=== PATIENT | female | born 1995 | race Caucasian/White ===

== ENCOUNTER → 2019-10-10 11:34 | Outpatient (BNVA) | payer MEDICAID, SELFPAY | PROVIDERS: Family Provider Nurse Practitioner; PCP Nurse Practitioner Family; Visit Provider Nurse Practitioner Family | DX: K64.4 Residual hemorrhoidal skin tags (principal); E66.01 Morbid (severe) obesity due to excess calories; M54.9 Dorsalgia, unspecified; F41.1 Generalized anxiety disorder; N93.9 Abnormal uterine and vaginal bleeding, unspecified; E28.2 Polycystic ovarian syndrome; N76.0 Acute vaginitis; K64.9 Unspecified hemorrhoids; B96.89 Other specified bacterial agents as the cause of diseases classified elsewhere | CPT/HCPCS: 81003 ==

== ENCOUNTER 2019-10-31 12:36 | Outpatient (CLI) | payer MEDICAID, SELFPAY ==
--- NOTE | 2019-10-31 | XR_ITS ---
WS: [id number] RIGHT SECOND FINGER 3 VIEW TECHNIQUE: PA, oblique and lateral. HISTORY: HIT INDEX FINGER WITH HAMMER COMPARISON: None available. No fracture, dislocation or joint abnormality. No significant soft tissue swelling. XR/XR finger RT min 2V [id number] IMPRESSION: Negative second finger.
== END 2019-10-31 12:37 | disposition home or self-care (01) ==
LOC: RADOUTREAD 12:39
PROVIDERS: Family Provider Nurse Practitioner; PCP Nurse Practitioner Family; Visit Provider Nurse Practitioner Family
DX: Z76.89 Persons encountering health services in other specified circumstances (principal)

== ENCOUNTER 2019-11-08 09:10 | Day surgery (SDC) | payer MEDICAID, SELFPAY ==
[2019-11-07 14:25] VITALS: BMI 50.1
[2019-11-08] VITALS (8 sets, daily range): BP systolic 137–161; BP diastolic 73–94; PULSE 82–103; RESP 16–20; TEMP 36.6–37.1; O2SAT 93–97
[2019-11-08 09:56] LABS: OR HCG Qualitative Urine Negative (Negative)
[2019-11-08] MEDS: sodium chloride 0.9% 1,000 ML 30 ML IV (10:00)
--- NOTE | 2019-11-08 10:00 | ANES.PREANE2 ---
Pre-Anesthetic Assessment Pre-Anesthetic Assessment: Height/Weight: Height 1.71 m Weight 147.418 kg Temp Pulse Resp BP Pulse Ox 97.9 F 103 H 18 150/92 96 11/08/19 09:28 11/08/19 09:28 11/08/19 09:28 11/08/19 09:28 11/08/19 09:28 Preop Diagnosis: left medial meniscal tear Proposed Procedure: Operation Date: 11/08/19 10:40 Proposed Procedures p Left knee arthroscopy with medial meniscectomy (98493) S83.242A(Left) - Kin Becerril MD Last intake: Intake Last Liquid Date 11/07/19 Last Liquid Time 21:00 Last Solid Date 11/07/19 Last Solid Time 21:00 Social: Packs per day: 1/2 Pack years: 4 Exam: Pre-Anes Outpt Exam: alert, oriented x 3, clear to auscultation bilaterally and regular rate & rhythm Airway: Submandibular: WNL Cervical ROM: WNL MP: 1 Dentition: False GI: GI: GERD and Hiatus hernia Comments: controlled Metabolic: Metabolic: Morbid obesity Musc/skel: Musc/skel: Lower Back Pain Comments: right radiculopathy Neuropsych: Neuropsych: SIMS PFSH Anesthesia PFSH: Medical History (Updated 10/31/19 @ 10:12 by Kin Becerril MD) Gastro-esophageal reflux disease with esophagitis Generalized anxiety disorder Anoop's disease Peptic ulcer disease Polycystic ovarian syndrome Surgical History (Updated 10/10/19 @ 13:40 by ALEA Jones) History of appendectomy History of cholecystectomy Family History (Updated 10/09/19 @ 15:46 by Maye Stack LPN) Mother Pulmonary embolism Thyroid disease Stroke Hypertension Hyperlipidemia Diabetes Father Diabetes Hyperlipidemia Grandmother Cancer MATERNAL: BRAIN Social History (Updated 10/10/19 @ 11:03 by Ruthie Barron LPN) Smoking and tobacco status: current every day smoker cigarettes Packs smoked per day: 0.5 Years cigarettes smoked: 4 Second hand smoke exposure: No Smoking risk assessment/counseling performed?: Yes Alcohol intake: never Lives independently: Yes Housing: Apartment Marital status: Single Number of children: 2 Female Reproductive History: Para: 2 Data Anesthesia Other Labs: Laboratory Results - last 48 hr 11/08/19 09:25 Urine HCG, Qual Negative Cardiac Studies: No Data to Display
[2019-11-08] MEDS: midazolam 1 mg/mL INJ 2 mL 2 MG IVP (10:11)
[2019-11-08] MEDS: midazolam 1 mg/mL INJ 5 ML 2 MG IV (11:37)
--- NOTE | 2019-11-08 12:13 | PM.HPUD ---
H&P update H&P Update: DATE OF SURGERY/PROCEDURE: 11/08/19 DATE H&P PERFORMED: 10/31/19 H&P UPDATE INFORMATION: H&P completed within last 30 days PREOP DIAGNOSIS: left medial meniscal tear PRIMARY INDICATION FOR PROCEDURE: Left knee pain with meniscal tear per MRI PLANNED PROCEDURE: Operation Date: 11/08/19 10:40 Proposed Procedures p Left knee arthroscopy with medial meniscectomy (49803) S83.242N(Left) - Kin Becerril MD Full H&P Medications/Allergies: Current Medications: Current Medications Generic Name Dose Route Start Last Admin Trade Name Freq PRN Reason Stop Dose Admin Sodium Chloride 1,000 mls @ 30 ml s/hr 11/08/19 09:15 11/08/19 10:00 Sodium Chloride 0.9% IV 11/09/19 09:14 30 mls/hr .Q24H ROSENDO Administration Perinent History: Medical/Surgical History: Medical History (Updated 10/31/19 @ 10:12 by Kin Becerril MD) Gastro-esophageal reflux disease with esophagitis Generalized anxiety disorder Anoop's disease Peptic ulcer disease Polycystic ovarian syndrome Family History: Family History (Updated 10/09/19 @ 15:46 by Maye Stack LPN) Mother Pulmonary embolism Thyroid disease Stroke Hypertension Hyperlipidemia Diabetes Father Diabetes Hyperlipidemia Grandmother Cancer MATERNAL: BRAIN Social History: Social History Smoking and tobacco status: current every day smoker cigarettes Packs smoked per day: 0.5 Years cigarettes smoked: 4 Second hand smoke exposure: No Smoking risk assessment/counseling performed?: Yes Alcohol intake: never Lives independently: Yes Housing: Apartment Marital status: Single Number of children: 2
[2019-11-08] MEDS: clindamycin 600 MG/50 ML PREMIX 100 MG IV (12:37)
[2019-11-08] MEDS: morphine 4 mg/mL SDV 1 mL 8 MG IVP (13:23)
--- NOTE | 2019-11-08 13:40 | PM.OP ---
Operative Report Date of procedure: November 08, 2019 Pre-op Diagnosis: left medial meniscal tear Post-op diagnosis: other Post-op Diagnosis: Left medial meniscal tear Chondromalacia left patella Post-op Findings: Same Procedure Done: Arthroscopic left medial meniscectomy, chondroplasty left patella Pathology: none sent Surgeon: Kin Becerril Anesthesia: General Estimated blood loss (mL): 10 Complications: None Findings: The patient had a complex tear involving the central 50% of the middle and posterior third of the medial meniscus. It consisted of a longitudinal tear with central degeneration. Tearing involves approximately 50% of the meniscus Condition: stable Procedure: The patient was taken to the operating room and given a general anesthesia. She was prepped and draped in the usual fashion. Her knee was infiltrated with 30 cc of 0.5% Marcaine and 10 mg of morphine. The knee was entered through standard inferior medial and inferolateral portals. The diagnostic portion of arthroscopy was performed. The medial meniscus was probed revealing the area of tearing. The tear appeared to involve a manageable amount of meniscus with very poor vascularity. Decision was made to proceed with meniscectomy. A straight basket was used to debride back the central 50% of the middle and posterior thirds of the meniscus. The rim was then cleaned up with an incisor shaver and [employer]rew[employer] probe. This left approximately 50% of the meniscus behind. There is no specific chondromalacia no lateral meniscal tearing. Attention was then focused on the undersurface the patella. An incisor shaver and later [employer] Werewolf probe was introduced breeding back unstable central patellar cartilage. This was thought to involve less than 50% of the cartilage thickness. The knee was irrigated with saline. Portals were closed with 3-0 Prolene. Sterile dressings were applied. Patient was extubated and taken to recovery room in stable condition.
== END 2019-11-08 14:50 | disposition home or self-care (01) ==
PROVIDERS: Family Provider Nurse Practitioner; PCP Nurse Practitioner Family; Visit Provider Orthopaedic Surgery
PROC: (CPT 29870; principal; 2019-11-08 10:40)
DX: S83.242A Other tear of medial meniscus, current injury, left knee, initial encounter (principal); X58.XXXA Exposure to other specified factors, initial encounter; K21.0 Gastro-esophageal reflux disease with esophagitis; Z87.11 Personal history of peptic ulcer disease; E28.2 Polycystic ovarian syndrome; Z82.49 Family history of ischemic heart disease and other diseases of the circulatory system; Z83.3 Family history of diabetes mellitus; F17.210 Nicotine dependence, cigarettes, uncomplicated
CPT/HCPCS: 29881; 12345; 81025; 84703; 96374; 96375; J0330; J1100; J1885; J2001; J2250; J2270; J2405; J2704; J2710; J3010; J3490; J3535; J7030

== ENCOUNTER 2019-11-13 10:30 | Emergency (ER) | payer MEDICAID, SELFPAY ==
[2019-11-13 10:42] VITALS: BP 167/82; PULSE 83; RESP 16; O2SAT 97; BMI 50.1
--- NOTE | 2019-11-13 10:50 | PC.NURSE ---
Patient reports that she had need surgery . Patient states the pain and swelling has got much worse. Patient reports that she has been taking her Hydrocodone and ibuprofen but nothing seems to help.
--- NOTE | 2019-11-13 11:00 | ED_ITS ---
Entered by Shahana East, acting as scribe for Eugenio Encinas MD, [facility] [place] Nov 13, 2019 10:30 HPI - Extremity Problem General: Chief complaint: Extremity Problem,Nontraumatic Stated complaint: LEFT KNEE PAIN Time Seen by Provider: 11/13/19 11:00 Source: patient and RN notes reviewed Mode of arrival: wheelchair Limitations: physical limitation (unable to bear weight on L knee) History of Present Illness: HPI Narrative: 24 yo female presents to ED with complaints of L knee pain. The patient had orthoscopic surgery on her L knee Wednesday11.08.[address]erril. She said the pain has worsened, radiating up to her L hip and down to her L ankle. She has been taking hydrocodone for the pain but it is not touching it. MD Complaint: extremity pain, extremity swelling, joint swelling and joint paint Onset (ago): day(s) (5) Pain Consistency: constant Location: left and knee Quality: stabbing and aching Radiation: proximal, distal and other Relieving factors: nothing Exacerbating factors: range of motion, exertion and rest Associated symptoms: Reports no associated symptoms and chest pain; Deny fever(s) or rash Context: recent surgery/procedure (11.08.2019) Review of Systems General: Reports: 10 or more systems reviewed and unremarkable except in HPI and below Const: Denies: fever, chills or body aches Eyes: Reports: blind spots; Denies: change in vision or blurry vision ENMT: Denies: throat pain, enlarged tonsils, painful swallowing, hoarseness, mouth pain or swelling of lips/tongue Card: Reports: chest pain; Denies: palpitations, irregular heart rhythm, edema or swelling of feet/ankles Resp: Denies: shortness of breath, productive cough or non-productive cough GI: Denies: abdominal pain, nausea or vomiting : Denies: flank pain, difficulty urinating, painful urination, urinary frequency, urinary urgency or urinary hesitancy Musc: Denies: neck pain or back pain Skin/Breast: Denies: rash, itching or redness Neuro: Denies: headache, numbness in extremities or weakness in extremities Endo: Denies: excessive urination, excessive thirst or tired all the time [facility] PFSH: Medical History (Updated 11/13/19 @ 11:51 by Eugenio Encinas MD, [facility] [place]) Gastro-esophageal reflux disease with esophagitis Generalized anxiety disorder Anoop's disease Peptic ulcer disease Polycystic ovarian syndrome Surgical History (Updated 10/10/19 @ 13:40 by MARIELENA Jones-C) History of appendectomy History of cholecystectomy Family History (Updated 10/09/19 @ 15:46 by Maye Stack LPN) Mother Pulmonary embolism Thyroid disease Stroke Hypertension Hyperlipidemia Diabetes Father Diabetes Hyperlipidemia Grandmother Cancer MATERNAL: BRAIN Social History (Updated 10/10/19 @ 11:03 by Ruthie Barron LPN) Smoking and tobacco status: current every day smoker cigarettes Packs smoked per day: 0.5 Years cigarettes smoked: 4 Second hand smoke exposure: No Smoking risk assessment/counseling performed?: Yes Alcohol intake: never Lives independently: Yes Housing: Apartment Marital status: Single Number of children: 2 Female Reproductive History: Para: 2 Physical Exam Const: COMMON NORMALS: no apparent distress, average body habitus, oriented x3, no limitations, healthy appearing, alert and well nourished HENMT: COMMON NORMALS: normocephalic, head/scalp atraumatic and moist oral mucous membranes HEAD & SCALP: normocephalic and atraumatic Eye: COMMON NORMALS: PERRL, EOMs intact bilaterally, conjunctivae normal and no scleral icterus CONJUNCTIVA: Yes conjunctivae normal PUPIL: Yes PERRL Neck/C-Spine: COMMON NORMALS: full ROM, supple, no meningeal signs, no JVD and no carotid bruits Chest: COMMONS NORMALS: inspection of chest normal and palpation of chest normal Resp: COMMON NORMALS: normal respiratory effort, no retractions, no use of accessory muscles, clear to auscultation bilaterally and percussion normal AUSCULTATION: clear to auscultation bilaterally PERCUSSION: percussion normal Cardio: COMMON NORMALS: no JVD, regular rate, regular rhythm, S1 normal heart sound, S2 normal heart sound, no gallops, no clicks, no murmurs, no rub and peripheral pulses 2+ throughout RATE: regular rate RHYTHM: regular rhythm HEART SOUNDS: S1 normal and S2 normal PERIPHERAL PULSES: pulses 2+ throughout GI: COMMON NORMALS: normal to inspection, nondistended, normoactive bowel sounds, soft to palpation, non-tender, no hepatosplenomegaly, no masses and no bruits PALPATION: Yes soft and Yes no hepatosplenomegaly : COMMON NORMALS: Yes no CVA tenderness BLADDER/KIDNEY EXAM: Yes no CVA tenderness Back/Pelvis: COMMON NORMALS: no CVA tenderness Extremity: COMMON NORMALS: normal capillary refill LEFT LOWER EXTREMITY: Yes hip joint Left hip: Yes ROM (painful ROM), Yes knee joint (Surgical incisions well apposed. No erythema, warmth or drainage. There is generalized tenderness) Left knee: Yes inspection (healing surgical wounds) and Yes ROM (orthoscopic surgery 11.08.2019, unable to bear weight, no ROM present) and Yes ankle joint Left ankle: Yes ROM (painful ROM) Neuro: COMMON NORMALS: oriented x3 SENSORIUM/ORIENTATION: Yes alert MENINGEAL SIGNS: Yes no meningeal signs Skin: COMMON NORMALS: no rashes or lesions noted, no wounds, skin turgor normal, no jaundice, no petechiae and no mottling GENERAL SKIN EXAM: no rashes or lesions noted and turgor normal Course Reevaluation(s): Reevaluation #1: Discussed her imaging findings with her. X- ray is unremarkable. Since there are no signs of infection at the surgical site and no signs of cellulitis, I will discharge her home to follow-up with the orthopedic surgeon later today as scheduled. She voiced understanding and is in agreement with the plan Time: 11:48 Vital Signs: Vital signs: Vital Signs Pulse Rate 83 11/13/19 10:42 Respiratory Rate 16 11/13/19 10:42 Blood Pressure 167/82 11/13/19 10:42 Pulse Oximetry 97 11/13/19 10:42 MDM - Extremity (Nontraumatic) MDM Narrative: Medical decision making narrative: 24-year-old female patient who had left knee arthroscopy and medial meniscectomy following a left medial meniscal tear. Surgery was 5 days ago. The patient presents to the emergency department with worsening pain in her left knee. On examination no signs of complications of the surgery, no signs of infection. No effusion, no erythema, no cellulitis. She is given intramuscular analgesics and discharged to follow- up with the orthopedic surgeon as she has an appointment in about 2 hours from now. Medical Records: Attestation: I reviewed the patient's medical records. Discharge Plan Discharge Patient Disposition: Home, Self-Care Clinical Impression: Post-operative pain Condition: Stable Prescriptions: Continued Contrave 8-90 mg tablet extended release 2 tab PO BID RF: 0 cyclobenzaprine 10 mg tablet 10 mg PO BID PRN (Reason: muscle spasm) RF: 0 Low-Ogestrel (28) 0.3-30 mg-mcg tablet 1 tab PO DAILY RF: 0 hydrocortisone [Anusol-HC] 2.5 % cream with perineal applicator 1 applic DC BID PRN (Reason: hemorrhoids) Qty: 28.35 RF: 0 lidocaine [RectiCare] 5 % cream 1 applic TOPICAL TID PRN (Reason: pain) 7 Days Qty: 30 RF: 2 Zofran 4 mg Tablet 4 mg PO BID PRN (Reason: Nausea) RF: 0 lorazepam 0.5 mg Tablet 0.5 mg PO BID PRN (Reason: Anxiety) RF: 0 naproxen sodium 220 mg Tablet 440 mg PO Q4H PRN (Reason: Pain) RF: 0 ibuprofen 200 mg Tablet 800 mg PO Q4H PRN (Reason: Pain) RF: 0 metformin 500 mg tablet extended release 24 hr 500 mg PO BID RF: 0 hydrocodone-acetaminophen 5-325 mg tablet 1 tab PO Q4H PRN (Reason: Pain) RF: 0 Lexapro 10 mg tablet 10 mg PO DAILY RF: 0 Discharge Orders: Discharge Order (Routine); Ordered 11/13/19 Ordered By: Eugenio Encinas Referrals: Jan Hammer CLASSICS TEACHER-C [Family Provider] - Radha Smith FNP-C [Primary Care Provider] - 4-7 days Kin Becerril MD [Physician] - (Today as scheduled) Patient Instructions: Post Operative Pain Activity Restrictions/Additional Instructions: Return for any new or worsening symptoms. Follow-up with Dr. Becerril as scheduled today. Follow-up with your primary care provider within 1 week. Manage your knee as instructed by Dr. Becerril. Coding Level of Care Code ED Ecommerce Marketing Manager for Chg Fwd Exam Comprehensive The documentation recorded by the Kita dean Valerie R accurately reflects the service I personally performed and the decisions made by Huang odonnell Adegoke I, MD, [facility] [place] Nov 13, 2019 10:30
--- NOTE | 2019-11-13 11:13 | XR_ITS ---
WS: [id number] XR knee LT 3V* [id number] REASON FOR EXAM: s/p knee surgery. Severe knee pain. FINDINGS: The meniscal spaces are normal. The patella tibial space is normal. The patellofemoral femoral articulations are normal. No unusual swelling or masses are seen. XR/XR knee LT 3V* [id number] IMPRESSION: Negative left knee
[2019-11-13] MEDS: ketorolac 60 mg/2 mL INJ IM (11:22)
[2019-11-13 11:54] VITALS: RESP 16; O2SAT 98
[2019-11-13] MEDS: morphine 4 mg/mL SDV 1 mL 10 MG IM (11:54)
[2019-11-13 12:05] VITALS: BP 131/80; PULSE 78; RESP 17; O2SAT 97
== END 2019-11-13 12:06 | disposition home or self-care (01) ==
PROVIDERS: Emergency Provider Family Medicine; Family Provider Nurse Practitioner; PCP Nurse Practitioner Family
DX: G89.18 Other acute postprocedural pain (principal); M25.562 Pain in left knee; M25.552 Pain in left hip; M25.572 Pain in left ankle and joints of left foot; F17.210 Nicotine dependence, cigarettes, uncomplicated
CPT/HCPCS: 73562; 96372; 99281; 99283; J1885; J2270

== ENCOUNTER → 2019-11-30 09:15 | Outpatient (BNVA) | payer MEDICAID, SELFPAY | PROVIDERS: Family Provider Nurse Practitioner; PCP Nurse Practitioner Family; Visit Provider Nurse Practitioner | DX: M25.562 Pain in left knee (principal) | CPT/HCPCS: 73562; 84443 ==

== ENCOUNTER 2020-01-06 12:24 | Emergency (ER) | payer MEDICAID, SELFPAY ==
[2020-01-06 12:35] VITALS: BP 126/79; PULSE 89; RESP 17; TEMP 36.8; O2SAT 100; BMI 48.6
--- NOTE | 2020-01-06 12:58 | XRR_ITS ---
PROCEDURE INFORMATION: Exam: XR Left Knee Exam date and time: 01/06/2020 12:59 PM Age: 24 years old Clinical indication: Injury or trauma; Fall; Initial encounter; Blunt trauma; Prior surgery; Surgery date: 1-6 months; Surgery type: On her left knee to remove torn cartilage TECHNIQUE: Imaging protocol: XR Left knee. Views: 3 views. COMPARISON: No relevant prior studies available. FINDINGS: Bones/joints: Normal. Soft tissues: Normal. XR/XR knee LT 3V* [id number] IMPRESSION: No acute findings.
--- NOTE | 2020-01-06 13:08 | W.ED.EXTPRO ---
HPI - Extremity Problem General: Chief complaint: Extremity Injury, Lower Stated complaint: knee pain Time Seen by Provider: 01/06/20 12:35 Source: patient Mode of arrival: ambulatory Limitations: no limitations History of Present Illness: HPI Narrative: Had arthroscopic surgery on the knee 2 months ago. She states she is unable to bear weight. 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) Pain Consistency: constant Location: left and knee Severity scale (1-10): 10 Quality: sharp Radiation: none Relieving factors: nothing Exacerbating factors: range of motion and weight bearing Associated symptoms: Reports no associated symptoms and chest pain; Deny fever(s) or rash Review of Systems General: Reports: 10 or more systems reviewed and unremarkable except in HPI and below Const: Denies: fever, chills or body aches Eyes: Denies: change in vision or blurry vision ENMT: Denies: throat pain, enlarged tonsils, painful swallowing, hoarseness, mouth pain or swelling of lips/tongue Card: Reports: chest pain; Denies: palpitations, irregular heart rhythm, edema or swelling of feet/ankles Resp: Denies: shortness of breath, productive cough or non-productive cough GI: Denies: abdominal pain, nausea or vomiting : Denies: flank pain, difficulty urinating, painful urination, urinary frequency, urinary urgency or urinary hesitancy Musc: Reports: joint pain and limited range of motion; Denies: extremity swelling or joint swelling Skin/Breast: Denies: rash, itching or redness Neuro: Denies: headache, numbness in extremities or weakness in extremities Endo: Denies: excessive urination, excessive thirst or tired all the time PFSH ED PFSH: Medical History (Updated 01/06/20 @ 13:31 by Eugenio [place] [facility] [place] Anxiety as acute reaction to gross stress Class 2 severe obesity with serious comorbidity in adult Gastro-esophageal reflux disease with esophagitis Generalized anxiety disorder Anoop's disease Peptic ulcer disease Polycystic ovarian syndrome Surgical History (Updated 11/30/19 @ 09:44 by ALEA Kaiser) History of appendectomy History of cholecystectomy Status post arthroscopic surgery of left knee October 2019 Social History Smoking and tobacco status: current every day smoker cigarettes Packs smoked per day: 0.5 Years cigarettes smoked: 4 Second hand smoke exposure: No Smoking risk assessment/counseling performed?: Yes Alcohol intake: never Desire information about alcohol rehabilitation?: No Counseling given: No Desire information about substance/drug rehabilitation?: No Counseling given: No Adopted: No Caregiver/support person: No Lives independently: Yes Housing: Apartment Marital status: Single Number of children: 2 service: No Current occupational status: unemployed Pets and animals: Yes Pets & animals: dog(s) History of recent travel: No Current gender identity: Female Female Reproductive History: Date of last menstrual period: 12/18/19 Para: 2 Physical Exam Const: COMMON NORMALS: no apparent distress, average body habitus, oriented x3, no limitations, healthy appearing, alert and well nourished HENMT: COMMON NORMALS: normocephalic, head/scalp atraumatic and moist oral mucous membranes HEAD & SCALP: normocephalic and atraumatic Eye: COMMON NORMALS: PERRL, EOMs intact bilaterally, conjunctivae normal and no scleral icterus CONJUNCTIVA: Yes conjunctivae normal PUPIL: Yes PERRL Neck/C-Spine: COMMON NORMALS: full ROM, supple, no meningeal signs, no JVD and no carotid bruits Chest: COMMONS NORMALS: inspection of chest normal and palpation of chest normal Resp: COMMON NORMALS: normal respiratory effort, no retractions, no use of accessory muscles, clear to auscultation bilaterally and percussion normal AUSCULTATION: clear to auscultation bilaterally PERCUSSION: percussion normal Cardio: COMMON NORMALS: no JVD, regular rate, regular rhythm, S1 normal heart sound, S2 normal heart sound, no gallops, no clicks, no murmurs, no rub and peripheral pulses 2+ throughout RATE: regular rate RHYTHM: regular rhythm HEART SOUNDS: S1 normal and S2 normal PERIPHERAL PULSES: pulses 2+ throughout GI: COMMON NORMALS: normal to inspection, nondistended, normoactive bowel sounds, soft to palpation, non-tender, no hepatosplenomegaly, no masses and no bruits PALPATION: Yes soft and Yes no hepatosplenomegaly : COMMON NORMALS: Yes no CVA tenderness BLADDER/KIDNEY EXAM: Yes no CVA tenderness Back/Pelvis: COMMON NORMALS: no CVA tenderness Extremity: COMMON NORMALS: normal to inspection, full ROM, normal capillary refill, no calf tenderness and no pedal edema RIGHT LOWER EXTREMITY: Yes knee joint Right knee: Yes palpation (generalized tenderness.) and Yes ROM (reduce ROM in any direction) Neuro: COMMON NORMALS: oriented x3 SENSORIUM/ORIENTATION: Yes alert MENINGEAL SIGNS: Yes no meningeal signs Skin: COMMON NORMALS: no rashes or lesions noted, no wounds, skin turgor normal, no jaundice, no petechiae and no mottling GENERAL SKIN EXAM: no rashes or lesions noted and turgor normal Course Reevaluation(s): Reevaluation #1: Discussed her x-ray findings with her. Negative for fracture or dislocation. We will manage her conservatively as a case of a knee sprain. Advised ice, elevation, ibuprofen/Tylenol and to ambulate using crutches until she can bear weight fully. She is to follow-up with her primary care provider for an MRI if her symptoms do not improve. She voiced understanding and is in agreement with the plan Time: 13:25 Vital Signs: Vital signs: Vital Signs Temperature 98.2 F 01/06/20 12:35 Pulse Rate 89 01/06/20 12:35 Respiratory Rate 17 01/06/20 12:35 Blood Pressure 126/79 01/06/20 12:35 Pulse Oximetry 100 01/06/20 12:35 MDM - Extremity (Nontraumatic) MDM Narrative: Medical decision making narrative: Patient who slipped and fell today while at [facility]. She was wearing flip-flops and her flip-flop slipped when she was walking. She landed on her left knee and had severe left knee pain. X-ray of the knee was negative for acute findings. She is discharged home on conservative management and is to follow-up with her primary care provider. Imaging Data^: Xray Ortho: Radiologist's impression: [address] [address] XRay Report Signed Patient: Neo Noland AUnchao #: [id number] : 1995Acct#:[id number] Age/Sex: 24 / FADM Date: 01/06/20 Loc: ERRoom/Bed: Attending Dr: Ordering Provider/Ordering MD: Eugenio Encinas [place] [facility] [place] Date of Service: 01/06/20 Procedure(s): XR knee LT 3V* [id number] Accession Number(s): [id number] Report Number: [id number] PROCEDURE INFORMATION: Exam: XR Left Knee Exam date and time: 01/06/2020 12:59 PM Age: 24 years old Clinical indication: Injury or trauma; Fall; Initial encounter; Blunt trauma; Prior surgery; Surgery date: 1-6 months; Surgery type: On her left knee to remove torn cartilage TECHNIQUE: Imaging protocol: XR Left knee. Views: 3 views. COMPARISON: No relevant prior studies available. FINDINGS: Bones/joints: Normal. Soft tissues: Normal. XR/XR knee LT 3V* [id number] IMPRESSION: No acute findings. Dictated By:Anthony Cobos MD Signed By:Anthony Cobos MDSigned Date/Time:01/06/20 132 DD/ 132 Discharge Plan Discharge Patient Disposition: Home, Self-Care Clinical Impression: Left knee sprain Qualifiers: Encounter type: initial encounter Involved ligament of knee: other ligament Qualified Code(s): S83.8X2A - Sprain of other specified parts of left knee, initial encounter Fall Qualifiers: Encounter type: initial encounter Qualified Code(s): W19.XXXA - Unspecified fall, initial encounter Condition: Stable Prescriptions: Continued Lexapro 10 mg tablet 10 mg PO DAILY Qty: 30 RF: 2 metformin 500 mg tablet extended release 24 hr 500 mg PO BID Qty: 60 RF: 2 Contrave 8-90 mg tablet extended release 2 tab PO BID Qty: 120 RF: 0 cyclobenzaprine 10 mg tablet 10 mg PO BID PRN (Reason: muscle spasm) RF: 0 Low-Ogestrel (28) 0.3-30 mg-mcg tablet 1 tab PO DAILY RF: 0 hydrocortisone [Anusol-HC] 2.5 % cream with perineal applicator 1 applic CO BID PRN (Reason: hemorrhoids) Qty: 28.35 RF: 0 lidocaine [RectiCare] 5 % cream 1 applic TOPICAL TID PRN (Reason: pain) 7 Days Qty: 30 RF: 2 levothyroxine [Levo-T] 25 mcg tablet 25 mcg PO DAILY Qty: 30 RF: 2 lorazepam 0.5 mg Tablet 0.5 mg PO BID PRN (Reason: Anxiety) RF: 0 naproxen sodium 220 mg Tablet 440 mg PO Q4H PRN (Reason: Pain) RF: 0 Discharge Orders: Discharge Order (Routine); Ordered 01/06/20 Ordered By: Eugenio Encinas Referrals: Jan Hammer FNP-C [Family Provider] - Radha Smith FNP-C [Primary Care Provider] - (as scheduled ) Discharge Diet: Usual diet Discharge Activity: Use walker/crutches as instructed Patient Instructions: Knee Sprain (ED) Activity Restrictions/Additional Instructions: Return for any new or worsening symptoms. follow up with your primary care provider as scheduled. Coding Level of Care Code ED Geophysical E Logger for [place]eling Fwd Exam Comprehensive
[2020-01-06] MEDS: ketorolac 60 mg/2 mL INJ IM (13:24)
[2020-01-06 14:20] VITALS: BP 147/89; PULSE 89; RESP 18; O2SAT 98
== END 2020-01-06 14:20 | disposition home or self-care (01) ==
PROVIDERS: Emergency Provider Family Medicine; Family Provider Nurse Practitioner; PCP Nurse Practitioner Family
DX: S83.8X2A Sprain of other specified parts of left knee, initial encounter (principal); M25.562 Pain in left knee; W01.0XXA Fall on same level from slipping, tripping and stumbling without subsequent striking against object, initial encounter; F17.210 Nicotine dependence, cigarettes, uncomplicated; K21.0 Gastro-esophageal reflux disease with esophagitis; E66.01 Morbid (severe) obesity due to excess calories; F41.1 Generalized anxiety disorder; E28.2 Polycystic ovarian syndrome; E06.3 Autoimmune thyroiditis
CPT/HCPCS: 12345; 73562; 96372; 99281; 99283; J1885

== ENCOUNTER 2020-01-07 14:56 | Emergency (ER) | payer MEDICAID, SELFPAY ==
[2020-01-07 15:34] VITALS: BP 126/86; PULSE 86; RESP 17; O2SAT 98; BMI 48.6
[2020-01-07 15:42] VITALS: TEMP 36.9
[2020-01-07 15:43] VITALS: BP 126/86; PULSE 89; RESP 17; O2SAT 98
== END 2020-01-07 16:20 | disposition left against medical advice (07) ==
LOC: ER 15:18
PROVIDERS: Emergency Provider Nurse Practitioner Family; Family Provider Nurse Practitioner; PCP Nurse Practitioner Family
DX: Z53.21 Procedure and treatment not carried out due to patient leaving prior to being seen by health care provider (principal); M25.562 Pain in left knee
CPT/HCPCS: 99281

== ENCOUNTER 2020-02-10 20:21 | Emergency (ER) | payer MEDICAID, SELFPAY ==
[2020-02-10 20:32] VITALS: BP 166/78; PULSE 110; RESP 14; TEMP 37; O2SAT 98; BMI 50.1
[2020-02-10 21:53] LABS: Basophils % 0.2 %; Eosinophils # 0.2 10^3/uL (0.0-0.8); Eosinophils % 1.4 %; Hematocrit 39.6 % (37.0-47.0); Hemoglobin 12.6 g/dL (11.5-15.3); Lymphocytes # 4.3 10^3/uL (0.8-4.8); Lymphocytes % 35.8 %; Mean Corpuscular HGB Conc 31.8 g/dL (30.0-36.0); Mean Corpuscular Hemoglobin 26.1 pg (28.0-34.0); Mean Platelet Volume 8.7 fL (7.4-10.4); Monocytes # 0.7 10^3/uL (0.2-0.9); Monocytes % 5.9 %; Neutrophils # 6.7 10^3/uL (1.8-7.7); Neutrophils % 56.3 %; Nucleated Red Blood Cells % 0 %; Platelet Count 325 10^3/cmm (130-400); Red Blood Count 4.83 10^6/uL (4.1-5.3); Red Cell Distribution Width 15.9 % (12.1-15.1)
[2020-02-10 22:02] VITALS: BP 132/74; PULSE 86; RESP 16; O2SAT 98
[2020-02-10 22:11] LABS: Alanine Aminotransferase 21 U/L (0-33); Albumin Level 4.2 g/dL (3.5-5.2); Alkaline Phosphatase 84 IU/L (35-105); Anion Gap 15.9 (5-19); Aspartate Amino Transferase 14 U/L (0-32); Blood Urea Nitrogen 12 mg/dL (6-20); Calcium 9.7 mg/dL (8.5-10.5); Carbon Dioxide 24 mmol/L (22-29); Chloride 101 mmol/L (98-107); Globulin 2.5 g/dL (1.3-4.6); Glomerular Filtration Rate 149.1 mL/min (90-130); Glucose 185 mg/dL (65-115); Osmolality Calculated 285 mOsm/kg (285-295); Potassium 3.9 mmol/L (3.5-5.1); Sodium 137 mmol/L (136-145); Total Bilirubin 0.2 mg/dL (0.15-1.2); Total Protein 6.7 g/dL (6.6-8.7)
--- NOTE | 2020-02-10 22:11 | ED_ITS ---
HPI - Abdominal Pain General: Chief Complaint: Abdominal Pain Stated Complaint: ABD PAIN; (NOT SURE HOW FAR ALONG) Time Seen by Provider: 02/10/20 22:10 Source: patient Mode of arrival: ambulatory Limitations: no limitations History of Present Illness: HPI narrative: Patient is a 25-year-old female currently at unknown gestational age here for complaints of lower abdominal pain that began today. Patient has not had any vaginal bleeding, vaginal discharge, vaginal odor. She does not complain of dysuria, hematuria, frequency or urgency. Patient reports her last menstrual period being 12/22. MD elicited complaint: abdominal pain Location: Pelvis Severity: mild Migration to: no migration Exacerbating factors: nothing Relieving factors: nothing Associated Symptoms: Denies chills, constipation, diarrhea, dysuria, fever(s), nausea and vomiting Related Data: Date of Last Menstrual Period: 12/23/19 Review of Systems General: Reports: 10 or more systems reviewed and unremarkable except in HPI and below Const: Denies: fever(s) or chills Card: Denies: chest pain Resp: Denies: dyspnea GI: Reports: abdominal pain; Denies: nausea, vomiting, diarrhea or constipation : Reports: pelvic pain; Denies: flank pain, difficulty voiding, dysuria, urinary frequency, urinary urgency, genital lesions, genital pruritis, vaginal bleeding or vaginal discharge Musc: Denies: neck pain or back pain Skin/Breast: Denies: rash Neuro: Denies: headache(s), numbness in extremities, weakness in extremities or sensory changes PFSH ED PFSH: Medical History (Updated 02/10/20 @ 23:11 by RANJITH Rose) Anxiety as acute reaction to gross stress Class 2 severe obesity with serious comorbidity in adult Gastro-esophageal reflux disease with esophagitis Generalized anxiety disorder Anoop's disease Peptic ulcer disease Polycystic ovarian syndrome Surgical History (Updated 11/30/19 @ 09:44 by ALEA Kaiser) History of appendectomy History of cholecystectomy Status post arthroscopic surgery of left knee October 2019 Family History Mother Pulmonary embolism Thyroid disease Stroke Hypertension Hyperlipidemia Diabetes Father Diabetes Hyperlipidemia Grandmother Cancer MATERNAL: BRAIN Social History Smoking and tobacco status: former smoker Second hand smoke exposure: No Smoking risk assessment/counseling performed?: Yes Alcohol intake: never Desire information about alcohol rehabilitation?: No Counseling given: No Desire information about substance/drug rehabilitation?: No Counseling given: No Adopted: No Caregiver/support person: No Lives independently: Yes Housing: Apartment Marital status: Single Number of children: 2 service: No Current occupational status: unemployed Pets and animals: Yes Pets & animals: dog(s) History of recent travel: No Current gender identity: Female Female Reproductive History: Date of last menstrual period: 12/23/19 Para: 2 Physical Exam Const: COMMON NORMALS: no acute distress, patient oriented x3, no limitations and alert NUTRITIONAL APPEARANCE: obese morbidly obese HENMT: COMMON NORMALS: normocephalic and atraumatic HEAD & SCALP: normocephalic and atraumatic Resp: COMMON NORMALS: normal respiratory effort and clear to auscultation bilaterally AUSCULTATION: clear to auscultation bilaterally Cardio: COMMON NORMALS: regular rate and regular rhythm RATE: regular rate RHYTHM: regular rhythm GI: COMMON NORMALS: Normal to inspection, nondistended, normoactive bowel sounds present, Soft to palpation, No hepatosplenomegaly present and no masses PALPATION: Yes Soft to palpation, Yes Tenderness to palpation present (GI) (mild tenderness over middle pelvis ) and Yes No hepatosplenomegaly present : COMMON NORMALS: Yes no CVA tenderness BLADDER/KIDNEY EXAM: Yes no CVA tenderness Back/Pelvis: COMMON NORMALS: no CVA tenderness Neuro: COMMON NORMALS: patient oriented x3 SENSORIUM/ORIENTATION: Yes alert Skin: COMMON NORMALS: no rashes or lesions noted GENERAL SKIN EXAM: no rashes or lesions noted Course Vital Signs: Vital signs: Vital Signs Temperature 98.6 F 02/10/20 20:32 Pulse Rate 86 02/10/20 22:02 Respiratory Rate 16 02/10/20 22:02 Blood Pressure 132/74 02/10/20 22:02 Pulse Oximetry 98 02/10/20 22:02 MDM - Abdominal Pain MDM Narrative: Medical decision making narrative: Patient's hCG today roughly 6200. Her ultrasound confirms a live IUP. She is not having any vaginal bleeding or vaginal discharge. Recommend she follow-up with Dr. Alcantara as soon as possible for further OB care. Return to ED precautions given. Lab Data: Labs: Lab Results 02/10/20 02/10/20 02/10/20 Range/Units 21:47 21:47 21:47 WBC 12.0 H (4.0-10.0) 10^3/ uL RBC 4.83 (4.1-5.3) 10^6/u L Hgb 12.6 (11.5-15.3) g/dL Hct 39.6 (37.0-47.0) % MCV 82.0 (81-99) fL MCH 26.1 L (28.0-34.0) pg MCHC 31.8 (30.0-36.0) g/dL RDW 15.9 H (12.1-15.1) % Plt Count 325 (130-400) 10^3/c mm MPV 8.7 (7.4-10.4) fL Neut % (Auto) 56.3 % Lymph % (Auto) 35.8 % Dawes % (Auto) 5.9 % Eos % (Auto) 1.4 % Baso % (Auto) 0.2 % Neut # (Auto) 6.7 (1.8-7.7) 10^3/u L Lymph # (Auto) 4.3 (0.8-4.8) 10^3/u L Dawes # (Auto) 0.7 (0.2-0.9) 10^3/u L Eos # (Auto) 0.2 (0.0-0.8) 10^3/u L Baso # (Auto) 0.0 (0.0-0.1) 10^3/u L Nucleated RBC % (a uto) 0 % Nucleated RBCs # 0.0 /100WBC Sodium 137 (136-145) mmol/L Potassium 3.9 (3.5-5.1) mmol/L Chloride 101 (98-107) mmol/L Carbon Dioxide 24 (22-29) mmol/L Anion Gap 15.9 (5-19) BUN 12 (6-20) mg/dL Creatinine 0.5 (0.5-0.9) mg/dL GFR Calculation 149.1 H (90-130) mL/min Glucose 185 H (65-115) mg/dL Calculated Osmolal ity 285 (285-295) mOsm/k g Calcium 9.7 (8.5-10.5) mg/dL Total Bilirubin 0.2 (0.15-1.2) mg/dL AST 14 (0-32) U/L ALT 21 (0-33) U/L Alkaline Phosphata se 84 (35-105) IU/L Total Protein 6.7 (6.6-8.7) g/dL Albumin 4.2 (3.5-5.2) g/dL Globulin 2.5 (1.3-4.6) g/dL HCG, Qual Positive H (Negative) Ser , Faiza i-Qnt mIU/mL Urine Color (Yellow) Urine Appearance (CLEAR) Urine pH (5-7) Ur Specific Gravit y (1.005-1.030) Urine Protein (Negative) Urine Glucose (UA) (Normal) Urine Ketones (Negative) Urine Blood (Negative) Urine Nitrate (Negative) Urine Bilirubin (NEGATIVE) Urine Urobilinogen (Negative) mg/dL Ur Leukocyte Anabell ase (Negative) Urine RBC (0-2) /hpf Urine WBC (0-5) /hpf Ur Squamous Epith Cells (0-5) Urine Bacteria (NONE) Urine Mucus 02/10/20 02/10/20 Range/Units 21:48 22:25 WBC (4.0-10.0) 10^3/ uL RBC (4.1-5.3) 10^6/u L Hgb (11.5-15.3) g/dL Hct (37.0-47.0) % MCV (81-99) fL MCH (28.0-34.0) pg MCHC (30.0-36.0) g/dL RDW (12.1-15.1) % Plt Count (130-400) 10^3/c mm MPV (7.4-10.4) fL Neut % (Auto) % Lymph % (Auto) % Dawes % (Auto) % Eos % (Auto) % Baso % (Auto) % Neut # (Auto) (1.8-7.7) 10^3/u L Lymph # (Auto) (0.8-4.8) 10^3/u L Dawes # (Auto) (0.2-0.9) 10^3/u L Eos # (Auto) (0.0-0.8) 10^3/u L Baso # (Auto) (0.0-0.1) 10^3/u L Nucleated RBC % (a uto) % Nucleated RBCs # /100WBC Sodium (136-145) mmol/L Potassium (3.5-5.1) mmol/L Chloride (98-107) mmol/L Carbon Dioxide (22-29) mmol/L Anion Gap (5-19) BUN (6-20) mg/dL Creatinine (0.5-0.9) mg/dL GFR Calculation (90-130) mL/min Glucose (65-115) mg/dL Calculated Osmolal ity (285-295) mOsm/k g Calcium (8.5-10.5) mg/dL Total Bilirubin (0.15-1.2) mg/dL AST (0-32) U/L ALT (0-33) U/L Alkaline Phosphata se (35-105) IU/L Total Protein (6.6-8.7) g/dL Albumin (3.5-5.2) g/dL Globulin (1.3-4.6) g/dL HCG, Qual (Negative) Ser , Faiza i-Qnt 6206.00 mIU/mL Urine Color Yellow (Yellow) Urine Appearance Sl hazy (CLEAR) Urine pH 5 (5-7) Ur Specific Gravit y 1.030 (1.005-1.030) Urine Protein Neg (Negative) Urine Glucose (UA) Norm (Normal) Urine Ketones Negative (Negative) Urine Blood 2+ H (Negative) Urine Nitrate Negative (Negative) Urine Bilirubin Neg (NEGATIVE) Urine Urobilinogen Norm (Negative) mg/dL Ur Leukocyte Anabell ase Negative (Negative) Urine RBC 0-4 H (0-2) /hpf Urine WBC 5-10 H (0-5) /hpf Ur Squamous Epith Cells 15-25 H (0-5) Urine Bacteria 1+ H (NONE) Urine Mucus 1+ Discharge Plan Discharge Patient Disposition: Home, Self-Care Clinical Impression: Qualifiers: Weeks of gestation: less than 8 weeks Qualified Code(s): Z3A.01 - Less than 8 weeks gestation of Condition: Stable Prescriptions: No Action Lexapro 10 mg tablet 10 mg PO DAILY Qty: 30 RF: 2 Contrave 8-90 mg tablet extended release 2 tab PO BID Qty: 120 RF: 0 cyclobenzaprine 10 mg tablet 10 mg PO BID PRN (Reason: muscle spasm) RF: 0 Low-Ogestrel (28) 0.3-30 mg-mcg tablet 1 tab PO DAILY RF: 0 hydrocortisone [Anusol-HC] 2.5 % cream with perineal applicator 1 applic [place] BID PRN (Reason: hemorrhoids) Qty: 28.35 RF: 0 lidocaine [RectiCare] 5 % cream 1 applic TOPICAL TID PRN (Reason: pain) 7 Days Qty: 30 RF: 2 levothyroxine [Levo-T] 25 mcg tablet 25 mcg PO DAILY Qty: 30 RF: 2 lorazepam 0.5 mg Tablet 0.5 mg PO BID PRN (Reason: Anxiety) RF: 0 naproxen sodium 220 mg Tablet 440 mg PO Q4H PRN (Reason: Pain) RF: 0 Discharge Orders: Discharge Order (Routine); Ordered 02/10/20 Ordered By: Nia Gavin Referrals: Jan Hammer, [employer]ICAL [employer]AN DRIVER-C [Primary Care Provider] - Discharge Diet: Usual diet Discharge Activity: Resume usual activity Patient Instructions: (ED) Activity Restrictions/Additional Instructions: As discussed you need to follow-up with Dr. Alcantara as soon as possible. You may return to the emergency department for worsening pain, vaginal bleeding, vaginal discharge/odor, or any other concerns you may have. Discharge Date/Time: 02/10/20 23:22 Coding Level of Care Code ED Commercial Escrow Officer for Scooter Kuhn
[2020-02-10 22:12] LABS: HCG, Serum Qual Positive (Negative)
--- NOTE | 2020-02-10 22:44 | USR_ITS ---
PROCEDURE INFORMATION: Exam: US First Trimester, Transabdominal and US , Transvaginal Exam date and time: 02/10/2020 11:05 PM Age: 25 years old Clinical indication: complicated by abdominal or pelvic pain; Generalized abdominal pain; First trimester; Gestational age or lmp: 6w 0d; ; Additional info: ; Pain TECHNIQUE: Imaging protocol: Real-time transabdominal obstetrical ultrasound of the maternal pelvis and a first trimester , less than 14 weeks 0 days, with image documentation. Transvaginal imaging was used for better evaluation of the fetus and adnexa. COMPARISON: [facility] OB > 14 weeks 06/09/2013 3:52 PM FINDINGS: Gestation: Single live IUP Heart rate: 118 bpm Placenta: Unremarkable. No subchorionic bleed. Amniotic fluid: Amniotic fluid is normal for gestational age. BIOMETRY: Estimated gestational age: 6 week 0 day [place]-Rump length: 0.39 cm 6 week 0 day Estimated due date: 10/05/2020 MATERNAL: Uterus: Unremarkable. Cervix: Unremarkable. Right adnexa: Unremarkable. Left adnexa: Unremarkable. Intraperitoneal: No intraperitoneal free fluid. US/ OB <= 14 weeks fetus [id number] IMPRESSION: Single live IUP approximately 6 weeks 0 days gestational age.
[2020-02-10 22:49] LABS: Bilirubin Urine Neg (NEGATIVE); Blood Urine 2+ (Negative); Glucose Urine UA Norm (Normal); Ketones Urine Negative (Negative); Leukocyte Esterase Urine Negative (Negative); Nitrate Urine Negative (Negative); Protein Urine Neg (Negative); Urine Appearance SL Hazy (CLEAR); Urine Color Yellow (Yellow); Urobilinogen Urine Norm (Negative); pH Urine 5 (5-7)
[2020-02-10 22:50] LABS: RBC Urine 0-4 /hpf (0-2)
[2020-02-10 22:51] LABS: Add Urine Culture? No; Bacteria Urine 1+; Mucus Urine 1+; Squamous Epithelial Cell Urine 15-25 (0-5)
== END 2020-02-10 23:22 | disposition home or self-care (01) ==
PROVIDERS: Emergency Medicine; Emergency Provider Physician Assistant; Family Provider Nurse Practitioner; PCP Nurse Practitioner
DX: O26.891 Other specified pregnancy related conditions, first trimester (principal); R10.9 Unspecified abdominal pain; Z3A.01 Less than 8 weeks gestation of pregnancy; Z87.891 Personal history of nicotine dependence
CPT/HCPCS: 12345; 36415; 76801; 76830; 80053; 81001; 84702; 84703; 85025; 87086; 99281; 99283; A9270

== ENCOUNTER 2020-03-24 15:52 | Emergency (ER) | payer MEDICAID, SELFPAY ==
[2020-03-24 15:59] VITALS: BMI 53.8
[2020-03-24 16:01] VITALS: BP 170/108; PULSE 97; RESP 20; TEMP 36.8; O2SAT 98
--- NOTE | 2020-03-24 16:11 | USR_ITS ---
PROCEDURE INFORMATION: Exam: US First Trimester, Transabdominal and US , Transvaginal Exam date and time: 03/24/2020 4:57 PM Age: 25 years old Clinical indication: Lmp or gestational age (in weeks): 13 wks 1 day by lmp (3-28-20); Other: Cramping, bleeding; TECHNIQUE: Imaging protocol: Real-time transabdominal obstetrical ultrasound of the maternal pelvis and a first trimester , less than 14 weeks 0 days, with image documentation. Transvaginal imaging was used for better evaluation of the fetus and adnexa. COMPARISON: [facility] OB <= 14 weeks fetus [id number] 02/10/2020 10:51 PM FINDINGS: Gestation: Measured age by crown rump length 12 weeks 4 days. ABENA 10/02/2020. Heart rate: heart rate regular at 153 bpm. Presentation: Single intrauterine gestation in transverse lie head maternal left. Placenta: Posterior placenta and low lying. No visible subchorionic hemorrhage. Amniotic fluid: Amniotic fluid is normal for gestational age. First-trimester. BIOMETRY: Estimated gestational age: 12 weeks 4 days. MATERNAL: Uterus: Unremarkable. Cervix: Unremarkable. Right adnexa: Unremarkable. Left adnexa: Unremarkable. Intraperitoneal space: No intraperitoneal free fluid. US/US OB <= 14 weeks fetus [id number] IMPRESSION: Single live intrauterine gestation.
--- NOTE | 2020-03-24 16:15 | W.ED.PREGNAN ---
HPI - General: Chief complaint: OB/Uterine Contractions Stated complaint: 13 weeks preg/bleeding Time Seen by Provider: 03/24/20 16:06 History of Present Illness: HPI Narrative: This patient is a 25-year-old female presenting today with bleeding and cramping. She is 13 weeks . She is O+ blood type. Dr. Alcantara is her OB doctor. She has had several prior miscarriages as well as 2 successful pregnancies. Her is complicated by obesity. She is also noted to be hypertensive today. She had one episode of a small amount of blood on the toilet paper. She has had cramping since then. The symptoms occurred around 1:00 this afternoon. MD Complaint: vaginal bleeding and other (Cramping) Onset (ago): hour(s) (3) Pain Consistency: constant Location: pelvis Severity: mild Quality: Cramping Date of Last Menstrual Period: 12/23/19 Associated symptoms: Reports nausea; Deny abdominal pain, dysuria, headache(s), malaise or vomiting Review of Systems General: Reports: 10 or more systems reviewed and unremarkable except in HPI and below Const: Denies: fever(s), chills, fatigue or malaise Eyes: Denies: change in vision ENMT: Denies: odynophagia Card: Denies: chest pain or swelling of feet/ankles Resp: Denies: dyspnea, productive cough or non-productive cough GI: Reports: nausea; Denies: abdominal pain or vomiting : Denies: dysuria Musc: Denies: neck pain or back pain Skin/Breast: Denies: rash Neuro: Denies: headache(s), numbness in extremities or weakness in extremities Rom/Lymph: Denies: easy bruising or easy bleeding PFSH ED PFSH: Medical History Anxiety as acute reaction to gross stress Class 2 severe obesity with serious comorbidity in adult Gastro-esophageal reflux disease with esophagitis Generalized anxiety disorder Anoop's disease Peptic ulcer disease Polycystic ovarian syndrome Surgical History History of appendectomy History of cholecystectomy Status post arthroscopic surgery of left knee October 2019 Family History Mother Pulmonary embolism Thyroid disease Stroke Hypertension Hyperlipidemia Diabetes Father Diabetes Hyperlipidemia Grandmother Cancer MATERNAL: BRAIN Social History Smoking and tobacco status: current every day smoker cigarettes Packs smoked per day: 0.5 Years cigarettes smoked: 4 Second hand smoke exposure: No Smoking risk assessment/counseling performed?: Yes Alcohol intake: never Desire information about alcohol rehabilitation?: No Counseling given: No Desire information about substance/drug rehabilitation?: No Counseling given: No Adopted: No Caregiver/support person: No Lives independently: Yes Housing: Apartment Marital status: Single Number of children: 2 service: No Current occupational status: unemployed Pets and animals: Yes Pets & animals: dog(s) History of recent travel: No Current gender identity: Female Female Reproductive History: Date of last menstrual period: 12/23/19 Para: 2 Physical Exam Const: COMMON NORMALS: no acute distress, patient oriented x3, no limitations and alert GENERAL APPEARANCE: cooperative and comfortable HENMT: HEAD & SCALP: normal to inspection FACE & SINUS: normal facial exam Eye: GENERAL EYE: appearance normal, both eyes and all related structures Neck/C-Spine: COMMON NORMALS: supple, no meningeal signs and no JVD Chest: COMMONS NORMALS: normal inspection of the chest Resp: COMMON NORMALS: normal respiratory effort, No use of accessory muscles and clear to auscultation bilaterally AUSCULTATION: clear to auscultation bilaterally Cardio: COMMON NORMALS: no JVD, regular rate, regular rhythm and No murmurs present (Cardio) RATE: regular rate RHYTHM: regular rhythm GI: COMMON NORMALS: Normal to inspection, nondistended, normoactive bowel sounds present, Soft to palpation and non-tender INSPECTION: Yes normal to inspection AUSCULTATION: Yes normoactive bowel sounds PALPATION: Yes Soft to palpation Back/Pelvis: COMMON NORMALS: thoracic and lumbar spine normal to inspection Extremity: COMMON NORMALS: normal to inspection Neuro: COMMON NORMALS: patient oriented x3, moves all extremities, no focal motor deficits and no sensory deficits noted SENSORIUM/ORIENTATION: Yes alert MENINGEAL SIGNS: Yes no meningeal signs Psych: COMMON NORMALS: mental status grossly normal, cooperative and normal affect Skin: COMMON NORMALS: no rashes or lesions noted and turgor normal GENERAL SKIN EXAM: no rashes or lesions noted and turgor normal Course ED course: Quant hCG is increasing. Ultrasound shows an IUP at 12 weeks. We discussed her elevated blood pressure and I encouraged her to discuss this with Dr. Alcantara. She did have preeclampsia with her last . The recheck was 145/80. Vital Signs: Vital signs: Vital Signs Temperature 98.3 F 03/24/20 17:33 Pulse Rate 97 03/24/20 17:33 Respiratory Rate 18 03/24/20 17:33 Blood Pressure 145/80 03/24/20 17:33 Pulse Oximetry 98 03/24/20 17:33 MDM - OB/Uterine Contractions Lab Data: Labs: Lab Results 03/24/20 03/24/20 03/24/20 Range/Units 16:25 16:30 16:30 WBC 10.9 H (4.0-10.0) 10^3/ uL RBC 4.67 (4.1-5.3) 10^6/u L Hgb 12.4 (11.5-15.3) g/dL Hct 38.3 (37.0-47.0) % MCV 82.0 (81-99) fL MCH 26.6 L (28.0-34.0) pg MCHC 32.4 (30.0-36.0) g/dL RDW 16.8 H (12.1-15.1) % Plt Count 290 (130-400) 10^3/c mm MPV 9.3 (7.4-10.4) fL Neut % (Auto) 62.8 % Lymph % (Auto) 30.0 % Toombs % (Auto) 5.3 % Eos % (Auto) 1.1 % Baso % (Auto) 0.5 % Neut # (Auto) 6.9 (1.8-7.7) 10^3/u L Lymph # (Auto) 3.3 (0.8-4.8) 10^3/u L [place]ombs # (Auto) 0.6 (0.2-0.9) 10^3/u L Eos # (Auto) 0.1 (0.0-0.8) 10^3/u L Baso # (Auto) 0.1 (0.0-0.1) 10^3/u L Nucleated RBC % (a uto) 0 % Nucleated RBCs # 0.0 /100WBC Sodium 133 L (136-145) mmol/L Potassium 3.5 (3.5-5.1) mmol/L Chloride 99 (98-107) mmol/L Carbon Dioxide 22 (22-29) mmol/L Anion Gap 15.5 (5-19) BUN 6 (6-20) mg/dL Creatinine 0.4 L (0.5-0.9) mg/dL GFR Calculation 192.9 H (90-130) mL/min Glucose 136 H (65-115) mg/dL Calculated Osmolal ity 274 L (285-295) mOsm/k g Calcium 9.2 (8.5-10.5) mg/dL Total Bilirubin 0.2 (0.15-1.2) mg/dL AST 14 (0-32) U/L ALT 25 (0-33) U/L Alkaline Phosphata se 95 (35-105) IU/L Total Protein 6.2 L (6.6-8.7) g/dL Albumin 3.8 (3.5-5.2) g/dL Globulin 2.4 (1.3-4.6) g/dL Ser , [place] [address].00 mIU/mL Urine Color Yellow (Yellow) Urine Appearance Sl hazy (CLEAR) Urine pH 5 (5-7) Ur Specific Gravit y 1.030 (1.005-1.030) Urine Protein Neg (Negative) Urine Glucose (UA) Norm (Normal) Urine Ketones Negative (Negative) Urine Blood 2+ H (Negative) Urine Nitrate Negative (Negative) Urine Bilirubin Neg (NEGATIVE) Urine Urobilinogen 1 H (Negative) mg/dL Ur Leukocyte Anabell ase Negative (Negative) Urine RBC 5-10 H (0-2) /hpf Urine WBC 0-4 H (0-5) /hpf Ur Squamous Epith Cells 25-40 H (0-5) Ur Transition Epit h Cell 0-4 /hpf Calcium Oxalate Cr ystal 10-15 H /hpf Amorphous Sediment Not Reportable Urine Bacteria 1+ H (NONE) Urine Mucus 2+ Discharge Plan Discharge Patient Disposition: Home, Self-Care Clinical Impression: Miscarriage, threatened, early Condition: Stable Prescriptions: No Action Lexapro 10 mg tablet 10 mg PO DAILY Qty: 30 RF: 0 levothyroxine [Levo-T] 25 mcg tablet 25 mcg PO DAILY Qty: 30 RF: 0 cetirizine 10 mg tablet 10 mg PO DAILY RF: 0 ondansetron HCl 4 mg tablet 4 mg PO TID PRN (Reason: Nausea) RF: 0 omeprazole 20 mg capsule,delayed release(DR/EC) 20 mg PO DAILY RF: 0 hydroxyzine HCl 25 mg tablet 25 mg PO QID PRN (Reason: UNKNOWN) RF: 0 ProAir HFA 90 mcg/actuation HFA aerosol inhaler 2 puff INHALATION QID PRN (Reason: Shortness Of Breath) RF: 0 M-Suzanne Plus 27 mg iron- 1 mg tablet 1 tab PO DAILY RF: 0 Discharge Orders: Discharge Order (Routine); Ordered 03/24/20 Ordered By: Marlyn Fagan Referrals: Jan Hammer FNP-C [Primary Care Provider] - Evans Alcantara MD [Physician] - (as scheduled) Discharge Diet: Usual diet Discharge Activity: Resume usual activity Patient Instructions: Threatened Miscarriage (ED) Activity Restrictions/Additional Instructions: Discuss your blood pressure with Dr. Alcantara as it may need to be treated. Discharge Date/Time: 03/24/20 17:33 Coding Level of Care Code ED Retail Shift Manager for Chg Fwd Exam Comprehensive
[2020-03-24 16:38] LABS: Basophils # 0.1 10^3/uL (0.0-0.1); Basophils % 0.5 %; Eosinophils # 0.1 10^3/uL (0.0-0.8); Eosinophils % 1.1 %; Hematocrit 38.3 % (37.0-47.0); Hemoglobin 12.4 g/dL (11.5-15.3); Lymphocytes # 3.3 10^3/uL (0.8-4.8); Mean Corpuscular HGB Conc 32.4 g/dL (30.0-36.0); Mean Corpuscular Hemoglobin 26.6 pg (28.0-34.0); Mean Platelet Volume 9.3 fL (7.4-10.4); Monocytes # 0.6 10^3/uL (0.2-0.9); Monocytes % 5.3 %; Neutrophils # 6.9 10^3/uL (1.8-7.7); Neutrophils % 62.8 %; Nucleated Red Blood Cells % 0 %; Platelet Count 290 10^3/cmm (130-400); Red Blood Count 4.67 10^6/uL (4.1-5.3); Red Cell Distribution Width 16.8 % (12.1-15.1); White Blood Count 10.9 10^3/uL (4.0-10.0)
[2020-03-24 16:40] VITALS: RESP 18
[2020-03-24 16:51] LABS: Add Urine Microscopic? YES; Bilirubin Urine Neg (NEGATIVE); Blood Urine 2+ (Negative); Glucose Urine UA Norm (Normal); Ketones Urine Negative (Negative); Leukocyte Esterase Urine Negative (Negative); Nitrate Urine Negative (Negative); Protein Urine Neg (Negative); Urine Appearance SL Hazy (CLEAR); Urine Color Yellow (Yellow); Urobilinogen Urine 1 mg/dL (Negative); pH Urine 5 (5-7)
[2020-03-24 16:53] LABS: Bacteria Urine 1+; Mucus Urine 2+; Squamous Epithelial Cell Urine 25-40 (0-5); Transitional Epi Cells Urine 0-4 /hpf; WBC Urine 0-4 /hpf (0-5)
[2020-03-24 16:55] LABS: Add Urine Culture? No
[2020-03-24 17:07] LABS: Alanine Aminotransferase 25 U/L (0-33); Albumin Level 3.8 g/dL (3.5-5.2); Alkaline Phosphatase 95 IU/L (35-105); Anion Gap 15.5 (5-19); Aspartate Amino Transferase 14 U/L (0-32); Blood Urea Nitrogen 6 mg/dL (6-20); Calcium 9.2 mg/dL (8.5-10.5); Carbon Dioxide 22 mmol/L (22-29); Chloride 99 mmol/L (98-107); Globulin 2.4 g/dL (1.3-4.6); Glomerular Filtration Rate 192.9 mL/min (90-130); Glucose 136 mg/dL (65-115); Osmolality Calculated 274 mOsm/kg (285-295); Potassium 3.5 mmol/L (3.5-5.1); Sodium 133 mmol/L (136-145); Total Bilirubin 0.2 mg/dL (0.15-1.2); Total Protein 6.2 g/dL (6.6-8.7)
[2020-03-24 17:33] VITALS: BP 145/80; PULSE 97; RESP 18; TEMP 36.8; O2SAT 98
== END 2020-03-24 17:33 | disposition home or self-care (01) ==
PROVIDERS: Emergency Provider Emergency Medicine; PCP Nurse Practitioner
DX: O20.0 Threatened abortion (principal); Z3A.13 13 weeks gestation of pregnancy; O99.211 Obesity complicating pregnancy, first trimester; E66.01 Morbid (severe) obesity due to excess calories; O99.331 Smoking (tobacco) complicating pregnancy, first trimester; F17.210 Nicotine dependence, cigarettes, uncomplicated; N96 Recurrent pregnancy loss
CPT/HCPCS: 12345; 36415; 76801; 80053; 81001; 84702; 85025; 99282; 99283

== ENCOUNTER 2020-04-14 18:32 | Emergency (ER) | payer MEDICAID, SELFPAY ==
[2020-04-14 18:49] VITALS: BP 129/73; PULSE 101; RESP 15; TEMP 36.9; O2SAT 97; BMI 52.3
--- NOTE | 2020-04-14 19:07 | ED_ITS ---
HPI - Female Genitourinary General: Chief complaint: Urogenital-Female Stated complaint: abdominal cramping, vaginal itching Time Seen by Provider: 04/14/20 18:57 Source: patient Mode of arrival: ambulatory Limitations: no limitations History of Present Illness: HPI Narrative: Neo is a 25-year-old female who comes in complaining of suprapubic cramping. Pain is located in the midline and not laterally. She is currently 16 weeks . She is concerned about a possible miscarriage. She denies any vaginal discharge or bleeding. She denies any flank pain or lateral pain. She denies any dysuria, urinary frequency or urgency. The symptoms have been intermittent for the past 2 days. She denies any exacerbating factors but does state that when the pain comes on if she lays down it gets better. She otherwise denies any complaints or concerns and is requesting an ultrasound to be certain that her baby is okay. Associated symptoms: Reports abdominal pain; Deny headache(s), nausea or syncope Date of Last Menstrual Period: 12/23/19 Review of Systems Const: Denies: fever(s), chills, body aches, fatigue, malaise or diaphoresis Eyes: Denies: change in vision, blurry vision, blind spots, photophobia, eye discharge or eye redness ENMT: Denies: throat pain, odynophagia, hoarseness, swelling of lips/tongue, oral sores, ear or mastoid pain, ear discharge, change in hearing or nasal discharge Card: Denies: chest pain, palpitations, irregular heart rhythm, edema, lightheadedness, syncope, pre-syncope, dyspnea on exertion or orthopnea Resp: Denies: dyspnea, productive cough, non-productive cough, wheezing, hemoptysis or chest congestion GI: Reports: abdominal pain; Denies: nausea, vomiting, hematemesis, coffee ground emesis, heartburn, diarrhea, constipation, GI cramping, hematochezia or melena : Denies: flank pain, dysuria, urinary frequency, urinary urgency or hematuria Musc: Denies: neck pain, back pain, extremity pain, extremity swelling, joint pain, joint swelling, joint redness, joint warmth or joint stiffness Skin/Breast: Denies: rash, pruritus, erythema, skin tenderness or jaundice Neuro: Denies: headache(s), numbness in extremities, weakness in extremities, sensory changes, lack of coordination, difficulty walking, dizziness, vertigo, confusion, Slurred speech present or seizure-like activity Rom/Lymph: Denies: easy bruising, easy bleeding, petechiae, purpura or enlarged lymph nodes All/Imm: Denies: urticaria, throat swelling, tongue swelling, facial swelling or acute wheezing PFSH ED PFSH: Medical History Anxiety as acute reaction to gross stress Class 2 severe obesity with serious comorbidity in adult Gastro-esophageal reflux disease with esophagitis Generalized anxiety disorder Anoop's disease Peptic ulcer disease Polycystic ovarian syndrome Surgical History History of appendectomy History of cholecystectomy Status post arthroscopic surgery of left knee October 2019 Family History Mother Pulmonary embolism Thyroid disease Stroke Hypertension Hyperlipidemia Diabetes Father Diabetes Hyperlipidemia Grandmother Cancer MATERNAL: BRAIN Social History Smoking and tobacco status: light tobacco smoker cigarettes Packs smoked per day: 0.1 Years cigarettes smoked: 4 Second hand smoke exposure: No Smoking risk assessment/counseling performed?: Yes Alcohol intake: never Desire information about alcohol rehabilitation?: No Counseling given: No Desire information about substance/drug rehabilitation?: No Counseling given: No Adopted: No Caregiver/support person: No Lives independently: Yes Housing: Apartment Marital status: Single Number of children: 2 service: No Current occupational status: unemployed Pets and animals: Yes Pets & animals: dog(s) History of recent travel: No Current gender identity: Female Female Reproductive History: Date of last menstrual period: 12/23/19 Para: 2 Physical Exam Const: COMMON NORMALS: no acute distress, patient oriented x3, no limitations, healthy appearing and well nourished GENERAL APPEARANCE: cooperative, well kempt and well developed HENMT: COMMON NORMALS: normocephalic, atraumatic, external ears normal, EAC's normal and Normal external nose present HEAD & SCALP: normal to inspection, normocephalic and atraumatic FACE & SINUS: normal facial exam and face symmetric NOSE: Normal external nose present and Normal nares present EXTERNAL EAR: Yes external ears normal EXTERNAL AUDITORY CANAL: EAC's normal MOUTH: Normal oral and palatal mucosa present, lip normal and tongue normal Eye: COMMON NORMALS: Equal, round and reactive pupils present and conjunctivae normal GENERAL EYE: appearance normal, both eyes and all related structures ALIGNMENT: Yes alignment normal PERIORBITAL: periorbital findings normal EYELID: eyelids normal CONJUNCTIVA: Yes conjunctivae normal SCLERA: sclerae normal PUPIL: Yes Equal, round and reactive pupils present Neck/C-Spine: COMMON NORMALS: full ROM, no lymphadenopathy, supple, no meningeal signs and no JVD GENERAL: Yes normal visual inspection and Yes trachea midline Chest: COMMONS NORMALS: normal inspection of the chest and normal palpation of entire chest wall Resp: COMMON NORMALS: normal respiratory effort, No retractions and No use of accessory muscles EFFORT & INSPECTION: Yes able to speak in complete sentences and Yes symmetric chest movement AUSCULTATION: no crackles, no rales, no rhonchi and no wheezes Cardio: COMMON NORMALS: no JVD, regular rate, regular rhythm, S1 normal heart sound present and S2 normal heart sound present RATE: regular rate RHYTHM: regular rhythm HEART SOUNDS: S1 normal heart sound present, S2 normal heart sound present, no click, no gallops, no murmurs, no rubs and abnormal split S2 GI: COMMON NORMALS: Soft to palpation and No hepatosplenomegaly present PALPATION: Yes Soft to palpation, No Tenderness to palpation present (GI), No Guarding due to palpation present (GI), No Rigid due to palpation, Yes No hepatosplenomegaly present, No Hernia present, No Palpable mass present and No Pulsatile mass present : COMMON NORMALS: Yes no CVA tenderness BLADDER/KIDNEY EXAM: Yes no CVA tenderness EXTERNAL FEMALE EXAM: No Hernia present and Yes other (Patient refused pelvic exam.) Back/Pelvis: COMMON NORMALS: no CVA tenderness, thoracic and lumbar spine normal to inspection, no thoracic nor lumbar tenderness and thoraco-lumbar ROM normal Extremity: COMMON NORMALS: normal to inspection, full ROM, capillary refill normal, no joint enlargement, no clubbing, cyanosis or edema and no calf tenderness Neuro: COMMON NORMALS: patient oriented x3, CN's II-XII intact bilaterally, moves all extremities, no focal motor deficits and no sensory deficits noted MENINGEAL SIGNS: Yes no meningeal signs SPEECH: speech normal Psych: COMMON NORMALS: mental status grossly normal, Normal thought process present, cooperative, normal affect, speech normal and activity/motor behavior normal APPEARANCE: Yes well kempt SPEECH: Yes normal speech THOUGHT PROCESS: Normal thought process present Skin: COMMON NORMALS: no rashes or lesions noted, turgor normal, no jaundice, no petechiae and no mottling GENERAL SKIN EXAM: no rashes or lesions noted and turgor normal Course Vital Signs: Vital signs: Vital Signs Temperature 98.5 F 04/14/20 18:49 Pulse Rate 86 04/14/20 21:56 Respiratory Rate 16 04/14/20 21:56 Blood Pressure 161/81 04/14/20 21:56 Pulse Oximetry 97 04/14/20 21:56 MDM - Female MDM Narrative: Medical decision making narrative: 2140 -the patient is still refusing a pelvic exam. She denies any vaginal discharge or bleeding. Her urine is contaminated and she is also refusing a straight cath urine specimen. I will place her on Macrobid empirically and culture her urine. Patient agrees to return should her symptoms change or worsen at this time I think she wanted to get the sex of the baby which the emergency medical technician basic is performed but ultrasounds look normal and the patient is having no further pain after IV fluids. Patient again agrees to return if her symptoms change or worsen about this time her pain is gone. Clinically and by history and exam I do not suspect appendicitis, ovarian torsion, diverticulosis/diverticulitis or any other acute intra-abdominal catastrophe. looks normal at this stage. Lab Data: Attestation: I reviewed the patient's lab results. Labs: Lab Results 04/14/20 04/14/20 04/14/20 Range/Units 19:06 19:15 19:15 WBC 11.6 H (4.0-10.0) 10^3/ uL RBC 4.47 (4.1-5.3) 10^6/u L Hgb 12.1 (11.5-15.3) g/dL Hct 37.6 (37.0-47.0) % MCV 84.1 (81-99) fL MCH 27.1 L (28.0-34.0) pg MCHC 32.2 (30.0-36.0) g/dL RDW 16.3 H (12.1-15.1) % Plt Count 281 (130-400) 10^3/c mm MPV 9.2 (7.4-10.4) fL Neut % (Auto) 63.1 % Lymph % (Auto) 30.2 % [place] % (Auto) 4.7 % Eos % (Auto) 1.5 % Baso % (Auto) 0.3 % Neut # (Auto) 7.34 (1.8-7.7) 10^3/u L Lymph # (Auto) 3.5 (0.8-4.8) 10^3/u L [place] # (Auto) 0.6 (0.2-0.9) 10^3/u L Eos # (Auto) 0.2 (0.0-0.8) 10^3/u L Baso # (Auto) 0.0 (0.0-0.1) 10^3/u L Nucleated RBC % (a uto) 0 % Nucleated RBCs # 0.0 /100WBC Sodium (136-145) mmol/L Potassium (3.5-5.1) mmol/L Chloride (98-107) mmol/L Carbon Dioxide (22-29) mmol/L Anion Gap (5-19) BUN (6-20) mg/dL Creatinine (0.5-0.9) mg/dL GFR Calculation (90-130) mL/min Glucose (65-115) mg/dL Calculated Osmolal ity (285-295) mOsm/k g Calcium (8.5-10.5) mg/dL Total Bilirubin (0.15-1.2) mg/dL AST (0-32) U/L ALT (0-33) U/L Alkaline Phosphata se (35-105) IU/L Total Protein (6.6-8.7) g/dL Albumin (3.5-5.2) g/dL Globulin (1.3-4.6) g/dL Lipase (13-60) U/L Urine Color Yellow (Yellow) Urine Appearance Cloudy (CLEAR) Urine pH 5 (5-7) Ur Specific Gravit y 1.025 (1.005-1.030) Urine Protein Neg (Negative) Urine Glucose (UA) Trace H (Normal) Urine Ketones Negative (Negative) Urine Blood 2+ H (Negative) Urine Nitrate Negative (Negative) Urine Bilirubin Neg (NEGATIVE) Urine Urobilinogen 1 H (Negative) mg/dL Ur Leukocyte Anabell ase Negative (Negative) Urine RBC 10-15 H (0-2) /hpf Urine WBC 5-10 H (0-5) /hpf Ur Squamous Epith Cells 25-40 H (0-5) Urine Bacteria 1+ H (NONE) Urine Yeast 1+ H Blood Type O Positive Rho(D) Type Positive 04/14/20 04/14/20 Range/Units 19:15 19:15 WBC (4.0-10.0) 10^3/ uL RBC (4.1-5.3) 10^6/u L Hgb (11.5-15.3) g/dL Hct (37.0-47.0) % MCV (81-99) fL MCH (28.0-34.0) pg MCHC (30.0-36.0) g/dL RDW (12.1-15.1) % Plt Count (130-400) 10^3/c mm MPV (7.4-10.4) fL Neut % (Auto) % Lymph % (Auto) % [place] % (Auto) % Eos % (Auto) % Baso % (Auto) % Neut # (Auto) (1.8-7.7) 10^3/u L Lymph # (Auto) (0.8-4.8) 10^3/u L [place] # (Auto) (0.2-0.9) 10^3/u L Eos # (Auto) (0.0-0.8) 10^3/u L Baso # (Auto) (0.0-0.1) 10^3/u L Nucleated RBC % (a uto) % Nucleated RBCs # /100WBC Sodium 135 L (136-145) mmol/L Potassium 3.5 (3.5-5.1) mmol/L Chloride 101 (98-107) mmol/L Carbon Dioxide 23 (22-29) mmol/L Anion Gap 14.5 (5-19) BUN 5 L (6-20) mg/dL Creatinine 0.4 L (0.5-0.9) mg/dL GFR Calculation 192.9 H (90-130) mL/min Glucose 133 H (65-115) mg/dL Calculated Osmolal ity 278 L (285-295) mOsm/k g Calcium 8.5 (8.5-10.5) mg/dL Total Bilirubin 0.2 (0.15-1.2) mg/dL AST 19 (0-32) U/L ALT 59 H (0-33) U/L Alkaline Phosphata se 126 H (35-105) IU/L Total Protein 6.7 (6.6-8.7) g/dL Albumin 3.6 (3.5-5.2) g/dL Globulin 3.1 (1.3-4.6) g/dL Lipase 18 (13-60) U/L Urine Color (Yellow) Urine Appearance (CLEAR) Urine pH (5-7) Ur Specific Gravit y (1.005-1.030) Urine Protein (Negative) Urine Glucose (UA) (Normal) Urine Ketones (Negative) Urine Blood (Negative) Urine Nitrate (Negative) Urine Bilirubin (NEGATIVE) Urine Urobilinogen (Negative) mg/dL Ur Leukocyte Anabell ase (Negative) Urine RBC (0-2) /hpf Urine WBC (0-5) /hpf Ur Squamous Epith Cells (0-5) Urine Bacteria (NONE) Urine Yeast Blood Type Rho(D) Type Imaging Data: US: Radiologist's impression: [address] [address] Ultrasound Report Signed Patient: Neo Noland Unit #: [id number] : 1995 Age/Sex: 25 / F ADM Date: 04/14/20 Loc: ER Room/Bed: Attending Dr: Ordering Provider/Ordering MD: Jocelyn Elizabeth DO Date of Service: 04/14/20 Procedure(s): US gall bladder [id number] Accession Number(s): [id number] Report Number: [id number] PROCEDURE INFORMATION: Exam: US Abdomen, Limited; Right Upper Quadrant Exam date and time: 04/14/2020 8:57 PM Age: 25 years old Clinical indication: Abdominal pain; Right; ; Prior surgery; Surgery date: 6+ months; Surgery type: Gb removed; Patient HX: PT has RT. Flank/ruq pain. PT is 16 weeks pg. No complaint of vaginal bleeding or lower abd pain TECHNIQUE: Imaging protocol: US abdomen. Real time ultrasound with image documentation. Limited exam focused on the right upper quadrant. COMPARISON: US gall bladder [id number] 01/02/2014 3:16 PM FINDINGS: Liver: The liver is unremarkable. Gallbladder: The gallbladder is absent. Common bile duct: The common bile duct is nondilated measuring 5 mm. Pancreas: The visible portion of the pancreas is unremarkable. Right kidney: The right kidney is unremarkable. There is no hydronephrosis. Aorta: The abdominal aorta is unremarkable. Inferior vena cava: The visible portion of the inferior vena cava is unremarkable. US/US gall bladder [id number] IMPRESSION: 1. No acute findings. 2. Cholecystectomy. No biliary dilation. Dictated By: Charly Mora MD Signed By: Charly Mora MD Signed Date/Time: 04/14/202124 DD/ 22 US OB: Radiologist's impression: [address] [address] Ultrasound Report Signed Patient: Neo Noland Unit #: [id number] : 1995 Age/Sex: 25 / F ADM Date: 04/14/20 Loc: ER Room/Bed: Attending Dr: Ordering Provider/Ordering MD: Jocelyn Elizabeth DO Date of Service: 04/14/20 Procedure(s): US OB limited [id number] Accession Number(s): [id number] Report Number: [id number] PROCEDURE INFORMATION: Exam: US , Limited Exam date and time: 04/14/2020 8:05 PM Age: 25 years old Clinical indication: complicated by abdominal or pelvic pain; Right upper quadrant; Second trimester; Gestational age or lmp: 16 w 1 d; ; Patient HX: PT complains of RT. Flank/ruq pain. TECHNIQUE: Imaging protocol: Real-time ultrasound of the maternal uterus with image documentation. Exam focused on the clinical indication. COMPARISON: US OB <= 14 weeks fetus [id number] 03/24/2020 4:24 PM FINDINGS: Gestation: Single live intrauterine . Fetus is in variable position. Heart rate: 147 bpm. Placenta: Posterior placenta. No retroplacental hemorrhage. The distal margin of the placenta lies 2-3 cm from the internal cervical os. BIOMETRY: Estimated gestational age: 16 weeks 1 day by femur length Femur length: 2.1 cm MATERNAL: Cervix: Cervix is long and closed. / OB limited [id number] IMPRESSION: 1. Single live intrauterine . No apparent complications. 2. Low lying posterior placenta. Dictated By: Charly Mora MD Signed By: Charly Mora MD Signed Date/Time: 04/14/202122 DD/ 21 Discharge Plan Discharge Patient Disposition: Home, Self-Care Clinical Impression: Threatened miscarriage Urinary tract infection Qualifiers: Urinary tract infection type: acute cystitis Hematuria presence: with hematuria Qualified Code(s): N30.01 - Acute cystitis with hematuria Condition: Stable Prescriptions: New Macrobid 100 mg capsule 100 mg PO BID 10 Days Qty: 20 RF: 0 No Action levothyroxine [Levo-T] 25 mcg tablet 25 mcg PO DAILY Qty: 14 RF: 0 Lexapro 10 mg tablet 10 mg PO DAILY Qty: 14 RF: 0 cetirizine 10 mg tablet 10 mg PO DAILY RF: 0 ondansetron HCl 4 mg tablet 4 mg PO TID PRN (Reason: Nausea) RF: 0 omeprazole 20 mg capsule,delayed release(DR/EC) 20 mg PO DAILY RF: 0 hydroxyzine HCl 25 mg tablet 25 mg PO QID PRN (Reason: UNKNOWN) RF: 0 ProAir HFA 90 mcg/actuation HFA aerosol inhaler 2 puff INHALATION QID PRN (Reason: Shortness Of Breath) RF: 0 M- Plus 27 mg iron- 1 mg tablet 1 tab PO DAILY RF: 0 Discharge Orders: Discharge Order (Routine); Ordered 04/14/20 Ordered By: Jocelyn Elizabeth Referrals: Evans Alcantara MD [Primary Care Provider] - 1-3 days Discharge Diet: Advance as tolerated Discharge Activity: Increase activity as tolerated Patient Instructions: Threatened Miscarriage (ED), Urinary Tract Infection in Women (ED) Activity Restrictions/Additional Instructions: Please return to the ER immediately for any of the signs or symptoms listed on your discharge instruction sheets, worsening/changing of your symptoms, you are not getting better as quickly as expected, or for ANY other cause or concerns. No sex, nothing intravaginal, no douching, no tampons until cleared by Dr. Alcantara. Discharge Date/Time: 04/14/20 21:58 Coding Level of Care Code ED Cardiac Technician for Chg Fwd Exam Comprehensive
[2020-04-14] MEDS: acetaminophen 325 mg Tablet 650 MG PO (19:14)
[2020-04-14] MEDS: sodium chloride 0.9% 1,000 ML 999 ML IV (19:19)
[2020-04-14 19:20] VITALS: BP 165/76; PULSE 94; RESP 18; O2SAT 97
[2020-04-14 19:25] LABS: Basophils % 0.3 %; Eosinophils # 0.2 10^3/uL (0.0-0.8); Eosinophils % 1.5 %; Hematocrit 37.6 % (37.0-47.0); Hemoglobin 12.1 g/dL (11.5-15.3); Lymphocytes # 3.5 10^3/uL (0.8-4.8); Lymphocytes % 30.2 %; Mean Corpuscular HGB Conc 32.2 g/dL (30.0-36.0); Mean Corpuscular Hemoglobin 27.1 pg (28.0-34.0); Mean Corpuscular Volume 84.1 fL (81-99); Mean Platelet Volume 9.2 fL (7.4-10.4); Monocytes # 0.6 10^3/uL (0.2-0.9); Monocytes % 4.7 %; Neutrophils # 7.34 10^3/uL (1.8-7.7); Neutrophils % 63.1 %; Nucleated Red Blood Cells % 0 %; Platelet Count 281 10^3/cmm (130-400); Red Blood Count 4.47 10^6/uL (4.1-5.3); Red Cell Distribution Width 16.3 % (12.1-15.1); White Blood Count 11.6 10^3/uL (4.0-10.0)
[2020-04-14 19:40] LABS: Alanine Aminotransferase 59 U/L (0-33); Albumin Level 3.6 g/dL (3.5-5.2); Alkaline Phosphatase 126 IU/L (35-105); Anion Gap 14.5 (5-19); Aspartate Amino Transferase 19 U/L (0-32); Blood Urea Nitrogen 5 mg/dL (6-20); Calcium 8.5 mg/dL (8.5-10.5); Carbon Dioxide 23 mmol/L (22-29); Chloride 101 mmol/L (98-107); Globulin 3.1 g/dL (1.3-4.6); Glomerular Filtration Rate 192.9 mL/min (90-130); Glucose 133 mg/dL (65-115); Osmolality Calculated 278 mOsm/kg (285-295); Potassium 3.5 mmol/L (3.5-5.1); Sodium 135 mmol/L (136-145); Total Bilirubin 0.2 mg/dL (0.15-1.2); Total Protein 6.7 g/dL (6.6-8.7)
--- NOTE | 2020-04-14 19:53 | USR_ITS ---
PROCEDURE INFORMATION: Exam: US Abdomen, Limited; Right Upper Quadrant Exam date and time: 04/14/2020 8:57 PM Age: 25 years old Clinical indication: Abdominal pain; Right; ; Prior surgery; Surgery date: 6+ months; Surgery type: Gb removed; Patient HX: PT has RT. Flank/ruq pain. PT is 16 weeks pg. No complaint of vaginal bleeding or lower abd pain TECHNIQUE: Imaging protocol: US abdomen. Real time ultrasound with image documentation. Limited exam focused on the right upper quadrant. COMPARISON: US gall bladder [id number] 01/02/2014 3:16 PM FINDINGS: Liver: The liver is unremarkable. Gallbladder: The gallbladder is absent. Common bile duct: The common bile duct is nondilated measuring 5 mm. Pancreas: The visible portion of the pancreas is unremarkable. Right kidney: The right kidney is unremarkable. There is no hydronephrosis. Aorta: The abdominal aorta is unremarkable. Inferior vena cava: The visible portion of the inferior vena cava is unremarkable. US/US gall bladder [id number] IMPRESSION: 1. No acute findings. 2. Cholecystectomy. No biliary dilation.
[2020-04-14 20:00] VITALS: BP 152/78; PULSE 86; O2SAT 98
[2020-04-14 20:11] LABS: Bilirubin Urine Neg (NEGATIVE); Blood Urine 2+ (Negative); Glucose Urine UA Trace (Normal); Ketones Urine Negative (Negative); Leukocyte Esterase Urine Negative (Negative); Nitrate Urine Negative (Negative); Protein Urine Neg (Negative); Specific Gravity, Urine 1.025 (1.005-1.030); Urine Appearance Cloudy (CLEAR); Urine Color Yellow (Yellow); Urobilinogen Urine 1 mg/dL (Negative); pH Urine 5 (5-7)
[2020-04-14 20:13] LABS: Bacteria Urine 1+; Squamous Epithelial Cell Urine 25-40 (0-5)
[2020-04-14 20:14] LABS: Add Urine Culture? No
[2020-04-14 20:33] LABS: Lipase 18 U/L (13-60)
[2020-04-14] MEDS: nitrofurantoin SR (BID) 100 mg Capsule PO (21:52)
[2020-04-14 21:56] VITALS: BP 161/81; PULSE 86; RESP 16; O2SAT 97
== END 2020-04-14 21:58 | disposition home or self-care (01) ==
PROVIDERS: Emergency Medicine; Emergency Provider Emergency Medicine; PCP Family Medicine
DX: O20.0 Threatened abortion (principal); Z3A.16 16 weeks gestation of pregnancy; O23.12 Infections of bladder in pregnancy, second trimester; F17.210 Nicotine dependence, cigarettes, uncomplicated; O99.332 Smoking (tobacco) complicating pregnancy, second trimester
CPT/HCPCS: 12345; 76705; 76815; 80053; 81001; 83690; 85025; 86900; 99283; J7030

== ENCOUNTER 2020-05-10 21:33 | Emergency (ER) | payer MEDICAID, SELFPAY ==
--- NOTE | 2020-05-10 21:50 | USR_ITS ---
PROCEDURE INFORMATION: Exam: US , Limited Exam date and time: 05/10/2020 10:16 PM Age: 25 years old Clinical indication: complicated by abdominal or pelvic pain; Right upper quadrant; Second trimester; Gestational age or lmp: 19 w 6 d; TECHNIQUE: Imaging protocol: Real-time ultrasound of the maternal uterus with image documentation. Exam focused on the clinical indication. COMPARISON: US OB limited [id number] 04/14/2020 8:33 PM FINDINGS: Gestation: There is a single live intrauterine gestation. heart rate: cardiac activity is identified with a heart rate of 171 bpm. Presentation: Fetus is in breech presentation. Placenta: The placenta is posterior and unremarkable. BIOMETRY: Gestational age (AUA): The calculated gestational age is 19 weeks 6 days. Estimated due date (AUA): ABENA September 28, 2020 MATERNAL: Cervix: The cervix is closed measuring 4 cm. US/US OB limited [id number] IMPRESSION: Single live intrauterine gestation with good cardiac activity.
--- NOTE | 2020-05-10 21:50 | USR_ITS ---
PROCEDURE INFORMATION: Exam: US Abdomen Complete Exam date and time: 05/10/2020 10:23 PM Age: 25 years old Clinical indication: Abdominal pain; Acute; TECHNIQUE: Imaging protocol: Real-time ultrasound of the abdomen with image documentation. COMPARISON: US gall bladder [id number] 04/14/2020 8:19 PM FINDINGS: Liver: There is diffuse increased echogenicity of the liver with attenuation of the ultrasound beam compatible with diffuse infiltrative process including fatty infiltration . The liver measures 12 cm in length. Gallbladder: There has been a cholecystectomy. Common bile duct: Normal. No stones. No dilation. Pancreas: Visualized pancreas is unremarkable. Right kidney: Normal. No mass. No hydronephrosis. Left kidney: Normal. No mass. No hydronephrosis. Spleen: Normal. No splenomegaly. Aorta: Normal. No aneurysm. Inferior vena cava: Normal. US/US abdomen complete* [id number] IMPRESSION: Postoperative cholecystectomy. No duct dilatation. Probable fatty infiltration liver. Otherwise unremarkable exam.
[2020-05-10 21:51] VITALS: BP 146/81; PULSE 103; RESP 20; TEMP 36.8; O2SAT 98; BMI 53.4
--- NOTE | 2020-05-10 23:02 | PC.NURSE ---
SPEAKING WITH PT IN LOBBY. PT IS IN NAD.
[2020-05-10 23:04] LABS: Basophils % 0.2 %; Eosinophils # 0.2 10^3/uL (0.0-0.8); Eosinophils % 1.3 %; Hematocrit 37.8 % (37.0-47.0); Lymphocytes # 3.8 10^3/uL (0.8-4.8); Lymphocytes % 28.4 %; Mean Corpuscular HGB Conc 31.7 g/dL (30.0-36.0); Mean Corpuscular Hemoglobin 26.7 pg (28.0-34.0); Mean Platelet Volume 9.4 fL (7.4-10.4); Monocytes # 0.7 10^3/uL (0.2-0.9); Monocytes % 5.3 %; Neutrophils # 8.67 10^3/uL (1.8-7.7); Neutrophils % 64.6 %; Nucleated Red Blood Cells % 0 %; Platelet Count 313 10^3/cmm (130-400); White Blood Count 13.4 10^3/uL (4.0-10.0)
[2020-05-10 23:21] LABS: Alanine Aminotransferase 13 U/L (0-33); Albumin Level 3.6 g/dL (3.5-5.2); Alkaline Phosphatase 122 IU/L (35-105); Aspartate Amino Transferase 12 U/L (0-32); Blood Urea Nitrogen 6 mg/dL (6-20); Carbon Dioxide 25 mmol/L (22-29); Chloride 101 mmol/L (98-107); Globulin 2.9 g/dL (1.3-4.6); Glomerular Filtration Rate 149.1 mL/min (90-130); Glucose 96 mg/dL (65-115); H. Pylori IgG Antibody Negative (Negative); Lipase 27 U/L (13-60); Osmolality Calculated 276 mOsm/kg (285-295); Sodium 135 mmol/L (136-145); Total Bilirubin 0.2 mg/dL (0.15-1.2); Total Protein 6.5 g/dL (6.6-8.7)
[2020-05-10 23:21] LABS: Bilirubin Urine Neg (NEGATIVE); Blood Urine Neg (Negative); Glucose Urine UA Norm (Normal); Ketones Urine Negative (Negative); Leukocyte Esterase Urine Negative (Negative); Nitrate Urine Negative (Negative); Protein Urine Neg (Negative); Urine Appearance Clear (CLEAR); Urine Color Yellow (Yellow); Urobilinogen Urine 1 mg/dL (Negative); pH Urine 6.5 (5-7)
[2020-05-10 23:23] LABS: RBC Urine 0-4 /hpf (0-2); Squamous Epithelial Cell Urine 15-25 (0-5); WBC Urine 0-4 /hpf (0-5)
[2020-05-10 23:24] LABS: Add Urine Culture? No; Amorphous Sediment Urine TRACE; Bacteria Urine TRACE
[2020-05-11 00:17] VITALS: BP 182/73; PULSE 100; RESP 18; O2SAT 100
--- NOTE | 2020-05-11 00:32 | ED_ITS ---
HPI - Abdominal Pain General: Chief Complaint: Abdominal Pain Stated Complaint: upper abd pain 19w6d Time Seen by Provider: 05/11/20 00:16 Source: patient Mode of arrival: ambulatory Limitations: no limitations History of Present Illness: HPI narrative: Neo is a nice 25-year-old female who comes in complaining of upper abdominal pain. Patient is currently 19 weeks and 6 days . She denies any chest pain, shortness of breath, flank pain, vaginal discharge or bleeding, dysuria, urinary frequency urgency, fever, chills, cough or any other complaints. She states that she was concerned about the baby and that is why she came in to be evaluated. She denies any other complaints. Of note the patient is hypertensive and she has been diagnosed with hypertension. She is on labetalol but has not taken her evening dose. She has not had any leg pain or swelling. She denies any headache, shortness of breath or orthopnea. Patient states in regards to abdominal pain nothing makes it better or worse. She has had a little bit of associated nausea but has not vomited. She denies any blood in her stools or black tarry stools. Associated Symptoms: Denies chills, coffee ground emesis, constipation, GI cramping, diarrhea, dysuria, fever(s), heartburn, hematochezia, hematuria, hematemesis, melena, syncope and vomiting Related Data: Date of Last Menstrual Period: 12/23/19 Review of Systems Const: Denies: fever(s), chills, body aches, fatigue, malaise or diaphoresis Eyes: Denies: change in vision, blurry vision, photophobia, eye discomfort, eye discharge or eye redness ENMT: Denies: throat pain, odynophagia, hoarseness, swelling of lips/tongue, ear or mastoid pain, ear discharge, change in hearing or nasal discharge Card: Denies: chest pain, palpitations, irregular heart rhythm, edema, lightheadedness, syncope, pre-syncope, dyspnea on exertion or orthopnea Resp: Denies: dyspnea, productive cough, non-productive cough, wheezing, hemoptysis or chest congestion GI: Denies: vomiting, hematemesis, coffee ground emesis, heartburn, diarrhea, constipation, GI cramping, hematochezia or melena : Denies: flank pain, dysuria, urinary frequency, urinary urgency or hematuria Musc: Denies: neck pain, back pain, extremity pain, extremity swelling, joint pain, joint swelling, joint redness, joint warmth or joint stiffness Skin/Breast: Denies: rash, pruritus, erythema or skin tenderness Neuro: Denies: headache(s), numbness in extremities, weakness in extremities, sensory changes, lack of coordination, difficulty walking, dizziness, vertigo, confusion, Slurred speech present or seizure-like activity Rom/Lymph: Denies: easy bruising, easy bleeding, petechiae, purpura or enlarged lymph nodes All/Imm: Denies: urticaria, throat swelling, tongue swelling, facial swelling or acute wheezing PFSH ED PFSH: Medical History Anxiety as acute reaction to gross stress Class 2 severe obesity with serious comorbidity in adult Gastro-esophageal reflux disease with esophagitis Generalized anxiety disorder Anoop's disease Peptic ulcer disease Polycystic ovarian syndrome Surgical History History of appendectomy History of cholecystectomy Status post arthroscopic surgery of left knee October 2019 Family History Mother Pulmonary embolism Thyroid disease Stroke Hypertension Hyperlipidemia Diabetes Father Diabetes Hyperlipidemia Grandmother Cancer MATERNAL: BRAIN Social History Smoking and tobacco status: light tobacco smoker cigarettes Packs smoked per day: 0.1 Years cigarettes smoked: 4 Second hand smoke exposure: No Smoking risk assessment/counseling performed?: Yes Alcohol intake: never Desire information about alcohol rehabilitation?: No Counseling given: No Desire information about substance/drug rehabilitation?: No Counseling given: No Adopted: No Caregiver/support person: No Lives independently: Yes Housing: Apartment Marital status: Single Number of children: 2 service: No Current occupational status: unemployed Pets and animals: Yes Pets & animals: dog(s) History of recent travel: No Current gender identity: Female Female Reproductive History: Date of last menstrual period: 12/23/19 : 4 Para: 2 Physical Exam Const: COMMON NORMALS: no acute distress, patient oriented x3, no limitations, healthy appearing and well nourished GENERAL APPEARANCE: cooperative, well kempt and well developed HENMT: COMMON NORMALS: normocephalic, atraumatic, external ears normal, EAC's normal and Normal external nose present HEAD & SCALP: normal to inspection, normocephalic and atraumatic FACE & SINUS: normal facial exam and face symmetric NOSE: Normal external nose present and Normal nares present EXTERNAL EAR: Yes external ears normal EXTERNAL AUDITORY CANAL: EAC's normal MOUTH: Normal oral and palatal mucosa present, lip normal and tongue normal Eye: COMMON NORMALS: Equal, round and reactive pupils present and conjunctivae normal GENERAL EYE: appearance normal, both eyes and all related structures ALIGNMENT: Yes alignment normal PERIORBITAL: periorbital findings normal EYELID: eyelids normal CONJUNCTIVA: Yes conjunctivae normal SCLERA: sclerae normal PUPIL: Yes Equal, round and reactive pupils present Neck/C-Spine: COMMON NORMALS: full ROM, no lymphadenopathy, supple, no meningeal signs and no JVD GENERAL: Yes normal visual inspection and Yes trachea midline Chest: COMMONS NORMALS: normal inspection of the chest and normal palpation of entire chest wall Resp: COMMON NORMALS: normal respiratory effort, No retractions, No use of accessory muscles and clear to auscultation bilaterally EFFORT & INSPECTION: Yes able to speak in complete sentences and Yes symmetric chest movement AUSCULTATION: clear to auscultation bilaterally, no crackles, no rales, no rhonchi and no wheezes Cardio: COMMON NORMALS: no JVD, regular rate, regular rhythm, S1 normal heart sound present and S2 normal heart sound present RATE: regular rate RHYTHM: regular rhythm HEART SOUNDS: S1 normal heart sound present, S2 normal heart sound present, no click, no gallops, no murmurs, no rubs and abnormal split S2 GI: COMMON NORMALS: Soft to palpation and No hepatosplenomegaly present PALPATION: Yes Soft to palpation, No Tenderness to palpation present (GI), No Guarding due to palpation present (GI), No Rigid due to palpation, Yes No hepatosplenomegaly present, No Hernia present, No Palpable mass present and No Pulsatile mass present : COMMON NORMALS: Yes no CVA tenderness BLADDER/KIDNEY EXAM: Yes no CVA tenderness EXTERNAL FEMALE EXAM: No Hernia present Back/Pelvis: COMMON NORMALS: no CVA tenderness, thoracic and lumbar spine normal to inspection, no thoracic nor lumbar tenderness and thoraco-lumbar ROM normal Extremity: COMMON NORMALS: normal to inspection, full ROM, capillary refill normal, no joint enlargement, no clubbing, cyanosis or edema and no calf tenderness Neuro: COMMON NORMALS: patient oriented x3, CN's II-XII intact bilaterally, moves all extremities, no focal motor deficits and no sensory deficits noted MENINGEAL SIGNS: Yes no meningeal signs SPEECH: speech normal Psych: COMMON NORMALS: mental status grossly normal, Normal thought process present, cooperative, normal affect, speech normal and activity/motor behavior normal APPEARANCE: Yes well kempt SPEECH: Yes normal speech THOUGHT PROCESS: Normal thought process present Skin: COMMON NORMALS: no rashes or lesions noted, turgor normal, no jaundice, no petechiae and no mottling GENERAL SKIN EXAM: no rashes or lesions noted and turgor normal Course Vital Signs: Vital signs: Vital Signs Temperature 98.3 F 05/10/20 21:51 Pulse Rate 96 05/11/20 00:55 Respiratory Rate 18 05/11/20 00:55 Blood Pressure 157/54 05/11/20 00:55 Pulse Oximetry 100 05/11/20 00:55 MDM - Abdominal Pain MDM Narrative: Medical decision making narrative: Neo is a nice 25-year-old female who comes in complaining of upper abdominal pain. Her ultrasounds are unremarkable. She is below the cutoff date for monitoring. She has no vaginal discharge or bleeding. I have offered to investigate further including with further imaging of her abdomen but she refuses. She wants to go home at this time. She is requesting something for pain and nausea which I will give her 1 dose here. She agrees to return should her symptoms change or worsen. Patient was mildly hypertensive but there is no sign of preeclampsia. She has no protein in her urine, no swelling of her legs and she has pre-existing hypertension. I will give her evening dose of labetalol that she has not taken at home. Patient understands return here if her symptoms change or worsen. Lab Data: Attestation: I reviewed the patient's lab results. Labs: Lab Results 05/10/20 05/10/20 05/10/20 Range/Units 22:02 23:00 23:00 WBC 13.4 H (4.0-10.0) 10^3/ uL RBC 4.50 (4.1-5.3) 10^6/u L Hgb 12.0 (11.5-15.3) g/dL Hct 37.8 (37.0-47.0) % MCV 84.0 (81-99) fL MCH 26.7 L (28.0-34.0) pg MCHC 31.7 (30.0-36.0) g/dL RDW 15.0 (12.1-15.1) % Plt Count 313 (130-400) 10^3/c mm MPV 9.4 (7.4-10.4) fL Neut % (Auto) 64.6 % Lymph % (Auto) 28.4 % [place] % (Auto) 5.3 % Eos % (Auto) 1.3 % Baso % (Auto) 0.2 % Neut # (Auto) 8.67 H (1.8-7.7) 10^3/u L Lymph # (Auto) 3.8 (0.8-4.8) 10^3/u L Huntington # (Auto) 0.7 (0.2-0.9) 10^3/u L Eos # (Auto) 0.2 (0.0-0.8) 10^3/u L Baso # (Auto) 0.0 (0.0-0.1) 10^3/u L Nucleated RBC % (a uto) 0 % Nucleated RBCs # 0.0 /100WBC Sodium (136-145) mmol/L Potassium (3.5-5.1) mmol/L Chloride (98-107) mmol/L Carbon Dioxide (22-29) mmol/L Anion Gap (5-19) BUN (6-20) mg/dL Creatinine (0.5-0.9) mg/dL GFR Calculation (90-130) mL/min Glucose (65-115) mg/dL Calculated Osmolal ity (285-295) mOsm/k g Calcium (8.5-10.5) mg/dL Total Bilirubin (0.15-1.2) mg/dL AST (0-32) U/L ALT (0-33) U/L Alkaline Phosphata se (35-105) IU/L Total Protein (6.6-8.7) g/dL Albumin (3.5-5.2) g/dL Globulin (1.3-4.6) g/dL Lipase (13-60) U/L Urine Color Yellow (Yellow) Urine Appearance Clear (CLEAR) Urine pH 6.5 (5-7) Ur Specific Gravit y 1.020 (1.005-1.030) Urine Protein Neg (Negative) Urine Glucose (UA) Norm (Normal) Urine Ketones Negative (Negative) Urine Blood Neg (Negative) Urine Nitrate Negative (Negative) Urine Bilirubin Neg (NEGATIVE) Urine Urobilinogen 1 H (Negative) mg/dL Ur Leukocyte Anabell ase Negative (Negative) Urine RBC 0-4 H (0-2) /hpf Urine WBC 0-4 H (0-5) /hpf Ur Squamous Epith Cells 15-25 H (0-5) Amorphous Sediment Trace Urine Bacteria Trace (NONE) H. pylori IgG Anti body Negative (Negative) 05/10/20 Range/Units 23:00 WBC (4.0-10.0) 10^3/ uL RBC (4.1-5.3) 10^6/u L Hgb (11.5-15.3) g/dL Hct (37.0-47.0) % MCV (81-99) fL MCH (28.0-34.0) pg MCHC (30.0-36.0) g/dL RDW (12.1-15.1) % Plt Count (130-400) 10^3/c mm MPV (7.4-10.4) fL Neut % (Auto) % Lymph % (Auto) % Huntington % (Auto) % Eos % (Auto) % Baso % (Auto) % Neut # (Auto) (1.8-7.7) 10^3/u L Lymph # (Auto) (0.8-4.8) 10^3/u L Huntington # (Auto) (0.2-0.9) 10^3/u L Eos # (Auto) (0.0-0.8) 10^3/u L Baso # (Auto) (0.0-0.1) 10^3/u L Nucleated RBC % (a uto) % Nucleated RBCs # /100WBC Sodium 135 L (136-145) mmol/L Potassium 4.0 (3.5-5.1) mmol/L Chloride 101 (98-107) mmol/L Carbon Dioxide 25 (22-29) mmol/L Anion Gap 13.0 (5-19) BUN 6 (6-20) mg/dL Creatinine 0.5 (0.5-0.9) mg/dL GFR Calculation 149.1 H (90-130) mL/min Glucose 96 (65-115) mg/dL Calculated Osmolal ity 276 L (285-295) mOsm/k g Calcium 9.0 (8.5-10.5) mg/dL Total Bilirubin 0.2 (0.15-1.2) mg/dL AST 12 (0-32) U/L ALT 13 (0-33) U/L Alkaline Phosphata se 122 H (35-105) IU/L Total Protein 6.5 L (6.6-8.7) g/dL Albumin 3.6 (3.5-5.2) g/dL Globulin 2.9 (1.3-4.6) g/dL Lipase 27 (13-60) U/L Urine Color (Yellow) Urine Appearance (CLEAR) Urine pH (5-7) Ur Specific Gravit y (1.005-1.030) Urine Protein (Negative) Urine Glucose (UA) (Normal) Urine Ketones (Negative) Urine Blood (Negative) Urine Nitrate (Negative) Urine Bilirubin (NEGATIVE) Urine Urobilinogen (Negative) mg/dL Ur Leukocyte Anabell ase (Negative) Urine RBC (0-2) /hpf Urine WBC (0-5) /hpf Ur Squamous Epith Cells (0-5) Amorphous Sediment Urine Bacteria (NONE) H. pylori IgG Anti body (Negative) Imaging Data ^: US: Radiologist's impression: [place] [address] CT Scan Report Signed Patient: Mckenna Benitez Unit #: [id number] : 02/19/1969 Age/Sex: 51 / F ADM Date: 05/10/20 Loc: ER Room/Bed: Attending Dr: Ordering Provider/Ordering MD: Jocelyn Elizabeth DO Date of Service: 05/10/20 Procedure(s): CT angio chest PE protcl [id number] Accession Number(s): [id number] Report Number: [id number] PROCEDURE INFORMATION: Exam: CT Angiography Chest With Contrast Exam date and time: 05/10/2020 9:47 PM Age: 51 years old Clinical indication: Chest pain; Additional info: Chest pain, positive d-dimer TECHNIQUE: Imaging protocol: Computed tomographic angiography of the chest with intravenous contrast. 3D rendering: MIP and/or 3D reconstructed images were created by the technologist. Radiation optimization: All CT scans at this facility use at least one of these dose optimization techniques: automated exposure control; mA and/or kV adjustment per patient size (includes targeted exams where dose is matched to clinical indication); or iterative reconstruction. Contrast material: OMNI 350; Contrast volume: 79 ml; Contrast route: INTRAVENOUS (IV); COMPARISON: CT angio chest PE protcl [id number] 05/03/2020 10:12 PM RADIATION DOSE METRICS: Total DLP (mGy-cm): 652.49 FINDINGS: Pulmonary arteries: The there is no pulmonary embolus. Aorta: Unremarkable. No aortic aneurysm. No aortic dissection. Thyroid: There is an unchanged 1 cm calcified nodule left thyroid lobe. Lungs: There is diffuse ground-glass and interstitial prominence in the lungs compatible with pneumonitis versus CHF. Pleural space: Unremarkable. No pneumothorax. No pleural effusion. Heart: The heart is enlarged. Mediastinal space: A small hiatal hernia is present. Lymph nodes: There is a 1.9 cm right paratracheal lymph node image 166 unchanged since the prior exam. There is an unchanged 1.3 cm precarinal lymph node. Unchanged subcentimeter hilar lymph nodes are noted. Bones/joints: Unremarkable. No acute fracture. Soft tissues: Unremarkable. CT/CT angio chest PE protcl [id number] IMPRESSION: 1. The there is no pulmonary embolus. 2. There is an unchanged 1 cm calcified nodule left thyroid lobe. No follow-up is necessary. 3. There is diffuse ground-glass and interstitial prominence in the lungs compatible with pneumonitis versus CHF. COMMENTS: Consistent with the [employer]'s Incidental Findings Committee white paper (J Am Melvin Radiol 2015): In patients aged 35 years and older with an incidental thyroid nodule equal to or greater than 1.[address], MRI or extrathyroidal US, further evaluation with dedicated thyroid US is recommended for patients with normal life expectancy and without comorbidities. For smaller nodules without suspicious features, no further evaluation or follow up is recommended. Radiation Dose CTDIVOL = (mGy): DLP = 652.49 (mGy-cm) Dictated By: Ashley Camp Signed By: Ashley Camp Signed Date/Time: 05/10/202326 DD/ 25 US OB: Radiologist's impression: [address] [place] [address] Ultrasound Report Signed Patient: Neo Noland Unit #: [id number] : 1995 Age/Sex: 25 / F ADM Date: 05/10/20 Loc: ER Room/Bed: Attending Dr: Ordering Provider/Ordering MD: Jocelyn Elizabeth DO Date of Service: 05/10/20 Procedure(s): US OB limited [id number] Accession Number(s): [id number] Report Number: [id number] PROCEDURE INFORMATION: Exam: US , Limited Exam date and time: 05/10/2020 10:16 PM Age: 25 years old Clinical indication: complicated by abdominal or pelvic pain; Right upper quadrant; Second trimester; Gestational age or lmp: 19 w 6 d; TECHNIQUE: Imaging protocol: Real-time ultrasound of the maternal uterus with image documentation. Exam focused on the clinical indication. COMPARISON: US OB limited [id number] 04/14/2020 8:33 PM FINDINGS: Gestation: There is a single live intrauterine gestation. heart rate: cardiac activity is identified with a heart rate of 171 bpm. Presentation: Fetus is in breech presentation. Placenta: The placenta is posterior and unremarkable. BIOMETRY: Gestational age (AUA): The calculated gestational age is 19 weeks 6 days. Estimated due date (AUA): ABENA September 28, 2020 MATERNAL: Cervix: The cervix is closed measuring 4 cm. US/US OB limited [id number] IMPRESSION: Single live intrauterine gestation with good cardiac activity. Dictated By: Ashley Camp Signed By: Ashley Camp Signed Date/Time: 04/27 DD/ 36 Discharge Plan Discharge Patient Disposition: Home Clinical Impression: Abdominal pain Qualifiers: Abdominal location: upper abdomen, unspecified Qualified Code(s): R10.10 - Upper abdominal pain, unspecified Condition: Stable Prescriptions: No Action levothyroxine [Levo-T] 25 mcg tablet 25 mcg PO DAILY Qty: 14 RF: 0 Lexapro 10 mg tablet 10 mg PO DAILY Qty: 14 RF: 0 cetirizine 10 mg tablet 10 mg PO DAILY RF: 0 ondansetron HCl 4 mg tablet 4 mg PO TID PRN (Reason: Nausea) RF: 0 omeprazole 20 mg capsule,delayed release(DR/EC) 20 mg PO DAILY RF: 0 hydroxyzine HCl 25 mg tablet 25 mg PO QID PRN (Reason: UNKNOWN) RF: 0 ProAir HFA 90 mcg/actuation HFA aerosol inhaler 2 puff INHALATION QID PRN (Reason: Shortness Of Breath) RF: 0 M-Suzanne Plus 27 mg iron- 1 mg tablet 1 tab PO DAILY RF: 0 Discharge Orders: Discharge Order (Routine); Ordered 05/11/20 Ordered By: Jocelyn Elizabeth Referrals: Evans Alcantara MD [Primary Care Provider] - 1-3 days Discharge Diet: Advance as tolerated and Clear Liquid Discharge Activity: Resume usual activity Patient Instructions: Abdominal Pain (ED) Activity Restrictions/Additional Instructions: Please return to the ER immediately for any of the signs or symptoms listed on your discharge instruction sheets, worsening/changing of your symptoms, you are not getting better as quickly as expected, or for ANY other cause or concerns. You have been offered further evaluation and care here but have declined. If you change your mind, your symptoms change or worsen or develop any new symptoms please return to the ER immediately for recheck. Discharge Date/Time: 05/11/20 00:56 Coding Level of Care Code ED Director Human Services for [place] Fwd Exam Comprehensive
[2020-05-11] MEDS: metoclopramide 10 mg Tablet PO (00:40)
[2020-05-11] MEDS: HYDROcodone-acetaminophen 5-325 mg Tablet 1 TAB PO (00:40)
[2020-05-11] MEDS: labetalol 200 mg Tablet 100 MG PO (00:51)
[2020-05-11 00:55] VITALS: BP 157/54; PULSE 96; RESP 18; O2SAT 100
== END 2020-05-11 00:56 | disposition home or self-care (01) ==
PROVIDERS: Emergency Provider Emergency Medicine; PCP Family Medicine
DX: R10.10 Upper abdominal pain, unspecified (principal); F17.210 Nicotine dependence, cigarettes, uncomplicated
CPT/HCPCS: 12345; 76700; 76815; 80053; 81001; 83690; 85025; 86677; 99282; 99283; J8597

== ENCOUNTER 2020-05-19 20:52 | Outpatient (CLI) | payer MEDICAID, SELFPAY ==
[2020-05-19 21:23] VITALS: BMI 53.6
[2020-05-19 21:29] VITALS: BP 137/60; PULSE 102
[2020-05-19 21:40] VITALS: BP 137/60; RESP 16; TEMP 37.2
[2020-05-19] MEDS: pantoprazole DR 40 mg Tablet PO (21:41)
== END 2020-05-19 21:45 | disposition home or self-care (01) ==
LOC: OPOB 20:53 → OBGYN 21:37
PROVIDERS: PCP Family Medicine; Visit Provider Family Medicine
DX: O26.899 Other specified pregnancy related conditions, unspecified trimester (principal); Z3A.00 Weeks of gestation of pregnancy not specified; R10.9 Unspecified abdominal pain
CPT/HCPCS: 99211

== ENCOUNTER 2020-06-17 21:27 | Outpatient (CLI) | payer MEDICAID, SELFPAY ==
[2020-06-17 21:47] VITALS: BP 140/71; PULSE 100; RESP 18; TEMP 36.9; O2SAT 98
[2020-06-17 21:57] VITALS: BMI 57.4
[2020-06-17 22:03] VITALS: BP 140/61; PULSE 92
[2020-06-17 22:33] VITALS: BP 137/57; PULSE 91
[2020-06-17 22:34] LABS: Add Urine Microscopic? YES; Bacteria Urine 1+ /hpf; Bilirubin Urine Neg (Negative); Blood Urine Neg (Negative); Glucose Urine UA Norm (Normal); Ketones Urine Negative (Negative); Leukocyte Esterase Urine Negative (Negative); Nitrate Urine Negative (Negative); Protein Urine Neg (Negative); RBC Urine 0-4 /hpf (0-2); Specific Gravity, Urine 1.025 (1.005-1.030); Squamous Epithelial Cell Urine 25-40 /hpf (0-5); Urine Appearance Cloudy (CLEAR); Urine Color Dark Yellow (Yellow); Urobilinogen Urine 1 mg/dL (Negative); WBC Urine 0-4 /hpf (0-5); pH Urine 5 (5-7)
[2020-06-17 22:40] VITALS: BP 128/62; PULSE 96; RESP 18; TEMP 36.9
[2020-06-17 22:49] VITALS: BP 128/62; PULSE 96
== END 2020-06-17 22:48 | disposition home or self-care (01) ==
LOC: OPOB 21:29 → OBGYN 22:41
PROVIDERS: PCP Family Medicine; Visit Provider Family Medicine
DX: O26.899 Other specified pregnancy related conditions, unspecified trimester (principal); Z3A.00 Weeks of gestation of pregnancy not specified; R10.9 Unspecified abdominal pain
CPT/HCPCS: 81001; 99211

== ENCOUNTER 2020-06-17 22:55 | Emergency (ER) | payer MEDICAID, SELFPAY ==
[2020-06-17 23:00] VITALS: BP 85/60; PULSE 98; RESP 16; TEMP 36.7; O2SAT 98; BMI 53.2
[2020-06-17 23:05] VITALS: BP 156/68; PULSE 94; RESP 18; O2SAT 97
--- NOTE | 2020-06-17 23:17 | W.ED.ABDPA2 ---
HPI - Abdominal Pain General: Chief Complaint: Abdominal Pain Stated Complaint: abd pain/ preg 25 weeks Time Seen by Provider: 06/17/20 23:07 History of Present Illness: HPI narrative: Patient is a 25-year-old female comes to the ED with abdominal pain. Past surgical history of cholecystectomy and appendectomy. Patient is also 25 weeks , so first she went up to the OB unit and a UA was performed and showed no UTI or any acute findings. Baby was monitored and looked healthy. Patient was then cleared and sent down to the ED for further evaluation of abdominal pain. Patient says abdominal pain started today. She describes it as pain that goes from the right to left side across the mid upper part of abdomen. This is patient's fourth and she says she has not ever experienced this abdominal pain before current . Patient says she took ibuprofen before coming to the ED. Patient denies any fever, chills, nausea, vomiting, diarrhea, constipation, dysuria, hematuria. Associated Symptoms: Denies chills, constipation, diarrhea, dysuria, fever(s), hematochezia, hematuria, nausea and vomiting Related Data: Date of Last Menstrual Period: 12/23/19 Review of Systems Const: Denies: fever(s), chills or fatigue Eyes: Denies: change in vision or eye discomfort ENMT: Denies: throat pain, odynophagia, nasal discharge or nasal congestion Card: Denies: chest pain, palpitations, edema, swelling of feet/ankles, dyspnea on exertion or orthopnea Resp: Denies: dyspnea, productive cough or non-productive cough GI: Reports: abdominal pain; Denies: nausea, vomiting, diarrhea, constipation or hematochezia : Denies: flank pain, dysuria or hematuria Musc: Denies: neck pain, back pain or extremity swelling Skin/Breast: Denies: rash or new lesions Neuro: Denies: headache(s), numbness in extremities or weakness in extremities PFSH ED PFSH: Medical History Anxiety as acute reaction to gross stress Class 2 severe obesity with serious comorbidity in adult Gastro-esophageal reflux disease with esophagitis Generalized anxiety disorder Anoop's disease Peptic ulcer disease Polycystic ovarian syndrome Surgical History History of appendectomy History of cholecystectomy Status post arthroscopic surgery of left knee October 2019 Family History Mother Pulmonary embolism Thyroid disease Stroke Hypertension Hyperlipidemia Diabetes Father Diabetes Hyperlipidemia Grandmother Cancer MATERNAL: BRAIN Social History Smoking and tobacco status: light tobacco smoker cigarettes Packs smoked per day: 0.1 Years cigarettes smoked: 4 Second hand smoke exposure: No Smoking risk assessment/counseling performed?: Yes Alcohol intake: never Desire information about alcohol rehabilitation?: No Counseling given: No Desire information about substance/drug rehabilitation?: No Counseling given: No Adopted: No Caregiver/support person: No Lives independently: Yes Housing: Apartment Marital status: Single Number of children: 2 service: No Current occupational status: unemployed Pets and animals: Yes Pets & animals: dog(s) History of recent travel: No Current gender identity: Female Female Reproductive History: Date of last menstrual period: 12/23/19 Para: 2 Physical Exam Const: COMMON NORMALS: no acute distress, patient oriented x3 and alert GENERAL APPEARANCE: cooperative and comfortable NUTRITIONAL APPEARANCE: obese morbidly obese HENMT: COMMON NORMALS: normocephalic HEAD & SCALP: normocephalic MOUTH: Normal oral and palatal mucosa present THROAT: posterior oropharynx normal and uvula midline Neck/C-Spine: COMMON NORMALS: supple GENERAL: Yes normal visual inspection Resp: COMMON NORMALS: normal respiratory effort, No retractions, No use of accessory muscles and clear to auscultation bilaterally AUSCULTATION: clear to auscultation bilaterally Cardio: COMMON NORMALS: regular rate, regular rhythm, S1 normal heart sound present, S2 normal heart sound present, No gallops present (Cardio), No clicks present (Cardio), No murmurs present (Cardio) and Peripheral pulses 2+ throughout RATE: regular rate RHYTHM: regular rhythm HEART SOUNDS: S1 normal heart sound present and S2 normal heart sound present PERIPHERAL PULSES: Peripheral pulses 2+ throughout GI: COMMON NORMALS: Normal to inspection, nondistended, normoactive bowel sounds present, Soft to palpation, non-tender and no masses INSPECTION: Yes central obesity and Yes gravid abdomen PALPATION: Yes Soft to palpation : COMMON NORMALS: Yes no CVA tenderness BLADDER/KIDNEY EXAM: Yes no CVA tenderness Back/Pelvis: COMMON NORMALS: no CVA tenderness Extremity: COMMON NORMALS: normal to inspection and no pedal edema Neuro: COMMON NORMALS: patient oriented x3 SENSORIUM/ORIENTATION: Yes alert GAIT: Yes Normal gait present Skin: COMMON NORMALS: no rashes or lesions noted GENERAL SKIN EXAM: no rashes or lesions noted and dry skin Course Vital Signs: Vital signs: Vital Signs Temperature 98.0 F 06/17/20 23:00 Pulse Rate 92 06/18/20 01:20 Respiratory Rate 18 06/18/20 01:20 Blood Pressure 135/64 06/18/20 01:20 Pulse Oximetry 96 06/18/20 01:20 MDM - Abdominal Pain MDM Narrative: Medical decision making narrative: Patient is a 25-year-old female who comes to the ED with abdominal pain. She was first seen up in the OB department and they performed a UA which was unremarkable and they checked on baby status and baby was healthy and then pt was cleared by OB department and sent down to the ED. CBC and CMP were unremarkable. Patient's 12.8 white blood cell count is down from 13.4 on 05/10. Lipase was 29. Patient was given IV fluids, Tylenol and 2 mg of morphine and her symptoms improved. Patient was diagnosed with abdominal pain and and told to follow-up with her OB doctor at her scheduled appointment tomorrow. Return to ED precautions given. Patient understood and agreed with plan. Lab Data: Attestation: I reviewed the patient's lab results. Labs: Lab Results 06/17/20 06/17/20 Range/Units 23:51 23:51 WBC 12.8 H (4.0-10.0) 10^3/ uL RBC 4.06 L (4.1-5.3) 10^6/u L Hgb 11.1 L (11.5-15.3) g/dL Hct 34.4 L (37.0-47.0) % MCV 84.7 (81-99) fL MCH 27.3 L (28.0-34.0) pg MCHC 32.3 (30.0-36.0) g/dL RDW 14.6 (12.1-15.1) % Plt Count 287 (130-400) 10^3/c mm MPV 9.3 (7.4-10.4) fL Neut % (Auto) 66.3 % Lymph % (Auto) 26.9 % [place] % (Auto) 4.8 % Eos % (Auto) 1.4 % Baso % (Auto) 0.3 % Neut # (Auto) 8.49 H (1.8-7.7) 10^3/u L Lymph # (Auto) 3.4 (0.8-4.8) 10^3/u L [place] # (Auto) 0.6 (0.2-0.9) 10^3/u L Eos # (Auto) 0.2 (0.0-0.8) 10^3/u L Baso # (Auto) 0.0 (0.0-0.1) 10^3/u L Nucleated RBC % (a uto) 0 % Nucleated RBCs # 0.0 /100WBC Sodium 138 (136-145) mmol/L Potassium 3.5 (3.5-5.1) mmol/L Chloride 105 (98-107) mmol/L Carbon Dioxide 21 L (22-29) mmol/L Anion Gap 15.5 (5-19) BUN 8 (6-20) mg/dL Creatinine 0.4 L (0.5-0.9) mg/dL GFR Calculation 192.9 H (90-130) mL/min Glucose 110 (65-115) mg/dL Calculated Osmolal ity 285 (285-295) mOsm/k g Calcium 8.4 L (8.5-10.5) mg/dL Total Bilirubin 0.2 (0.15-1.2) mg/dL AST 12 (0-32) U/L ALT 18 (0-33) U/L Alkaline Phosphata se 140 H (35-105) IU/L Total Protein 6.5 L (6.6-8.7) g/dL Albumin 3.4 L (3.5-5.2) g/dL Globulin 3.1 (1.3-4.6) g/dL Lipase 29 (13-60) U/L Discharge Plan Discharge Patient Disposition: Home Clinical Impression: Abdominal pain in Qualifiers: Trimester: second trimester Qualified Code(s): O26.892 - Other specified related conditions, second trimester Condition: Stable Prescriptions: No Action levothyroxine [Levo-T] 25 mcg tablet 25 mcg PO DAILY Qty: 14 RF: 0 Lexapro 10 mg tablet 10 mg PO DAILY Qty: 14 RF: 0 labetalol 100 mg Tablet 100 mg PO DAILY RF: 0 buspirone 15 mg PO PRN RF: 0 cetirizine 10 mg tablet 10 mg PO DAILY RF: 0 ondansetron HCl 4 mg tablet 4 mg PO TID PRN (Reason: Nausea) RF: 0 omeprazole 20 mg capsule,delayed release(DR/EC) 20 mg PO DAILY RF: 0 hydroxyzine HCl 25 mg tablet 25 mg PO QID PRN (Reason: UNKNOWN) RF: 0 albuterol sulfate [ProAir HFA] 90 mcg/actuation HFA aerosol inhaler 2 puff INHALATION QID PRN (Reason: Shortness Of Breath) RF: 0 Discharge Orders: Discharge Order (Routine); Ordered 06/18/20 Ordered By: Dagoberto Reaves Referrals: [facility], [Family Provider] - Evans Alcantara MD [Primary Care Provider] - Discharge Diet: Regular Discharge Activity: Increase activity as tolerated Activity Restrictions/Additional Instructions: Follow-up with medical provider at your scheduled OB appointment tomorrow. Take medications as prescribed. Return to the ER or your medical provider if condition worsens. Please read and understand discharge instructions. If any questions, please ask. Discharge Date/Time: 06/18/20 01:21 Coding Level of Care Code ED Route Delivery Manager for Scooter Fwd Exam Comprehensive
[2020-06-17] MEDS: acetaminophen 500 mg Tablet 1000 MG PO (23:33)
[2020-06-17] MEDS: sodium chloride 0.9% 1,000 ML 999 ML IV (23:59)
[2020-06-18 00:01] LABS: Basophils % 0.3 %; Eosinophils # 0.2 10^3/uL (0.0-0.8); Eosinophils % 1.4 %; Hematocrit 34.4 % (37.0-47.0); Hemoglobin 11.1 g/dL (11.5-15.3); Lymphocytes # 3.4 10^3/uL (0.8-4.8); Lymphocytes % 26.9 %; Mean Corpuscular HGB Conc 32.3 g/dL (30.0-36.0); Mean Corpuscular Hemoglobin 27.3 pg (28.0-34.0); Mean Corpuscular Volume 84.7 fL (81-99); Mean Platelet Volume 9.3 fL (7.4-10.4); Monocytes # 0.6 10^3/uL (0.2-0.9); Monocytes % 4.8 %; Neutrophils # 8.49 10^3/uL (1.8-7.7); Neutrophils % 66.3 %; Nucleated Red Blood Cells % 0 %; Platelet Count 287 10^3/cmm (130-400); Red Blood Count 4.06 10^6/uL (4.1-5.3); Red Cell Distribution Width 14.6 % (12.1-15.1); White Blood Count 12.8 10^3/uL (4.0-10.0)
[2020-06-18 00:30] LABS: Alanine Aminotransferase 18 U/L (0-33); Albumin Level 3.4 g/dL (3.5-5.2); Alkaline Phosphatase 140 IU/L (35-105); Anion Gap 15.5 (5-19); Aspartate Amino Transferase 12 U/L (0-32); Blood Urea Nitrogen 8 mg/dL (6-20); Calcium 8.4 mg/dL (8.5-10.5); Carbon Dioxide 21 mmol/L (22-29); Chloride 105 mmol/L (98-107); Globulin 3.1 g/dL (1.3-4.6); Glomerular Filtration Rate 192.9 mL/min (90-130); Glucose 110 mg/dL (65-115); Lipase 29 U/L (13-60); Osmolality Calculated 285 mOsm/kg (285-295); Potassium 3.5 mmol/L (3.5-5.1); Sodium 138 mmol/L (136-145); Total Bilirubin 0.2 mg/dL (0.15-1.2); Total Protein 6.5 g/dL (6.6-8.7)
[2020-06-18 00:32] VITALS: BP 155/71; PULSE 88; RESP 20; O2SAT 96
[2020-06-18 00:41] VITALS: RESP 18
[2020-06-18] MEDS: morphine 4 mg/mL SDV 1 mL 2 MG IVP (00:41)
[2020-06-18] MEDS: ondansetron 2 mg/ML SDV 2 mL 4 MG IVP (00:43)
[2020-06-18 01:20] VITALS: BP 135/64; PULSE 92; RESP 18; O2SAT 96
== END 2020-06-18 01:21 | disposition home or self-care (01) ==
PROVIDERS: Emergency Provider Physician Assistant; PCP Family Medicine
DX: O26.892 Other specified pregnancy related conditions, second trimester (principal); R10.9 Unspecified abdominal pain; Z3A.25 25 weeks gestation of pregnancy; O99.332 Smoking (tobacco) complicating pregnancy, second trimester; F17.210 Nicotine dependence, cigarettes, uncomplicated
CPT/HCPCS: 12345; 80053; 83690; 85025; 96360; 96374; 96375; 99283; 99284; J2270; J2405; J7030

== ENCOUNTER → 2020-07-04 14:12 | Outpatient (BNVA) | payer MEDICAID, SELFPAY | PROVIDERS: PCP Family Medicine; Visit Provider Nurse Practitioner Family | DX: Z20.828 Contact with and (suspected) exposure to other viral communicable diseases (principal); B86 Scabies; Z11.59 Encounter for screening for other viral diseases | CPT/HCPCS: 87635 ==

== ENCOUNTER 2020-07-14 20:32 | Emergency (ER) | payer MEDICAID, SELFPAY ==
--- NOTE | 2020-07-14 20:35 | XRR_ITS ---
PROCEDURE INFORMATION: Exam: XR Left Wrist Exam date and time: 07/14/2020 9:06 PM Age: 25 years old Clinical indication: Pain; Wrist; Left; Additional info: Injury TECHNIQUE: Imaging protocol: XR Left wrist. Views: 3 or more views. COMPARISON: No relevant prior studies available. FINDINGS: No acute fracture or dislocation is demonstrated. XR/XR wrist LT min 3V* [id number] IMPRESSION: No acute osseous abnormality is demonstrated.
[2020-07-14 20:48] VITALS: BP 179/84; PULSE 109; RESP 18; TEMP 36.3; O2SAT 98; BMI 52.7
[2020-07-14 20:56] VITALS: PULSE 105
[2020-07-14 21:39] VITALS: RESP 18; O2SAT 97
[2020-07-14] MEDS: oxyCODONE-APAP 5-325 mg Tablet 2 TAB PO (21:39)
[2020-07-14] MEDS: predniSONE 20 mg Tablet 40 MG PO (21:40)
[2020-07-14 21:49] VITALS: BP 159/84; PULSE 109; RESP 18; O2SAT 98
--- NOTE | 2020-07-14 22:04 | W.ED.EXTPRO ---
HPI - Extremity Problem General: Chief complaint: Extremity Injury, Upper Stated complaint: L WRIST PAIN Time Seen by Provider: 07/14/20 20:35 History of Present Illness: HPI Narrative: 25-year-old female at 29 weeks presents with nontraumatic left-sided wrist pain for about a month and a half. She says it is progressively worsened. She says the fingers, mainly the first to get numb at times. It hurts worse at night. MD Complaint: extremity pain and extremity swelling Onset (ago): week(s) Pain Consistency: constant Location: left and upper extremity Quality: stabbing, aching and other Radiation: none Relieving factors: nothing Exacerbating factors: range of motion Associated symptoms: Deny chest pain, fever(s) or rash Review of Systems Const: Denies: fever(s) Card: Denies: chest pain GI: Denies: abdominal pain or vomiting : Denies: vaginal bleeding Skin/Breast: Denies: rash PFSH ED PFSH: Medical History (Updated 07/14/20 @ 21:28 by Isra Gibson DO) Anxiety as acute reaction to gross stress Class 2 severe obesity with serious comorbidity in adult Gastro-esophageal reflux disease with esophagitis Generalized anxiety disorder Anoop's disease Peptic ulcer disease Polycystic ovarian syndrome Surgical History History of appendectomy History of cholecystectomy Status post arthroscopic surgery of left knee October 2019 Family History Mother Pulmonary embolism Thyroid disease Stroke Hypertension Hyperlipidemia Diabetes Father Diabetes Hyperlipidemia Grandmother Cancer MATERNAL: BRAIN Social History Smoking and tobacco status: light tobacco smoker cigarettes Packs smoked per day: 0.1 Years cigarettes smoked: 4 Second hand smoke exposure: No Smoking risk assessment/counseling performed?: Yes Alcohol intake: never Desire information about alcohol rehabilitation?: No Counseling given: No Desire information about substance/drug rehabilitation?: No Counseling given: No Adopted: No Caregiver/support person: No Lives independently: Yes Housing: Apartment Marital status: Single Number of children: 2 service: No Current occupational status: unemployed Pets and animals: Yes Pets & animals: dog(s) History of recent travel: No Current gender identity: Female Female Reproductive History: Date of last menstrual period: 12/23/19 Para: 2 Physical Exam Const: COMMON NORMALS: no acute distress Resp: COMMON NORMALS: normal respiratory effort, No retractions and No use of accessory muscles Cardio: COMMON NORMALS: regular rate, regular rhythm and Peripheral pulses 2+ throughout RATE: regular rate RHYTHM: regular rhythm PERIPHERAL PULSES: Peripheral pulses 2+ throughout Extremity: COMMON NORMALS: normal to inspection NARRATIVE EXTREMITY EXAM: Exam of the left wrist reveals some tenderness diffusely. There is no deformity. Modified Phalen's test is positive. Tinel's test is positive. There is some pain with range of motion. There is no bony tenderness. Course Vital Signs: Vital signs: Vital Signs Temperature 97.3 F L 07/14/20 20:48 Pulse Rate 109 H 07/14/20 21:49 Respiratory Rate 18 07/14/20 21:49 Blood Pressure 159/84 07/14/20 21:49 Pulse Oximetry 98 07/14/20 21:49 MDM - Extremity (Nontraumatic) MDM Narrative: Medical decision making narrative: X-ray is negative. Counseled on diagnosis and treatment of carpal tunnel syndrome, particularly in . She denies any proteinuria on her visits Discharge Plan Discharge Patient Disposition: Home Clinical Impression: Acute carpal tunnel syndrome of left wrist Condition: Stable Prescriptions: [place] 5-325 mg tablet 1 tab PO Q6H PRN (Reason: pain) Qty: 7 RF: 0 prednisone 20 mg tablet 20 mg PO DAILY 3 Days Qty: 3 RF: 0 No Action pantoprazole [Protonix] 20 mg tablet,delayed release (DR/EC) 20 mg PO DAILY RF: 0 metoclopramide HCl [Reglan] 5 mg tablet 5 mg PO DAILY RF: 0 baclofen 20 mg tablet 20 mg PO DAILY RF: 0 azithromycin 250 mg tablet See Rx Instructions PO .COMPLEX Qty: 6 RF: 0 albuterol sulfate [ProAir HFA] 90 mcg/actuation HFA aerosol inhaler 2 puff INHALATION QID PRN (Reason: Shortness Of Breath) Qty: 6.7 RF: 0 permethrin 5 % cream 1 applic TOPICAL Q14D Qty: 60 RF: 0 levothyroxine [Levo-T] 25 mcg tablet 25 mcg PO DAILY Qty: 14 RF: 0 Lexapro 10 mg tablet 10 mg PO DAILY Qty: 14 RF: 0 labetalol 100 mg Tablet 100 mg PO DAILY RF: 0 buspirone 15 mg PO PRN RF: 0 cetirizine 10 mg tablet 10 mg PO DAILY RF: 0 ondansetron HCl 4 mg tablet 4 mg PO TID PRN (Reason: Nausea) RF: 0 hydroxyzine HCl 25 mg tablet 25 mg PO QID PRN (Reason: UNKNOWN) RF: 0 Discharge Orders: Discharge Order (Routine); Ordered 07/14/20 Ordered By: Isra Gibson Referrals: [facility], [Family Provider] - Evans Alcantara MD [Primary Care Provider] - 4-7 days Discharge Diet: Advance as tolerated Discharge Activity: Increase activity as tolerated Patient Instructions: Carpal Tunnel Syndrome (ED) Activity Restrictions/Additional Instructions: Wear your wrist splint at all times for the next 5 days to 7 days. After that, at least wear it at night. Medication as directed. Ice will help as well. Follow-up with your physician. Discharge Date/Time: 07/14/20 21:49 Coding Level of Care Code ED Equipment Mechanic Specialist for Scooter Kuhn
== END 2020-07-14 21:49 | disposition home or self-care (01) ==
PROVIDERS: Emergency Provider Emergency Medicine; PCP Family Medicine
DX: O26.893 Other specified pregnancy related conditions, third trimester (principal); Z3A.29 29 weeks gestation of pregnancy; G56.02 Carpal tunnel syndrome, left upper limb; O99.333 Smoking (tobacco) complicating pregnancy, third trimester; F17.210 Nicotine dependence, cigarettes, uncomplicated
CPT/HCPCS: 12345; 29125; 73110; 99281; 99283; J7512

== ENCOUNTER 2020-07-30 16:10 | Outpatient (CLI) | payer MEDICAID, SELFPAY ==
[2020-07-30 16:59] VITALS: BMI 53.7
[2020-07-30 17:06] VITALS: BP 109/59; PULSE 100; RESP 20; TEMP 36.8
== END 2020-07-30 17:10 | disposition home or self-care (01) ==
LOC: OPOB 16:11 → OBGYN 16:11
PROVIDERS: PCP Family Medicine; Visit Provider Family Medicine
DX: O26.899 Other specified pregnancy related conditions, unspecified trimester (principal); Z3A.00 Weeks of gestation of pregnancy not specified; R11.0 Nausea; R19.7 Diarrhea, unspecified; N89.8 Other specified noninflammatory disorders of vagina
CPT/HCPCS: 99211

== ENCOUNTER 2020-08-13 19:20 | Outpatient (CLI) | payer MEDICAID, SELFPAY ==
[2020-08-13] VITALS (8 sets, daily range): BP systolic 144–178; BP diastolic 55–80; PULSE 81–94; RESP 16; TEMP 36.9; BMI 73.5
[2020-08-13] MEDS: acetaminophen 500 mg Tablet 1000 MG PO (20:17)
[2020-08-13 20:21] LABS: Add Urine Culture? No; Bacteria Urine TRACE /hpf; Bilirubin Urine Neg (Negative); Blood Urine Neg (Negative); Glucose Urine UA Norm (Normal); Ketones Urine Negative (Negative); Leukocyte Esterase Urine Negative (Negative); Mucus Urine TRACE /hpf; Nitrate Urine Negative (Negative); Protein Urine Neg (Negative); RBC Urine 0-4 /hpf (0-2); Squamous Epithelial Cell Urine 0-4 /hpf (0-5); Urine Appearance Clear (CLEAR); Urine Color Yellow (Yellow); Urobilinogen Urine 1 mg/dL (Negative); WBC Urine 0-4 /hpf (0-5); pH Urine 6 (5-7)
== END 2020-08-13 21:55 | disposition home or self-care (01) ==
LOC: OPOB 19:24 → OBGYN 19:24
PROVIDERS: PCP Family Medicine; Visit Provider Family Medicine
DX: O26.899 Other specified pregnancy related conditions, unspecified trimester (principal); R51.9 Headache, unspecified
CPT/HCPCS: 59025; 81001; 99211

== ENCOUNTER 2020-08-24 18:26 | Outpatient (CLI) | payer MEDICAID, SELFPAY ==
[2020-08-24] VITALS (9 sets, daily range): BP systolic 0–147; BP diastolic 0–66; PULSE 84–109; RESP 16; TEMP 36.7; BMI 52.4
[2020-08-24 19:34] LABS: Bilirubin Urine Neg (Negative); Blood Urine 2+ (Negative); Glucose Urine UA Norm (Normal); Ketones Urine 1+ (Negative); Leukocyte Esterase Urine 1+ (Negative); Nitrate Urine Negative (Negative); Protein Urine Neg (Negative); Urine Appearance SL Hazy (CLEAR); Urine Color Yellow (Yellow); Urobilinogen Urine 1 mg/dL (Negative); pH Urine 5 (5-7)
[2020-08-24 19:35] LABS: Squamous Epithelial Cell Urine 40-55 /hpf (0-5); WBC Urine 15-25 /hpf (0-5)
[2020-08-24 19:36] LABS: Add Urine Culture? No; Bacteria Urine 2+ /hpf; Mucus Urine 1+ /hpf
== END 2020-08-24 19:53 | disposition home or self-care (01) ==
LOC: OPOB 18:32 → OBGYN 18:33
PROVIDERS: PCP Family Medicine; Visit Provider Family Medicine
DX: O46.90 Antepartum hemorrhage, unspecified, unspecified trimester (principal); Z3A.00 Weeks of gestation of pregnancy not specified
CPT/HCPCS: 81001; 87071; 87880; 99211

== ENCOUNTER 2020-08-25 12:06 | Outpatient (CLI) | payer MEDICAID, SELFPAY ==
[2020-08-25] VITALS (11 sets, daily range): BP systolic 0–149; BP diastolic 0–79; PULSE 83–98; RESP 18; TEMP 36.7; BMI 52.4
--- NOTE | 2020-08-25 12:13 | USR_ITS ---
PROCEDURE INFORMATION: Exam: US Biophysical Profile Without Non-Stress Test Exam date and time: 08/25/2020 12:15 PM Age: 25 years old Clinical indication: Other: Vaginal bleeding; TECHNIQUE: Imaging protocol: US biophysical profile without non-stress testing. COMPARISON: US OB >= 14 weeks fetus [id number] 05/21/2020 1:25 PM FINDINGS: BIOPHYSICAL PROFILE: Breathin/2 Gross body movements: 2/2 tone: 2/2 Qualitative amniotic fluid: 2/2 Biophysical Profile Score: 8/8 US/US OB BPP wo NST [id number] IMPRESSION: Biophysical profile score is 8 out of 8.
[2020-08-25] MEDS: sodium chloride 0.9% 1,000 ML 999 ML IV (12:37)
== END 2020-08-25 15:05 | disposition home or self-care (01) ==
LOC: OPOB 12:12 → OBGYN 14:52
PROVIDERS: PCP Family Medicine; Visit Provider Family Medicine
DX: O46.90 Antepartum hemorrhage, unspecified, unspecified trimester (principal); Z3A.00 Weeks of gestation of pregnancy not specified
CPT/HCPCS: 59025; 76819; 99211; J7030

== ENCOUNTER 2020-09-01 19:40 | Outpatient (CLI) | payer MEDICAID, SELFPAY ==
[2020-09-01] VITALS (19 sets, daily range): BP systolic 0–178; BP diastolic 0–95; PULSE 75–91; RESP 16; TEMP 36.6–36.9; BMI 53.5
[2020-09-01] MEDS: lactated ringers 1,000 ML 999 ML IV (20:47)
== END 2020-09-01 22:43 | disposition home or self-care (01) ==
LOC: OPOB 19:41 → OBGYN 19:41
PROVIDERS: PCP Family Medicine; Visit Provider Family Medicine
DX: O26.899 Other specified pregnancy related conditions, unspecified trimester (principal); Z3A.00 Weeks of gestation of pregnancy not specified; R10.9 Unspecified abdominal pain
CPT/HCPCS: 59025; 96360; 99211

== ENCOUNTER 2020-09-07 13:20 | Outpatient (CLI) | payer MEDICAID, SELFPAY ==
[2020-09-07] VITALS (8 sets, daily range): BP systolic 0–140; BP diastolic 0–68; PULSE 77–84; BMI 54.1
[2020-09-07 14:48] LABS: Bilirubin Urine Neg (Negative); Blood Urine Neg (Negative); Glucose Urine UA Norm (Normal); Ketones Urine Negative (Negative); Leukocyte Esterase Urine Negative (Negative); Nitrate Urine Negative (Negative); Protein Urine Neg (Negative); Urine Appearance Clear (CLEAR); Urine Color Colorless (Yellow); Urobilinogen Urine Norm (Negative); pH Urine 7 (5-7)
[2020-09-07 14:49] LABS: Add Urine Culture? No
== END 2020-09-07 14:58 | disposition home or self-care (01) ==
LOC: OPOB 13:22 → OBGYN 14:54
PROVIDERS: PCP Family Medicine; Visit Provider Family Medicine
DX: O26.899 Other specified pregnancy related conditions, unspecified trimester (principal); Z3A.00 Weeks of gestation of pregnancy not specified; H53.8 Other visual disturbances; R51.9 Headache, unspecified
CPT/HCPCS: 12032; 59025; 81001; 99211

== ENCOUNTER 2020-09-13 20:00 | Outpatient (CLI) | payer MEDICAID, SELFPAY ==
[2020-09-13] VITALS (7 sets, daily range): BP systolic 0–145; BP diastolic 0–76; PULSE 84–94; RESP 16; BMI 53.5
[2020-09-13 21:06] LABS: Bilirubin Urine 1+ (Negative); Blood Urine Neg (Negative); Glucose Urine UA Norm (Normal); Ketones Urine Negative (Negative); Nitrate Urine Negative (Negative); Protein Urine Neg (Negative); Specific Gravity, Urine 1.025 (1.005-1.030); Urine Appearance Clear (CLEAR); Urine Color Yellow (Yellow); Urobilinogen Urine 4 mg/dL (Negative); pH Urine 5 (5-7)
[2020-09-13 21:07] LABS: Add Urine Culture? No; Bacteria Urine TRACE /hpf; Leukocyte Esterase Urine Negative (Negative); Mucus Urine 2+ /hpf; RBC Urine 0-4 /hpf (0-2); Squamous Epithelial Cell Urine 25-40 /hpf (0-5); WBC Urine 0-4 /hpf (0-5)
--- NOTE | 2020-10-04 13:03 | PC.NURSE ---
Order put in for admission at this time. Order was initially placed for discharge of patient to home.
== END 2020-09-13 21:22 | disposition home or self-care (01) ==
LOC: OPOB 20:00 → OBGYN 20:01
PROVIDERS: PCP Family Medicine; Visit Provider Family Medicine
DX: O16.9 Unspecified maternal hypertension, unspecified trimester (principal); Z3A.00 Weeks of gestation of pregnancy not specified
CPT/HCPCS: 59025; 81001; 99211

== ENCOUNTER 2020-09-16 14:12 | Outpatient (CLI) | payer MEDICAID, SELFPAY ==
[2020-09-16] VITALS (11 sets, daily range): BP systolic 0–152; BP diastolic 0–83; PULSE 77–86; BMI 53.5
[2020-09-16 16:13] LABS: Add Urine Culture? No; Bacteria Urine 1+ /hpf; Bilirubin Urine 1+ (Negative); Blood Urine Neg (Negative); Glucose Urine UA Norm (Normal); Ketones Urine Negative (Negative); Leukocyte Esterase Urine Trace (Negative); Nitrate Urine Negative (Negative); Protein Urine Trace (Negative); Specific Gravity, Urine 1.015 (1.005-1.030); Urine Appearance Clear (CLEAR); Urine Color Yellow (Yellow); Urobilinogen Urine 1 mg/dL (Negative); pH Urine 5 (5-7)
== END 2020-09-16 16:52 | disposition home or self-care (01) ==
LOC: OPOB 14:20 → OBGYN 14:22
PROVIDERS: PCP Family Medicine; Visit Provider Family Medicine
DX: O26.899 Other specified pregnancy related conditions, unspecified trimester (principal); Z3A.00 Weeks of gestation of pregnancy not specified
CPT/HCPCS: 51702; 81001; 99211

== ENCOUNTER 2020-09-24 07:42 | Inpatient (IN) | payer MEDICAID, SELFPAY ==
[2020-09-24] VITALS (108 sets, daily range): BP systolic 127–211; BP diastolic 61–116; PULSE 73–90; RESP 16–18; TEMP 36.2–37.1; O2SAT 94–99; BMI 54.6
[2020-09-24 09:12] LABS: Basophils # 0.1 10^3/uL (0.0-0.1); Basophils % 0.4 %; Eosinophils # 0.1 10^3/uL (0.0-0.8); Eosinophils % 1.1 %; Hematocrit 31.4 % (37.0-47.0); Hemoglobin 9.5 g/dL (11.5-15.3); Lymphocytes # 2.7 10^3/uL (0.8-4.8); Mean Corpuscular HGB Conc 30.3 g/dL (30.0-36.0); Mean Corpuscular Hemoglobin 23.6 pg (28.0-34.0); Mean Corpuscular Volume 78.1 fL (81-99); Mean Platelet Volume 9.7 fL (7.4-10.4); Monocytes # 0.7 10^3/uL (0.2-0.9); Monocytes % 5.9 %; Neutrophils # 7.66 10^3/uL (1.8-7.7); Neutrophils % 68.2 %; Nucleated Red Blood Cells % 0 %; Platelet Count 281 10^3/cmm (130-400); Red Blood Count 4.02 10^6/uL (4.1-5.3); Red Cell Distribution Width 15.2 % (12.1-15.1); White Blood Count 11.2 10^3/uL (4.0-10.0)
[2020-09-24] MEDS: miSOPROStol 100 mcg tablet 25 MCG VAGINAL ×3 (09:17→18:18)
[2020-09-24] MEDS: labetalol 5 mg/mL SDV 20mL 20 MG IVP (14:35)
[2020-09-24] MEDS: labetalol 5 mg/mL SDV 20mL 40 MG IVP ×3 (14:55→21:25)
[2020-09-24] MEDS: fentaNYL 50 mcg/mL INJ 2mL IVP ×3 (15:30→19:57)
[2020-09-24 19:14] LABS: Glucose Point of Care 115 mg/dL (70-110)
[2020-09-24] MEDS: labetalol 200 mg Tablet 300 MG PO (20:24)
--- NOTE | 2020-09-24 21:39 | P.HP_ITS ---
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 She was admitted on the date of admission for induction of labor at term. She has had moderate problems with -induced hypertension which was overall fairly well controlled with labetalol 300 mg twice daily. She has been extremely anxious through this and decision was made to proceed with misoprostol cervical ripening and induction. She has been in labor and delivery since this morning and has made some cervical change. Overall, the heart tones have been reassuring with a reactive strip. She has occasionally had some decelerations. She also has had some elevated blood pressure readings that have gotten quite elevated. We have had some difficulty bringing them down with labetalol. I suspect part of this is anxiety related. However, as blood pressure remains up we will go ahead and begin magnesium protocol. Present Details : 4 Para: 2 Date of Last Menstrual Period: 12/23/19 Calculated Date of Delivery: 09/28/20 Gestational Age Based on Last Menstrual Period: 39 Labs Rubella: Immune RPR: Negative GBS: Negative Review of Systems Const: Denies: fever(s) or chills ENMT: Denies: throat pain Card: Denies: chest pain, palpitations or dyspnea on exertion Resp: Denies: dyspnea, productive cough or non-productive cough GI: Reports: abdominal pain (Some contractions.); Denies: nausea or vomiting : Reports: pelvic pain (Contractions.); Denies: flank pain Musc: Reports: back pain; Denies: neck pain or muscle weakness Neuro: Reports: headache(s) (Mild to moderate.); Denies: numbness in extremities, weakness in extremities, sensory changes, lack of coordination, dizziness or Slurred speech present Psych: Reports: anxiety Endo: Reports: tired all the time Rom/Lymph: Denies: easy bruising or easy bleeding All/Imm: Denies: urticaria Medications/Allergies Home Medications Medication Instructions Recorded Confirmed Last Taken Type cetirizine 10 mg PO DAILY 03/24/20 09/13/20 09/13/20 History hydroxyzine HCl 25 mg PO QID PRN 03/24/20 09/13/20 09/01/20 08:30 History ondansetron HCl 4 mg PO TID PRN 03/24/20 09/13/20 09/13/20 History escitalopram oxalate 10 mg tablet 10 mg PO DAILY #14 tab 04/13/20 09/13/20 09/13/20 Rx levothyroxine 25 mcg tablet 25 mcg PO DAILY #14 tab 04/13/20 09/13/20 09/13/20 Rx buspirone 15 mg PO BID 06/17/20 09/13/20 09/13/20 History labetalol 200 mg PO BID 06/17/20 09/13/20 09/13/20 History pantoprazole 20 mg tablet,delayed 20 mg PO DAILY 06/27/20 09/13/20 09/13/20 History release albuterol sulfate 90 mcg/actuation 2 puff INHALATION QID PRN #6.7 gm 07/07/20 09/13/20 09/01/20 Rx aerosol inhaler Allergies Allergy/AdvReac Type Severity Reaction Status Date / Time metronidazole [From Flagyl] Allergy Mild rash Verified 09/01/20 20:12 amoxicillin Allergy ALGY-Hives Verified 09/01/20 20:12 Cephalosporins Allergy ALGY-Difficulty Verified 09/01/20 20:12 Breathing hydromorphone [From Dilaudid] Allergy ALGY-Hives Verified 09/24/20 10:00 latex Allergy ALGY-Hives Verified 09/01/20 20:12 meperidine [From Demerol] Allergy ALGY-Hives Verified 09/01/20 20:12 Penicillins Allergy ALGY-Anaphy Verified 09/01/20 20:12 laxis 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: Medical History (Updated 09/24/20 @ 21:48 by Evans Alcantara MD) Anxiety as acute reaction to gross stress Class 2 severe obesity with serious comorbidity in adult Gastro-esophageal reflux disease with esophagitis Generalized anxiety disorder Anoop's disease Peptic ulcer disease Polycystic ovarian syndrome Surgical History History of appendectomy History of cholecystectomy Status post arthroscopic surgery of left knee October 2019 Family History Mother Pulmonary embolism Thyroid disease Stroke Hypertension Hyperlipidemia Diabetes Father Diabetes Hyperlipidemia Grandmother Cancer MATERNAL: BRAIN Social History Smoking and tobacco status: light tobacco smoker cigarettes Packs smoked per day: 0.1 Years cigarettes smoked: 4 Second hand smoke exposure: No Smoking risk assessment/counseling performed?: Yes Alcohol intake: never Desire information about alcohol rehabilitation?: No Counseling given: No Desire information about substance/drug rehabilitation?: No Counseling given: No Adopted: No Caregiver/support person: No Lives independently: Yes Housing: Apartment Marital status: Single Number of children: 2 service: No Current occupational status: unemployed Pets and animals: Yes Pets & animals: dog(s) History of recent travel: No Current gender identity: Female Vitals/I&O/Wt Last Vital Signs Temp 97.9 F 09/24/20 19:04 Pulse 82 09/24/20 21:31 Resp 18 09/24/20 19:57 BP 164/86 09/24/20 21:31 Pulse Ox 94 09/24/20 21:16 Weight last 48 hrs Weight 158.304 kg Physical Exam Const: GENERAL APPEARANCE: cooperative and comfortable NUTRITIONAL APPEARANCE: obese ORIENTATION/CONSCIOUSNESS: Yes awake, Yes oriented to person, Yes oriented to place and Yes oriented to time HENMT: MOUTH: moist mucous membranes abnormal Resp: COMMON NORMALS: normal respiratory effort, No retractions, No use of accessory muscles and clear to auscultation bilaterally Cardio: COMMON NORMALS: regular rate, regular rhythm and No murmurs present (Cardio) GI: COMMON NORMALS: Normal to inspection, nondistended, normoactive bowel sounds present (Patient is and obese.), Soft to palpation and non- tender : COMMON NORMALS: Yes no CVA tenderness and Yes normal appearance of the vagina MANUAL OB EXAM: dilated 3 cm, effaced 50% and station high (Probably about a -3.) AMNIOTIC FLUID: no fluid Back/Pelvis: COMMON NORMALS: no CVA tenderness and no thoracic nor lumbar tenderness Extremity: COMMON NORMALS: normal to inspection and capillary refill normal; negative for no pedal edema (She has trace to 1+ edema bilaterally.) RIGHT LOWER EXTREMITY: Yes lower leg Neuro: GAIT: Yes Normal gait present Psych: COMMON NORMALS: mental status grossly normal and cooperative MOOD & AFFECT: Yes anxious Data : 09/24/20 08:40 A&P Assessment and plan (1) Term : Patient is 39-1/2 weeks gestation and has been admitted for cervical ripening and induction secondary to -induced hypertension and term . Status: Acute (2) induced hypertension, antepartum: Generally the patient's blood pressure has been in the 130s over 80s, however presently is higher here I suspect more anxiety related but as it is remaining up we will go ahead and proceed with magnesium per protocol. Status: Acute (3) Generalized anxiety disorder: Will monitor and treat as indicated. Status: Chronic Attestations Medical Necessity Statement*: This patient has a term with -induced hypertension and requires admission for induction of labor. Time Spent in Patient Care: Greater than 35 minutes Coding Level of Care Code Acute Tutoring Manager for g Fwd Exam Comprehensive Diagnoses Term Z34.90 induced hypertension, antepartum O13.9 Generalized anxiety disorder F41.1
[2020-09-24] MEDS: magnesium sulfate premix 4 GM/100 ML PREMIX IV (22:00)
[2020-09-24] MEDS: dextrose 5%-lactated ringers 1,000 ML 75 ML IV (22:05)
[2020-09-24] MEDS: magnesium sulfate premix 20 GM/500 ML BAG IV (22:20)
[2020-09-24] MEDS: lactated ringers 1,000 ML 999 ML IV (22:50)
--- NOTE | 2020-09-24 23:12 | P.ANESASSM_ITS ---
Pre-Anesthetic Assessment Pre-Anesthetic Assessment: Height/Weight: Height 1.7 m Weight 158.304 kg Temp Pulse Resp BP Pulse Ox 98.8 F 80 18 180/86 94 09/24/20 22:07 09/24/20 23:08 09/24/20 21:32 09/24/20 23:08 09/24/20 21:16 Preop Diagnosis: left medial meniscal tear Social: Social History: Tobacco Packs per day: .5 Pack years: 5 Exam: Pre-Anes Outpt Exam: alert and oriented x 3 Airway: Cervical ROM: WNL MP: 3 Dentition: False and Other Additional comments: edentulous Pulmonary: Pulmonary: Asthma CV/HEM: CV/HEM: HTN Metabolic: Metabolic: DM, Morbid obesity and Thyroid Neuropsych: Neuropsych: None reported Anesthetic Plan: ASA status: 3 Anesthesia: Anesthesia Evaluation, Eval. for regional block and Regional (specify below) Other: labor eoidural Risk of > 500 ml blood loss (7ml/kg in children): No Meds/Allergies Current Medications: Current Medications Generic Name Dose Route Start Last Admin Trade Name Freq PRN Reason Stop Dose Admin Fentanyl 25 - 100 mcg 09/24/20 15:20 09/24/20 19:57 Fentanyl 50 Mcg/ Ml Inj 2ml IVP 50 mcg Q1H PRN Administration SEVERE PAIN Dextrose/Lactated Ringer's 1,000 mls @ 125 m ls/hr 09/24/20 21:45 09/24/20 22:05 Dextrose 5%-Lact ated Ringers IV 75 mls/hr .Q8H ROSENDO Administration Magnesium Sulfate 20 gm in 500 mls @ 50 mls/hr 09/24/20 21:45 09/24/20 22:20 Magnesium Sulfat e Premix IV 50 mls/hr .Q10H ROSENDO Administration Labetalol HCl 20 mg 09/24/20 14:24 09/24/20 14:35 Labetalol 5 Mg/M l Sdv 20ml IVP 20 mg PRN PRN Administration HYPERTENSION Protocol Labetalol HCl 40 mg 09/24/20 14:24 09/24/20 21:25 Labetalol 5 Mg/M l Sdv 20ml IVP 40 mg PRN PRN Administration HYPERTENSION Protocol Labetalol HCl 300 mg 09/24/20 21:00 09/24/20 20:24 Labetalol 200 Mg Tablet PO 300 mg ONCE ROSENDO Administration PFSH Anesthesia PFSH: Medical History (Updated 09/24/20 @ 21:48 by Evans Alcantara MD) Anxiety as acute reaction to gross stress Class 2 severe obesity with serious comorbidity in adult Gastro-esophageal reflux disease with esophagitis Generalized anxiety disorder Anoop's disease Peptic ulcer disease Polycystic ovarian syndrome Surgical History History of appendectomy History of cholecystectomy Status post arthroscopic surgery of left knee October 2019 Family History Mother Pulmonary embolism Thyroid disease Stroke Hypertension Hyperlipidemia Diabetes Father Diabetes Hyperlipidemia Grandmother Cancer MATERNAL: BRAIN Social History Smoking and tobacco status: light tobacco smoker cigarettes Packs smoked per day: 0.1 Years cigarettes smoked: 4 Second hand smoke exposure: No Smoking risk assessment/counseling performed?: Yes Alcohol intake: never Desire information about alcohol rehabilitation?: No Counseling given: No Desire information about substance/drug rehabilitation?: No Counseling given: No Adopted: No Caregiver/support person: No Lives independently: Yes Housing: Apartment Marital status: Single Number of children: 2 service: No Current occupational status: unemployed Pets and animals: Yes Pets & animals: dog(s) History of recent travel: No Current gender identity: Female Female Reproductive History: Date of last menstrual period: 12/23/19 : 4 Para: 2 Data Anesthesia CBC & Chem 7: 09/24/20 08:40 Other Labs: Laboratory Results - last 48 hr 09/24/20 09/24/20 08:40 19:09 WBC 11.2 H RBC 4.02 L Hgb 9.5 L Hct 31.4 L MCV 78.1 L MCH 23.6 L MCHC 30.3 RDW 15.2 H Plt Count 281 MPV 9.7 Neut % (Auto) 68.2 Lymph % (Auto) 24.0 [place] % (Auto) 5.9 Eos % (Auto) 1.1 Baso % (Auto) 0.4 Neut # (Auto) 7.66 Lymph # (Auto) 2.7 [place] # (Auto) 0.7 Eos # (Auto) 0.1 Baso # (Auto) 0.1 Nucleated RBC % (auto) 0 Nucleated RBCs # 0.0 POC Glucose 115 H Cardiac Studies: No Data to Display Anesthesia Procedures Date of Procedure: 09/24/20 Procedure Narrative: labor epidural Epidural: Time Out Performed: Yes Consents Signed: Procedure Consent Consent: from patient, risks and benefits reviewed and patient agrees to proceed Lumbar Level: L3-L4 Epidural position: sitting Epidural procedure: sterile prep of area, 1% lidocaine to numb the area, 18 g needle, negative for paresthesia passed, 1.5% xylocaine 1:200k epi (3ml), 0.2% Ropivacaine bolus ml (per patient), placed PCEA, no systemic response, sterile dressing applied, L.U.D. no apparent complications and 0.2% Ropiavacaine @ mls/hr (11) Other Information: lot [id number] exp 2021-02-25
[2020-09-24 23:38] LABS: Amphetamines Screen Urine Negative (Negative); Barbiturates Screen Urine Negative (Negative); Benzodiazepines Screen Urine Negative (Negative); Cocaine Screen Urine Negative (Negative); Opiate Screen Urine Negative (Negative); PCP Screen Urine Negative (Negative); THC Screen Urine Negative (Negative)
[2020-09-25] VITALS (106 sets, daily range): BP systolic 108–207; BP diastolic 56–111; PULSE 8–99; RESP 16–18; TEMP 36–37; O2SAT 79–96
[2020-09-25 00:09] LABS: Glucose Point of Care 83 mg/dL (70-110)
[2020-09-25] MEDS: oxytocin 30 UNIT/500 ML BAG IV (02:42)
[2020-09-25 04:06] LABS: Glucose Point of Care 95 mg/dL (70-110)
[2020-09-25 05:04] LABS: Magnesium Level (OB Only) 3.5 mg/dL (5.0-7.5)
[2020-09-25] MEDS: magnesium sulfate premix 20 GM/500 ML BAG IV ×3 (07:27→21:38)
[2020-09-25] MEDS: acetaminophen 325 mg Tablet 650 MG PO (07:48)
[2020-09-25 08:08] LABS: Glucose Point of Care 93 mg/dL (70-110)
[2020-09-25] MEDS: labetalol 200 mg Tablet 300 MG PO (08:48)
[2020-09-25] MEDS: ondansetron 2 mg/ML SDV 2 mL 4 MG IVP (11:40)
[2020-09-25 12:17] LABS: Glucose Point of Care 97 mg/dL (70-110)
--- NOTE | 2020-09-25 14:19 | PM.DELIVERY ---
Delivery Note: Date of delivery: September 25, 2020 this 25-year-old 4 now para 3 female at 39-1/2 weeks gestation was admitted for misoprostol cervical ripening for induction secondary to -induced hypertension. She was admitted yesterday and given misoprostol x3 doses followed by Pitocin augmentation. She had spontaneous rupture membranes late this morning and went into more active labor and was able to deliver by spontaneous vaginal delivery at 1348 a healthy, viable male . Upon delivery the head the mouth and nose were suctioned at the perineum followed by unwrapping a nuchal cord x1 which was loose. The left shoulder delivered anteriorly followed by the right shoulder and remainder of the infant. The infant was suctioned more and placed on mother's abdomen. He had a lot of amniotic fluid and needed to be suctioned and some was deleed after also. After approximately 1 minute the umbilical cord was clamped and then cut by the infant's father. The was then handed off to the receiving nurses to the warmer for stimulation and drying as well as suctioning. Apgars were 7 and 8 at 1 and 5 minutes respectively and the infant weighed 9 pounds 2 ounces. Estimated blood loss approximately 314 mL. There is a very small second-degree midline perineal and vaginal laceration which was repaired with 2-0 Vicryl suture. Epidural anesthesia was used for labor and delivery process. Pre-Delivery Course: This patient was followed through her course by this physician and Dr. Jefferson who discussed with her possibility of a tubal ligation. She wishes to proceed with that. Maternal blood type was O+ with antibody screen negative. Hepatitis B, hepatitis C, RPR and HIV were negative. Rubella was immune, group B strep and Covid were negative. Delivery: Spontaneous vaginal delivery. A&P Assessment and plan (1) Term : Patient was admitted for induction and delivery. She will be followed for routine postdelivery course. Also, will consult Dr. Jefferson or Dr. Russo for tubal ligation. Status: Acute (2) induced hypertension, antepartum: Patient was begun on magnesium as we were having trouble keeping her blood pressures down. We will continue magnesium for 24 hours post delivery. Status: Acute (3) Generalized anxiety disorder: We will try to continue her usual medications. 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
[2020-09-25] MEDS: ibuprofen 800 mg tablet PO ×2 (14:51→20:12)
[2020-09-25] MEDS: dextrose 5%-lactated ringers 1,000 ML 50 ML IV (14:53)
--- NOTE | 2020-09-25 15:37 | PC.RESP ---
Smoking Cessation information sent to patient.
[2020-09-25] MEDS: HYDROcodone-acetaminophen 5-325 mg Tablet PO ×2 (16:26→21:39)
--- NOTE | 2020-09-25 16:44 | PC.NURSE ---
latex free smallwood with urimeter inserted
--- NOTE | 2020-09-25 17:50 | PC.NURSE ---
pt stood at bedside, complete linen and mattress change. josephine care performed.
[2020-09-25] MEDS: labetalol 200 mg Tablet PO (17:59)
[2020-09-25] MEDS: nicotine 14 mg Patch 1 PATCH TRANSDERMA (17:59)
[2020-09-25] MEDS: docusate sodium 100 mg Capsule PO (17:59)
[2020-09-25 20:16] LABS: Magnesium Level (OB Only) 5.8 mg/dL (5.0-7.5)
[2020-09-26] VITALS (109 sets, daily range): BP systolic 122–195; BP diastolic 57–116; PULSE 69–102; RESP 15–18; TEMP 35.9–36.8; O2SAT 95–99
[2020-09-26 01:45] LABS: Hematocrit 28.3 % (37.0-47.0); Hemoglobin 8.5 g/dL (11.5-15.3); Mean Corpuscular Hemoglobin 23.9 pg (28.0-34.0); Mean Corpuscular Volume 79.5 fL (81-99); Mean Platelet Volume 9.5 fL (7.4-10.4); Platelet Count 243 10^3/cmm (130-400); Red Blood Count 3.56 10^6/uL (4.1-5.3); Red Cell Distribution Width 15.6 % (12.1-15.1); White Blood Count 15.3 10^3/uL (4.0-10.0)
[2020-09-26 02:10] LABS: Magnesium Level (OB Only) 5.8 mg/dL (5.0-7.5)
[2020-09-26] MEDS: HYDROcodone-acetaminophen 5-325 mg Tablet PO ×4 (03:44→21:27)
[2020-09-26] MEDS: magnesium sulfate premix 20 GM/500 ML BAG IV ×2 (04:21→11:03)
[2020-09-26 08:36] LABS: Magnesium Level (OB Only) 5.2 mg/dL (5.0-7.5)
[2020-09-26] MEDS: ibuprofen 800 mg tablet PO ×3 (08:46→21:26)
[2020-09-26] MEDS: nicotine 14 mg Patch 1 PATCH TRANSDERMA (08:46)
[2020-09-26] MEDS: labetalol 200 mg Tablet PO (08:47)
[2020-09-26] MEDS: docusate sodium 100 mg Capsule PO (08:47)
[2020-09-26] MEDS: escitalopram 10 mg Tablet PO (08:48)
[2020-09-26] MEDS: levothyroxine 25 mcg Tablet PO (08:48)
[2020-09-26] MEDS: pantoprazole DR 40 mg Tablet PO (08:48)
[2020-09-26] MEDS: prenatal vitamin Capsule 1 CAP PO (08:49)
--- NOTE | 2020-09-26 10:28 | P.PN_ITS ---
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 She would like to eat something. She has had just mild lochia with no significant clots or cramping. Const: COMMON NORMALS: no acute distress Resp: COMMON NORMALS: normal respiratory effort, No retractions and clear to auscultation bilaterally AUSCULTATION: clear to auscultation bilaterally Cardio: COMMON NORMALS: regular rate, regular rhythm and No murmurs present (Cardio) RATE: regular rate RHYTHM: regular rhythm GI: COMMON NORMALS: Normal to inspection, nondistended, normoactive bowel sounds present, Soft to palpation and non-tender (Fundus is firm.) PALPATION: Yes Soft to palpation Extremity: COMMON NORMALS: full ROM, capillary refill normal and no calf tenderness; negative for no pedal edema (Trace pedal edema bilaterally.) Neuro: COMMON NORMALS: moves all extremities, no focal motor deficits, no sensory deficits noted and deep tendon reflexes 2+ bilaterally Psych: COMMON NORMALS: mental status grossly normal, cooperative and normal affect Skin: COMMON NORMALS: no rashes or lesions noted GENERAL SKIN EXAM: no rashes or lesions noted Urinary Catheter Management^: Brown Latex Free: Cath Placed During This Visit: yes, but has since been removed by the nurse Reason for Continuing Indwelling Catheter: Accurate Measurement of Urinary Output in Critically Ill Patients Urinary Catheter Date of Insertion: 09/24/20 Urinary Catheter Time of Insertion: 22:25 Date Urinary Catheter Removed: 09/25/20 Time Urinary Catheter Discontinued: 13:30 Brown: Cath Placed During This Visit: yes Reason for Continuing Indwelling Catheter: Accurate Measurement of Urinary Output in Critically Ill Patients Urinary Catheter Date of Insertion: 09/25/20 Urinary Catheter Time of Insertion: 14:20 Data : 09/26/20 01:22 A&P Assessment and plan (1) induced hypertension, antepartum: Patient continues to have moderately elevated blood pressures I am concerned that she will develop eclampsia. We will continue the magnesium for now and will adjust blood pressure medicines as she is no longer and not breast-feeding. We will switch to metoprolol XL and hydrochlorothiazide. We will reevaluate this afternoon to make a decision on whether we can stop the magnesium and she can go home. Status: Acute (2) Term : Patient is doing well and will continue care. Status: Acute (3) Class 2 severe obesity with serious comorbidity in adult: Stable at this time. Status: Chronic Attestations Medical Necessity Statement*: This patient required admission and hospitalization with induction for term and -induced hypertension. She continues to be hypertensive and I expect her to be in the hospital for at least 1 more midnight. There is a possibility that she may improve by this afternoon and be able to go home so I will check back at that time. 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
[2020-09-26] MEDS: hydroCHLOROthiazide 25 mg Tablet PO (11:00)
[2020-09-26] MEDS: metoprolol succinate ER (24 HR) 50 mg Tablet 100 MG PO (11:00)
[2020-09-26] MEDS: dextrose 5%-lactated ringers 1,000 ML 50 ML IV (11:05)
[2020-09-26] MEDS: benzocaine-menthol 78 gm Canister 1 SPRAY TOPICAL (11:05)
--- NOTE | 2020-09-26 16:14 | PM.PN ---
Subjective Subjective: Interval history: Patient continues to run elevated blood pressures after getting off magnesium. I do not feel that she is stable will be discharged home at this time and will restart the magnesium and monitor closely. I am hopeful that she will be able to be discharged tomorrow. Vitals/I&O/Wt Last Vital Signs Temp 97.4 F L 09/26/20 11:30 Pulse 85 09/26/20 16:11 Resp 18 09/26/20 13:59 BP 191/92 09/26/20 16:11 Pulse Ox 97 09/26/20 13:59 09/26/20 09/26/20 09/26/20 06:59 14:59 22:59 Intake Total 2150.833 / 4982.450 2705.000 / 2705.000 Output Total 1330 / 3775 1410 / 1410 Balance 820.833 / 1743.556 0955.000 / 1295.000 Physical Exam Urinary Catheter Management^: Brown Latex Free: Cath Placed During This Visit: yes, but has since been removed by the nurse Reason for Continuing Indwelling Catheter: Accurate Measurement of Urinary Output in Critically Ill Patients Urinary Catheter Date of Insertion: 09/24/20 Urinary Catheter Time of Insertion: 22:25 Date Urinary Catheter Removed: 09/25/20 Time Urinary Catheter Discontinued: 13:30 Brown: Cath Placed During This Visit: yes, but has since been removed by the nurse Reason for Continuing Indwelling Catheter: Decision to DC Catheter Urinary Catheter Date of Insertion: 09/25/20 Urinary Catheter Time of Insertion: 14:20 Date Urinary Catheter Removed: 09/26/20 Time Urinary Catheter Discontinued: 14:00 Data : 09/26/20 01:22 Attestations Medical Necessity Statement*: This patient requires at least 1 more midnight hospital stay secondary to elevated blood pressures and risk for eclampsia. Coding Level of Care Code Acute Analysis Lead for Scooter Kuhn
[2020-09-26] MEDS: magnesium sulfate premix 4 GM/100 ML PREMIX IV (17:30)
[2020-09-26 23:11] LABS: Magnesium Level (OB Only) 4.4 mg/dL (5.0-7.5)
[2020-09-27] VITALS (82 sets, daily range): BP systolic 133–204; BP diastolic 61–95; PULSE 64–92; RESP 17–18; TEMP 35.6–36.9; O2SAT 92–100
[2020-09-27] MEDS: magnesium sulfate premix 20 GM/500 ML BAG IV (00:18)
[2020-09-27] MEDS: labetalol 5 mg/mL SDV 20mL 20 MG IVP (01:29)
[2020-09-27] MEDS: labetalol 5 mg/mL SDV 20mL 40 MG IVP (02:58)
[2020-09-27] MEDS: HYDROcodone-acetaminophen 5-325 mg Tablet PO ×2 (03:25→10:04)
[2020-09-27 05:21] LABS: Magnesium Level (OB Only) 4.3 mg/dL (5.0-7.5)
[2020-09-27] MEDS: hyDRALAzine 25 mg Tablet PO (05:27)
[2020-09-27] MEDS: dextrose 5%-lactated ringers 1,000 ML 75 ML IV (05:28)
[2020-09-27] MEDS: ibuprofen 800 mg tablet PO (08:24)
[2020-09-27] MEDS: prenatal vitamin Capsule 1 CAP PO (08:24)
[2020-09-27] MEDS: pantoprazole DR 40 mg Tablet PO (08:24)
[2020-09-27] MEDS: levothyroxine 25 mcg Tablet PO (08:24)
[2020-09-27] MEDS: docusate sodium 100 mg Capsule PO (08:24)
[2020-09-27] MEDS: hydroCHLOROthiazide 25 mg Tablet PO (08:24)
[2020-09-27] MEDS: nicotine 14 mg Patch 1 PATCH TRANSDERMA (08:24)
[2020-09-27] MEDS: escitalopram 10 mg Tablet PO (08:24)
[2020-09-27] MEDS: metoprolol succinate ER (24 HR) 100 mg Tablet PO (08:35)
--- NOTE | 2020-09-27 09:48 | PM.OBGYDC ---
Discharge Providers PHYSICAL THERAPIST AIDE Date of Admission: 09/24/20 07:42 Date of Discharge: 09/28/20 Attending Provider at Admission: Evans Alcantara MD Attending Provider at Discharge: Evans Alcantara MD Primary Care Provider: Evans Alcantara MD Diagnoses at Discharge Discharge Diagnosis (1) induced hypertension, antepartum: Status: Acute (2) Term : Status: Resolved (3) Class 2 severe obesity with serious comorbidity in adult: Status: Chronic Reason for Visit Reason for Visit: induction of labor for GDM, Gest Hypertension Hospital Course Hospital Course This patient was admitted for cervical ripening and induction at term due to elevated blood pressures. She was admitted for induction and given her usual antihypertensives and eventually placed on Magnesium as BP's remained elevated. She did well post delivery though BP remained elevated. She remained on Magnesium for molly 36 hours after delivery and BP meds were changed. She did diurese well but her blood pressure remained elevated and that was felt to be due to her chronic hypertension and anxiety. Her Blood pressure will be monitored as an outpatient and medications changed as needed. She was completely asymptomatic from elevated Blood pressure. Information Peripartum Data: Infant Delivery Method: Vaginal Physical Exam Const: COMMON NORMALS: no acute distress, patient oriented x3 and alert NUTRITIONAL APPEARANCE: obese Resp: COMMON NORMALS: normal respiratory effort, No use of accessory muscles and clear to auscultation bilaterally AUSCULTATION: clear to auscultation bilaterally Cardio: COMMON NORMALS: regular rate, regular rhythm and No murmurs present (Cardio) RATE: regular rate RHYTHM: regular rhythm GI: COMMON NORMALS: Soft to palpation and non-tender (Fundus is firm.) PALPATION: Yes Soft to palpation Extremity: COMMON NORMALS: normal to inspection, full ROM, capillary refill normal and no pedal edema Neuro: COMMON NORMALS: patient oriented x3, no focal motor deficits and no sensory deficits noted SENSORIUM/ORIENTATION: Yes alert Psych: COMMON NORMALS: mental status grossly normal, Normal thought process present and cooperative THOUGHT PROCESS: Normal thought process present Urinary Catheter Management^: Brown Latex Free: Cath Placed During This Visit: yes, but has since been removed by the nurse Reason for Continuing Indwelling Catheter: Accurate Measurement of Urinary Output in Critically Ill Patients Urinary Catheter Date of Insertion: 09/24/20 Urinary Catheter Time of Insertion: 22:25 Date Urinary Catheter Removed: 12/30/20 Time Urinary Catheter Discontinued: 13:30 Brown: Cath Placed During This Visit: yes, but has since been removed by the nurse Reason for Continuing Indwelling Catheter: Decision to DC Catheter Urinary Catheter Date of Insertion: 09/25/20 Urinary Catheter Time of Insertion: 14:20 Date Urinary Catheter Removed: 09/26/20 Time Urinary Catheter Discontinued: 14:00 Discharge Data Data Completed and Pending: Pending at discharge Category Date Time Status Magnesium Level ( OB Only) Routine Lab 09/27/20 10:30 Uncollected Labs from last 24 hours 09/27/20 09/26/20 04:34 22:34 Magnesium 4.3 L* 4.4 L* Vitals: Last Vital Signs Temp 96.8 F L 09/27/20 07:45 Pulse 73 09/27/20 09:25 Resp 17 09/27/20 05:33 BP 141/69 09/27/20 09:25 Pulse Ox 93 09/27/20 07:45 Discharge Plan Discharge Patient Disposition: Home Condition: Stable Prescriptions: New clonazepam 0.5 mg Tablet See Rx Instructions .ROUTE .COMPLEX Qty: 30 RF: 0 ibuprofen 800 mg Tablet 800 mg PO TID Qty: 90 RF: 2 metoprolol succinate 100 mg Tablet Extended Release 24 Hr 100 mg PO DAILY Qty: 30 RF: 1 DOK 100 mg Capsule 100 mg PO BID Qty: 60 RF: 1 hydrochlorothiazide 25 mg Tablet 25 mg PO DAILY Qty: 30 RF: 5 hydralazine 25 mg Tablet 25 mg PO TID Qty: 90 RF: 2 Continued pantoprazole [Protonix] 20 mg tablet,delayed release (DR/EC) 20 mg PO DAILY RF: 0 albuterol sulfate [ProAir HFA] 90 mcg/actuation HFA aerosol inhaler 2 puff INHALATION QID PRN (Reason: Shortness Of Breath) Qty: 6.7 RF: 0 levothyroxine [Levo-T] 25 mcg tablet 25 mcg PO DAILY Qty: 14 RF: 0 Lexapro 10 mg tablet 10 mg PO DAILY Qty: 14 RF: 0 buspirone 15 mg Tablet 15 mg PO BID RF: 0 cetirizine 10 mg tablet 10 mg PO DAILY RF: 0 Discontinued labetalol 100 mg Tablet 200 mg PO BID RF: 0 ondansetron HCl 4 mg tablet 4 mg PO TID PRN (Reason: Nausea) RF: 0 hydroxyzine HCl 25 mg tablet 25 mg PO QID PRN (Reason: Anxiety) RF: 0 Discharge Orders: Discharge Order (Routine); Ordered 09/27/20 Ordered By: Evans Alcantara Referrals: Antonio Mendez MD [Physician] - 1 month (Please call Dr. Mendez's office on Wednesday to schedule an appointment for consultation for tubal ligation. ) Evans Alcantara MD [Primary Care Provider] - 4-7 days (Please call Rajesh Erickson tomorrow to schedule an appointment in 4 to 7 days for follow up for mom.) Discharge Diet: Usual diet and Low Salt Discharge Activity: Resume usual activity Patient Instructions: Gestational Diabetes (DC), Pre-eclampsia and Eclampsia (DC), Hypertension (DC), OB Discharge Report, OB Food/Drug Interaction Guide, OB Home Care Instructions, OB Care at Home, OB Home Care, OB Proud Parent Packet Activity Restrictions/Additional Instructions: Please take your prescribed medications as directed. Discharge Attestations PHYSICAL THERAPIST AIDE Time Spent in Discharge Care*: greater than 30 min Specific Discharge Activities: Specific discharge activities: educating patient, documenting/other paperwork and evaluating patient/reviewing data Coding Level of Care Code Acute Screen Printer Helper for [facility] Fwd Exam Detailed Diagnoses induced hypertension, antepartum O13.9 Term Z34.90 Class 2 severe obesity with serious comorbidity in adult E66.01
[2020-09-27] MEDS: CLONazepam 0.5 mg Tablet PO (10:04)
[2020-09-27] MEDS: hyDRALAzine 25 mg Tablet 50 MG PO (11:41)
--- NOTE | 2020-09-27 13:08 | PC.NURSE ---
attempt to call Tippomax Martínez at this time. No answer.
--- NOTE | 2020-09-27 13:18 | PC.NURSE ---
Prescriptions called into [facility] with zero refills due to medications being sent to [facility].
[2020-09-27] MEDS: pneumococcal (23 valent) SDV 0.5 mL IM (13:44)
== END 2020-09-27 14:30 | disposition home or self-care (01) | DRG 807 ==
PROVIDERS: Admitting Provider Family Medicine; PCP Family Medicine; Visit Provider Family Medicine
DX: O13.4 Gestational [pregnancy-induced] hypertension without significant proteinuria, complicating childbirth (principal); Z37.0 Single live birth; O99.334 Smoking (tobacco) complicating childbirth; F17.210 Nicotine dependence, cigarettes, uncomplicated; O99.214 Obesity complicating childbirth; O69.2XX0 Labor and delivery complicated by other cord entanglement, with compression, not applicable or unspecified; O70.1 Second degree perineal laceration during delivery; O99.344 Other mental disorders complicating childbirth; F41.1 Generalized anxiety disorder; Z3A.39 39 weeks gestation of pregnancy; O75.89 Other specified complications of labor and delivery; K21.9 Gastro-esophageal reflux disease without esophagitis; J45.909 Unspecified asthma, uncomplicated; Z79.51 Long term (current) use of inhaled steroids
CPT/HCPCS: 12345; 36415; 36416; 51702; 59409; 80306; 82962; 83735; 85025; 85027; 90732; J2405; J2795; J3010; J3475; J3490

== ENCOUNTER → 2020-10-22 11:30 | Outpatient (BNVA) | payer MEDICAID, SELFPAY | PROVIDERS: PCP Family Medicine; Visit Provider Nurse Practitioner Family | DX: R30.0 Dysuria (principal); N89.8 Other specified noninflammatory disorders of vagina | CPT/HCPCS: 81000; 87086; 87491; 87591 ==

== ENCOUNTER → 2020-11-01 09:35 | Outpatient (BNVA) | payer MEDICAID, SELFPAY | PROVIDERS: PCP Family Medicine; Visit Provider Psychiatry & Neurology Psychiatry | DX: F32.9 Major depressive disorder, single episode, unspecified (principal); F43.10 Post-traumatic stress disorder, unspecified; E66.01 Morbid (severe) obesity due to excess calories | CPT/HCPCS: 90792 ==

== ENCOUNTER 2020-12-05 18:38 | Emergency (ER) | payer MEDICAID, SELFPAY ==
--- NOTE | 2020-12-05 18:46 | XRR_ITS ---
PROCEDURE INFORMATION: Exam: XR Left Knee Exam date and time: 12/05/2020 7:00 PM Age: 25 years old Clinical indication: Injury or trauma; Fall; Blunt trauma; Patient HX: Left knee injury TECHNIQUE: Imaging protocol: XR Left knee. Views: 3 views. COMPARISON: CR XR knee LT 3V* [id number] 01/06/2020 1:04 PM FINDINGS: Bones/joints: Normal. Soft tissues: Normal. XR/XR knee LT 3V* [id number] IMPRESSION: No acute findings.
[2020-12-05 18:54] VITALS: BP 146/85; PULSE 85; RESP 18; TEMP 36.7; O2SAT 97; BMI 50.3
--- NOTE | 2020-12-05 19:05 | ED_ITS ---
HPI - Extremity Problem General: Chief complaint: Extremity Injury, Lower Stated complaint: Left Knee Injury Time Seen by Provider: 12/05/20 19:02 History of Present Illness: HPI Narrative: 25-year-old female patient presents to the emergency department with left knee injury. She reports hyperextension of the left knee with a near fall. She reports anterior knee pain upon exam. Previous surgery by Dr. Becerril, repaired cartilage . States surgery was com pleted approximately 1 year ago. MD Complaint: extremity pain and extremity swelling Onset (ago): hour(s) (8) Pain Consistency: intermittent Location: left and lower extremity Severity scale (1-10): 6 Quality: stabbing and aching Radiation: distal Relieving factors: immobilization and rest Exacerbating factors: range of motion and weight bearing Associated symptoms: Deny chest pain, fever(s) or rash Review of Systems General: Reports: 10 or more systems reviewed and unremarkable except in HPI and below Const: Denies: fever(s), chills or diaphoresis Eyes: Denies: blurry vision or eye redness ENMT: Denies: throat pain, dental pain or disequilibrium Card: Denies: chest pain, palpitations or irregular heart rhythm Resp: Denies: dyspnea, productive cough, non-productive cough or wheezing GI: Denies: abdominal pain, nausea or vomiting : Denies: difficulty voiding or dysuria Musc: Reports: extremity swelling and joint swelling; Denies: neck pain or back pain Skin/Breast: Denies: rash or pruritus Neuro: Denies: headache(s), weakness in extremities or behavioral changes Psych: Denies: anxiety or depression Rom/Lymph: Denies: easy bruising PFSH ED PFSH: Medical History Anxiety as acute reaction to gross stress Class 2 severe obesity with serious comorbidity in adult Gastro-esophageal reflux disease with esophagitis Generalized anxiety disorder Anoop's disease Major depressive disorder Peptic ulcer disease Polycystic ovarian syndrome PTSD (post-traumatic stress disorder) Surgical History History of appendectomy History of cholecystectomy Status post arthroscopic surgery of left knee October 2019 Family History Mother Pulmonary embolism Thyroid disease Stroke Hypertension Hyperlipidemia Diabetes Father Diabetes Hyperlipidemia Grandmother Cancer MATERNAL: BRAIN Social History Smoking and tobacco status: current every day smoker cigarettes Packs smoked per day: 0.5 Alcohol intake: never Adopted: No Housing: Apartment Marital status: Single service: No Current occupational status: unemployed History of recent travel: No Current gender identity: Female Female Reproductive History: Date of last menstrual period: 12/23/19 Para: 2 Physical Exam Const: COMMON NORMALS: no acute distress, patient oriented x3, healthy appe aring and alert GENERAL APPEARANCE: cooperative, well kempt, well developed, anxious and well hydrated NUTRITIONAL APPEARANCE: obese ORIENTATION/CONSCIOUSNESS: Yes awake, Yes oriented to person, Yes oriented to place and Yes oriented to time HENMT: COMMON NORMALS: normocephalic, Normal external nose present and moist oral mucous membranes HEAD & SCALP: normocephalic NOSE: Normal external nose present Eye: COMMON NORMALS: Equal, round and reactive pupils present and EOMs intact bilaterally GENERAL EYE: appearance normal, both eyes and all related structures PUPIL: Yes Equal, round and reactive pupils present Neck/C-Spine: COMMON NORMALS: full ROM and no lymphadenopathy GENERAL: Yes normal visual inspection and Yes trachea midline CERVICAL SPINE: Yes cervical ROM normal, No pain with cervical ROM, No loss of normal cervical lordosis, No Cervical spine tenderness and No Paracervical muscle tenderness Lymph: LYMPHATIC: no lymphadenopathy noted Chest: COMMONS NORMALS: normal inspection of the chest Resp: COMMON NORMALS: normal respiratory effort and clear to auscultation bilaterally AUSCULTATION: clear to auscultation bilaterally Cardio: COMMON NORMALS: regular rhythm, S1 normal heart sound present, S2 normal heart sound present and Peripheral pulses 2+ throughout RHYTHM: regular rhythm HEART SOUNDS: S1 normal heart sound present and S2 normal heart sound present PERIPHERAL PULSES: Peripheral pulses 2+ throughout GI: COMMON NORMALS: Soft to palpation and non-tender INSPECTION: Yes normal to inspection PALPATION: Yes Soft to palpation : COMMON NORMALS: Yes no CVA tenderness BLADDER/KIDNEY EXAM: Yes no CVA tenderness Back/Pelvis: COMMON NORMALS: no CVA tenderness and thoracic and lumbar spine normal to inspection Extremity: COMMON NORMALS: normal to inspection, capillary refill normal, no clubbing, cyanosis or edema, no calf tenderness and no pedal edema GENERAL: Yes normal exam except as noted LEFT LOWER EXTREMITY: Yes knee joint Left knee: Yes inspection (normal), Yes palpation (pain anterior along patellar joint), Yes ROM (Limited flexion secondary to pain, able to extend without difficulty) and Yes neurovascular exam (Distally intact) OTHER: Full range of motion without pain to the left ankle and left hip. Neuro: COMMON NORMALS: patient oriented x3 and no focal motor deficits SENSORIUM/ORIENTATION: Yes alert, Yes oriented to person, Yes oriented to place and Yes oriented to time Psych: COMMON NORMALS: mental status grossly normal, Normal thought process present and cooperative APPEARANCE: Yes well kempt ACTIVITY/MOTOR BEHAVIOR: Yes appropriate eye contact THOUGHT PROCESS: Normal thought process present Skin: COMMON NORMALS: no rashes or lesions noted and turgor normal GENERAL SKIN EXAM: no rashes or lesions noted and turgor normal Course Vital Signs: Vital signs: Vital Signs Temperature 98.1 F 12/05/20 18:54 Pulse Rate 71 12/05/20 19:35 Respiratory Rate 14 12/05/20 19:35 Blood Pressure 158/108 12/05/20 19:35 Pulse Oximetry 97 12/05/20 19:35 MDM - Extremity (Nontraumatic) Imaging Data^: Xray Ortho: Radiologist's impression: [address] [address] XRay Report Signed Patient: Neo Noland Unit #: [id number] : 1995 Age/Sex: 25 / F ADM Date: 12/05/20 Loc: ER Room/Bed: Attending Dr: Ordering Provider/Ordering MD: Lito Mcnamara MD Date of Service: 12/05/20 Procedure(s): XR knee LT 3V* [id number] Accession Number(s): [id number] Report Number: [id number] PROCEDURE INFORMATION: Exam: XR Left Knee Exam date and time: 12/05/2020 7:00 PM Age: 25 years old Clinical indication: Injury or trauma; Fall; Blunt trauma; Patient HX: Left knee injury TECHNIQUE: Imaging protocol: XR Left knee. Views: 3 views. COMPARISON: CR XR knee LT 3V* [id number] 01/06/2020 1:04 PM FINDINGS: Bones/joints: Normal. Soft tissues: Normal. XR/XR knee LT 3V* [id number] IMPRESSION: No acute findings. Dictated By: Brain Duran Signed By: Brain Duran Signed Date/Time: 12/05/202008 DD/ 07 Discharge Plan Discharge Patient Disposition: Home Clinical Impression: Contusion of knee Qualifiers: Encounter type: initial encounter Laterality: left Qualified Code(s): S80.02XA - Contusion of left knee, initial encounter Strain of left patellar tendon Qualifiers: Encounter type: initial encounter Qualified Code(s): S86.812A - Strain of other muscle(s) and tendon(s) at lower leg level, left leg, initial encounter Condition: Stable Prescriptions: No Action albuterol sulfate [ProAir HFA] 90 mcg/actuation HFA aerosol inhaler 2 puff INHALATION QID PRN (Reason: Shortness Of Breath) Qty: 6.7 RF: 0 Contrave 8-90 mg tablet extended release 1 tab PO BID 30 Days Qty: 60 RF: 1 cetirizine 10 mg tablet 10 mg PO QAM RF: 0 tizanidine 4 mg tablet 4 mg PO QID PRN (Reason: Muscle Spasm) RF: 0 ondansetron HCl 4 mg tablet 4 mg PO TID PRN (Reason: Nausea And Vomiting) RF: 0 Paxil 20 mg Tablet 20 mg PO QAM RF: 0 pantoprazole 40 mg tablet,delayed release (DR/EC) 40 mg PO BID RF: 0 ibuprofen 800 mg tablet 800 mg PO TID PRN (Reason: Pain) RF: 0 clonazepam 0.5 mg tablet 0.5 mg PO DAILY PRN (Reason: Anxiety) RF: 0 hydralazine 25 mg tablet See Rx Instructions .ROUTE .COMPLEX RF: 0 Euthyrox 25 mcg tablet 25 mcg PO QAM RF: 0 DOK 100 mg capsule 100 mg PO BID PRN (Reason: Constipation) RF: 0 Discharge Orders: Discharge ED (Routine); Ordered 12/05/20 Ordered By: Leonila Weems Referrals: Evans Alcantara MD [Primary Care Provider] - Discharge Diet: Usual diet Discharge Activity: Limit activity as instructed Patient Instructions: Knee Sprain (ED), Knee Pain (ED), Knee Immobilizer (ED), Opioid Safety Activity Restrictions/Additional Instructions: Use crutches as needed for assistance with pain with ambulation. Wear knee immobilizer to help with knee weakness Return the emergency department if you develop worsening pain or concerning s ymptoms Follow-up with your primary care provider in 5 to 7 days if pain is not improved Apply cool compresses to the affected knee several times daily as needed for pain, do not directly apply ice to the skin. 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
[2020-12-05] MEDS: HYDROcodone-acetaminophen 5-325 mg Tablet 1 TAB PO (19:31)
[2020-12-05 19:35] VITALS: BP 158/108; PULSE 71; RESP 14; O2SAT 97
== END 2020-12-05 20:39 | disposition home or self-care (01) ==
PROVIDERS: Emergency Provider Nurse Practitioner Family; PCP Family Medicine
DX: S80.02XA Contusion of left knee, initial encounter (principal); S86.812A Strain of other muscle(s) and tendon(s) at lower leg level, left leg, initial encounter; F17.210 Nicotine dependence, cigarettes, uncomplicated; X50.9XXA Other and unspecified overexertion or strenuous movements or postures, initial encounter
CPT/HCPCS: 29530; 73562; 99283

== ENCOUNTER → 2020-12-12 13:21 | Outpatient (BNVA) | payer MEDICAID, SELFPAY | PROVIDERS: PCP Family Medicine; Visit Provider Obstetrics & Gynecology | DX: Z30.9 Encounter for contraceptive management, unspecified (principal) | CPT/HCPCS: 87635 ==

== ENCOUNTER 2020-12-17 06:39 | Day surgery (SDC) | payer MEDICAID, SELFPAY ==
[2020-12-13 12:10] VITALS: BMI 50.7
[2020-12-13 12:55] LABS: Basophils # 0.1 10^3/uL (0.0-0.1); Basophils % 0.8 %; Eosinophils # 0.2 10^3/uL (0.0-0.8); Eosinophils % 2.1 %; Hematocrit 34.4 % (37.0-47.0); Hemoglobin 9.8 g/dL (11.5-15.3); Lymphocytes # 2.7 10^3/uL (0.8-4.8); Lymphocytes % 31.7 %; Mean Corpuscular HGB Conc 28.5 g/dL (30.0-36.0); Mean Corpuscular Hemoglobin 22.1 pg (28.0-34.0); Mean Corpuscular Volume 77.7 fL (81-99); Mean Platelet Volume 8.9 fL (7.4-10.4); Monocytes # 0.5 10^3/uL (0.2-0.9); Monocytes % 5.5 %; Neutrophils # 5.11 10^3/uL (1.8-7.7); Neutrophils % 59.7 %; Nucleated Red Blood Cells % 0 %; Platelet Count 290 10^3/cmm (130-400); Red Blood Count 4.43 10^6/uL (4.1-5.3); Red Cell Distribution Width 16.8 % (12.1-15.1); White Blood Count 8.6 10^3/uL (4.0-10.0)
--- NOTE | 2020-12-13 13:08 | ANES.PREANE2 ---
Pre-Anesthetic Assessment Pre-Anesthetic Assessment: Height/Weight: Height 1.7 m Weight 146.964 kg Preop Diagnosis: Undesired fertility Proposed Procedure: Operation Date: 12/17/20 07:00 Proposed Procedures p Agus Quigley,Removal of Tubes Sterilization 48574 Z30.9(Not Applicable) - Antonio Mendez MD Was Beta Elyse taken within 24 hours: N/A Was Clonidine taken within 24 hours: N/A Social: Social History: No alcohol and No tobacco Exam: Pre-Anes Outpt Exam: alert, oriented x 3, clear to auscultation bilaterally and regular rate & rhythm Airway: Submandibular: WNL Cervical ROM: WNL MP: 2 Dentition: False Pulmonary: Pulmonary: Asthma CV/HEM: CV/HEM: HTN Metabolic: Metabolic: Morbid obesity Neuropsych: Neuropsych: Anxiety and Depression Anesthetic Plan: ASA status: 3 PFSH Anesthesia PFSH: Medical History Anxiety as acute reaction to gross stress Class 2 severe obesity with serious comorbidity in adult Gastro-esophageal reflux disease with esophagitis Generalized anxiety disorder Anoop's disease Major depressive disorder Peptic ulcer disease Polycystic ovarian syndrome PTSD (post-traumatic stress disorder) Surgical History History of appendectomy History of cholecystectomy Status post arthroscopic surgery of left knee October 2019 Family History Mother Pulmonary embolism Thyroid disease Stroke Hypertension Hyperlipidemia Diabetes Father Diabetes Hyperlipidemia Grandmother Cancer MATERNAL: BRAIN Social History (Updated 12/13/20 @ 10:54 by Antonio Mendez MD) Smoking and tobacco status: current every day smoker cigarettes Packs smoked per day: 0.5 Alcohol intake: never Substance/Drug Use: never Adopted: No Housing: Apartment Marital status: Single service: No Current occupational status: unemployed History of recent travel: No Current gender identity: Female Female Reproductive History: Date of last menstrual period: 12/23/19 Para: 2 Data Anesthesia CBC & Chem 7: 12/13/20 12:30 Other Labs: Laboratory Results - last 48 hr 12/13/20 12:30 WBC 8.6 RBC 4.43 Hgb 9.8 L Hct 34.4 L MCV 77.7 L MCH 22.1 L MCHC 28.5 L RDW 16.8 H Plt Count 290 MPV 8.9 Neut % (Auto) 59.7 Lymph % (Auto) 31.7 [place] % (Auto) 5.5 Eos % (Auto) 2.1 Baso % (Auto) 0.8 Neut # (Auto) 5.11 Lymph # (Auto) 2.7 [place] # (Auto) 0.5 Eos # (Auto) 0.2 Baso # (Auto) 0.1 Nucleated RBC % (auto) 0 Nucleated RBCs # 0.0 Cardiac Studies: No Data to Display
[2020-12-17] VITALS (11 sets, daily range): BP systolic 122–171; BP diastolic 65–92; PULSE 66–94; RESP 15–28; TEMP 36.2–36.6; O2SAT 90–99
[2020-12-17 07:05] LABS: OR HCG Qualitative Urine Negative (Negative)
[2020-12-17] MEDS: gabapentin 300 mg Capsule PO (07:19)
--- NOTE | 2020-12-17 07:24 | P.ANESUD_ITS ---
Pre-Anesthetic Update Pre-Anesthetic Assessment: Date of Surgery/Procedure: 12/17/20 Preop Viridiana gnosis: Undesired fertility Proposed Procedure: Operation Date: 12/17/20 08:20 Proposed Procedures p Lap Fulg,Removal of Tubes Sterilization 14944 Z30.9(Not Applicable) - Antonio Mendez MD Any changes to Pre-Anesthetic Assessment?: No Last Intake: Intake Last Liquid Date 12/17/20 Last Liquid Time 05:00 Last Solid Date 12/16/20 Last Solid Time 20:00 Labs Last 48hrs: Laboratory Results - last 48 hr 12/17/20 06:53 Urine HCG, Qual Negative Exam: Pre-Anes Outpt Exam: alert, oriented x 3, clear to auscultation bilaterally and regular rate & rhythm Cardiac Studies: No Data to Display
[2020-12-17] MEDS: sodium chloride 0.9% 1,000 ML 30 ML IV (07:27)
[2020-12-17] MEDS: acetaminophen 1,000 MG/100 ML PIGGYBACK 400 MG IV (08:12)
--- NOTE | 2020-12-17 08:43 | W.PM.OPSUD ---
Surgery/Procedure H&P Update DATE OF PROCEDURE: December 17, 2020 DATE H&P PERFORMED: 12/13/20 H&P UPDATE INFORMATION: I have reviewed H&P completed within last 30 days, I have examined patient prior to procedure, No changes to prior documentation and H&P is in [facility] EMR on date indicated PREOP DIAGNOSIS: Undesired fertility PLANNED PROCEDURE: Operation Date: 12/17/20 08:20 Proposed Procedures p Lap Fulg,Removal of Tubes Sterilization 74280 Z30.9(Not Applicable) - Antonio Mendez MD
--- NOTE | 2020-12-17 10:14 | P.OP_ITS ---
Operative Report Date of procedure: December 17, 2020 Pre-op Diagnosis: Undesired fertility Post-op Diagnosis: Undesired fertility Procedure Done: Laparoscopic bilateral tubal fulguration with complete salpingectomy Specimens removed/disposition: Bilateral fallopian tubes. Surgeon: Antonio Mendez Community Engagement Specialist: Sherin Anesthesia: General Estimated blood loss (mL): 5 IV fluids (mL): 1,000 Urine output (mL): 200 Complications: None Findings: Very anterior cervix with essentially no uterine descent. Normal- appearing uterus, tubes and ovaries Brief History: Patient is a 25-year-old female four, para 2-1-1-3 who presented to the office on 10/31/2020 to discuss sterilization. She was adamant at the time that she did not want any further children and wanted to proceed with sterilization. Medicaid consent form had been signed on 11/01/2020. This morning, permanence of sterilization was reviewed with her. Inability of complete removal of tubes to be reversed was reviewed. Failure rates, risks of the procedure, and risk for ectopic were reviewed. Questions were answered. Patient still wished to proceed with complete removal of tubes. Procedure: Patient was taken to the operating room were general anesthesia was obtained. She was prepped and draped in the usual sterile fashion in the dorsal supine position with legs in Alo style stirrups. Sequential compression boots were placed prior to starting the case. Catheter was inserted and bladder was drained. Exam under anesthesia was performed and patient was found to have a very anterior cervix with essentially no uterine descent. Handheld retractors were used to visualize the cervix and the cervix was grasped with a single-tooth tenaculum. A ZUMI was placed. The infraumbilical region was injected with 2% lidocaine with epinephrine. Skin incision was made with the knife in the lower edge of the navel and a size 5 trocar and sheath were inserted under direct visualization using an Optiview type technique. Trocar was removed and replaced with a laparoscope confirming intra-abdominal placement. The abdomen was inflated with carbon dioxide. The anterior abdominal wall was inspected and noted to be free of adhesions. In the left and right lower quadrants lateral to the inferior epigastric vessels, the skin was injected with 2% lidocaine with epinephrine. Skin incisions were made with a knife and a 5 mm trocar and sheath were inserted under direct visualization at each site. The pelvis was thoroughly inspected and uterus, tubes, and ovaries were normal in appearance. Using the Voyant sealing device, starting on the left side at the fimbriated end of the tube, the mesosalpinx was sealed and cut along the length of the tube. At the proximal end of the tube, the tube itself was sealed and cut. The fallopian tube was brought out through the port. Using the Voyant sealing device, starting on the right side at the fimbriated end of the tube, the mesosalpinx was sealed and cut along the length of the tube. At the proximal end of the tube, the tube itself was sealed and cut. The fallopian tube was brought out through the port. The dissection area was thoroughly inspected and noted to be hemostatic. The abdomen was deflated and the ports removed. The 5 mm sites were closed with single stitches of 4-0 Vicryl suture. Dermabond was applied to the skin. The ZUMI was removed and there was minimal bleeding from the tenaculum site. Patient tolerated the procedure well. Sponge, needle and instrument counts were correct. DRAINS: None POSTOPERATIVE STATUS: The patient was transferred to the recovery room in satisfactory condition. DISPOSITION: Discharge to home when criteria was met. FOLLOWUP APPOINTMENT: Followup appointment is scheduled in my office on 12/30/2020. MEDICATIONS: Patient received prescriptions for: [place] 5/325 mg, 1 to 2 tablets every 6 hours as needed for pain, #20, zero refills She may resume her usual home medications.
--- NOTE | 2020-12-17 10:18 | SUR.PHASEI ---
1016 patient to pacu from or at this time. oral airway in place. rr even and unlabored. 2 incisions to abdomen, closed with dermabond. clean,dry and intact.
--- NOTE | 2020-12-17 10:32 | SUR.PHASEI ---
1032 ORAL AIRWAY REMOVED AT THIS TIME. NO DISTRESS. SPO2 95% ON SIMPLE MASK.
--- NOTE | 2020-12-17 11:00 | SUR.PHASEI ---
1100 PATIENT TO OPS. RR EVEN AND UNLABORED. DENIES PAIN. TOLERATING ICE CHIPS.
--- NOTE | 2020-12-17 12:08 | ANE.PACU2 ---
Inpatient post-anesthesia follow up: Airway intact: Yes Vital signs: Temperature 98 F Pulse Rate 69 Respiratory Rate 15 Blood Pressure 142/88 Pulse Oximetry 95 Oxygen Delivery Me thod Nasal Cannula Oxygen Flow Rate 3.0 Fraction of Inspir ed Oxygen Hydration adequate: Yes Nausea and vomiting: No Pain level: 2 Mental status: Baseline
== END 2020-12-17 12:05 | disposition home or self-care (01) ==
PROVIDERS: PCP Family Medicine; Visit Provider Obstetrics & Gynecology
PROC: (CPT 58661; principal; 2020-12-17 08:10)
DX: Z30.2 Encounter for sterilization (principal); J45.909 Unspecified asthma, uncomplicated; I10 Essential (primary) hypertension; E66.01 Morbid (severe) obesity due to excess calories; Z68.43 Body mass index [BMI] 50.0-59.9, adult; F41.9 Anxiety disorder, unspecified; F32.9 Major depressive disorder, single episode, unspecified; E28.2 Polycystic ovarian syndrome; F17.210 Nicotine dependence, cigarettes, uncomplicated; Z87.11 Personal history of peptic ulcer disease
CPT/HCPCS: 58661; 81025; 84703; 85025; 88302; 96365; J0330; J1100; J2250; J2405; J2704; J3010; J3490; J7030

== ENCOUNTER → 2021-03-19 11:30 | Outpatient (BNVA) | payer MEDICAID, SELFPAY | PROVIDERS: PCP Nurse Practitioner Family; Visit Provider Nurse Practitioner | DX: J98.01 Acute bronchospasm (principal); J30.89 Other allergic rhinitis; K21.9 Gastro-esophageal reflux disease without esophagitis; B85.0 Pediculosis due to Pediculus humanus capitis; E61.1 Iron deficiency; F41.1 Generalized anxiety disorder; K44.9 Diaphragmatic hernia without obstruction or gangrene; I10 Essential (primary) hypertension; M54.9 Dorsalgia, unspecified; E55.9 Vitamin D deficiency, unspecified | CPT/HCPCS: 72100; 80053; 82306; 83550; 84443; 85025 ==

== ENCOUNTER 2021-05-05 20:29 | Emergency (ER) | payer MEDICAID, SELFPAY ==
[2021-05-05 20:50] VITALS: BP 103/62; PULSE 86; RESP 18; TEMP 36.5; O2SAT 97; BMI 48.0
--- NOTE | 2021-05-05 21:29 | XRR_ITS ---
PROCEDURE INFORMATION: Exam: XR Abdomen Exam date and time: 05/05/2021 9:29 PM Age: 26 years old Clinical indication: Constipation; Prior surgery; Additional info: Pain TECHNIQUE: Imaging protocol: XR of the abdomen. Views: Frontal supine view of the abdomen. 1 View. COMPARISON: CT Abdomen/Pelvis Renal [id number] 11/19/2017 8:26 PM FINDINGS: Gastrointestinal tract: Increased fecal content in the colon. Nonobstructive bowel gas pattern. Intraperitoneal space: No free intraperitoneal air. Organs: Surgical clips in the right upper quadrant, consistent with a previous cholecystectomy. Findings are stable. No organomegaly. Bones/joints: Unremarkable. XR/XR KUB [id number] IMPRESSION: 1. Nonobstructed bowel gas pattern. 2. Increased fecal content in the colon. 3. Incidental/nonacute findings are listed in the report.
== END 2021-05-06 00:05 ==
PROVIDERS: Emergency Provider Emergency Medicine
DX: K59.00 Constipation, unspecified (principal); R10.9 Unspecified abdominal pain; Z53.21 Procedure and treatment not carried out due to patient leaving prior to being seen by health care provider
CPT/HCPCS: 74018

== ENCOUNTER 2021-05-20 10:37 | Outpatient (CLI) | payer MEDICAID, SELFPAY ==
--- NOTE | 2021-05-20 10:47 | XR_ITS ---
WS: [id number] Exam: XR abdomen 1V* [id number] Date/Time of Exam: 05/20/2021 10:48 AM Reason For Exam: K59.00 - Constipation, unspecified No bowel obstruction or free air. Visualized organ margins are intact. Signs of prior cholecystectomy . Regional bony structures are unremarkable. XR/XR abdomen 1V* [id number] IMPRESSION: 1. No acute abdominal finding.
== END 2021-05-20 10:38 | disposition home or self-care (01) ==
PROVIDERS: PCP Nurse Practitioner; Visit Provider Nurse Practitioner Family
DX: K59.00 Constipation, unspecified (principal)
CPT/HCPCS: 74018

== ENCOUNTER → 2021-06-04 13:55 | Outpatient (BNVA) | payer MEDICAID, SELFPAY | PROVIDERS: PCP Nurse Practitioner; Visit Provider Nurse Practitioner | DX: M54.9 Dorsalgia, unspecified (principal); E06.3 Autoimmune thyroiditis; F41.1 Generalized anxiety disorder; J98.01 Acute bronchospasm; J30.89 Other allergic rhinitis; K21.9 Gastro-esophageal reflux disease without esophagitis; K44.9 Diaphragmatic hernia without obstruction or gangrene; E61.1 Iron deficiency; K59.01 Slow transit constipation; K59.00 Constipation, unspecified; I10 Essential (primary) hypertension; N93.8 Other specified abnormal uterine and vaginal bleeding; M25.511 Pain in right shoulder; G89.29 Other chronic pain | CPT/HCPCS: 73030; 80053; 80061; 83540; 84443; 85025 ==

== ENCOUNTER → 2021-06-11 10:52 | Outpatient (BNVA) | payer MEDICAID, SELFPAY | PROVIDERS: PCP Nurse Practitioner; Visit Provider Nurse Practitioner | DX: R73.09 Other abnormal glucose (principal) | CPT/HCPCS: 83036 ==

== ENCOUNTER → 2021-06-26 16:22 | Outpatient (BNVA) | payer MEDICAID, SELFPAY | PROVIDERS: PCP Nurse Practitioner; Referring Provider Nurse Practitioner; Visit Provider Obstetrics & Gynecology | DX: Z12.4 Encounter for screening for malignant neoplasm of cervix (principal); N94.6 Dysmenorrhea, unspecified | CPT/HCPCS: 88175 ==

== ENCOUNTER → 2021-07-09 10:17 | Outpatient (BNVA) | payer MEDICAID, SELFPAY | PROVIDERS: PCP Nurse Practitioner; Visit Provider Obstetrics & Gynecology | DX: N93.9 Abnormal uterine and vaginal bleeding, unspecified (principal); N85.4 Malposition of uterus; N83.291 Other ovarian cyst, right side | CPT/HCPCS: 76830 ==

== ENCOUNTER 2021-07-15 14:47 | Emergency (ER) | payer MEDICAID, SELFPAY ==
--- NOTE | 2021-07-15 14:48 | XRR_ITS ---
PROCEDURE INFORMATION: Exam: XR Left Knee Exam date and time: 07/15/2021 2:48 PM Age: 26 years old Clinical indication: Pain; Prior surgery; Surgery date: 6+ months; Surgery type: Miniscus 2019; Patient HX: Surgery on left knee in 2019, hit patella on corner of table 2 days ago; Additional info: Knee pain TECHNIQUE: Imaging protocol: XR Left knee. Views: 3 views. COMPARISON: CR XR knee LT 3V* [id number] 12/05/2020 7:13 PM FINDINGS: Bones/joints: There is no evidence for acute fracture or malalignment. Soft tissues: Normal. XR/XR knee LT 3V* [id number] IMPRESSION: No acute findings. Radiation Dose CTDIVOL = (mGy): DLP = (mGy-cm)
[2021-07-15 15:05] VITALS: BP 158/89; PULSE 84; RESP 18; TEMP 37; O2SAT 99; BMI 48.2
--- NOTE | 2021-07-15 15:13 | ED_ITS ---
HPI - Extremity Problem General: Chief complaint: Extremity Injury, Lower Stated complaint: L KNEE INJURY/UNABLE TO BEAR WEIGHT Time Seen by Provider: 07/15/21 15:12 History of Present Illness: HPI Narrative: Patient is a 26-year-old female comes to the ED with left knee injury. Patient says approximately 2 days ago she hit her left knee on her bedpost. Since then she has had pain and swelling in her left knee and any movement or weightbearing causes worsening pain. Today she had some ibuprofen and Tylenol for the pain. She rates her pain currently a 9 out of 10 and says it is mostly around the kneecap region and radiates up into her thigh little. Associated symptoms: Deny chest pain, fever(s) or rash Review of Systems Const: Denies: fever(s), chills or fatigue Eyes: Denies: change in vision or eye discomfort ENMT: Denies: throat pain, odynophagia, nasal discharge or nasal congestion Card: Denies: chest pain, palpitations, edema, swelling of feet/ankles, dyspnea on exertion or orthopnea Resp: Denies: dyspnea, productive cough or non-productive cough GI: Denies: abdominal pain, nausea, vomiting, diarrhea, constipation or hematochezia : Denies: flank pain, dysuria or hematuria Musc: Reports: extremity pain (left knee) and limited range of motion (left knee); Denies: neck pain, back pain or extremity swelling Skin/Breast: Denies: rash or new lesions Neuro: Denies: headache(s), numbness in extremities or weakness in extremities PFS ED PFSH: Medical History Anxiety as acute reaction to gross stress Bronchospasm Chronic low back pain without sciatica Contusion of left knee Environmental and seasonal allergies Essential (primary) hypertension Gastro-esophageal reflux disease with esophagitis Generalized anxiety disorder Anoop's disease Hiatal hernia with gastroesophageal reflux Low serum iron Major depressive disorder Metabolic syndrome Morbid obesity with BMI of 45.0-49.9, adult Peptic ulcer disease Polycystic ovarian syndrome PTSD (post-traumatic stress disorder) Vitamin D deficiency Surgical History History of appendectomy S/P appendectomy (~11/2011) S/P cholecystectomy (02/22/14) S/P laparoscopy (01/18/18) S/P laparoscopy (12/20/14) S/P laparoscopy (10/11/14) S/P laparoscopy (02/02/14) S/P tubal ligation (12/17/20) Laparoscopic bilateral complete salpingectomy. Performed by Dr. Mendez at [facility] in [place], [place]. Status post arthroscopic surgery of left knee October 2019 Family History Mother Pulmonary embolism Thyroid disease Stroke Hypertension Hyperlipidemia Diabetes Father Diabetes Hyperlipidemia Grandmother Cancer MATERNAL: BRAIN Social History Second hand smoke exposure: No Smoking risk assessment/counseling performed?: Yes Alcohol intake: never Desire information about alcohol rehabilitation?: No Counseling given: No Desire information about substance/drug rehabilitation?: No Counseling given: No Adopted: No Caregiver/support person: No Lives independently: Yes Household members: children Housing: House Marital status: Single Number of children: 3 service: No Current occupational status: unemployed Current occupational exposures/hazards: No History of recent travel: No Current gender identity: Female Female Reproductive History: Para: 3 Spontaneous abortions: No Physical Exam Const: COMMON NORMALS: no acute distress, patient oriented x3 and alert GENERAL APPEARANCE: cooperative and comfortable NUTRITIONAL APPEARANCE: obese HENMT: COMMON NORMALS: normocephalic HEAD & SCALP: normocephalic MOUTH: Normal oral and palatal mucosa present THROAT: posterior oropharynx normal and uvula midline Eye: COMMON NORMALS: Equal, round and reactive pupils present PUPIL: Yes Equal, round and reactive pupils present Neck/C-Spine: COMMON NORMALS: supple GENERAL: Yes normal visual inspection Resp: COMMON NORMALS: normal respiratory effort, No retractions, No use of accessory muscles and clear to auscultation bilaterally AUSCULTATION: clear to auscultation bilaterally Cardio: COMMON NORMALS: regular rate, regular rhythm, S1 normal heart sound present, S2 normal heart sound present, No gallops present (Cardio), No clicks present (Cardio), No murmurs present (Cardio) and Peripheral pulses 2+ throughout RATE: regular rate RHYTHM: regular rhythm HEART SOUNDS: S1 normal heart sound present and S2 normal heart sound present PERIPHERAL PULSES: Peripheral pulses 2+ throughout GI: COMMON NORMALS: Normal to inspection, nondistended, normoactive bowel sounds present, Soft to palpation, non-tender and no masses PALPATION: Yes Soft to palpation : COMMON NORMALS: Yes no CVA tenderness BLADDER/KIDNEY EXAM: Yes no CVA tenderness Back/Pelvis: COMMON NORMALS: no CVA tenderness Extremity: GENERAL: Yes normal exam except as noted LEFT LOWER EXTREMITY: Yes knee joint Left knee: Yes inspection (No visible deformity noted. Some swelling and ecchymosis seen. No erythema ), Yes palpation (Tender over patella and medial aspect of knee), Yes ROM (pain with ROM, so ROM limited) and Yes neurovascular exam (Intact) Neuro: COMMON NORMALS: patient oriented x3 and moves all extremities SENSORIUM/ORIENTATION: Yes alert Skin: GENERAL SKIN EXAM: dry skin Course Vital Signs: Vital signs: Vital Signs Temperature 98.6 F 07/15/21 15:05 Pulse Rate 84 07/15/21 15:05 Respiratory Rate 18 07/15/21 15:05 Blood Pressure 158/89 07/15/21 15:05 Pulse Oximetry 99 07/15/21 15:05 MDM - Extremity (Nontraumatic) MDM Narrative: Medical decision making narrative: Patient is a 26-year-old female comes to the ED with left knee injury. Patient hit her knee on a bedpost. Upon exam she has some swelling and ecchymosis around knee and tenderness to the patella region and medial aspect of knee. Range of motion causes pain. She is neurovascular intact. X-ray showed no acute fractures or findings. Patient was diagnosed with contusion of left knee and discharged home with prescription for ibuprofen 800 mg. She has crutches at home was told to use also next couple days and minimal weightbearing to allow for healing. Rest ice and elevate left knee. Return ED precautions given. Follow-up with PCP in 7 to 10 days for reevaluation. Patient understood agree with plan. Imaging Data^: Xray Ortho: Attestation: I personally reviewed and interpreted this imaging study as follows: Radiologist's impression: [address] [address] XRay Report Signed Patient: Neo Noland Unit #: [id number] : 1995 Age/Sex: 26 / F ADM Date: 07/15/21 Loc: ER Room/Bed: Attending Dr: Ordering Provider/Ordering MD: Janae Jauregui MD Date of Service: 07/15/21 Procedure(s): XR knee LT 3V* [id number] Accession Number(s): [id number] Report Number: [id number] PROCEDURE INFORMATION: Exam: XR Left Knee Exam date and time: 07/15/2021 2:48 PM Age: 26 years old Clinical indication: Pain; Prior surgery; Surgery date: 6+ months; Surgery type: Miniscus 2019; Patient HX: Surgery on left knee in 2019, hit patella on corner of table 2 days ago; Additional info: Knee pain TECHNIQUE: Imaging protocol: XR Left knee. Views: 3 views. COMPARISON: CR XR knee LT 3V* [id number] 12/05/2020 7:13 PM FINDINGS: Bones/joints: There is no evidence for acute fracture or malalignment. Soft tissues: Normal. XR/XR knee LT 3V* [id number] IMPRESSION: No acute findings. Radiation Dose CTDIVOL = (mGy): DLP = (mGy-cm) Dictated By: Jalil Stevens MD Signed By: Jalil Stevens MD Signed Date/Time: 07/15/211547 DD/ 1448 Discharge Plan Discharge Patient Disposition: Home Clinical Impression: Contusion of left knee Qualifiers: Encounter type: initial encounter Qualified Code(s): S80.02XA - Contusion of left knee, initial encounter Condition: Stable Prescriptions: New ibuprofen 800 mg tablet 800 mg PO Q8H PRN (Reason: pain) Qty: 20 RF: 0 No Action albuterol sulfate [ProAir HFA] 90 mcg/actuation HFA aerosol inhaler 2 puff INHALATION QID PRN (Reason: Shortness Of Breath) Qty: 6.7 RF: 2 cetirizine 10 mg tablet 10 mg PO QAM Qty: 30 RF: 2 esomeprazole magnesium [Nexium] 40 mg capsule,delayed release(DR/EC) 40 mg PO DAILY Qty: 30 RF: 2 ferrous sulfate 325 mg (65 mg iron) tablet,delayed release (DR/EC) 325 mg PO TID Qty: 90 RF: 2 lactulose 20 gram/30 mL solution 20 g PO BID Qty: 1200 RF: 2 levothyroxine [Euthyrox] 25 mcg tablet 25 mcg PO QAM Qty: 30 RF: 2 meloxicam [Mobic] 7.5 mg tablet 7.5 mg PO BIDWMEAL Qty: 60 RF: 2 polyethylene glycol 3350 [Miralax] 17 gram/dose powder 17 g PO BID Qty: 510 RF: 0 tizanidine 4 mg tablet 4 mg PO Q12H Qty: 60 RF: 2 valsartan [Diovan] 40 mg tablet 40 mg PO DAILY Qty: 30 RF: 2 venlafaxine [Effexor XR] 150 mg capsule,extended release 24hr 150 mg PO DAILY Qty: 30 RF: 2 medroxyprogesterone [Depo-Provera] 150 mg/mL syringe 150 mg IM .one time Qty: 1 RF: 0 Victoza 3-Zhen 0.6 mg/0.1 mL (18 mg/3 mL) pen injector See Rx Instructions SUBCUT .COMPLEX Qty: 9 RF: 0 Hold Instructions: Adverse Reaction (DME) pen needle, diabetic 33 gauge x 5/32 needle See Rx Instructions .ROUTE .MEDSUPPLY Qty: 100 RF: 2 ondansetron HCl 8 mg tablet 8 mg PO Q8H PRN (Reason: nausea and vomiting) 7 Days Qty: 21 RF: 0 docusate sodium [Colace] 100 mg capsule 100 mg PO BID 30 Days Qty: 60 RF: 0 Linzess 145 mcg capsule 145 mcg PO QAM Qty: 30 RF: 0 hydroxyzine pamoate 25 mg capsule 25 mg PO BID Qty: 60 RF: 1 Discharge Orders: Discharge ED (Routine); Ordered 07/15/21 Ordered By: Dagoberto Reaves Referrals: Jan Hammer, SENIOR FIRE PROTECTION ENGINEER-C [Primary Care Provider] - Discharge Diet: Regular Discharge Activity: Limit activity as instructed and Use walker/crutches as instructed Patient Instructions: Contusion in Adults (ED), Knee Pain (ED) Activity Restrictions/Additional Instructions: Follow-up with medical provider as directed in 5 to 7 days reevaluation. Rest, ice and elevate left knee to help with symptoms. You can wrap the knee with an Luis bandage to help with swelling as well. Use crutches for the next 2 to 3 days to limit weightbearing then slowly increase activity as tolerated. Take medicat ions as prescribed. Return to the ER or your medical provider if condition worsens. Please read and understand discharge instructions. Thank you for choosing [facility] for your healthcare needs today. Please realize this is an emergency room and that we are providing you with a medical screening exam and this may not be complete and all inclusive of all the testing and or work up that you may need to determine your ailment or severity of your illness. It is very important that you follow up as instructed or that you return to the Emergency Department should you have concerns or if your condition changes or worsens in any way. Coding Level of Care Code ED Client Server Developer for Scooter Fwd Exam Comprehensive
[2021-07-15] MEDS: HYDROcodone-acetaminophen 5-325 mg Tablet 1 TAB PO (15:56)
[2021-07-15] MEDS: acetaminophen 500 mg Tablet 1000 MG PO (15:56)
== END 2021-07-15 16:09 | disposition home or self-care (01) ==
PROVIDERS: Emergency Provider Physician Assistant; PCP Nurse Practitioner
DX: S80.02XA Contusion of left knee, initial encounter (principal); I10 Essential (primary) hypertension; W22.09XA Striking against other stationary object, initial encounter
CPT/HCPCS: 73562; 99283

== ENCOUNTER 2021-08-08 15:27 | Emergency (ER) | payer BC, MEDICAID, SELFPAY ==
[2021-08-08 15:35] VITALS: BP 137/63; PULSE 105; RESP 18; TEMP 36.8; O2SAT 100; BMI 45.1
--- NOTE | 2021-08-08 15:59 | W.ED.EXTPRO ---
HPI - Extremity Problem General: Chief complaint: Extremity Injury, Lower Stated complaint: Injury Left Leg Time Seen by Provider: 08/08/21 15:49 History of Present Illness: HPI Narrative: Patient is a 26-year-old female comes to the ED with left knee pain. Patient says last night she fell down and her left knee hit the concrete. MD Complaint: extremity pain (left knee) Onset (ago): day(s) (yesterday) Pain Consistency: constant Location: left and knee Severity scale (1-10): 10 Quality: dull Radiation: none Relieving factors: rest Exacerbating factors: weight bearing and palpation Associated symptoms: Reports no associated symptoms; Deny chest pain, fever(s) or rash Review of Systems Const: Denies: fever(s), chills or fatigue Eyes: Denies: change in vision or eye discomfort ENMT: Denies: throat pain, odynophagia, nasal discharge or nasal congestion Card: Denies: chest pain, palpitations, edema, swelling of feet/ankles, dyspnea on exertion or orthopnea Resp: Denies: dyspnea, productive cough or non-productive cough GI: Denies: abdominal pain, nausea, vomiting, diarrhea, constipation or hematochezia : Denies: flank pain, dysuria or hematuria Musc: Reports: extremity pain (left knee) and extremity swelling (left knee with ecchymosis as well); Denies: neck pain or back pain Skin/Breast: Denies: rash or new lesions Neuro: Denies: headache(s), numbness in extremities or weakness in extremities PFS ED PFSH: Medical History Anxiety as acute reaction to gross stress Bronchospasm Chronic low back pain without sciatica Contusion of left knee Environmental and seasonal allergies Essential (primary) hypertension Gastro-esophageal reflux disease with esophagitis Generalized anxiety disorder Anoop's disease Hiatal hernia with gastroesophageal reflux Low serum iron Major depressive disorder Metabolic syndrome Morbid obesity with BMI of 45.0-49.9, adult Peptic ulcer disease Polycystic ovarian syndrome PTSD (post-traumatic stress disorder) Vitamin D deficiency Surgical History History of appendectomy S/P appendectomy (~11/2011) S/P cholecystectomy (02/22/14) S/P laparoscopy (01/18/18) S/P laparoscopy (12/20/14) S/P laparoscopy (10/11/14) S/P laparoscopy (02/02/14) S/P tubal ligation (12/17/20) Laparoscopic bilateral complete salpingectomy. Performed by Dr. Mendez at [facility] in [place], [place]. Status post arthroscopic surgery of left knee October 2019 Family History Mother Pulmonary embolism Thyroid disease Stroke Hypertension Hyperlipidemia Diabetes Father Diabetes Hyperlipidemia Grandmother Cancer MATERNAL: BRAIN Social History Second hand smoke exposure: No Smoking risk assessment/counseling performed?: Yes Alcohol intake: never Desire information about alcohol rehabilitation?: No Counseling given: No Desire information about substance/drug rehabilitation?: No Counseling given: No Adopted: No Caregiver/support person: No Lives independently: Yes Household members: children Housing: House Marital status: Single Number of children: 3 service: No Current occupational status: unemployed Current occupational exposures/hazards: No History of recent travel: No Current gender identity: Female Female Reproductive History: Date of last menstrual period: 06/02/21 Para: 3 Spontaneous abortions: No Physical Exam Const: COMMON NORMALS: no acute distress, patient oriented x3 and alert GENERAL APPEARANCE: cooperative and comfortable HENMT: COMMON NORMALS: normocephalic HEAD & SCALP: normocephalic MOUTH: Normal oral and palatal mucosa present THROAT: posterior oropharynx normal and uvula midline Neck/C-Spine: COMMON NORMALS: supple GENERAL: Yes normal visual inspection Resp: COMMON NORMALS: normal respiratory effort, No retractions, No use of accessory muscles and clear to auscultation bilaterally AUSCULTATION: clear to auscultation bilaterally Cardio: COMMON NORMALS: regular rate, regular rhythm, S1 normal heart sound present, S2 normal heart sound present, No gallops present (Cardio), No clicks present (Cardio), No murmurs present (Cardio) and Peripheral pulses 2+ throughout RATE: regular rate RHYTHM: regular rhythm HEART SOUNDS: S1 normal heart sound present and S2 normal heart sound present PERIPHERAL PULSES: Peripheral pulses 2+ throughout GI: COMMON NORMALS: Normal to inspection, nondistended, normoactive bowel sounds present, Soft to palpation, non-tender and no masses PALPATION: Yes Soft to palpation : COMMON NORMALS: Yes no CVA tenderness BLADDER/KIDNEY EXAM: Yes no CVA tenderness Back/Pelvis: COMMON NORMALS: no CVA tenderness Extremity: GENERAL: Yes normal exam except as noted LEFT LOWER EXTREMITY: Yes knee joint Left knee: Yes inspection (Mild swelling and ecchymosis noted to left knee), Yes palpation (Tenderness to palpation over patella), Yes ROM (Limited due to pain) and Yes neurovascular exam (Intact) Neuro: COMMON NORMALS: patient oriented x3 and moves all extremities SENSORIUM/ORIENTATION: Yes alert Skin: GENERAL SKIN EXAM: dry skin Course Vital Signs: Vital signs: Vital Signs Temperature 98.3 F 08/08/21 15:35 Pulse Rate 88 08/08/21 16:32 Respiratory Rate 16 08/08/21 16:32 Blood Pressure 143/78 08/08/21 16:32 Pulse Oximetry 95 08/08/21 16:32 MDM - Extremity (Nontraumatic) MDM Narrative: Medical decision making narrative: Patient is a 26-year-old female comes to the ED with left knee pain after fall and left knee hitting the ground. Injury occurred yesterday and she is having pain swelling and bruising of left knee. Vitals stable. Exam shows some ecchymosis and swelling of the knee. Neurovascular intact. X-ray of left knee showed no acute fractures or findings. Patient was diagnosed with a contusion of left knee and discharged home. She was told to rest, ice and elevate left leg to help with symptoms. Take [id number] ibuprofen for pain and swelling. Return to ED precautions given. Follow-up with PCP in 7 to 10 days for reevaluation. Patient understood and agreed with plan. Imaging Data^: Xray Ortho: Attestation: I personally reviewed and interpreted this imaging study as follows: Radiologist's impression: [address] [place] [address] XRay Report Signed Patient: Neo Noland Unit #: [id number] : 1995 Age/Sex: 26 / F ADM Date: 08/08/21 Loc: ER Room/Bed: Attending Dr: Ordering Provider/Ordering MD: Dagoberto Reaves Date of Service: 08/08/21 Procedure(s): XR knee LT 3V* [id number] Accession Number(s): [id number] Report Number: [id number] PROCEDURE INFORMATION: Exam: XR Left Knee Exam date and time: 08/08/2021 4:01 PM Age: 26 years old Clinical indication: Injury or trauma; Fall; Blunt trauma; Left; Injury details: History--fell today and landed on concrete with knee cap. ; Additional info: Fall with pain and bruising to knee TECHNIQUE: Imaging protocol: XR Left knee. Views: 3 views. COMPARISON: CR XR knee LT 3V* [id number] 07/15/2021 2:57 PM FINDINGS: Bones/joints: Normal. Soft tissues: Normal. XR/XR knee LT 3V* [id number] IMPRESSION: No acute findings. Radiation Dose CTDIVOL = (mGy): DLP = (mGy-cm) Dictated By: Brain Duran Signed By: Brain Duran Signed Date/Time: 08/08/21 1654 DD/ 1601 Discharge Plan Discharge Patient Disposition: Home Clinical Impression: Contusion of left knee Qualifiers: Encounter type: initial encounter Qualified Code(s): S80.02XA - Contusion of left knee, initial encounter Condition: Stable Prescriptions: No Action albuterol sulfate [ProAir HFA] 90 mcg/actuation HFA aerosol inhaler 2 puff INHALATION QID PRN (Reason: Shortness Of Breath) Qty: 6.7 RF: 2 esomeprazole magnesium [Nexium] 40 mg capsule,delayed release(DR/EC) 40 mg PO DAILY Qty: 30 RF: 2 ferrous sulfate 325 mg (65 mg iron) tablet,delayed release (DR/EC) 325 mg PO TID Qty: 90 RF: 2 lactulose 20 gram/30 mL solution 20 g PO BID Qty: 1200 RF: 2 levothyroxine [Euthyrox] 25 mcg tablet 25 mcg PO QAM Qty: 30 RF: 2 polyethylene glycol 3350 [Miralax] 17 gram/dose powder 17 g PO BID Qty: 510 RF: 0 valsartan [Diovan] 40 mg tablet 40 mg PO DAILY Qty: 30 RF: 2 venlafaxine [Effexor XR] 150 mg capsule,extended release 24hr 150 mg PO DAILY Qty: 30 RF: 2 Victoza 3-Zhen 0.6 mg/0.1 mL (18 mg/3 mL) pen injector See Rx Instructions SUBCUT .COMPLEX Qty: 9 RF: 0 Hold Instructions: Adverse Reaction (DME) pen needle, diabetic 33 gauge x 5/32 needle See Rx Instructions .ROUTE .MEDSUPPLY Qty: 100 RF: 2 ibuprofen 800 mg tablet 800 mg PO Q12H Qty: 60 RF: 1 ondansetron HCl 8 mg tablet 8 mg PO Q8H PRN (Reason: nausea and vomiting) 7 Days Qty: 21 RF: 0 docusate sodium [Colace] 100 mg capsule 100 mg PO BID 30 Days Qty: 60 RF: 0 chlorzoxazone 500 mg tablet 500 mg PO TID Qty: 90 RF: 2 cetirizine 10 mg tablet 10 mg PO QAM Qty: 90 RF: 1 hydroxyzine pamoate 25 mg capsule 25 mg PO BID Qty: 60 RF: 1 imipramine HCl 25 mg tablet 25 mg PO BID Qty: 60 RF: 0 Linzess 145 mcg capsule 145 mcg PO QAM Qty: 30 RF: 2 Discharge Orders: Discharge ED (Routine); Ordered 08/08/21 Ordered By: Dagoberto Reaves Referrals: Jan Hammer, YIELD ANALYST-C [Primary Care Provider] - Discharge Diet: Regular Discharge Activity: Increase activity as tolerated Patient Instructions: Contusion in Adults (ED), Knee Pain (ED) Activity Restrictions/Additional Instructions: Follow-up with medical provider as directed in 7-10 days for reevaluation. Rest, ice, elevate left knee. limit weight bearing for the next couple days. Return to the ER or your medical provider if condition worsens. Please read and understand discharge instructions. Thank you for choosing [facility] for your healthcare needs today. Please realize this is an emergency room and that we are providing you with a medical screening exam and this may not be complete and all inclusive of all the testing and or work up that you may need to determine your ailment or severity of your illness. It is very important that you follow up as instructed or that you return to the Emergency Department should you have concerns or if your condition changes or worsens in any way. Coding Level of Care Code ED Precipitator for Scooter Kuhn Exam Comprehensive
--- NOTE | 2021-08-08 16:01 | XRR_ITS ---
PROCEDURE INFORMATION: Exam: XR Left Knee Exam date and time: 08/08/2021 4:01 PM Age: 26 years old Clinical indication: Injury or trauma; Fall; Blunt trauma; Left; Injury details: History--fell today and landed on concrete with knee cap. ; Additional info: Fall with pain and bruising to knee TECHNIQUE: Imaging protocol: XR Left knee. Views: 3 views. COMPARISON: CR XR knee LT 3V* [id number] 07/15/2021 2:57 PM FINDINGS: Bones/joints: Normal. Soft tissues: Normal. XR/XR knee LT 3V* [id number] IMPRESSION: No acute findings. Radiation Dose CTDIVOL = (mGy): DLP = (mGy-cm)
[2021-08-08 16:32] VITALS: BP 143/78; PULSE 88; RESP 16; O2SAT 95
[2021-08-08] MEDS: HYDROcodone-acetaminophen 5-325 mg Tablet 1 TAB PO (16:38)
== END 2021-08-08 17:20 | disposition home or self-care (01) ==
PROVIDERS: Emergency Provider Physician Assistant; PCP Nurse Practitioner
DX: S80.02XA Contusion of left knee, initial encounter (principal); I10 Essential (primary) hypertension; W19.XXXA Unspecified fall, initial encounter
CPT/HCPCS: 73562; 99283

== ENCOUNTER → 2021-08-28 10:58 | Outpatient (BNVA) | payer BC, MEDICAID, SELFPAY | PROVIDERS: PCP Nurse Practitioner; Visit Provider Obstetrics & Gynecology | DX: N92.0 Excessive and frequent menstruation with regular cycle (principal); N93.9 Abnormal uterine and vaginal bleeding, unspecified | CPT/HCPCS: 87635 ==

== ENCOUNTER 2021-09-02 09:28 | Day surgery (SDC) | payer BC, MEDICAID, SELFPAY ==
[2021-08-27 12:14] VITALS: BMI 43.8
--- NOTE | 2021-08-27 17:33 | P.ANESASSM_ITS ---
Pre-Anesthetic Assessment Pre-Anesthetic Assessment: Height/Weight: Height 1.7 m Weight 127.006 kg Preop Diagnosis: Undesired fertility Proposed Procedure: Operation Date: 09/02/21 10:30 Proposed Procedures p Hysteroscopy w/ Myosure [id number] N92.0 N93.9(Not Applicable) - Rachele Randolph MD s Dilation And Curettage (D&C)(Not Applicable) - Rachele Randolph MD s Hysteroscopy w/ Ablation w/ Novasure(Not Applicable) - Rachele Randolph MD Was Beta Elyse taken within 24 hours: N/A Was Clonidine taken within 24 hours: N/A Social: Social History: No alcohol and No tobacco Exam: Pre-Anes Outpt Exam: alert, oriented x 3, clear to auscultation bilaterally and regular rate & rhythm Airway: Submandibular: WNL Cervical ROM: WNL MP: 2 Dentition: False Pulmonary: Pulmonary: Asthma CV/HEM: CV/HEM: Anemia and HTN GI: GI: GERD Metabolic: Metabolic: Morbid obesity and Thyroid Neuropsych: Neuropsych: Anxiety and Depression Anesthetic Plan: ASA status: 3 Anesthesia: General Risk of > 500 ml blood loss (7ml/kg in children): No PFSH Anesthesia PFSH: Medical History Anxiety as acute reaction to gross stress Bronchospasm Chronic low back pain without sciatica Contusion of left knee Environmental and seasonal allergies Essential (primary) hypertension Gastro-esophageal reflux disease with esophagitis Generalized anxiety disorder Anoop's disease Hiatal hernia with gastroesophageal reflux Low serum iron Major depressive disorder Metabolic syndrome Morbid obesity with BMI of 45.0-49.9, adult Peptic ulcer disease Polycystic ovarian syndrome PTSD (post-traumatic stress disorder) Vitamin D deficiency Surgical History History of appendectomy S/P appendectomy (~11/2011) S/P cholecystectomy (02/22/14) S/P laparoscopy (01/18/18) S/P laparoscopy (12/20/14) S/P laparoscopy (10/11/14) S/P laparoscopy (02/02/14) S/P tubal ligation (12/17/20) Laparoscopic bilateral complete salpingectomy. Performed by Dr. Mendez at [facility] in [place], [place]. Status post arthroscopic surgery of left knee October 2019 Family History Mother Pulmonary embolism Thyroid disease Stroke Hypertension Hyperlipidemia Diabetes Father Diabetes Hyperlipidemia Grandmother Cancer MATERNAL: BRAIN Social History Second hand smoke exposure: No Smoking risk assessment/counseling performed?: Yes Alcohol intake: never Desire information about alcohol rehabilitation?: No Counseling given: No Desire information about substance/drug rehabilitation?: No Counseling given: No Adopted: No Caregiver/support person: No Lives independently: Yes Household members: children Housing: House Marital status: Single Number of children: 3 service: No Current occupational status: unemployed Current occupational exposures/hazards: No History of recent travel: No Current gender identity: Female Female Reproductive History: Date of last menstrual period: 08/17/21 Para: 3 Spontaneous abortions: No Data Anesthesia Cardiac Studies: No Data to Display
[2021-09-02] VITALS (9 sets, daily range): BP systolic 124–180; BP diastolic 49–118; PULSE 79–96; RESP 17–26; TEMP 36.1–37; O2SAT 94–100
[2021-09-02] MEDS: sodium chloride 0.9% 1,000 ML 30 ML IV (09:58)
[2021-09-02] MEDS: ketorolac 30 mg/mL INJ IVP (09:59)
[2021-09-02] MEDS: acetaminophen 1,000 MG/100 ML PIGGYBACK 400 MG IV (10:03)
[2021-09-02 10:10] LABS: OR HCG Qualitative Urine Negative (Negative)
--- NOTE | 2021-09-02 10:17 | W.PM.OPSUD ---
Surgery/Procedure H&P Update DATE OF PROCEDURE: September 02, 2021 DATE H&P PERFORMED: 08/28/21 H&P UPDATE INFORMATION: I have reviewed H&P completed within last 30 days, I have examined patient prior to procedure and No changes to prior documentation PREOP DIAGNOSIS: AUB, dysmenorrhea PLANNED PROCEDURE: Operation Date: 09/02/21 10:30 Proposed Procedures p Hysteroscopy w/ Myosure [id number] N92.0 N93.9(Not Applicable) - Rachele Randolph MD s Dilation And Curettage (D&C)(Not Applicable) - Rachele Randolph MD s Hysteroscopy w/ Ablation w/ Novasure(Not Applicable) - Rachele Randolph MD Related Problem List Diagnoses (1) Dysmenorrhea: (2) DUB (dysfunctional uterine bleeding): (3) Morbid obesity with BMI of 45.0-49.9, adult:
[2021-09-02] MEDS: midazolam 1 mg/mL INJ 2 mL 2 MG IVP (10:44)
--- NOTE | 2021-09-02 10:59 | P.ANESUD_ITS ---
Pre-Anesthetic Update Pre-Anesthetic Assessment: Date of Surgery/Procedure: 09/02/21 Preop Viridiana gnosis: AUB, dysmenorrhea Proposed Procedure: Operation Date: 09/02/21 10:30 Proposed Procedures p Hysteroscopy w/ Myosure [id number] 37870 N92.0 N93.9(Not Applicable) - Rachele Randolph MD s Dilation And Curettage (D&C)(Not Applicable) - Rachele Randolph MD s Hysteroscopy w/ Ablation w/ Novasure(Not Applicable) - Rachele Randolph MD Any changes to Pre-Anesthetic Assessment?: No Last Intake: Intake Last Liquid Date 09/01/21 Last Liquid Time 21:00 Last Solid Date 09/01/21 Last Solid Time 18:00 Labs Last 48hrs: Laboratory Results - last 48 hr 09/02/21 10:08 Urine HCG, Qual Negative Vitals: Temperature 97 F L 09/02/21 09:47 Temperature Source Temporal Artery S can 09/02/21 09:47 Pulse Rate 87 09/02/21 09:47 Respiratory Rate 18 09/02/21 09:47 Blood Pressure 180/118 09/02/21 09:47 Blood Pressure Meena n 138 09/02/21 09:47 Pulse Oximetry 99 09/02/21 09:47 Oxygen Delivery Me thod 09/02/21 09:47 Exam: Pre-Anes Outpt Exam: alert, oriented x 3, clear to auscultation bilaterally and regular rate & rhythm Cardiac Studies: No Data to Display
[2021-09-02] MEDS: doxycycline 100 MG in sodium chloride 0.9% (plus) 100 ML IV (12:09)
--- NOTE | 2021-09-02 12:53 | PM.OP ---
Operative Report Date of procedure: September 02, 2021 Pre-op Diagnosis: AUB, dysmenorrhea Post-op diagnosis: same Post-op Findings: normal appearing endometrium Pathology: none sent Surgeon: Rachele Randolph Anesthesia: General Estimated blood loss (mL): 2 IV fluids (mL): 700 Complications: none Findings: 8 week sized uterus. Normal appearing endometrium. hysteroscopy deficit 775 ml Condition: stable Disposition: PACU Procedure: The patient was taken to the operating room where monitored anesthesia was administered and to be adequate. She was prepped and draped in the normal sterile fashion in the dorsal lithotomy position in [facility]. A weighted speculum was placed into the vagina and the anterior lip of the cervix grasped with a single-tooth tenaculum. The uterus was sounded to 8 cm. The cervix was dilated to 18 Iranian. The hysteroscope was advanced into the endometrial cavity. There was normal endometrium visualized. The MyoSure device was not used as the tissue appeared normal. Pictures were taken pre procedure. Attention was then turned to the NovaSure portion of the procedure. The NovaSure device was advanced into the endometrial cavity. The endometrial length was 6 and the endometrial width was 4.4. The NovaSure device was activated and burn time was 64 seconds. All instruments were removed. The patient tolerated the procedure well. Sponge lap and needle counts were correct x3. She was taken to the recovery room in stable condition.
--- NOTE | 2021-09-02 12:58 | PM.OP ---
Operative Report Date of procedure: September 02, 2021 Pre-op Diagnosis: AUB, dysmenorrhea Procedure Done: hysteroscopy, dilation and curettage. Novasure endometrial ablation.
--- NOTE | 2021-09-02 13:01 | PM.DCS ---
Discharge Providers Date of Discharge: September 02, 2021 Attending Provider at Discharge: Rachele Randolph MD Primary Care Provider: ALEA Kaiser Diagnoses at Discharge Discharge Diagnosis (1) Dysmenorrhea: Status: Acute (2) DUB (dysfunctional uterine bleeding): Status: Acute (3) Morbid obesity with BMI of 45.0-49.9, adult: Status: Acute Reason for Visit Reason for Visit: abnormal uterine bleeding Hospital Course Hospital Course The patient was admitted for surgery. She did well postoperatively and was ready for discharge. Discharge Data Data Completed and Pending: Pending at discharge Category Date Time Status ES surgery / GI i mages Routine Exams 09/02/21 11:37 Taken Labs from last 24 hours 09/02/21 10:08 Urine HCG, Qual Negative Vitals: Last Vital Signs Temp 97 F L 09/02/21 09:47 Pulse 87 09/02/21 09:47 Resp 18 09/02/21 09:47 BP 180/118 09/02/21 09:47 Pulse Ox 99 09/02/21 09:47 Discharge Plan Discharge Patient Disposition: Home Condition: Stable Prescriptions: Continued albuterol sulfate [ProAir HFA] 90 mcg/actuation HFA aerosol inhaler 2 puff INHALATION QID PRN (Reason: Shortness Of Breath) Qty: 6.7 RF: 2 esomeprazole magnesium [Nexium] 40 mg capsule,delayed release(DR/EC) 40 mg PO DAILY Qty: 30 RF: 2 ferrous sulfate 325 mg (65 mg iron) tablet,delayed release (DR/EC) 325 mg PO TID Qty: 90 RF: 2 levothyroxine [Euthyrox] 25 mcg tablet 25 mcg PO QAM Qty: 30 RF: 2 valsartan [Diovan] 40 mg tablet 40 mg PO DAILY Qty: 30 RF: 2 venlafaxine [Effexor XR] 150 mg capsule,extended release 24hr 150 mg PO DAILY Qty: 30 RF: 2 (DME) pen needle, diabetic 33 gauge x 5/32 needle See Rx Instructions .ROUTE .MEDSUPPLY Qty: 100 RF: 2 ibuprofen 800 mg tablet 800 mg PO Q12H Qty: 60 RF: 1 ondansetron HCl 8 mg tablet 8 mg PO Q8H PRN (Reason: nausea and vomiting) 7 Days Qty: 21 RF: 0 chlorzoxazone 500 mg tablet 500 mg PO TID Qty: 90 RF: 2 cetirizine 10 mg tablet 10 mg PO QAM Qty: 90 RF: 1 imipramine HCl 25 mg tablet 25 mg PO BID Qty: 60 RF: 0 Linzess 145 mcg capsule 145 mcg PO QAM Qty: 30 RF: 2 Discharge Orders: Discharge Order (Routine); Ordered 09/02/21 Ordered By: Rachele Randolph Discharge Attestations Time Spent in Discharge Care*: less than 30 min Quality Metrics Clinical Quality Measures During this hospital stay, did patient experience: None Coding Level of Care Code Acute Chg FW DC note Diagnoses Dysmenorrhea N94.6 DUB (dysfunctional uterine bleeding) N93.8 Morbid obesity with BMI of 45.0-49.9, adult E66.01; Z68.42
[2021-09-02] MEDS: fentaNYL 50 mcg/mL INJ 2mL IVP ×2 (13:05→13:10)
[2021-09-02] MEDS: ibuprofen 800 mg tablet PO (13:53)
--- NOTE | 2021-09-02 15:49 | ANE.PACU2 ---
Inpatient post-anesthesia follow up: Airway intact: Yes Vital signs: Temperature 98 F Pulse Rate 79 Respiratory Rate 18 Blood Pressure 136/82 Pulse Oximetry 100 Oxygen Delivery Me thod Room Air Oxygen Flow Rate 2 Fraction of Inspir ed Oxygen Hydration adequate: Yes Nausea and vomiting: No Pain level: 4 Mental status: Baseline
== END 2021-09-02 14:15 | disposition home or self-care (01) ==
PROVIDERS: Anesthesiology; PCP Nurse Practitioner; Visit Provider Obstetrics & Gynecology
PROC: 0UDB8ZZ Extraction of Endometrium, Via Natural or Artificial Opening Endoscopic (ICD-10-PCS; CPT 58558; principal; 2021-09-02 10:20)
PROC: (CPT 58120; 2021-09-02 10:20)
PROC: 0U598ZZ Destruction of Uterus, Via Natural or Artificial Opening Endoscopic (ICD-10-PCS; CPT 58563; 2021-09-02 10:20)
DX: N93.9 Abnormal uterine and vaginal bleeding, unspecified (principal); N94.6 Dysmenorrhea, unspecified; N93.8 Other specified abnormal uterine and vaginal bleeding; I10 Essential (primary) hypertension; E66.01 Morbid (severe) obesity due to excess calories; Z68.42 Body mass index [BMI] 45.0-49.9, adult; Z88.0 Allergy status to penicillin; Z91.040 Latex allergy status
CPT/HCPCS: 58563; 84703; 96365; 96374; J1100; J1200; J1885; J2250; J2405; J2704; J3010; J3490; J7030

== ENCOUNTER 2021-09-03 12:45 | Emergency (ER) | payer BC, MEDICAID, SELFPAY ==
[2021-09-03 13:07] VITALS: PULSE 79; RESP 18; TEMP 36.6; O2SAT 95; BMI 43.8
--- NOTE | 2021-09-03 13:24 | W.ED.ABDPA2 ---
Documented by User: RANJITH Rose 09/03/21 15:43 HPI - Abdominal Pain General: Chief Complaint: Abdominal Pain Stated Complaint: [facility] sent over pains lower abd Time Seen by Provider: 09/03/21 13:18 Source: patient Mode of arrival: ambulatory Limitations: no limitations History of Present Illness: HPI narrative: Patient is a 26-year-old female who presents to ED today with a complaint of severe abdominal pain. Patient underwent hysteroscopy, dilation and curettage, and novasure endometrial ablation by Dr. Randolph yesterday. Patient was told she would have some severe abdominal cramping but it should be alleviated by Tylenol and Ibuprofen and subside within 24 hours. Patient tells me her pain has continued and rates it as severe. [facility] and stated the nursing staff spoke to Dr. Randolph who recommended she come to the ED for further evaluation. MD elicited complaint: abdominal pain Onset (ago): hour(s) Pain Consistency: constant Location: Diffuse Severity: severe Pain scale (0-10): 10 Quality: cramping Migration to: no migration Exacerbating factors: nothing Relieving factors: nothing Associated Symptoms: Denies chills, diarrhea, dysuria, fever(s), nausea and vomiting Related Data: Date of Last Menstrual Period: 08/17/21 Patient : No Review of Systems Const: Denies: fever(s), chills, body aches, fatigue or malaise Card: Denies: chest pain Resp: Denies: dyspnea GI: Reports: abdominal pain; Denies: nausea, vomiting or diarrhea : Denies: flank pain or dysuria Musc: Denies: back pain Neuro: Denies: dizziness [facility] ED PFSH: Medical History Anxiety as acute reaction to gross stress Bronchospasm Chronic low back pain without sciatica Contusion of left knee Environmental and seasonal allergies Essential (primary) hypertension Gastro-esophageal reflux disease with esophagitis Generalized anxiety disorder Anoop's disease Hiatal hernia with gastroesophageal reflux Low serum iron Major depressive disorder Metabolic syndrome Morbid obesity with BMI of 45.0-49.9, adult Peptic ulcer disease Polycystic ovarian syndrome PTSD (post-traumatic stress disorder) Vitamin D deficiency Surgical History History of appendectomy S/P appendectomy (~11/2011) S/P cholecystectomy (02/22/14) S/P laparoscopy (01/18/18) S/P laparoscopy (12/20/14) S/P laparoscopy (10/11/14) S/P laparoscopy (02/02/14) S/P tubal ligation (12/17/20) Laparoscopic bilateral complete salpingectomy. Performed by Dr. Mendez at [facility] in [place], [place]. Status post arthroscopic surgery of left knee October 2019 Family History Mother Pulmonary embolism Thyroid disease Stroke Hypertension Hyperlipidemia Diabetes Father Diabetes Hyperlipidemia Grandmother Cancer MATERNAL: BRAIN Social History Second hand smoke exposure: No Smoking risk assessment/counseling performed?: Yes Alcohol intake: never Desire information about alcohol rehabilitation?: No Counseling given: No Desire information about substance/drug rehabilitation?: No Counseling given: No Adopted: No Caregiver/support person: No Lives independently: Yes Household members: children Housing: House Marital status: Single Number of children: 3 service: No Current occupational status: unemployed Current occupational exposures/hazards: No History of recent travel: No Current gender identity: Female Female Reproductive History: Date of last menstrual period: 08/17/21 Para: 3 Spontaneous abortions: No Physical Exam Const: COMMON NORMALS: no acute distress, patient oriented x3, no limitations and alert GENERAL APPEARANCE: cooperative NUTRITIONAL APPEARANCE: obese morbidly obese ORIENTATION/CONSCIOUSNESS: Yes awake, Yes oriented to person, Yes oriented to place and Yes oriented to time HENMT: COMMON NORMALS: normocephalic and atraumatic HEAD & SCALP: normocephalic and atraumatic Resp: COMMON NORMALS: normal respiratory effort and clear to auscultation bilaterally AUSCULTATION: clear to auscultation bilaterally Cardio: COMMON NORMALS: regular rate and regular rhythm RATE: regular rate RHYTHM: regular rhythm GI: COMMON NORMALS: Normal to inspection, nondistended, normoactive bowel sounds present and Soft to palpation INSPECTION: Yes normal to inspection and Yes central obesity PALPATION: Yes Soft to palpation and Yes Tenderness to palpation present (GI) (diffusely but moreso to lower abdomen) Neuro: COMMON NORMALS: patient oriented x3 SENSORIUM/ORIENTATION: Yes alert, Yes oriented to person, Yes oriented to place and Yes oriented to time Skin: COMMON NORMALS: no rashes or lesions noted GENERAL SKIN EXAM: no rashes or lesions noted Course Consultations: Consultation #1: Dr. Randolph-discussed results of CT findings and she has no concerns of anything emergent at this time and does not recommend anything further from our end Vital Signs: Vital signs: Vital Signs Temperature 97.8 F 09/03/21 13:07 Pulse Rate 83 09/03/21 16:00 Respiratory Rate 14 09/03/21 16:00 Blood Pressure 144/85 09/03/21 16:00 Pulse Oximetry 99 09/03/21 16:00 MDM - Abdominal Pain MDM Narrative: Medical decision making narrative: Patient's vital signs are normal. Labs are unremarkable. CT scan shows normal post procedural findings. There was a report of peripheral endometrial enhancement most likely postoperative recommend correlation for infection. This finding was discussed with Dr. Randolph. Dr. Randolph stated she feels comfortable with the patient going home at this time. Patient currently has a follow-up visit with [facility] next week. Recommend she contact the clinic upon discharge to schedule an appointment within the next 1 to 2 days for further evaluation and follow-up especially if symptoms persist. Strict return to ED precautions given. Lab Data: Labs: Lab Results 09/03/21 09/03/21 13:55 13:55 WBC 11.5 10^3/uL H 10 ^3/uL (4.0-10.0) RBC 4.69 10^6/uL 10^6 /uL (4.1-5.3) Hgb 12.6 g/dL g/dL (11.5-15.3) Hct 38.0 % % (37.0-47.0) MCV 81.0 fl fl (81-99) MCH 26.9 pg L pg (28.0-34.0) MCHC 33.2 g/dL g/dL (30.0-36.0) RDW 17.2 % H % (12.1-15.1) Plt Count 307 10^3/cmm 10^3 /cmm (130-400) MPV 9.3 fL fL (7.4-10.4) Lymph % (Auto) Not Reportable Wilkes % (Auto) Not Reportable Lymph # (Auto) Not Reportable Wilkes # (Auto) Not Reportable Total Counted 100 (0-100) Atypical Lymphs % 9.0 % H % (0-5) Segmented Neutroph ils 40 % % Abs Segm Neuts (Ma n) 4.6 10/cmm 10/cmm (1.6-7.1) Band Neutrophils Not Reportable Absolute Lymphocyt es 6.3 10^3/cmm H 10 ^3/cmm (1.2-3.4) Lymphocytes (Manua l) 46 % % Monocytes (Manual) 5.0 % % Absolute Monocytes 0.6 10^3/cmm 10^3 /cmm (0.1-0.6) Eosinophils (Manua l) Not Reportable Basophils (Manual) Not Reportable Smudge Cells 1+ H Platelet Estimate Normal (Normal) Anisocytosis Trace Ovalocytes Trace Sodium 139 mmol/L mmol/L (136-145) Potassium 3.6 mmol/L mmol/L (3.5-5.1) Chloride 106 mmol/L mmol/L (98-107) Carbon Dioxide 20 mmol/L L mmol/ L (22-29) Anion Gap 16.6 (5-19) BUN 13 mg/dL mg/dL (6-20) Creatinine 0.5 mg/dL mg/dL (0.5-0.9) GFR Calculation 148.0 mL/min H mL /min (90-130) Glucose 94 mg/dL mg/dL (65-115) Calculated Osmolal ity 288 mOsm/kg mOsm/ kg (285-295) Calcium 8.3 mg/dL L mg/dL (8.5-10.5) Total Bilirubin 0.2 mg/dL mg/dL (0.15-1.2) AST 17 U/L U/L (0-32) ALT 24 U/L U/L (0-33) Alkaline Phosphata se 96 IU/L IU/L (35-105) Total Protein 6.6 g/dL g/dL (6.6-8.7) Albumin 3.9 g/dL g/dL (3.5-5.2) Globulin 2.7 g/dL g/dL (1.3-4.6) Imaging Data ^: CT Abd/Pel: Radiologist's impression: [id number] [place] [address] CT Scan Report Signed Patient: Neo Noland Unit #: [id number] : 1995 Age/Sex: 26 / F ADM Date: 09/03/21 Loc: ER Room/Bed: Attending Dr: Ordering Provider/Ordering MD: Nia Gavin Date of Service: 09/03/21 Procedure(s): CT abdomen pelvis w con* [id number] Accession Number(s): [id number] Report Number: [id number] WS: [id number] CT ABDOMEN PELVIS TECHNIQUE: Contrast-enhanced CT of the abdomen and pelvis with coronal and sagittal reformatted images. CLINICAL INFORMATION: recent hysteroscopy; severe pain COMPARISON: CT 2 23,018 DLP: 1857.[address] scans at [facility] use at least one of these dose optimization techniques: automated exposure control; mA and/or kV adjustment per patient size (includes targeted exams where dose is matched to clinical indication); or iterative reconstruction. FINDINGS: Recent postprocedural changes hysteroscopy. Small amount of expected postoperative fluid and air within the endometrial canal. Peripheral endometrial enhancement likely postoperative. Recommend infection be excluded. Small amount of air and fluid in the cervix. No free fluid in the pelvis. Lung bases are well aerated. Mild hepatomegaly. Prior cholecystectomy. Normal spleen. Normal GE junction. Adrenal glands are normal. Normal renal parenchymal enhancement. No hydronephrosis. Normal caliber abdominal aorta. A few sigmoid diverticuli. No evidence of acute diverticulitis. No evidence of small or large bowel obstruction. Normal caliber abdominal aorta. Left ovarian cyst measuring 2.[address]/CT abdomen pelvis w con* [id number] IMPRESSION: 1. Post procedure changes involving the endometrium with fluid and air in the central cavity. Peripheral endometrial enhancement most likely postoperative. Recommend correlation for infection. 2. No free fluid in the abdomen or pelvis. 3. Left ovarian cyst measuring 2.2 x 1.8 cm. 4. Hepatomegaly. Prior cholecystectomy. 5. No other new findings. Dictated By: Carlos Tobias MD Signed By: Carlos Tobias MD Signed Date/Time: 09/03/21 1448 DD/ 1440 Discharge Plan Discharge Patient Disposition: Home Clinical Impression: Pelvic cramping Condition: Stable Prescriptions: No Action albuterol sulfate [ProAir HFA] 90 mcg/actuation HFA aerosol inhaler 2 puff INHALATION QID PRN (Reason: Shortness Of Breath) Qty: 6.7 RF: 2 esomeprazole magnesium [Nexium] 40 mg capsule,delayed release(DR/EC) 40 mg PO DAILY Qty: 30 RF: 2 ferrous sulfate 325 mg (65 mg iron) tablet,delayed release (DR/EC) 325 mg PO TID Qty: 90 RF: 2 levothyroxine [Euthyrox] 25 mcg tablet 25 mcg PO QAM Qty: 30 RF: 2 valsartan [Diovan] 40 mg tablet 40 mg PO DAILY Qty: 30 RF: 2 venlafaxine [Effexor XR] 150 mg capsule,extended release 24hr 150 mg PO DAILY Qty: 30 RF: 2 (DME) pen needle, diabetic 33 gauge x 5/32 needle See Rx Instructions .ROUTE .MEDSUPPLY Qty: 100 RF: 2 ibuprofen 800 mg tablet 800 mg PO Q12H Qty: 60 RF: 1 ondansetron HCl 8 mg tablet 8 mg PO Q8H PRN (Reason: nausea and vomiting) 7 Days Qty: 21 RF: 0 chlorzoxazone 500 mg tablet 500 mg PO TID Qty: 90 RF: 2 cetirizine 10 mg tablet 10 mg PO QAM Qty: 90 RF: 1 imipramine HCl 25 mg tablet 25 mg PO BID Qty: 60 RF: 0 Linzess 145 mcg capsule 145 mcg PO QAM Qty: 30 RF: 2 Discharge Orders: Discharge ED (Routine); Ordered 09/03/21 Ordered By: Nia Gavin Referrals: Jan Hammer, [facility]ER-C [Primary Care Provider] - Activity Restrictions/Additional Instructions: As we discussed you may continue to take Tylenol and/or Ibuprofen as well as a heating pad as needed for discomfort. Please contact the women's health clinic as soon as possible for a follow-up visit this week for re-evaluation. You may return to the emergency department for severe or intolerable abdominal pains, severe vaginal bleeding, fevers greater than 100.4, or any other concerns you may have. I hope you begin to feel better soon. Coding Level of Care Code ED Feather Baler for Chg Fwd Exam Detailed Documented by User: Genaro Garcia DO 09/03/21 16:42 HPI - Abdominal Pain General: Chief Complaint: Abdominal Pain Stated Complaint: [facility] pains lower abd Time Seen by Provider: 09/03/21 13:18 PFSH ED PFSH: Medical History Anxiety as acute reaction to gross stress Bronchospasm Chronic low back pain without sciatica Contusion of left knee Environmental and seasonal allergies Essential (primary) hypertension Gastro-esophageal reflux disease with esophagitis Generalized anxiety disorder Anoop's disease Hiatal hernia with gastroesophageal reflux Low serum iron Major depressive disorder Metabolic syndrome Morbid obesity with BMI of 45.0-49.9, adult Peptic ulcer disease Polycystic ovarian syndrome PTSD (post-traumatic stress disorder) Vitamin D deficiency Surgical History History of appendectomy S/P appendectomy (~11/2011) S/P cholecystectomy (02/22/14) S/P laparoscopy (01/18/18) S/P laparoscopy (12/20/14) S/P laparoscopy (10/11/14) S/P laparoscopy (02/02/14) S/P tubal ligation (12/17/20) Laparoscopic bilateral complete salpingectomy. Performed by Dr. Mendez at [facility] in [place], [place]. Status post arthroscopic surgery of left knee October 2019 Family History Mother Pulmonary embolism Thyroid disease Stroke Hypertension Hyperlipidemia Diabetes Father Diabetes Hyperlipidemia Grandmother Cancer MATERNAL: BRAIN Social History Second hand smoke exposure: No Smoking risk assessment/counseling performed?: Yes Alcohol intake: never Desire information about alcohol rehabilitation?: No Counseling given: No Desire information about substance/drug rehabilitation?: No Counseling given: No Adopted: No Caregiver/support person: No Lives independently: Yes Household members: children Housing: House Marital status: Single Number of children: 3 service: No Current occupational status: unemployed Current occupational exposures/hazards: No History of recent travel: No Current gender identity: Female Course Vital Signs: Vital signs: Vital Signs Temperature 97.8 F 09/03/21 13:07 Pulse Rate 83 09/03/21 16:00 Respiratory Rate 14 09/03/21 16:00 Blood Pressure 144/85 09/03/21 16:00 Pulse Oximetry 99 09/03/21 16:00 MDM - Abdominal Pain MDM Narrative: Medical decision making narrative: Chart reviewed and patient discussed with midlevel. Agree with assessment and plan. Discussed with patient and reviewed history as well. Also reviewed discharge planning. Lab Data: Labs: Lab Results 09/03/21 09/03/21 13:55 13:55 WBC 11.5 10^3/uL H 10 ^3/uL (4.0-10.0) RBC 4.69 10^6/uL 10^6 /uL (4.1-5.3) Hgb 12.6 g/dL g/dL (11.5-15.3) Hct 38.0 % % (37.0-47.0) MCV 81.0 fl fl (81-99) MCH 26.9 pg L pg (28.0-34.0) MCHC 33.2 g/dL g/dL (30.0-36.0) RDW 17.2 % H % (12.1-15.1) Plt Count 307 10^3/cmm 10^3 /cmm (130-400) MPV 9.3 fL fL (7.4-10.4) Lymph % (Auto) Not Reportable Wilkes % (Auto) Not Reportable Lymph # (Auto) Not Reportable Wilkes # (Auto) Not Reportable Total Counted 100 (0-100) Atypical Lymphs % 9.0 % H % (0-5) Segmented Neutroph ils 40 % % Abs Segm Neuts (Ma n) 4.6 10/cmm 10/cmm (1.6-7.1) Band Neutrophils Not Reportable Absolute Lymphocyt es 6.3 10^3/cmm H 10 ^3/cmm (1.2-3.4) Lymphocytes (Manua l) 46 % % Monocytes (Manual) 5.0 % % Absolute Monocytes 0.6 10^3/cmm 10^3 /cmm (0.1-0.6) Eosinophils (Manua l) Not Reportable Basophils (Manual) Not Reportable Smudge Cells 1+ H Platelet Estimate Normal (Normal) Anisocytosis Trace Ovalocytes Trace Sodium 139 mmol/L mmol/L (136-145) Potassium 3.6 mmol/L mmol/L (3.5-5.1) Chloride 106 mmol/L mmol/L (98-107) Carbon Dioxide 20 mmol/L L mmol/ L (22-29) Anion Gap 16.6 (5-19) BUN 13 mg/dL mg/dL (6-20) Creatinine 0.5 mg/dL mg/dL (0.5-0.9) GFR Calculation 148.0 mL/min H mL /min (90-130) Glucose 94 mg/dL mg/dL (65-115) Calculated Osmolal ity 288 mOsm/kg mOsm/ kg (285-295) Calcium 8.3 mg/dL L mg/dL (8.5-10.5) Total Bilirubin 0.2 mg/dL mg/dL (0.15-1.2) AST 17 U/L U/L (0-32) ALT 24 U/L U/L (0-33) Alkaline Phosphata se 96 IU/L IU/L (35-105) Total Protein 6.6 g/dL g/dL (6.6-8.7) Albumin 3.9 g/dL g/dL (3.5-5.2) Globulin 2.7 g/dL g/dL (1.3-4.6) Discharge Plan Discharge Patient Disposition: Home Clinical Impression: Pelvic cramping Condition: Stable Prescriptions: No Action albuterol sulfate [ProAir HFA] 90 mcg/actuation HFA aerosol inhaler 2 puff INHALATION QID PRN (Reason: Shortness Of Breath) Qty: 6.7 RF: 2 esomeprazole magnesium [Nexium] 40 mg capsule,delayed release(DR/EC) 40 mg PO DAILY Qty: 30 RF: 2 ferrous sulfate 325 mg (65 mg iron) tablet,delayed release (DR/EC) 325 mg PO TID Qty: 90 RF: 2 levothyroxine [Euthyrox] 25 mcg tablet 25 mcg PO QAM Qty: 30 RF: 2 valsartan [Diovan] 40 mg tablet 40 mg PO DAILY Qty: 30 RF: 2 venlafaxine [Effexor XR] 150 mg capsule,extended release 24hr 150 mg PO DAILY Qty: 30 RF: 2 (DME) pen needle, diabetic 33 gauge x 5/32 needle See Rx Instructions .ROUTE .MEDSUPPLY Qty: 100 RF: 2 ibuprofen 800 mg tablet 800 mg PO Q12H Qty: 60 RF: 1 ondansetron HCl 8 mg tablet 8 mg PO Q8H PRN (Reason: nausea and vomiting) 7 Days Qty: 21 RF: 0 chlorzoxazone 500 mg tablet 500 mg PO TID Qty: 90 RF: 2 cetirizine 10 mg tablet 10 mg PO QAM Qty: 90 RF: 1 imipramine HCl 25 mg tablet 25 mg PO BID Qty: 60 RF: 0 Linzess 145 mcg capsule 145 mcg PO QAM Qty: 30 RF: 2 Discharge Orders: Discharge ED (Routine); Ordered 09/03/21 Ordered By: Nia Gavin Referrals: Jan Hammer, TUBE BENDERJacekC [Primary Care Provider] - Activity Restrictions/Additional Instructions: As we discussed you may continue to take Tylenol and/or Ibuprofen as well as a heating pad as needed for discomfort. Please contact the women's health clinic as soon as possible for a follow-up visit this week for re-evaluation. You may return to the emergency department for severe or intolerable abdominal pains, severe vaginal bleeding, fevers greater than 100.4, or any other concerns you may have. I hope you begin to feel better soon. Coding Level of Care Code ED Feather Baler for Chg Fwd Exam Detailed
--- NOTE | 2021-09-03 13:27 | CT_ITS ---
WS: [id number] CT ABDOMEN PELVIS TECHNIQUE: Contrast-enhanced CT of the abdomen and pelvis with coronal and sagittal reformatted image s. CLINICAL INFORMATION: recent hysteroscopy; severe pain COMPARISON: CT 2 23,018 DLP: 1857.[address] scans at [facility] use at least one of these dose optimization techniques: automated e xposure control; mA and/or kV adjustment per patient size (includes targeted exams where dose is matc hed to clinical indication); or iterative reconstruction. FINDINGS: Recent postprocedural changes hysteroscopy. Small amount of expected postoperative fluid and air with in the endometrial canal. Peripheral endometrial enhancement likely postoperative. Recommend infectio n be excluded. Small amount of air and fluid in the cervix. No free fluid in the pelvis. Lung bases a re well aerated. Mild hepatomegaly. Prior cholecystectomy. Normal spleen. Normal GE junction. Adrenal glands are normal. Normal renal parenchymal enhancement. N o hydronephrosis. Normal caliber abdominal aorta. A few sigmoid diverticuli. No evidence of acute diverticulitis. No ev idence of small or large bowel obstruction. Normal caliber abdominal aorta. Left ovarian cyst measuri ng 2.[address]/CT abdomen pelvis w con* [id number] IMPRESSION: 1. Post procedure changes involving the endometrium with fluid and air in the central cavity. Peripheral endometrial enhancement most likely postoperative. R ecommend correlation for infection. 2. No free fluid in the abdomen or pelvis. 3. Left ovarian cyst measuring 2.2 x 1.8 cm. 4. Hepatomegaly. Prior cholecystectomy. 5. No other new findings.
[2021-09-03] MEDS: ondansetron 2 mg/ML SDV 2 mL 4 MG IVP (14:10)
[2021-09-03 14:13] VITALS: RESP 18
[2021-09-03] MEDS: morphine 4 mg/mL SDV 1 mL IVP (14:13)
[2021-09-03 14:16] LABS: Hemoglobin 12.6 g/dL (11.5-15.3); Mean Corpuscular HGB Conc 33.2 g/dL (30.0-36.0); Mean Corpuscular Hemoglobin 26.9 pg (28.0-34.0); Mean Platelet Volume 9.3 fL (7.4-10.4); Platelet Count 307 10^3/cmm (130-400); Red Blood Count 4.69 10^6/uL (4.1-5.3); Red Cell Distribution Width 17.2 % (12.1-15.1); White Blood Count 11.5 10^3/uL (4.0-10.0)
[2021-09-03] MEDS: iohexol 300 mg/mL 100 mL Btl IV (14:22)
[2021-09-03 14:44] LABS: Alanine Aminotransferase 24 U/L (0-33); Albumin Level 3.9 g/dL (3.5-5.2); Alkaline Phosphatase 96 IU/L (35-105); Anion Gap 16.6 (5-19); Aspartate Amino Transferase 17 U/L (0-32); Blood Urea Nitrogen 13 mg/dL (6-20); Calcium 8.3 mg/dL (8.5-10.5); Carbon Dioxide 20 mmol/L (22-29); Chloride 106 mmol/L (98-107); Globulin 2.7 g/dL (1.3-4.6); Glucose 94 mg/dL (65-115); Osmolality Calculated 288 mOsm/kg (285-295); Potassium 3.6 mmol/L (3.5-5.1); Sodium 139 mmol/L (136-145); Total Bilirubin 0.2 mg/dL (0.15-1.2); Total Protein 6.6 g/dL (6.6-8.7)
[2021-09-03 14:51] VITALS: BP 144/85; PULSE 83; RESP 14; O2SAT 99
[2021-09-03 15:34] LABS: Absolute Segmented Neutrophil 4.6 10/cmm (1.6-7.1); Lymphocytes 46 %; Lymphocytes Absolute 6.3 10^3/cmm (1.2-3.4); Monocytes Absolute 0.6 10^3/cmm (0.1-0.6); Platelet Estimate Normal (Normal); Segmented Neutrophils 40 %; Total Cells Counted 100 (0-100)
[2021-09-03 15:35] LABS: Anisocytosis Trace; Ovalocytes Trace; Smudge Cells 1+
[2021-09-03 16:00] VITALS: BP 144/85; PULSE 83; RESP 14; O2SAT 99
== END 2021-09-03 16:00 | disposition home or self-care (01) ==
PROVIDERS: Physician Assistant; Emergency Provider Family Medicine; PCP Nurse Practitioner
DX: R10.2 Pelvic and perineal pain (principal)
CPT/HCPCS: 74177; 80053; 85007; 85025; 96374; 96375; 99284; J2270; J2405; Q9967

== ENCOUNTER → 2021-09-11 11:37 | Outpatient (BNVA) | payer BC, MEDICAID, SELFPAY | PROVIDERS: PCP Nurse Practitioner; Visit Provider Obstetrics & Gynecology | DX: R30.0 Dysuria (principal); N89.8 Other specified noninflammatory disorders of vagina | CPT/HCPCS: 81000; 87086; 87481; 87512; 87798; 87799 ==

== ENCOUNTER → 2021-09-12 11:11 | Outpatient (BNVA) | payer BC, MEDICAID, SELFPAY | PROVIDERS: PCP Nurse Practitioner; Visit Provider Nurse Practitioner | DX: E61.1 Iron deficiency (principal); E66.01 Morbid (severe) obesity due to excess calories; Z68.42 Body mass index [BMI] 45.0-49.9, adult; F41.1 Generalized anxiety disorder; I10 Essential (primary) hypertension; K21.9 Gastro-esophageal reflux disease without esophagitis; K44.9 Diaphragmatic hernia without obstruction or gangrene; E06.3 Autoimmune thyroiditis; J98.01 Acute bronchospasm | CPT/HCPCS: 83540 ==

== ENCOUNTER → 2021-09-22 08:09 | Outpatient (BNVA) | payer BC, MEDICAID, SELFPAY | PROVIDERS: PCP Nurse Practitioner; Visit Provider Nurse Practitioner | DX: F41.1 Generalized anxiety disorder (principal); F32.9 Major depressive disorder, single episode, unspecified; F43.10 Post-traumatic stress disorder, unspecified | CPT/HCPCS: 99214 ==

== ENCOUNTER 2021-09-23 11:39 | Emergency (ER) | payer BC, MEDICAID, SELFPAY ==
[2021-09-23 11:43] VITALS: BP 153/81; PULSE 96; RESP 14; TEMP 37.3; O2SAT 96; BMI 47.0
--- NOTE | 2021-09-23 12:11 | XRR_ITS ---
PROCEDURE INFORMATION: Exam: XR Chest Exam date and time: 09/23/2021 12:11 PM Age: 26 years old Clinical indication: Cough; Additional info: Cough/congestion TECHNIQUE: Imaging protocol: XR of the chest. Views: 1 view. COMPARISON: CR Chest 2 views* [id number] 10/03/2016 8:16 PM FINDINGS: Lungs: Unremarkable. No consolidation. Pleural spaces: Unremarkable. No pleural effusion. No pneumothorax. Heart/Mediastinum: Unremarkable. No cardiomegaly. Bones/joints: Unremarkable. XR/XR chest 1V portable [id number] IMPRESSION: No acute findings.
--- NOTE | 2021-09-23 13:35 | W.ED.GENADLT ---
HPI - General Adult General: Chief complaint: General Medical Stated complaint: congestion, cough, sore throat and ears Time Seen by Provider: 09/23/21 12:51 Source: patient Mode of arrival: ambulatory Limitations: no limitations History of Present Illness: HPI narrative: Patient is a 26-year-old female well-known to the ED for concerns of nasal congestion, sinus pain/pressure, ear pain, sore throat, and cough/chest congestion x 5 days. No fevers. She states her cousin who lives in their household has similar symptoms. She is unvaccinated for COVID. No abdominal pain, diarrhea, vomiting. Denies chest pain or shortness of breath. Onset (ago): day(s) Relieving factors: none Exacerbating factors: none Associated symptoms: Deny chest pain, dyspnea, headache(s), malaise, nausea, rash, palpitations, syncope or vomiting Review of Systems Const: Denies: fever(s), chills, body aches, fatigue or malaise Eyes: Denies: change in vision, blurry vision or photophobia ENMT: Reports: throat pain, ear or mastoid pain, nasal discharge, nasal congestion and sinus pain; Denies: ear discharge Card: Denies: chest pain, palpitations, irregular heart rhythm, edema, lightheadedness, syncope or pre-syncope Resp: Reports: productive cough and chest congestion; Denies: dyspnea, wheezing or hemoptysis GI: Denies: abdominal pain, nausea, vomiting or diarrhea Musc: Denies: neck pain, back pain, extremity pain or joint pain Skin/Breast: Denies: rash Neuro: Denies: headache(s), numbness in extremities, weakness in extremities, sensory changes or dizziness PFS ED PFSH: Medical History (Updated 09/23/21 @ 13:36 by RANJITH Rose) Anxiety as acute reaction to gross stress Bronchospasm Chronic low back pain without sciatica Contusion of left knee Environmental and seasonal allergies Essential (primary) hypertension Gastro-esophageal reflux disease with esophagitis Generalized anxiety disorder Anoop's disease Hiatal hernia with gastroesophageal reflux Low serum iron Major depressive disorder Metabolic syndrome Morbid obesity with BMI of 45.0-49.9, adult Peptic ulcer disease Polycystic ovarian syndrome Psychiatric care PTSD (post-traumatic stress disorder) Vitamin D deficiency Surgical History History of appendectomy [facility] of [facility] (~11/2011) S/P cholecystectomy (02/22/14) S/P laparoscopy (01/18/18) S/P laparoscopy (12/20/14) S/P laparoscopy (10/11/14) S/P laparoscopy (02/02/14) S/P tubal ligation (12/17/20) Laparoscopic bilateral complete salpingectomy. Performed by Dr. Mendez at [facility] in [place], [place]. Status post arthroscopic surgery of left knee October 2019 Family History Mother Pulmonary embolism Thyroid disease Stroke Hypertension Hyperlipidemia Diabetes Father Diabetes Hyperlipidemia Grandmother Cancer MATERNAL: BRAIN Social History Smoking and tobacco status: current every day smoker cigarettes Packs smoked per day: 0.5 Second hand smoke exposure: No Smoking risk assessment/counseling performed?: Yes Alcohol intake: never Desire information about alcohol rehabilitation?: No Counseling given: No Desire information about substance/drug rehabilitation?: No Counseling given: No Adopted: No Caregiver/support person: No Lives independently: Yes Household members: children Housing: House Marital status: Single Number of children: 3 service: No Current occupational status: unemployed Current occupational exposures/hazards: No History of recent travel: No Current gender identity: Female Female Reproductive History: Date of last menstrual period: 08/17/21 Para: 3 Spontaneous abortions: No Physical Exam Const: COMMON NORMALS: no acute distress, patient oriented x3, no limitations and alert GENERAL APPEARANCE: cooperative NUTRITIONAL APPEARANCE: obese morbidly obese ORIENTATION/CONSCIOUSNESS: Yes awake, Yes oriented to person, Yes oriented to place and Yes oriented to time HENMT: COMMON NORMALS: normocephalic and atraumatic HEAD & SCALP: normocephalic and atraumatic Resp: COMMON NORMALS: normal respiratory effort EFFORT & INSPECTION: Yes able to speak in complete sentences, No respiratory distress, No labored and No Actively coughing AUSCULTATION: wheezes scattered wheezes Cardio: COMMON NORMALS: regular rate and regular rhythm RATE: regular rate RHYTHM: regular rhythm Extremity: COMMON NORMALS: no clubbing, cyanosis or edema, no calf tenderness and no pedal edema Neuro: COMMON NORMALS: patient oriented x3 SENSORIUM/ORIENTATION: Yes alert, Yes oriented to person, Yes oriented to place and Yes oriented to time Skin: COMMON NORMALS: no rashes or lesions noted GENERAL SKIN EXAM: no rashes or lesions noted Course Vital Signs: Vital signs: Vital Signs Temperature 99.1 F 09/23/21 11:43 Pulse Rate 96 09/23/21 11:43 Respiratory Rate 14 09/23/21 11:43 Blood Pressure 153/81 09/23/21 11:43 Pulse Oximetry 96 09/23/21 11:43 MDM - General Adult MDM Narrative: Medical decision making narrative: Patient appears in no acute distress. Her vital signs are normal. CXR is normal. We cannot perform the coronavirus PCR at this time secondary to lab being out of the developer/reagent. Lab is requesting we order quest testing. She should receive results of this tomorrow. Recommend if positive she contact PCP to set her up with [facility]. Patient verbalizes understanding. She states she has an albuterol inhaler she can use as needed. We will go ahead and place on steroids. Return to ED precautions given. Imaging Data^: CXR: Radiologist's impression: [address] [address]PDet ReportSigned Patient: Neo Noland AUnit #: [id number]: 1995Acct#:[id number]/Sex: 26 / FADM Date: 09/23/21Loc: ERRoom/Bed:Attending Dr: Ordering Provider/Ordering MD: Nia Gavin Date of Service: 09/23/21 Procedure(s): XR chest 1V portable [id number] Accession Number(s): [id number] Report Number: [id number] PROCEDURE INFORMATION: Exam: XR Chest Exam date and time: 09/23/2021 12:11 PM Age: 26 years old Clinical indication: Cough; Additional info: Cough/congestion TECHNIQUE: Imaging protocol: XR of the chest. Views: 1 view. COMPARISON: CR Chest 2 views* [id number] 10/03/2016 8:16 PM FINDINGS: Lungs: Unremarkable. No consolidation. Pleural spaces: Unremarkable. No pleural effusion. No pneumothorax. Heart/Mediastinum: Unremarkable. No cardiomegaly. Bones/joints: Unremarkable. XR/XR chest 1V portable [id number] IMPRESSION: No acute findings. Dictated By:Jalil Stevensigned By:Jalil Stevens Date/Time:09/23/21 1317DD/ 1211 Discharge Plan Discharge Patient Disposition: Home Clinical Impression: Viral upper respiratory tract infection with cough Condition: Stable Prescriptions: New dexamethasone 6 mg tablet 6 mg PO DAILY Qty: 6 RF: 0 No Action ferrous sulfate 325 mg (65 mg iron) tablet,delayed release (DR/EC) 325 mg PO TID Qty: 90 RF: 2 (DME) pen needle, diabetic 33 gauge x 5/32 needle See Rx Instructions .ROUTE .MEDSUPPLY Qty: 100 RF: 2 ibuprofen 800 mg tablet 800 mg PO Q12H Qty: 60 RF: 1 Victoza 3-Zhen 0.6 mg/0.1 mL (18 mg/3 mL) pen injector See Rx Instructions SUBCUT .COMPLEX Qty: 9 RF: 0 (DME) pen needle, diabetic 33 gauge x 5/32 needle See Rx Instructions .ROUTE .MEDSUPPLY Qty: 100 RF: 5 valsartan [Diovan] 80 mg tablet 80 mg PO DAILY Qty: 30 RF: 2 esomeprazole magnesium [Nexium] 40 mg capsule,delayed release(DR/EC) 40 mg PO DAILY Qty: 30 RF: 2 levothyroxine [Euthyrox] 25 mcg tablet 25 mcg PO QAM Qty: 30 RF: 2 albuterol sulfate [ProAir HFA] 90 mcg/actuation HFA aerosol inhaler 2 puff INHALATION QID PRN (Reason: Shortness Of Breath) Qty: 6.7 RF: 2 hydrocortisone acetate 25 mg suppository 25 mg CO DAILY Qty: 12 RF: 0 ondansetron HCl 8 mg tablet 8 mg PO Q8H PRN (Reason: nausea and vomiting) 7 Days Qty: 21 RF: 0 chlorzoxazone 500 mg tablet 500 mg PO TID Qty: 90 RF: 2 cetirizine 10 mg tablet 10 mg PO QAM Qty: 90 RF: 1 venlafaxine [Effexor XR] 75 mg capsule,extended release 24hr 75 mg PO DAILY Qty: 30 RF: 2 venlafaxine [Effexor XR] 150 mg capsule,extended release 24hr 150 mg PO DAILY Qty: 30 RF: 2 quetiapine [Seroquel] 25 mg tablet 25 mg PO BID PRN (Reason: anxiety) Qty: 60 RF: 0 amitriptyline 25 mg tablet 25 mg PO .HS PRN (Reason: sleep) Qty: 30 RF: 1 Linzess 145 mcg capsule 145 mcg PO QAM Qty: 30 RF: 2 Discharge Orders: Discharge ED (Routine); Ordered 09/23/21 Ordered By: Nia Gavin Referrals: Jan Hammer, [facility] [Primary Care Provider] - Activity Restrictions/Additional Instructions: As we discussed your chest x-ray was normal. You should be receiving a call tomorrow and your COVID results. If positive please contact your primary care provider so they can set you up with a monoclonal antibody infusion for treatment if you wish to receive this. Coding Level of Care Code ED Composing Machine Operator for Scooter Kuhn
[2021-09-25 09:33] LABS: Quest SARS-CoV-2 RNA NOT DETECTED (NOT DETECTED)
== END 2021-09-23 13:44 | disposition home or self-care (01) ==
PROVIDERS: Emergency Provider Physician Assistant; PCP Nurse Practitioner
DX: J06.9 Acute upper respiratory infection, unspecified (principal); I10 Essential (primary) hypertension; F17.210 Nicotine dependence, cigarettes, uncomplicated; Z20.822 Contact with and (suspected) exposure to COVID-19
CPT/HCPCS: 71045; 87635; 99282

== ENCOUNTER → 2021-10-25 17:25 | Outpatient (BNVA) | payer BC, MEDICAID, SELFPAY | PROVIDERS: PCP Nurse Practitioner; Visit Provider Nurse Practitioner | DX: H66.91 Otitis media, unspecified, right ear (principal); B34.9 Viral infection, unspecified | CPT/HCPCS: 87635 ==

== ENCOUNTER → 2021-11-22 15:12 | Outpatient (BNVA) | payer BC, MEDICAID, SELFPAY | PROVIDERS: PCP Nurse Practitioner; Visit Provider Nurse Practitioner | DX: N39.0 Urinary tract infection, site not specified (principal) | CPT/HCPCS: 81000; 87086 ==

== ENCOUNTER → 2021-12-05 13:29 | Outpatient (BNVA) | payer BC, MEDICAID, SELFPAY | PROVIDERS: PCP Nurse Practitioner; Visit Provider Nurse Practitioner | DX: R50.9 Fever, unspecified (principal) | CPT/HCPCS: 87635 ==

== ENCOUNTER → 2022-01-10 12:37 | Outpatient (BNVA) | payer BC, MEDICAID, SELFPAY | PROVIDERS: PCP Nurse Practitioner | DX: N39.0 Urinary tract infection, site not specified (principal) | CPT/HCPCS: 81000 ==

== ENCOUNTER 2022-01-16 | Outpatient (CLI) | payer BC, MEDICAID, SELFPAY | END 2022-01-16 00:01 | disposition home or self-care (01) | LOC: RAD 02-04 08:54 | PROVIDERS: PCP Nurse Practitioner; Visit Provider Nurse Practitioner | DX: I10 Essential (primary) hypertension (principal); E06.3 Autoimmune thyroiditis | CPT/HCPCS: 80053; 80061; 84443 ==

== ENCOUNTER → 2022-03-12 13:20 | Outpatient (BNVA) | payer BC, MEDICAID, SELFPAY | PROVIDERS: PCP Nurse Practitioner; Visit Provider Obstetrics & Gynecology | DX: R30.0 Dysuria (principal) | CPT/HCPCS: 81000 ==

== ENCOUNTER → 2022-03-13 09:01 | Outpatient (BNVA) | payer BC, MEDICAID, SELFPAY | PROVIDERS: PCP Nurse Practitioner; Visit Provider Nurse Practitioner | DX: E61.1 Iron deficiency (principal); J30.89 Other allergic rhinitis; J98.01 Acute bronchospasm; G56.02 Carpal tunnel syndrome, left upper limb | CPT/HCPCS: 83540 ==

== ENCOUNTER 2022-03-25 07:51 | Outpatient (CLI) | payer BC, MEDICAID, SELFPAY ==
--- NOTE | 2022-03-25 08:00 | MR_ITS ---
WS: [id number] MRI LEFT KNEE NONCONTRAST TECHNIQUE: Axial PD, coronal PD fat sat, coronal PD, sagittal PD, and sagittal PD fat-sat images obta ined. CLINICAL INFORMATION: M25.562 - Pain in left knee COMPARISON: None. FINDINGS: Some images degraded by patient motion. Distal quadriceps and patella tendons are intact. H ypertrophic patella. ACL and PCL appear intact. Normal lateral meniscus. Blunting of the medial menis cus likely due to prior partial meniscectomy. Loss of the medial joint space. Grade III chondromalacia patella advanced for patient this age. This is worse involving the lateral p atella facet. Tiny joint effusion. Medial and lateral collateral ligaments are intact. Normal poplite al fossa. Somewhat shallow trochlear groove with hypertrophic patella. Recommend correlation for donahue llar instability. Patella tendon appears intact. MR/MR knee LT wo con* [id number] IMPRESSION: 1. Normal ACL and PCL. 2. Evidence of prior postoperative changes partial medial meniscectomy with lo ss of the medial joint space. Normal lateral meniscus. 3. 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 No subchondral edema. This is worse involving the lateral patella facet. 4. Somewhat shallow trochlear groove with high riding patella. Recommend corre lation for patellar instability 5. Medial and lateral collateral ligaments are intact. 6. No other acute findings. Outbridge grading: grade III: partial-thickness cartilage loss with focal ulcer ation
== END 2022-03-25 07:52 | disposition home or self-care (01) ==
LOC: RAD 07:55
PROVIDERS: PCP Nurse Practitioner; Visit Provider Nurse Practitioner
DX: M25.562 Pain in left knee (principal)
CPT/HCPCS: 73721

== ENCOUNTER → 2022-05-04 13:04 | Outpatient (BNVA) | payer BC, SELFPAY | PROVIDERS: PCP Nurse Practitioner; Referring Provider Nurse Practitioner; Visit Provider Specialist | DX: M25.562 Pain in left knee (principal); M17.12 Unilateral primary osteoarthritis, left knee; E66.01 Morbid (severe) obesity due to excess calories; Z68.42 Body mass index [BMI] 45.0-49.9, adult | CPT/HCPCS: 73560; 73565; 99213 ==

== ENCOUNTER 2022-06-19 15:02 | Emergency (ER) | payer BC, MEDICAID, SELFPAY ==
[2022-06-19 15:02] VITALS: BP 150/92; PULSE 90; RESP 18; TEMP 36.7; O2SAT 97; BMI 50.1
--- NOTE | 2022-06-19 15:07 | XR_ITS ---
WS: [id number] Left ankle, 06/19/2022 Clinical Data: left ankle pain Comparison: None. Findings: No fractures or dislocations are seen. The ankle mortise is normal. The talus and calcaneus are unrem arkable. No soft tissue swelling over the medial or lateral malleolus is seen. XR/XR ankle LT min 3V* [id number] Impression: Negative left ankle.
--- NOTE | 2022-06-19 15:38 | ED_ITS ---
HPI - Extremity Problem General: Chief complaint: Extremity Injury, Lower Stated complaint: left ankle pain Time Seen by Provider: 06/19/22 15:32 Source: patient Mode of arrival: wheelchair Limitations: no limitations History of Present Illness: 27-year-old female with a significant medical history presents to the ER today for left ankle pain. Patient reports she was going out her front door and stepped off the edge of the porch which was 1 step up. Patient reports her left ankle turned in and she felt a pop. Patient reports immediate pain and swelling. She denies any prior injury to this ankle. She does not take anything at this time for pain. Patient rates her pain a 10 out of 10. Review of Systems General: Reports: 10 or more systems reviewed and unremarkable except in HPI and below [facility] ED PFS: Medical History Bronchospasm Brown recluse spider bite Chronic low back pain without sciatica Chronic post-traumatic stress disorder Contusion of left knee Environmental and seasonal allergies Essential (primary) hypertension Gastro-esophageal reflux disease with esophagitis Generalized anxiety disorder Anoop's disease Hiatal hernia with gastroesophageal reflux Low serum iron Major depressive disorder, recurrent severe without psychotic features Metabolic syndrome Migraine Morbid obesity with BMI of 45.0-49.9, adult Nicotine dependence, cigarettes, uncomplicated Peptic ulcer disease Personal history of nicotine dependence Polycystic ovarian syndrome Psychiatric care Vitamin D deficiency Surgical History History of appendectomy [facility] (~11/2011) S/P cholecystectomy (02/22/14) S/P laparoscopy (01/18/18) S/P laparoscopy (12/20/14) S/P laparoscopy (10/11/14) S/P laparoscopy (02/02/14) S/P tubal ligation (12/17/20) Laparoscopic bilateral complete salpingectomy. Performed by Dr. Mendez at [facility] in [place], [place]. Status post arthroscopic surgery of left knee October 2019 Family History Mother Pulmonary embolism Thyroid disease Stroke Hypertension Hyperlipidemia Diabetes Father Diabetes Hyperlipidemia Grandmother Cancer MATERNAL: BRAIN Social History (Reviewed 06/19/22 @ 15:40 by MANUELA Mensah Smoking and tobacco status: current every day smoker (A pack a day ) cigarettes Packs smoked per day: 0.5 Second hand smoke exposure: No Smoking risk assessment/counseling performed?: Yes Alcohol intake: never Desire information about alcohol rehabilitation?: No Counseling given: No Desire information about substance/drug rehabilitation?: No Counseling given: No Adopted: No Caregiver/support person: No Lives independently: Yes Household members: children Housing: House Marital status: Single Number of children: 3 service: No Current occupational status: unemployed Current occupational exposures/hazards: No History of recent travel: No Current gender identity: Female Female Reproductive History: Date of last menstrual period: 08/17/21 Para: 3 Spontaneous abortions: No Physical Exam Const: COMMON NORMALS: patient oriented x3, no limitations, healthy appearing, alert and well nourished OTHER: pt tearful due to pain Resp: COMMON NORMALS: normal respiratory effort EFFORT & INSPECTION: Yes able to speak in complete sentences Cardio: COMMON NORMALS: regular rate and regular rhythm RATE: regular rate RHYTHM: regular rhythm Back/Pelvis: COMMON NORMALS: no thoracic nor lumbar tenderness and thoraco- lumbar ROM normal Extremity: NARRATIVE EXTREMITY EXAM: Patient has mild swelling of the left lateral malleolus. There is no deformity or skin discoloration/bruising noted. Patient has tenderness to palpation over the lateral malleolus on the left side and also the left fibula. Patient is in a wheelchair due to pain with weightbearing. Patient has pain with any range of motion of the left ankle also. Neuro: COMMON NORMALS: patient oriented x3 SENSORIUM/ORIENTATION: Yes alert Psych: MOOD & AFFECT: Yes tearful Skin: COMMON NORMALS: no rashes or lesions noted and no wounds GENERAL SKIN EXAM: no rashes or lesions noted Course ED course: 27-year-old female with a significant medical history presents to the ER today for left ankle pain. Patient reports she was going out her front door and stepped off the edge of the porch which was 1 step up. Patient reports her left ankle turned in and she felt a pop. Patient reports immediate pain and swelling. She denies any prior injury to this ankle. She does not take anyth ing at this time for pain. Patient rates her pain a 10 out of 10. We will get an x-ray at this time. Vital Signs: Vital signs: Vital Signs Temperature 98.1 F 06/19/22 15:02 Pulse Rate 90 06/19/22 15:02 Respiratory Rate 18 06/19/22 15:02 Blood Pressure 150/92 06/19/22 15:02 Pulse Oximetry 97 06/19/22 15:02 Oxygen Delivery Me thod 06/19/22 15:02 MDM - Extremity (Nontraumatic) Medical Decision Making 27-year-old female presents to the ER today for left ankle pain after stepping off of the porch wrong and feeling a pop in her left ankle. X-ray done in the ER does not indicate acute fracture. Likely patient has a left ankle sprain. I discussed rest, ice, elevation. Recommended patient get a lace up ankle brace and wear it. Recommended rest. Ice 20 minutes on and 20 minutes off. Take ibuprofen 800 mg 4 times daily x1 week. Follow-up with PCP in 10 to 14 days if no improvement. Return to the ER with any new or worsening symptoms. Patient verbalized understanding and was in agreement with the treatment plan. Medical Records Lab Data Radiology Impressions Ankle X-Ray 06/19/22 15:07 Impression: Negative left ankle. Critical Care Time Critical Care Time: Critical Care Time: No Discharge Plan Discharge Patient Disposition: Home Clinical Impression: Left ankle sprain Qualifiers: Encounter type: initial encounter Involved ligament of ankle: unspecified ligament Qualified Code(s): S93.402A - Sprain of unspecified ligament of left ankle, initial encounter Condition: Stable Prescriptions: No Action peg 3350-electrolytes [Golytely] 236-22.74-6.74 -5.86 gram recon soln 240 ml PO Q10M Qty: 4000 0RF Rx Instructions: until fecal effluent is clear ibuprofen 800 mg tablet 800 mg PO Q12H Qty: 60 1RF levothyroxine [Euthyrox] 25 mcg tablet 25 mcg PO QAM Qty: 30 5RF topiramate [Topamax] 50 mg tablet 50 mg PO BID Qty: 60 2RF valsartan [Diovan] 320 mg tablet 320 mg PO DAILY Qty: 30 5RF furosemide [Lasix] 20 mg tablet 20 mg PO QAM Qty: 30 5RF Linzess 145 mcg capsule 145 mcg PO QAM Qty: 30 5RF albuterol sulfate [ProAir HFA] 90 mcg/actuation HFA aerosol inhaler 2 puff INHALATION QID PRN (Reason: Shortness Of Breath) Qty: 6.7 2RF ferrous sulfate 325 mg (65 mg iron) tablet,delayed release (DR/EC) 325 mg PO TID Qty: 90 2RF fluticasone propionate [Flonase Allergy Relief] 50 mcg/actuation spray,suspension 2 spray intranasal DAILY Qty: 16 2RF Rx Instructions: administer into each nostril duloxetine [Cymbalta] 60 mg capsule,delayed release(DR/EC) 120 mg PO .morning Qty: 60 3RF Rx Instructions: Take two capsules every morning cetirizine 10 mg tablet 10 mg PO QAM Qty: 90 1RF Discharge Orders: Discharge ED (Routine); Ordered 06/19/22 Ordered By: Mary Stuart Referrals: Maria Del Rosario Barnes FNP [Primary Care Provider] - Discharge Diet: Usual diet Discharge Activity: Increase activity as tolerated Activity Restrictions/Additional Instructions: Rest, ice, elevation recommended. Ice 20 minutes on and 20 minutes off 3-4 times daily. Take 800 mg of ibuprofen 4 times daily x7 days. Get a Velcro or lace up ankle brace and wear x1 week. Minimal weightbearing and no extra activity recommended. Follow-up with PCP in 10 to 14 days if no improvement. Return to the ER with any new or worsening symptoms. Coding Level of Care Code ED Piercing Specialist for Scooter Kuhn
== END 2022-06-19 16:10 | disposition home or self-care (01) ==
PROVIDERS: Emergency Provider Physician Assistant; PCP Nurse Practitioner Family
DX: S93.402A Sprain of unspecified ligament of left ankle, initial encounter (principal); E66.01 Morbid (severe) obesity due to excess calories; X50.0XXA Overexertion from strenuous movement or load, initial encounter
CPT/HCPCS: 73610; 99283

== ENCOUNTER 2022-08-07 06:04 | Day surgery (SDC) | payer BC, MEDICAID, SELFPAY ==
[2022-08-05 15:56] VITALS: BMI 49.6
--- NOTE | 2022-08-07 06:17 | P.HP_ITS ---
Same Day Surgery H&P Indication for Procedure/HPI DATE OF PROCEDURE: August 07, 2022 CHIEF COMPLAINT/INDICATIONFOR SURGICAL PROCEDURE: Bleeding per rectum PREOP DIAGNOSIS: Bleeding per rectum PLANNED PROCEDURE: Operation Date: 08/07/22 07:30 Proposed Procedures p diagnostic colonoscopy 31521,K92.1(Not Applicable) - Maldonado Meyer MD 06/08/2022 This is a pleasant 27 years old female patient referred to my practice with history of bleeding per rectum for about a month or so, she denies any hematemesis and she feels hold better with having a bowel movement as she does experience crampy and sharp abdominal pain gets worse with constipation.? Patient also reports that with that the mom had history of colon polyps and last colonoscopy was done 5 years ago and patient reports it was normal. 08/07/2022 Patient comes today for diagnostic colonoscopy ROS All systems have been reviewed negative except as for the above or per problem list. Medications/Allergies* Home Medications Medication Instructions Recorded Confirmed Type diclofenac sodium 50 mg 50 mg PO DAILY 08/05/22 08/05/22 History tablet,delayed release Allergies/Adverse Reactions Allergy/AdvReac Type Severity Reaction Status Date / Time metronidazole [From Flagyl] Allergy Mild rash Verified 08/07/22 06:19 amoxicillin Allergy ALGY-Hives Verified 08/07/22 06:19 Cephalosporins Allergy ALGY-Difficulty Verified 08/07/22 06:19 Breathing hydromorphone [From Dilaudid] Allergy ALGY-Hives Verified 08/07/22 06:19 latex Allergy ALGY-Hives Verified 08/07/22 06:19 meperidine [From Demerol] Allergy ALGY-Hives Verified 08/07/22 06:19 Penicillins Allergy ALGY-Anaphy Verified 08/07/22 06:19 laxis Pertinent History/Comorbid Conditions* Medical History (Updated 06/27/22 @ 00:01 by ) Bronchospasm Brown recluse spider bite Chronic low back pain without sciatica Chronic post-traumatic stress disorder Contusion of left knee Environmental and seasonal allergies Essential (primary) hypertension Gastro-esophageal reflux disease with esophagitis Generalized anxiety disorder Anoop's disease Hiatal hernia with gastroesophageal reflux Low serum iron Major depressive disorder, recurrent severe without psychotic features Metabolic syndrome Migraine Morbid obesity with BMI of 45.0-49.9, adult Nicotine dependence, cigarettes, uncomplicated Peptic ulcer disease Personal history of nicotine dependence Polycystic ovarian syndrome Psychiatric care Vitamin D deficiency Surgical History (Updated 09/12/21 @ 11:18 by ALEA Kaiser) History of appendectomy History of endometrial ablation 09/02/21 with [facility] S/P appendectomy (~11/2011) S/P cholecystectomy (02/22/14) S/P laparoscopy (01/18/18) S/P laparoscopy (12/20/14) S/P laparoscopy (10/11/14) S/P laparoscopy (02/02/14) S/P tubal ligation (12/17/20) Laparoscopic bilateral complete salpingectomy. Performed by Dr. Mendez at [facility] in [place], [place]. Status post arthroscopic surgery of left knee October 2019 Family History (Updated 10/09/19 @ 15:46 by Maye Stack LPN) Diabetes Mother Father Hyperlipidemia Mother Father Pulmonary embolism Mother Cancer Grandmother MATERNAL: BRAIN Hypertension Mother Thyroid disease Mother Stroke Mother Social History Smoking and tobacco status: current every day smoker (A pack a day ) cigarettes Packs smoked per day: 0.5 Second hand smoke exposure: No Smoking risk assessment/counseling performed?: Yes Alcohol intake: never Desire information about alcohol rehabilitation?: No Counseling given: No Desire information about substance/drug rehabilitation?: No Counseling given: No Adopted: No Caregiver/support person: No Lives independently: Yes Household members: children Housing: House Marital status: Single Number of children: 3 service: No Current occupational status: unemployed Current occupational exposures/hazards: No History of recent travel: No Current gender identity: Female Pertinent Exam Findings alert, oriented x 3, regular rate & rhythm and procedure specific exam findings (Abdominal exam nontender nondistended soft) Recommendations Surgery/Procedure today (Colonoscopy with possible biopsy) Coding Level of Care Code Acute Painting Supervisor for Scooter Kuhn
[2022-08-07 06:20] VITALS: BP 123/75; PULSE 89; RESP 18; TEMP 36.1; O2SAT 95
[2022-08-07] MEDS: sodium chloride 0.9% 1,000 ML 30 ML IV (06:30)
[2022-08-07 06:39] LABS: Glucose Point of Care 102 mg/dL (70-110)
--- NOTE | 2022-08-07 06:54 | ANES.PREANE2 ---
Pre-Anesthetic Assessment Height/Weight: Height 1.7 m Weight 143.789 kg Temp Pulse Resp BP Pulse Ox O2 Del Method 97 F L 89 18 123/75 95 08/07/22 06:20 08/07/22 06:20 08/07/22 06:20 08/07/22 06:20 08/07/22 06:20 08/07/22 06:20 Preop Diagnosis: Bleeding per rectum Operation Date: 08/07/22 07:30 Proposed Procedures p diagnostic colonoscopy 69427,K92.1(Not Applicable) - Maldonado Meyer MD Familial anesthetic complications: none Was Beta Elyse taken within 24 hours: N/A Was Clonidine taken within 24 hours: N/A Last intake: Intake Last Liquid Date 08/06/22 Last Liquid Time 21:00 Last Solid Date 08/05/22 Last Solid Time 19:00 Last Intake: 21:00 Social Tobacco and No alcohol 1/2 pack(s) per day 10+ pack years Exam alert, oriented x 3, clear to auscultation bilaterally and regular rate & rhythm Airway Submandibular: within normal limits Cervical ROM: within normal limits Mallampati: Class II Dentition: false Pulmonary Asthma (UD twice a week), Cough and Exertional Dyspnea CV/HEM Hypertension None reported Hepatic None reported GI Gastroesophageal Reflux Disease and Hiatal Hernia Metabolic Thyroid Disease Musc/skel Lower Back Pain Neuropsych Anxiety and Depression Anesthetic Plan ASA status: 2 Anesthesia: MAC Risk of > 500 ml blood loss (7ml/kg in children): No Medications/Allergies Home Medications Medication Instructions Recorded Confirmed Last Taken Type ibuprofen 800 mg tablet 800 mg PO Q12H pain #60 tabs 01/16/22 08/05/22 Unknown Rx levothyroxine 25 mcg tablet 25 mcg PO QAM #30 tabs 02/09/22 08/07/22 08/07/22 Rx (Euthyrox) valsartan 320 mg tablet (Diovan) 320 mg PO DAILY #30 tabs 02/09/22 08/05/22 08/06/22 Rx albuterol sulfate 90 mcg/actuation 2 puff inhalation QID PRN 03/13/22 08/05/22 08/06/22 Rx aerosol inhaler (ProAir HFA) Shortness Of Breath #6.7 grams duloxetine 60 mg capsule,delayed 120 mg PO .morning #60 caps 05/14/22 08/05/22 08/06/22 Rx release (Cymbalta) diclofenac sodium 50 mg 50 mg PO DAILY 08/05/22 08/05/22 08/06/22 History tablet,delayed release Allergies Allergy/AdvReac Type Severity Reaction Status Date / Time metronidazole [From Flagyl] Allergy Mild rash Verified 08/07/22 06:19 amoxicillin Allergy ALGY-Hives Verified 08/07/22 06:19 Cephalosporins Allergy ALGY-Difficulty Verified 08/07/22 06:19 Breathing hydromorphone [From Dilaudid] Allergy ALGY-Hives Verified 08/07/22 06:19 latex Allergy ALGY-Hives Verified 08/07/22 06:19 meperidine [From Demerol] Allergy ALGY-Hives Verified 08/07/22 06:19 Penicillins Allergy ALGY-Anaphy Verified 08/07/22 06:19 laxis Current Medications Generic Name Dose Route Start Last Admin Trade Name Freq PRN Reason Stop Dose Admin Sodium Chloride 1,000 mls @ 30 mls/hr 08/07/22 06:15 08/07/22 06:30 Sodium Chloride 0.9% IV 08/08/22 06:14 30 mls/hr .Q24H ROSENDO Administration PFSH Anesthesia Medical History Bronchospasm Brown recluse spider bite Chronic low back pain without sciatica Chronic post-traumatic stress disorder Contusion of left knee Environmental and seasonal allergies Essential (primary) hypertension Gastro-esophageal reflux disease with esophagitis Generalized anxiety disorder Anoop's disease Hiatal hernia with gastroesophageal reflux Low serum iron Major depressive disorder, recurrent severe without psychotic features Metabolic syndrome Migraine Morbid obesity with BMI of 45.0-49.9, adult Nicotine dependence, cigarettes, uncomplicated Peptic ulcer disease Personal history of nicotine dependence Polycystic ovarian syndrome Psychiatric care Vitamin D deficiency Surgical History History of appendectomy History of endometrial ablation 09/02/21 with [employer] S/P appendectomy (~11/2011) S/P cholecystectomy (02/22/14) S/P laparoscopy (01/18/18) S/P laparoscopy (12/20/14) S/P laparoscopy (10/11/14) S/P laparoscopy (02/02/14) S/P tubal ligation (12/17/20) Laparoscopic bilateral complete salpingectomy. Performed by Dr. Mendez at [facility] in [place], [place]. Status post arthroscopic surgery of left knee October 2019 Family History Mother Pulmonary embolism Thyroid disease Stroke Hypertension Hyperlipidemia Diabetes Father Diabetes Hyperlipidemia Grandmother Cancer MATERNAL: BRAIN Social History Smoking and tobacco status: current every day smoker (A pack a day ) cigarettes Packs smoked per day: 0.5 Second hand smoke exposure: No Smoking risk assessment/counseling performed?: Yes Alcohol intake: never Desire information about alcohol rehabilitation?: No Counseling given: No Desire information about substance/drug rehabilitation?: No Counseling given: No Adopted: No Caregiver/support person: No Lives independently: Yes Household members: children Housing: House Marital status: Single Number of children: 3 service: No Current occupational status: unemployed Current occupational exposures/hazards: No History of recent travel: No Current gender identity: Female Female Reproductive History Date of last menstrual period: 08/17/21 Para: 3 Spontaneous abortions: No Data Anesthesia Cardiac Studies: No Data to Display
[2022-08-07 07:50] VITALS: BP 109/70; PULSE 65; RESP 16; TEMP 36.7; O2SAT 95
[2022-08-07 08:05] VITALS: BP 122/79; PULSE 82; RESP 18; O2SAT 99
--- NOTE | 2022-08-07 15:00 | ANE.PACU2 ---
Inpatient post-anesthesia follow up: Airway intact: Yes Vital signs: Temperature 98.1 F Pulse Rate 82 Respiratory Rate 18 Blood Pressure 122/79 Pulse Oximetry 99 Oxygen Delivery Me thod Room Air Oxygen Flow Rate 3 Fraction of Inspir ed Oxygen Hydration adequate: Yes Nausea and vomiting: No Pain level: 1 Mental status: Baseline
== END 2022-08-07 08:20 | disposition home or self-care (01) ==
PROVIDERS: PCP Nurse Practitioner Family; Visit Provider Surgery
PROC: 0DJD8ZZ Inspection of Lower Intestinal Tract, Via Natural or Artificial Opening Endoscopic (ICD-10-PCS; CPT 45378; principal; 2022-08-07 07:30)
DX: K92.1 Melena (principal); Z87.11 Personal history of peptic ulcer disease; E66.01 Morbid (severe) obesity due to excess calories; Z68.42 Body mass index [BMI] 45.0-49.9, adult; F17.210 Nicotine dependence, cigarettes, uncomplicated; I10 Essential (primary) hypertension
CPT/HCPCS: 36416; 45378; 82962; J2704; J7030

== ENCOUNTER 2022-08-07 10:19 | Outpatient (CLI) | payer BC, MEDICAID, SELFPAY ==
--- NOTE | 2022-08-07 10:29 | XRR_ITS ---
PROCEDURE INFORMATION: Exam: XR Lumbosacral Spine Exam date and time: 08/07/2022 10:30 AM Age: 27 years old Clinical indication: Low back pain; Prior surgery; Surgery type: Gb, appendix, tubal, uterine ablation TECHNIQUE: Imaging protocol: Radiologic exam of the lumbosacral spine. Views: 2 or 3 views. Neutral, flexion and extension lateral views. COMPARISON: CR XR lumbar spine 2-3V* [id number] 03/19/2021 11:30 AM FINDINGS: Bones/joints: No instability with flexion and extension. Soft tissues: Unremarkable. XR/XR lumbar spine f/e only [id number] IMPRESSION: No instability with flexion and extension.
== END 2022-08-07 10:20 | disposition home or self-care (01) ==
PROVIDERS: PCP Nurse Practitioner Family; Visit Provider Nurse Practitioner Family
DX: M54.50 Low back pain, unspecified (principal)
CPT/HCPCS: 72120

== ENCOUNTER 2022-08-25 10:44 | Outpatient (CLI) | payer BC, MEDICAID, SELFPAY ==
--- NOTE | 2022-08-25 10:56 | US_ITS ---
WS: [id number] DIAGNOSTIC BILATERAL DIGITAL BREAST TOMOSYNTHESIS MAMMOGRAPHY WITH CAD RIGHT breast ultrasound, limited. HISTORY: Palpable breast mass. COMPARISON: None available. TECHNIQUE: Bilateral craniocaudad, mediolateral oblique, and mediolateral views are submitted with to mosynthesis and SM. Spot compression bilateral CC views. Computer aided detection utilized. Breast composition: There are scattered areas of fibroglandular density. Palpable area posterior to t he RIGHT nipple corresponds to a mass measuring 2.2 x 2.3 cm. Mass is of increased density with sligh tly spiculated margins and nipple retraction. Benign upper outer quadrant lymph nodes within each eriberto ast. LEFT breast is negative. RIGHT breast ultrasound, limited. Hypoechoic mass with angular margins in the RIGHT breast posterior to the nipple. Mass extends toward s the nipple and may extend along the duct with debris. Mass measures 1.4 x 1.3 x 2.1 cm. There is mi ld peripheral vascularity. There is an additional hypoechoic mass in the RIGHT breast at 9:00, 5 cm from the nipple which is pro bably a lymph node. There is loss of the normal fatty hilum and this is a very hypoechoic lymph node. Normal shape remains. Lymph node measures 8 x 5 x 11 mm. No axillary adenopathy. US/US breast RT limited* [id number] IMPRESSION: BI-RADS: 5-Highly Suggestive of Malignancy FOLLOW UP: Biopsy Recommended Ultrasound-guided biopsy recommended of the RIGHT breast mass in the subareolar location. This mass may be ductal in etiology. Ultrasound guided biopsy recommended of the abnormal-appearing lymph node in th e RIGHT breast at 9:00. Notified MARIELENA Winslow at 08/25/2022 1:03 PM.
--- NOTE | 2022-08-25 11:39 | MM_ITS ---
WS: [id number] DIAGNOSTIC BILATERAL DIGITAL BREAST TOMOSYNTHESIS MAMMOGRAPHY WITH CAD RIGHT breast ultrasound, limited. HISTORY: Palpable breast mass. COMPARISON: None available. TECHNIQUE: Bilateral craniocaudad, mediolateral oblique, and mediolateral views are submitted with to mosynthesis and SM. Spot compression bilateral CC views. Computer aided detection utilized. Breast composition: There are scattered areas of fibroglandular density. Palpable area posterior to t he RIGHT nipple corresponds to a mass measuring 2.2 x 2.3 cm. Mass is of increased density with sligh tly spiculated margins and nipple retraction. Benign upper outer quadrant lymph nodes within each eriberto ast. LEFT breast is negative. RIGHT breast ultrasound, limited. Hypoechoic mass with angular margins in the RIGHT breast posterior to the nipple. Mass extends toward s the nipple and may extend along the duct with debris. Mass measures 1.4 x 1.3 x 2.1 cm. There is mi ld peripheral vascularity. There is an additional hypoechoic mass in the RIGHT breast at 9:00, 5 cm from the nipple which is pro bably a lymph node. There is loss of the normal fatty hilum and this is a very hypoechoic lymph node. Normal shape remains. Lymph node measures 8 x 5 x 11 mm. No axillary adenopathy. MM/[place] [id number] IMPRESSION: BI-RADS: 5-Highly Suggestive of Malignancy FOLLOW UP: Biopsy Recommended Ultrasound-guided biopsy recommended of the RIGHT breast mass in the subareolar location. This mass may be ductal in etiology. Ultrasound guided biopsy recommended of the abnormal-appearing lymph node in th e RIGHT breast at 9:00. Notified MARIELENA Winslow at 08/25/2022 1:03 PM.
== END 2022-08-25 10:45 | disposition home or self-care (01) ==
LOC: RAD 10:45
PROVIDERS: PCP Nurse Practitioner Family; Visit Provider Nurse Practitioner Family
DX: N63.15 Unspecified lump in the right breast, overlapping quadrants (principal)
CPT/HCPCS: 76642; 77061; 77062; G0279

== ENCOUNTER → 2022-09-07 11:18 | Outpatient (BNVA) | payer BC, MEDICAID, SELFPAY | PROVIDERS: PCP Nurse Practitioner Family; Visit Provider Registered Nurse Neonatal Intensive Care | DX: M25.511 Pain in right shoulder (principal) | CPT/HCPCS: 73030 ==

== ENCOUNTER 2022-09-16 08:02 | Outpatient (CLI) | payer BC, MEDICAID, SELFPAY ==
--- NOTE | 2022-09-16 08:21 | US_ITS ---
WS: [id number] ULTRASOUND-GUIDED RIGHT BREAST SUBAREOLA MASS BIOPSY AND RIGHT LYMPH NODE BIOPSY CLINICAL INFORMATION: ABNORMAL MAMMOGRAM R BREAST COMPARISON: Ultrasound August 25, 2022 FINDINGS: The procedure including risks, benefits, and complications were discussed with the patient who agreed to proceed. Using sterile technique patient was prepped and draped in the usual sterile fashion. Aft er 1% lidocaine utilizing real-time ultrasound guidance 4 14-gauge cores were obtained of the RIGHT b reast lesion at the areola. Subsequently a titanium clip was placed in the biopsy cavity. Next the enlarged lymph node in the RIGHT axilla was localized. Two 14-gauge cores were obtained. Bio psy clip was placed in the biopsy cavity adjacent to the lymph node. No immediate complications. Pathology demonstrates A. 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 - No overt malignancy identified. B. Breast, right, 9 o'clock, lymph node, ultrasound-guided biopsy: - Benign lymphoid tissue with sinus histiocytosis. - No malignancy identified. US/[place] [id number] IMPRESSION: 1. Uncomplicated ultrasound-guided RIGHT breast subareolar biopsy and axillary lymph node biopsy 2. 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 3. Lymph node demonstrates benign lymphoid tissue with sinus histiocytosis. No malignancy identified. 4. Recommend Breast surgery consultation in further evaluation with considerat ion for resection of the subareolar mass. BI-RADS: 2-Benign FOLLOW UP: 6 Month Follow-up Recommend Breast surgery consultation in further evaluation. Otherwise recommend 6 month RIGHT breast diagnostic mammography and ultrasound postbiopsy. Notified Dr Brooks at 09/18/2022 11:41 AM.
--- NOTE | 2022-09-16 08:21 | US_ITS ---
WS: [id number] ULTRASOUND-GUIDED RIGHT BREAST SUBAREOLA MASS BIOPSY AND RIGHT LYMPH NODE BIOPSY CLINICAL INFORMATION: ABNORMAL MAMMOGRAM R BREAST COMPARISON: Ultrasound August 25, 2022 FINDINGS: The procedure including risks, benefits, and complications were discussed with the patient who agreed to proceed. Using sterile technique patient was prepped and draped in the usual sterile fashion. Aft er 1% lidocaine utilizing real-time ultrasound guidance 4 14-gauge cores were obtained of the RIGHT b reast lesion at the areola. Subsequently a titanium clip was placed in the biopsy cavity. Next the enlarged lymph node in the RIGHT axilla was localized. Two 14-gauge cores were obtained. Bio psy clip was placed in the biopsy cavity adjacent to the lymph node. No immediate complications. Pathology demonstrates A. 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 - No overt malignancy identified. B. Breast, right, 9 o'clock, lymph node, ultrasound-guided biopsy: - Benign lymphoid tissue with sinus histiocytosis. - No malignancy identified. US/US biopsy lymph node breast/ax IMPRESSION: 1. Uncomplicated ultrasound-guided RIGHT breast subareolar biopsy and axillary lymph node biopsy 2. 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 3. Lymph node demonstrates benign lymphoid tissue with sinus histiocytosis. No malignancy identified. 4. Recommend Breast surgery consultation in further evaluation with considerat ion for resection of the subareolar mass. BI-RADS: 2-Benign FOLLOW UP: 6 Month Follow-up Recommend Breast surgery consultation in further evaluation. Otherwise recommend 6 month RIGHT breast diagnostic mammography and ultrasound postbiopsy. Notified Dr Brooks at 09/18/2022 11:41 AM.
== END 2022-09-16 08:03 | disposition home or self-care (01) ==
LOC: RAD 08:03
PROVIDERS: PCP Nurse Practitioner Family; Visit Provider Nurse Practitioner Family
DX: R92.8 Other abnormal and inconclusive findings on diagnostic imaging of breast (principal)
CPT/HCPCS: 19083; 38505; 76942; 88305

== ENCOUNTER → 2022-10-01 16:00 | Outpatient (BNVA) | payer BC, SELFPAY | PROVIDERS: PCP Nurse Practitioner Family; Visit Provider Nurse Practitioner Psychiatric/Mental Health | DX: Z79.899 Other long term (current) drug therapy (principal) | CPT/HCPCS: 80307 ==

== ENCOUNTER 2023-01-17 12:07 | Emergency (ER) | payer BC, MEDICAID, SELFPAY ==
[2023-01-17 12:28] VITALS: PULSE 84; TEMP 36.6; O2SAT 98; BMI 50.1
--- NOTE | 2023-01-17 12:31 | XRR_ITS ---
PROCEDURE INFORMATION: Exam: XR Right Knee Exam date and time: 01/17/2023 1:35 PM Age: 27 years old Clinical indication: Injury or trauma; Fall; Blunt trauma; Knee; Right TECHNIQUE: Imaging protocol: Radiologic exam of the right knee. Views: 3 views. COMPARISON: No relevant prior studies available. FINDINGS: Bones/joints: Osseous structures are intact. Negative for fracture. Joint spaces are preserved. Soft tissues: Normal. XR/XR knee RT 3V* [id number] IMPRESSION: No acute findings.
--- NOTE | 2023-01-17 14:53 | ED_ITS ---
HPI - Extremity Problem General: Chief complaint: Extremity Injury, Lower Stated complaint: right leg/knee/ankle pain Time Seen by Provider: 01/17/23 13:32 History of Present Illness: Neo is a 27-year-old female that presents to the emergency department with right knee pain. Onset of symptoms night when she slipped and fell injuring her right knee. Patient states she was able to get up unassisted and ambulate back into the house. As time is progressed since her pain has worsened. Patient is neurovascularly intact and has no open wounds. She does have abrasions. Associated symptoms: Deny chest pain, fever(s) or rash Review of Systems General: Reports: 10 or more systems reviewed and unremarkable except in HPI and below Const: Denies: fever(s), chills, change in appetite, change in weight, fatigue or malaise Eyes: Denies: change in vision, eye discomfort, eye discharge or eye redness ENMT: Denies: throat pain, enlarged tonsils, odynophagia, hoarseness, ear or mastoid pain, ear discharge, change in hearing, tinnitus, nasal discharge, nasal congestion, post nasal drip or sinus pain Card: Denies: chest pain, palpitations, irregular heart rhythm, edema, dyspnea on exertion, orthopnea or leg pain with exertion Resp: Denies: dyspnea, productive cough, non-productive cough, wheezing, stridor or chest congestion GI: Denies: abdominal pain, nausea, vomiting, dysphagia, diarrhea, constipation, bloating, GI cramping or hematochezia : Denies: flank pain, difficulty voiding, dysuria, urinary frequency, urinary urgency, urinary hesitancy, oliguria or hematuria Musc: Reports: joint pain (Knee joint); Denies: neck pain, back pain, extremity pain, joint swelling, joint redness, joint warmth or muscle weakness Skin/Breast: Denies: rash, pruritus, erythema, photosensitivity or new lesions Neuro: Denies: headache(s), numbness in extremities, weakness in extremities, sensory changes, lack of coordination, difficulty walking, frequent falls, dizziness, confusion, Slurred speech present, difficulty communicating thoughts, seizure-like activity or involuntary movements Endo: Denies: polyuria, polydipsia or tired all the time Rom/Lymph: Denies: easy bruising or easy bleeding PFSH ED PFSH: Medical History Bronchospasm Brown recluse spider bite Chronic low back pain without sciatica Chronic post-traumatic stress disorder Contusion of left knee Environmental and seasonal allergies Essential (primary) hypertension Gastro-esophageal reflux disease with esophagitis Generalized anxiety disorder Anoop's disease Hiatal hernia with gastroesophageal reflux Low serum iron Major depressive disorder, recurrent severe without psychotic features Metabolic syndrome Migraine Morbid obesity with BMI of 45.0-49.9, adult Nicotine dependence, cigarettes, uncomplicated Peptic ulcer disease Personal history of nicotine dependence Polycystic ovarian syndrome Psychiatric care Vitamin D deficiency Surgical History History of appendectomy History of endometrial ablation 09/02/21 with [facility] Hx of cholecystectomy Hx of colonoscopy Hx of esophagogastroduodenoscopy S/P appendectomy (~11/2011) S/P cholecystectomy (02/22/14) S/P laparoscopy (01/18/18) S/P laparoscopy (12/20/14) S/P laparoscopy (10/11/14) S/P laparoscopy (02/02/14) S/P tubal ligation (12/17/20) Laparoscopic bilateral complete salpingectomy. Performed by Dr. Mendez at [facility] in [place], [place]. Status post arthroscopic surgery of left knee October 2019 Family History Mother Pulmonary embolism Thyroid disease Stroke Hypertension Hyperlipidemia Diabetes Father Diabetes Hyperlipidemia Grandmother Cancer MATERNAL: BRAIN Social History Smoking and tobacco status: current every day smoker cigarettes Packs smoked per day: 0.5 Second hand smoke exposure: No Smoking risk assessment/counseling performed?: Yes Alcohol intake: never Desire information about alcohol rehabilitation?: No Counseling given: No Substance/Drug Use: unknown Desire information about substance/drug rehabilitation?: No Counseling given: No Adopted: No Caregiver/support person: No Lives independently: Yes Household members: children Housing: House Marital status: Single Number of children: 3 service: No Current occupational status: unemployed Current occupational exposures/hazards: No Do you think of yourself as: Straight/Heterosexual Current gender identity: Female Female Reproductive History: Para: 3 Spontaneous abortions: No Physical Exam Const: COMMON NORMALS: no acute distress, patient oriented x3 and alert GENERAL APPEARANCE: cooperative ORIENTATION/CONSCIOUSNESS: Yes awake, Yes oriented to person, Yes oriented to place and Yes oriented to time HENMT: COMMON NORMALS: normocephalic and atraumatic HEAD & SCALP: normocephalic and atraumatic FACE & SINUS: normal facial exam MOUTH: Normal oral and palatal mucosa present THROAT: posterior oropharynx normal Eye: COMMON NORMALS: Equal, round and reactive pupils present, EOMs intact bilaterally, conjunctivae normal and no scleral icterus GENERAL EYE: appearance normal, both eyes and all related structures ALIGNMENT: Yes alignment normal PERIORBITAL: periorbital findings normal CONJUNCTIVA: Yes conjunctivae normal PUPIL: Yes Equal, round and reactive pupils present Neck/C-Spine: COMMON NORMALS: full ROM GENERAL: Yes normal visual inspection Lymph: LYMPHATIC: no lymphadenopathy noted Chest: COMMONS NORMALS: normal inspection of the chest Breast/axilla inspection: Yes no chest deformity, asymmetry, normal contours, no nodules, masses, tenderness Resp: COMMON NORMALS: normal respiratory effort, No retractions, No use of accessory muscles and clear to auscultation bilaterally EFFORT & INSPECTION: Yes able to speak in complete sentences and Yes symmetric chest movement AUSCULTATION: clear to auscultation bilaterally Cardio: COMMON NORMALS: regular rate, regular rhythm and Peripheral pulses 2+ throughout RATE: regular rate RHYTHM: regular rhythm PERIPHERAL PULSES: Peripheral pulses 2+ throughout GI: COMMON NORMALS: Normal to inspection, nondistended, normoactive bowel sounds present, Soft to palpation, non-tender and No hepatosplenomegaly present INSPECTION: Yes normal to inspection AUSCULTATION: Yes normoactive bowel sounds PALPATION: Yes Soft to palpation and Yes No hepatosplenomegaly present RECTAL EXAM: deferred Extremity: COMMON NORMALS: normal to inspection NARRATIVE EXTREMITY EXAM: Right lower extremity: Skin is clean dry and intact There are some abrasions to the anterior knee Patient is nontender to palpation over hip and thigh, lower portion of the leg and ankle Patient is tender to palpation over anterior knee Patient is able to flex and extend at the right knee. It is limited due to pain Patient is able to perform a straight leg raise Patient is able to dorsiflex plantarflex the right foot Patient is able to dorsiflex great toe Sensations intact to light touch at medial, lateral, dorsal, plantar surface of the foot and first webspace DP pulses palpable and cap refills less than 3 seconds. GENERAL: Yes normal exam except as noted Neuro: COMMON NORMALS: patient oriented x3 SENSORIUM/ORIENTATION: Yes alert, Yes oriented to person, Yes oriented to place and Yes oriented to time CRANIAL NERVES: Yes CN normal except as noted Psych: COMMON NORMALS: mental status grossly normal, Normal thought process present, cooperative, activity/motor behavior normal, denies homicidal ideation and denies suicidal ideation THOUGHT PROCESS: Normal thought process present Skin: COMMON NORMALS: no rashes or lesions noted, no wounds and turgor normal GENERAL SKIN EXAM: no rashes or lesions noted and turgor normal Course Vital Signs: Vital signs: Vital Signs Temperature 98 F 01/17/23 12:28 Pulse Rate 84 01/17/23 12:28 Pulse Oximetry 98 01/17/23 12:28 Oxygen Delivery Me thod Room Air 01/17/23 12:28 MDM - Extremity (Nontraumatic) Medical Decision Making Differential diagnoses include fracture, fracture dislocation, contusion, knee joint effusion, hemarthrosis Patient underwent XR imaging of the right knee and reveals no acute findings. Patient was treated here in the emergency department with 1 dose of Toradol. She states she had a previous ulcer and is not supposed to take NSAIDs routinely. I did explain that Toradol is an NSAID but she has elected to take this medication. I have advised her to use RICE, rest ice elevation and compression. I have advised her to use acetaminophen as well Patient should follow-up with her primary care doctor in 1 week if no better Questions answered in detail Lab Data Radiology Impressions Knee X-Ray 01/17/23 12:31 IMPRESSION: No acute findings. Discharge Plan Discharge Patient Disposition: Home Clinical Impression: Acute knee pain Condition: Stable Prescriptions: No Action duloxetine [Cymbalta] 60 mg capsule,delayed release(DR/EC) 120 mg PO .morning Qty: 60 6RF Rx Instructions: Take two capsules every morning clonazepam [Klonopin] 0.5 mg tablet 0.5 mg PO BID PRN (Reason: anxiety) Qty: 30 2RF Rx Instructions: May take one tablet twice per day as needed for anxiety cyclobenzaprine 5 mg tablet 5 mg PO TID PRN tizanidine 4 mg tablet 4 mg PO BID PRN (Reason: muscle spasticity) Qty: 60 0RF levothyroxine [Euthyrox] 25 mcg tablet 25 mcg PO QAM Qty: 30 5RF valsartan [Diovan] 320 mg tablet 320 mg PO DAILY Qty: 30 5RF albuterol sulfate [ProAir HFA] 90 mcg/actuation HFA aerosol inhaler 2 puff INHALATION QID PRN (Reason: Shortness Of Breath) Qty: 6.7 2RF benzonatate 200 mg capsule 200 mg PO BID PRN (Reason: cough) Qty: 20 0RF azithromycin 250 mg tablet See Rx Instructions PO .COMPLEX Qty: 6 0RF Rx Instructions: take 500 mg today (day 1), then 250 mg for 4 days (days 2-5) PO fluticasone propionate [Flonase Allergy Relief] 50 mcg/actuation spray,suspension 1 spray intranasal DAILY PRN (Reason: nasal congestion) Qty: 16 0RF Rx Instructions: administer into each nostril diclofenac sodium 50 mg tablet,delayed release (DR/EC) 50 mg PO DAILY Discharge Orders: Discharge ED (Routine); Ordered 01/17/23 Ordered By: Ren Choudhary Referrals: Maria Del Rosario Barnes FNP [Primary Care Provider] - Patient Instructions: Knee Pain (ED), Pain Management Activity Restrictions/Additional Instructions: RICE?rest, ice, compression, elevation. You can also use acetaminophen to help with pain. 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
[2023-01-17] MEDS: ketorolac 60 mg/2 mL INJ IM (14:56)
== END 2023-01-17 15:16 | disposition home or self-care (01) ==
PROVIDERS: Emergency Provider Nurse Practitioner; PCP Nurse Practitioner Family
DX: M25.561 Pain in right knee (principal); F17.210 Nicotine dependence, cigarettes, uncomplicated; I10 Essential (primary) hypertension
CPT/HCPCS: 73562; 96372; 99284; J1885

== ENCOUNTER 2023-01-19 15:14 | Emergency (ER) | payer BC, MEDICAID, SELFPAY ==
[2023-01-19 15:30] VITALS: BP 148/89; PULSE 98; RESP 18; TEMP 36.9; O2SAT 97
--- NOTE | 2023-01-19 15:44 | USR_ITS ---
PROCEDURE INFORMATION: Exam: US Duplex Right Lower Extremity Veins, Limited Exam date and time: 01/19/2023 4:39 PM Age: 27 years old Clinical indication: Pain; Leg, lower; Right; Additional info: Lower leg swelling and calf tenderness TECHNIQUE: Imaging protocol: Real-time duplex ultrasound of the right extremity with 2-D dimas scale, color Doppler flow and spectral waveform analysis including responses to compression and other maneuvers (when performed) with image documentation. Limited exam was focused on the right lower extremity veins. COMPARISON: US soft tissue/extremity [id number] 07/21/2019 3:48 PM FINDINGS: Right deep veins: Unremarkable. The common femoral, femoral, proximal profunda femoral and popliteal veins are patent without thrombus. Normal Doppler waveforms. Normal compressibility and/or augmentation response. Right superficial veins: Unremarkable. Saphenofemoral junction is patent without thrombus. Soft tissues: Unremarkable. US/[place] [id number] IMPRESSION: No evidence of deep vein thrombosis.
--- NOTE | 2023-01-19 15:44 | XRR_ITS ---
PROCEDURE INFORMATION: Exam: XR Right Knee Exam date and time: 01/19/2023 3:50 PM Age: 27 years old Clinical indication: Pain; Knee; Right; Additional info: Knee pain TECHNIQUE: Imaging protocol: Radiologic exam of the right knee. Views: 3 views. COMPARISON: CR (LOW EXM, ) 01/17/2023 1:35 PM FINDINGS: Bones/joints: Osseous structures are intact. Negative for fracture. Joint spaces are preserved. Soft tissues: Normal. XR/XR knee RT 3V* [id number] IMPRESSION: No acute findings.
--- NOTE | 2023-01-19 15:45 | ED_ITS ---
HPI - Extremity Problem General: Chief complaint: Extremity Injury, Lower Stated complaint: right calf pain Time Seen by Provider: 01/19/23 15:37 History of Present Illness: Patient is a 27-year-old female comes to the ED with right leg complaint. Patient states that she had a fall approximately 4 days ago where she hit her right knee onto the ground and twisted her knee as well. She was seen here in the ED on January 17 for same complaint. She has an appointment with Ortho in January for follow-up on knee pain. She states that her knee pain has continued to get worse over the past couple days. She is unable to bend her right knee due to pain. Weightbearing causes worsening pain as well. She rates her pain currently 9 out of 10. She also is having some right calf swelling and right calf pain. Denies any chest pain, shortness of breath or hemoptysis. Associated symptoms: Deny chest pain, fever(s) or rash Review of Systems Const: Denies: fever(s), chills or fatigue Eyes: Denies: change in vision or eye discomfort ENMT: Denies: throat pain, odynophagia, nasal discharge or nasal congestion Card: Denies: chest pain, palpitations, edema, swelling of feet/ankles, dyspnea on exertion or orthopnea Resp: Denies: dyspnea, productive cough or non-productive cough GI: Denies: abdominal pain, nausea, vomiting, diarrhea, constipation or hematochezia : Denies: flank pain, dysuria or hematuria Musc: Reports: extremity pain (Right knee and right calf) and extremity swelling (Right calf); Denies: neck pain or back pain Skin/Breast: Denies: rash or new lesions Neuro: Denies: headache(s), numbness in extremities or weakness in extremities [facility] ED PFSH: Medical History Bronchospasm Brown recluse spider bite Chronic low back pain without sciatica Chronic post-traumatic stress disorder Contusion of left knee Environmental and seasonal allergies Essential (primary) hypertension Gastro-esophageal reflux disease with esophagitis Generalized anxiety disorder Anoop's disease Hiatal hernia with gastroesophageal reflux Low serum iron Major depressive disorder, recurrent severe without psychotic features Metabolic syndrome Migraine Morbid obesity with BMI of 45.0-49.9, adult Nicotine dependence, cigarettes, uncomplicated Peptic ulcer disease Personal history of nicotine dependence Polycystic ovarian syndrome Psychiatric care Vitamin D deficiency Surgical History History of appendectomy History of endometrial ablation 09/02/21 with [facility] Hx of cholecystectomy Hx of colonoscopy Hx of esophagogastroduodenoscopy S/P appendectomy (~11/2011) S/P cholecystectomy (02/22/14) S/P laparoscopy (01/18/18) S/P laparoscopy (12/20/14) S/P laparoscopy (10/11/14) S/P laparoscopy (02/02/14) S/P tubal ligation (12/17/20) Laparoscopic bilateral complete salpingectomy. Performed by Dr. Mendez at [facility] in [place], [place]. Status post arthroscopic surgery of left knee October 2019 Family History Mother Pulmonary embolism Thyroid disease Stroke Hypertension Hyperlipidemia Diabetes Father Diabetes Hyperlipidemia Grandmother Cancer MATERNAL: BRAIN Social History Smoking and tobacco status: current every day smoker cigarettes Packs smoked per day: 0.5 Second hand smoke exposure: No Smoking risk assessment/counseling performed?: Yes Alcohol intake: never Desire information about alcohol rehabilitation?: No Counseling given: No Substance/Drug Use: unknown Desire information about substance/drug rehabilitation?: No Counseling given: No Adopted: No Caregiver/support person: No Lives independently: Yes Household members: children Housing: House Marital status: Single Number of children: 3 service: No Current occupational status: unemployed Current occupational exposures/hazards: No Do you think of yourself as: Straight/Heterosexual Current gender identity: Female Female Reproductive History: Para: 3 Spontaneous abortions: No Physical Exam Const: COMMON NORMALS: patient oriented x3 HENMT: COMMON NORMALS: normocephalic HEAD & SCALP: normocephalic MOUTH: Normal oral and palatal mucosa present THROAT: posterior oropharynx normal and uvula midline Neck/C-Spine: COMMON NORMALS: supple GENERAL: Yes normal visual inspection Resp: COMMON NORMALS: normal respiratory effort, No retractions, No use of accessory muscles and clear to auscultation bilaterally AUSCULTATION: clear to auscultation bilaterally Cardio: COMMON NORMALS: regular rate, regular rhythm, S1 normal heart sound present, S2 normal heart sound present, No gallops present (Cardio), No clicks present (Cardio), No murmurs present (Cardio) and Peripheral pulses 2+ throughout RATE: regular rate RHYTHM: regular rhythm HEART SOUNDS: S1 normal heart sound present and S2 normal heart sound present PERIPHERAL PULSES: Peripheral pulses 2+ throughout GI: COMMON NORMALS: Normal to inspection, nondistended, normoactive bowel sounds present, Soft to palpation, non-tender and no masses PALPATION: Yes Soft to palpation : COMMON NORMALS: Yes no CVA tenderness BLADDER/KIDNEY EXAM: Yes no CVA tenderness Back/Pelvis: COMMON NORMALS: no CVA tenderness Extremity: NARRATIVE EXTREMITY EXAM: Right leg- right calf tenderness and some nonpitting edema in right calf as well. Right knee?limited range of motion due to pain. No visible erythema, deformity noted. Tenderness over anterior aspect of knee. Neurovascular intact distally. Neuro: COMMON NORMALS: patient oriented x3 GAIT: Yes Normal gait present Skin: GENERAL SKIN EXAM: dry skin Course Vital Signs: Vital signs: Vital Signs Temperature 98.4 F 01/19/23 15:30 Pulse Rate 98 01/19/23 15:30 Respiratory Rate 18 01/19/23 15:30 Blood Pressure 148/89 01/19/23 15:30 Pulse Oximetry 97 01/19/23 15:30 Oxygen Delivery Me thod Room Air 01/19/23 15:30 MDM - Extremity (Nontraumatic) Medical Decision Making Patient is a 27-year-old female comes to the ED with right leg complaint. Patient states that she had a fall approximately 4 days ago where she hit her right knee onto the ground and twisted her knee as well. She was seen here in the ED on January 17 for same complaint. She has an appointment with Ortho in January for follow-up on knee pain. She states that her knee pain has continued to get worse over the past couple days. She is unable to bend her right knee due to pain. Weightbearing causes worsening pain as well. She rates her pain currently 9 out of 10. She also is having some right calf swelling and right calf pain. Denies any chest pain, shortness of breath or hemoptysis. Vitals stable. Right leg- right calf tenderness and some nonpitting edema in right calf as well.Right knee?limited range of motion due to pain. No visible erythema, deformity noted. Tenderness over anterior aspect of knee. Neurovascular intact distally. Ultrasound venous duplex of right lower extremity showed no DVTs. Knee x-ray showed no acute fractures or findings. Patient was put in a knee immobilizer and was stable for discharge home. She sent home with a prescription for pain medication and already has an appointment with Ortho in the next couple weeks for further evaluation of right knee pain. Patient understood and agreed with plan. Lab Data Radiology Impressions Knee X-Ray 01/19/23 15:44 IMPRESSION: No acute findings. Venous Duplex 01/19/23 15:44 IMPRESSION: No evidence of deep vein thrombosis. Discharge Plan Discharge Patient Disposition: Home Clinical Impression: Acute pain of right knee Condition: Stable Prescriptions: No Action duloxetine [Cymbalta] 60 mg capsule,delayed release(DR/EC) 120 mg PO .morning Qty: 60 6RF Rx Instructions: Take two capsules every morning clonazepam [Klonopin] 0.5 mg tablet 0.5 mg PO BID PRN (Reason: anxiety) Qty: 30 2RF Rx Instructions: May take one tablet twice per day as needed for anxiety cyclobenzaprine 5 mg tablet 5 mg PO TID PRN tizanidine 4 mg tablet 4 mg PO BID PRN (Reason: muscle spasticity) Qty: 60 0RF levothyroxine [Euthyrox] 25 mcg tablet 25 mcg PO QAM Qty: 30 5RF valsartan [Diovan] 320 mg tablet 320 mg PO DAILY Qty: 30 5RF albuterol sulfate [ProAir HFA] 90 mcg/actuation HFA aerosol inhaler 2 puff INHALATION QID PRN (Reason: Shortness Of Breath) Qty: 6.7 2RF benzonatate 200 mg capsule 200 mg PO BID PRN (Reason: cough) Qty: 20 0RF azithromycin 250 mg tablet See Rx Instructions PO .COMPLEX Qty: 6 0RF Rx Instructions: take 500 mg today (day 1), then 250 mg for 4 days (days 2-5) PO fluticasone propionate [Flonase Allergy Relief] 50 mcg/actuation spray,suspension 1 spray intranasal DAILY PRN (Reason: nasal congestion) Qty: 16 0RF Rx Instructions: administer into each nostril diclofenac sodium 50 mg tablet,delayed release (DR/EC) 50 mg PO DAILY Discharge Orders: Discharge ED (Routine); Ordered 04/25/23 Ordered By: Dagoberto Reaves Referrals: Maria Del Rosario Barnes FNP [Primary Care Provider] - Discharge Diet: Regular Discharge Activity: Use walker/crutches as instructed Patient Instructions: Knee Pain (ED), Opioid Safety Activity Restrictions/Additional Instructions: Follow-up with orthopedic at your next scheduled appointment. Take medications as prescribed. Wear knee immobilizer and use crutches to help with ambulation. Return to the ER or your medical provider if condition worsens. Please read and understand discharge instructions. Thank you for choosing [facility] for your healthcare needs today. Please realize this is an emergency room and that we are providing you with a medical screening exam and this may not be complete and all inclusive of all the testing and or work up that you may need to determine your ailment or severity of your illness. It is very important that you follow up as instructed or that you return to the Emergency Department should you have concerns or if your condition changes or worsens in any way. 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
[2023-01-19] MEDS: HYDROcodone-acetaminophen 7.5-325 mg Tablet 1 TAB PO (15:52)
--- NOTE | 2023-01-19 17:42 | PC.NURSE ---
Was unable to place a knee immobilizer on patient due to larger size of patients leg, applied an ARON wrap instead.
== END 2023-01-19 17:56 | disposition home or self-care (01) ==
PROVIDERS: Emergency Provider Physician Assistant; PCP Nurse Practitioner Family
DX: M25.561 Pain in right knee (principal); F17.210 Nicotine dependence, cigarettes, uncomplicated; I10 Essential (primary) hypertension
CPT/HCPCS: 73562; 93971; 99284

== ENCOUNTER → 2023-02-03 13:55 | Outpatient (BNVA) | payer BC, MEDICAID, SELFPAY | PROVIDERS: PCP Nurse Practitioner Family; Referring Provider Nurse Practitioner Family; Visit Provider Specialist | DX: M25.561 Pain in right knee (principal); S89.91XA Unspecified injury of right lower leg, initial encounter; W01.0XXA Fall on same level from slipping, tripping and stumbling without subsequent striking against object, initial encounter | CPT/HCPCS: 73560; 73565 ==

== ENCOUNTER 2023-02-03 16:02 | Outpatient (CLI) | payer BC, MEDICAID, SELFPAY | END 2023-02-03 16:03 | disposition home or self-care (01) | LOC: SPT 16:03 | PROVIDERS: PCP Nurse Practitioner Family; Visit Provider Specialist | DX: Z46.89 Encounter for fitting and adjustment of other specified devices (principal); M25.561 Pain in right knee | CPT/HCPCS: 97760; L1812 ==

== ENCOUNTER 2023-04-26 15:26 | Outpatient (CLI) | payer BC, MEDICAID, SELFPAY ==
--- NOTE | 2023-04-26 14:00 | MR_ITS ---
WS: [id number] MRI LUMBAR SPINE NONCONTRAST TECHNIQUE: Sagittal T1, T2 and STIR imaging. Axial T1 and T2 imaging. CLINICAL INFORMATION: M54.16 - Radiculopathy, lumbar region COMPARISON: None. FINDINGS: Mild lumbar curve. No acute compression. RIGHT pericentral disc protrusion L5-S1. L1-L2: Mild annular bulging. Mild facet arthropathy. Spinal canal and foramen are patent. L2-L3: Mild LEFT and no significant RIGHT foraminal narrowing. Mild facet arthropathy. Spinal canal i s patent L3-L4: Mild annular bulging. Mild facet arthropathy. Mild bilateral foraminal narrowing. L4-L5: Mild annular bulging with slight effacement of the ventral thecal sac. Moderate facet arthropa thy. Mild LEFT greater than RIGHT foraminal narrowing. L5-S1: RIGHT subarticular disc protrusion with slight inferior extension of disc material. Impingemen t on the traversing RIGHT S1 nerve root in the subarticular recess. Mild central canal stenosis. Mode rate facet arthropathy. Moderate RIGHT greater than LEFT foraminal narrowing with impingement on the exiting L5 nerve roots bilaterally. Visualized pelvic bony structures: Normal. Paravertebral soft tissues: Normal. Adrenal glands are normal. MR/MR lumbar spine wo con* [id number] IMPRESSION: 1. Mild lumbar curve. No acute compression. 2. RIGHT pericentral disc protrusion L5-S1 impinges the RIGHT S1 nerve root in the subarticular recess. Mild central canal stenosis at this level. Recommend correlation RIGHT S1 nerve root symptoms. 3. Moderate RIGHT greater than LEFT L5-S1 foraminal narrowing impinges the exi ting L5 nerve roots bilaterally. 4. Mild bilateral L3-L4 and L4-L5 foraminal narrowing. 5. Moderate facet arthropathy L3-L5.
== END 2023-04-26 15:27 | disposition home or self-care (01) ==
PROVIDERS: PCP Nurse Practitioner Family; Visit Provider Anesthesiology Pain Medicine
DX: M54.16 Radiculopathy, lumbar region (principal); M51.27 Other intervertebral disc displacement, lumbosacral region
CPT/HCPCS: 72148

== ENCOUNTER 2023-05-09 13:22 | Emergency (ER) | payer BC, MEDICAID, SELFPAY ==
[2023-05-09 13:37] VITALS: BP 128/79; PULSE 77; RESP 16; TEMP 36.8; O2SAT 98
--- NOTE | 2023-05-09 14:39 | CTR_ITS ---
PROCEDURE INFORMATION: Exam: CT Abdomen And Pelvis With Contrast Exam date and time: 05/09/2023 3:15 PM Age: 28 years old Clinical indication: Abdominal tenderness; Prior surgery; Surgery date: 3-7 days post-operative; Surgery type: Hysto on Wednesday. Gb and appy; Additional info: Post op pain TECHNIQUE: Imaging protocol: Computed tomography of the abdomen and pelvis with contrast. Radiation optimization: All CT scans at this facility use at least one of these dose optimization techniques: automated exposure control; mA and/or kV adjustment per patient size (includes targeted exams where dose is matched to clinical indication); or iterative reconstruction. Contrast material: OMNI 350; Contrast volume: 100 ml; Contrast route: INTRAVENOUS (IV); REPORTING DATA: Count of CT and Cardiac NM exams in prior 12 months: This patient has received 0 known CTs and 0 known cardiac nuclear medicine studies in the 12 months prior to the current study. COMPARISON: CT abdomen pelvis w con* [id number] 09/03/2021 2:20 PM RADIATION DOSE METRICS: Total DLP (mGy-cm): 1317.73 FINDINGS: Lungs: Lung bases are clear. Liver: Normal. No mass. Gallbladder and bile ducts: Gallbladder has been removed. Bile ducts are not appreciably dilated. Pancreas: Normal. No ductal dilation. Spleen: Normal. No splenomegaly. Adrenal glands: Normal. No mass. Kidneys and ureters: Normal. No hydronephrosis. Stomach and bowel: Bowel loops are unremarkable. Appendix: Appendix as been removed. Intraperitoneal space: See Reproductive finding. Vasculature: Unremarkable. No abdominal aortic aneurysm. Lymph nodes: Unremarkable. No enlarged lymph nodes. Urinary bladder: Unremarkable as visualized. Reproductive: The uterus has since been removed. There is no underlying mass or fluid collection. There is some ill-defined fat stranding posterior to the previous location of the uterus in just deep to the course of the internal iliac vessels on both sides of midline significance of which is unclear. This may be postoperative in nature however possibility of developing pelvic peritonitis cannot be ruled out at this time and continued follow-up advised. Bones/joints: Unremarkable. No acute fracture. Soft tissues: There are stable postsurgical changes of the abdominal wall deep to the umbilicus. CT/CT abdomen pelvis w con* [id number] IMPRESSION: 1. Recent hysterectomy with mild inflammatory changes posterior to the previous location of the uterus, nonspecific as discussed above for which continued follow-up advised. No abscess collection or free fluid seen. 2. Additional chronic findings as above.
--- NOTE | 2023-05-09 14:40 | W.ED.ABDPA2 ---
HPI - Abdominal Pain General: Chief Complaint: Abdominal Pain Stated Complaint: pain post hyst Time Seen by Provider: 05/09/23 14:02 History of Present Illness: eNo is a 28-year-old female that presents to the emergency department status post hybrid hysterectomy on 05/04/2023. Patient states she was taking pain medication at home and has 1 pill left. She states that she still having pain and does not understand why. She denies any fever or chills. Denies any nausea vomiting or diarrhea. Associated Symptoms: Denies bloating, chills, constipation, GI cramping, diarrhea, dysuria, fever(s), hematochezia, hematuria, nausea and vomiting Review of Systems General: Reports: 10 or more systems reviewed and unremarkable except in HPI and below Const: Denies: fever(s), chills, change in appetite, change in weight, fatigue or malaise Eyes: Denies: change in vision, eye discomfort, eye discharge or eye redness ENMT: Denies: throat pain, enlarged tonsils, odynophagia, hoarseness, ear or mastoid pain, ear discharge, change in hearing, tinnitus, nasal discharge, nasal congestion, post nasal drip or sinus pain Card: Denies: chest pain, palpitations, irregular heart rhythm, edema, dyspnea on exertion, orthopnea or leg pain with exertion Resp: Denies: dyspnea, productive cough, non-productive cough, wheezing, stridor or chest congestion GI: Reports: abdominal pain; Denies: nausea, vomiting, dysphagia, diarrhea, constipation, bloating, GI cramping or hematochezia : Denies: flank pain, difficulty voiding, dysuria, urinary frequency, urinary urgency, urinary hesitancy, oliguria or hematuria Musc: Denies: neck pain, back pain, extremity pain, joint pain, joint swelling, joint redness, joint warmth or muscle weakness Skin/Breast: Denies: rash, pruritus, erythema, photosensitivity or new lesions Neuro: Denies: headache(s), numbness in extremities, weakness in extremities, sensory changes, lack of coordination, difficulty walking, frequent falls, dizziness, confusion, Slurred speech present, difficulty communicating thoughts, seizure-like activity or involuntary movements Endo: Denies: polyuria, polydipsia or tired all the time Rom/Lymph: Denies: easy bruising or easy bleeding PFSH ED PFSH: Medical History (Updated 05/09/23 @ 16:44 by MANJINDER Ahmadi) Breast abscess Bronchospasm Chronic idiopathic constipation Chronic low back pain without sciatica Chronic post-traumatic stress disorder Contusion of left knee Cyst of right breast Environmental and seasonal allergies Essential (primary) hypertension Gastro-esophageal reflux disease with esophagitis Generalized anxiety disorder Anoop's disease Hiatal hernia with gastroesophageal reflux Major depressive disorder, recurrent severe without psychotic features Marijuana use, episodic Metabolic syndrome Nicotine dependence, cigarettes, uncomplicated Peptic ulcer disease Polycystic ovarian syndrome Psychiatric care Vitamin D deficiency Surgical History History of appendectomy History of endometrial ablation 09/02/21 with [facility] Hx of cholecystectomy Hx of colonoscopy Hx of esophagogastroduodenoscopy S/P appendectomy (~11/2011) S/P cholecystectomy (02/22/14) S/P laparoscopy (01/18/18) S/P laparoscopy (12/20/14) S/P laparoscopy (10/11/14) S/P laparoscopy (02/02/14) S/P tubal ligation (12/17/20) Laparoscopic bilateral complete salpingectomy. Performed by Dr. Mendez at [facility] in [place], [place]. Status post arthroscopic surgery of left knee October 2019 Family History Mother Pulmonary embolism Thyroid disease Stroke Hypertension Hyperlipidemia Diabetes Father Diabetes Hyperlipidemia Grandmother Cancer MATERNAL: BRAIN Female Reproductive History: Para: 3 Spontaneous abortions: No Physical Exam Const: COMMON NORMALS: no acute distress, patient oriented x3 and alert GENERAL APPEARANCE: cooperative ORIENTATION/CONSCIOUSNESS: Yes awake, Yes oriented to person, Yes oriented to place and Yes oriented to time HENMT: COMMON NORMALS: normocephalic and atraumatic HEAD & SCALP: normocephalic and atraumatic FACE & SINUS: normal facial exam MOUTH: Normal oral and palatal mucosa present THROAT: posterior oropharynx normal Eye: COMMON NORMALS: Equal, round and reactive pupils present, EOMs intact bilaterally, conjunctivae normal and no scleral icterus GENERAL EYE: appearance normal, both eyes and all related structures ALIGNMENT: Yes alignment normal PERIORBITAL: periorbital findings normal CONJUNCTIVA: Yes conjunctivae normal PUPIL: Yes Equal, round and reactive pupils present Neck/C-Spine: COMMON NORMALS: full ROM GENERAL: Yes normal visual inspection Lymph: LYMPHATIC: no lymphadenopathy noted Chest: COMMONS NORMALS: normal inspection of the chest Breast/axilla inspection: Yes no chest deformity, asymmetry, normal contours, no nodules, masses, tenderness Resp: COMMON NORMALS: normal respiratory effort, No retractions, No use of accessory muscles and clear to auscultation bilaterally EFFORT & INSPECTION: Yes able to speak in complete sentences and Yes symmetric chest movement AUSCULTATION: clear to auscultation bilaterally Cardio: COMMON NORMALS: regular rate, regular rhythm and Peripheral pulses 2+ throughout RATE: regular rate RHYTHM: regular rhythm PERIPHERAL PULSES: Peripheral pulses 2+ throughout GI: COMMON NORMALS: Soft to palpation INSPECTION: Yes abdominal wall ecchymosis, Yes incision (POD 5 hybrid robotic hysterectomy.) Inspection of incision: healing well, Yes striae and Yes Abdominal panniculus present AUSCULTATION: Yes normoactive bowel sounds PALPATION: Yes Soft to palpation RECTAL EXAM: deferred Extremity: COMMON NORMALS: normal to inspection GENERAL: Yes normal exam except as noted Neuro: COMMON NORMALS: patient oriented x3 SENSORIUM/ORIENTATION: Yes alert, Yes oriented to person, Yes oriented to place and Yes oriented to time CRANIAL NERVES: Yes CN normal except as noted Psych: COMMON NORMALS: mental status grossly normal, Normal thought process present, cooperative, activity/motor behavior normal, denies homicidal ideation and denies suicidal ideation THOUGHT PROCESS: Normal thought process present Skin: COMMON NORMALS: no rashes or lesions noted, no wounds and turgor normal GENERAL SKIN EXAM: no rashes or lesions noted and turgor normal Course Vital Signs: Vital signs: Vital Signs Temperature 98.2 F 05/09/23 13:37 Pulse Rate 58 L 05/09/23 16:43 Respiratory Rate 18 05/09/23 15:56 Blood Pressure 121/86 05/09/23 16:43 Pulse Oximetry 95 05/09/23 16:43 Oxygen Delivery Me thod Room Air 05/09/23 16:43 MDM - Abdominal Pain Medical Decision Making Patient was evaluated in the emergency department due to postoperative pain. Patient dates she is 5 days status post robotic hybrid hysterectomy. She states she is running out of pain medication and she does not understand why she is still having pain. Patient did speak with her surgeon today who told her that reevaluation might be warranted. Patient came here for reevaluation. Differential diagnosis and fluids postop infection, postop bleeding, retained foreign body, or just postoperative pain I ordered a CBC, BMP, and CT abdomen pelvis. Urinalysis was ordered as well His CBC and BMP did not reveal any acute findings. The CT of the abdomen and pelvis with contrast did not reveal any acute findings. Postsurgical changes were identified. Discharge was delayed while we waited for urinalysis. Negative UA. We proceeded with DC Lab Data 05/09/23 15:08 05/09/23 15:08 Labs/Radiology: Radiology Impressions Abdomen/Pelvis CT 05/09/23 14:39 IMPRESSION: 1. Recent hysterectomy with mild inflammatory changes posterior to the previous location of the uterus, nonspecific as discussed above for which continued follow-up advised. No abscess collection or free fluid seen. 2. Additional chronic findings as above. Laboratory Results WBC 10.3 10^3/uL (4.0-10.0) H 05/09/23 15:08 RBC 4.81 10^6/uL (4.1-5.3) 05/09/23 15:08 Hgb 14.1 g/dL (11.5-15.3) 05/09/23 15:08 Hct 43.1 % (37.0-47.0) 05/09/23 15:08 MCV 89.6 fl (81-99) 05/09/23 15:08 MCH 29.3 pg (28.0-34.0) 05/09/23 15:08 MCHC 32.7 g/dL (30.0-36.0) 05/09/23 15:08 RDW 13.2 % (12.1-15.1) 05/09/23 15:08 Plt Count 282 10^3/cmm (130-400) 05/09/23 15:08 MPV 9.0 fL (7.4-10.4) 05/09/23 15:08 Neut % (Auto) 55.7 % 05/09/23 15:08 Lymph % (Auto) 33.1 % 05/09/23 15:08 [place] % (Auto) 5.2 % 05/09/23 15:08 Eos % (Auto) 5.2 % 05/09/23 15:08 Baso % (Auto) 0.5 % 05/09/23 15:08 Neut # (Auto) 5.74 10^3/uL (1.8-7.7) 05/09/23 15:08 Lymph # (Auto) 3.4 10^3/uL (0.8-4.8) 05/09/23 15:08 [place] # (Auto) 0.5 10^3/uL (0.2-0.9) 05/09/23 15:08 Eos # (Auto) 0.5 10^3/uL (0.0-0.8) 05/09/23 15:08 Baso # (Auto) 0.1 10^3/uL (0.0-0.1) 05/09/23 15:08 Nucleated RBC % (auto) 0 % 05/09/23 15:08 Nucleated RBCs # 0.0 /100WBC 05/09/23 15:08 Sodium 137 mmol/L (136-145) 05/09/23 15:08 Potassium 4.1 mmol/L (3.5-5.1) 05/09/23 15:08 Chloride 99 mmol/L (98-107) 05/09/23 15:08 Carbon Dioxide 29 mmol/L (22-29) 05/09/23 15:08 Anion Gap 13.1 (5-19) 05/09/23 15:08 BUN 9 mg/dL (6-20) 05/09/23 15:08 Creatinine 0.6 mg/dL (0.5-0.9) 05/09/23 15:08 GFR Calculation 118.2 mL/min (90-130) 05/09/23 15:08 Glucose 106 mg/dL (65-115) 05/09/23 15:08 Calculated Osmolality 283 mOsm/kg (285-295) L 05/09/23 15:08 Calcium 8.8 mg/dL (8.5-10.5) 05/09/23 15:08 Urine Color Yellow (Yellow) 05/09/23 16:28 Urine Appearance Clear (CLEAR) 05/09/23 16:28 Urine pH 7 (5-7) 05/09/23 16:28 Ur Specific [place] 1.000 (1.005-1.030) L 05/09/23 16:28 Urine Protein Neg (Negative) 05/09/23 16:28 Urine Glucose (UA) Norm (Normal) 05/09/23 16:28 Urine Ketones Negative (Negative) 05/09/23 16:28 Urine Blood Neg (Negative) 05/09/23 16:28 Urine Nitrate Negative (Negative) 05/09/23 16:28 Urine Bilirubin Neg (Negative) 05/09/23 16:28 Urine Urobilinogen Norm mg/dL (Negative) 05/09/23 16:28 Ur Leukocyte Esterase Negative (Negative) 05/09/23 16:28 Discharge Plan Discharge Patient Disposition: Home Clinical Impression: Acute postoperative abdominal pain Condition: Stable Prescriptions: No Action hydroxyzine pamoate [Vistaril] 50 mg capsule 50 mg PO BID PRN (Reason: anxiety) Qty: 60 4RF Rx Instructions: Take one capsule twice per day as needed for anxiety levothyroxine [Euthyrox] 25 mcg tablet 25 mcg PO QAM Qty: 30 5RF valsartan [Diovan] 320 mg tablet 320 mg PO DAILY Qty: 30 5RF albuterol sulfate [ProAir HFA] 90 mcg/actuation HFA aerosol inhaler 2 puff INHALATION QID PRN (Reason: Shortness Of Breath) Qty: 6.7 2RF fluticasone propionate [Flonase Allergy Relief] 50 mcg/actuation spray,suspension 1 spray intranasal DAILY PRN (Reason: nasal congestion) Qty: 16 0RF Rx Instructions: administer into each nostril propranolol 20 mg tablet 20 mg PO BID Qty: 60 5RF Rx Instructions: for migraine prevention Emgality Pen 120 mg/mL pen injector 120 mg SUBCUT Q30D 30 Days Qty: 1 2RF Rx Instructions: Following Loading Dose, Take once monthly Emgality Pen 120 mg/mL pen injector 240 mg SUBCUT ONCE 30 Days Qty: 2 0RF Rx Instructions: Loading Dose. amitriptyline 25 mg tablet 25 mg PO DAILY Qty: 30 3RF Rx Instructions: Take at bedtime duloxetine [Cymbalta] 60 mg capsule,delayed release(DR/EC) 120 mg PO .morning Qty: 60 6RF Rx Instructions: Take two capsules every morning diclofenac sodium 50 mg tablet,delayed release (DR/EC) 50 mg PO DAILY Discharge Orders: Discharge ED (Routine); Ordered 05/09/23 Ordered By: Ren Choudhary Referrals: Maria Del Rosario Barnes FNP [Primary Care Provider] - Discharge Diet: Advance as tolerated Discharge Activity: Resume usual activity Patient Instructions: Abdominal Pain (ED), Opioid Safety, Pain Management Activity Restrictions/Additional Instructions: Please follow your surgeons recommendations Please take your pain medication as prescribed by your surgeon Coding Level of Care Code ED Digital Commentator for Scooter Kuhn
[2023-05-09 15:14] LABS: Basophils # 0.1 10^3/uL (0.0-0.1); Basophils % 0.5 %; Eosinophils # 0.5 10^3/uL (0.0-0.8); Eosinophils % 5.2 %; Hematocrit 43.1 % (37.0-47.0); Hemoglobin 14.1 g/dL (11.5-15.3); Lymphocytes # 3.4 10^3/uL (0.8-4.8); Lymphocytes % 33.1 %; Mean Corpuscular HGB Conc 32.7 g/dL (30.0-36.0); Mean Corpuscular Hemoglobin 29.3 pg (28.0-34.0); Mean Corpuscular Volume 89.6 fl (81-99); Monocytes # 0.5 10^3/uL (0.2-0.9); Monocytes % 5.2 %; Neutrophils # 5.74 10^3/uL (1.8-7.7); Neutrophils % 55.7 %; Nucleated Red Blood Cells % 0 %; Platelet Count 282 10^3/cmm (130-400); Red Blood Count 4.81 10^6/uL (4.1-5.3); Red Cell Distribution Width 13.2 % (12.1-15.1); White Blood Count 10.3 10^3/uL (4.0-10.0)
[2023-05-09] MEDS: iohexol 350 mg/mL 500 mL Btl (per mL) IV (15:18)
[2023-05-09 15:32] LABS: Anion Gap 13.1 (5-19); Blood Urea Nitrogen 9 mg/dL (6-20); Calcium 8.8 mg/dL (8.5-10.5); Carbon Dioxide 29 mmol/L (22-29); Chloride 99 mmol/L (98-107); Glomerular Filtration Rate 118.2 mL/min (90-130); Glucose 106 mg/dL (65-115); Osmolality Calculated 283 mOsm/kg (285-295); Potassium 4.1 mmol/L (3.5-5.1); Sodium 137 mmol/L (136-145)
[2023-05-09] MEDS: sodium chloride 0.9% 500 ML IV (15:32)
[2023-05-09 15:54] VITALS: RESP 18; O2SAT 98
[2023-05-09] MEDS: oxyCODONE-APAP 5-325 mg Tablet 1 TAB PO (15:54)
[2023-05-09 15:56] VITALS: BP 96/60; PULSE 60; RESP 18; O2SAT 98
[2023-05-09 16:43] VITALS: BP 121/86; PULSE 58; O2SAT 95
[2023-05-09 16:44] LABS: Add Urine Microscopic? NO; Charge for UA Resulting for Rev
[2023-05-09 16:45] LABS: Bilirubin Urine Neg (Negative); Blood Urine Neg (Negative); Glucose Urine UA Norm (Normal); Ketones Urine Negative (Negative); Leukocyte Esterase Urine Negative (Negative); Nitrate Urine Negative (Negative); Protein Urine Neg (Negative); Urine Appearance Clear (CLEAR); Urine Color Yellow (Yellow); Urobilinogen Urine Norm (Negative); pH Urine 7 (5-7)
[2023-05-09 16:59] VITALS: BP 127/80; PULSE 61; O2SAT 95
== END 2023-05-09 17:03 | disposition home or self-care (01) ==
PROVIDERS: Emergency Provider Nurse Practitioner; PCP Nurse Practitioner Family
DX: G89.18 Other acute postprocedural pain (principal); R10.9 Unspecified abdominal pain
CPT/HCPCS: 74177; 80048; 81003; 85025; 96360; 99285; J7040; Q9967

== ENCOUNTER → 2023-07-07 14:01 | Outpatient (BNVA) | payer BC, MEDICAID, SELFPAY | PROVIDERS: PCP Nurse Practitioner Family; Visit Provider Nurse Practitioner | DX: I10 Essential (primary) hypertension (principal); G43.711 Chronic migraine without aura, intractable, with status migrainosus; E06.3 Autoimmune thyroiditis; R73.9 Hyperglycemia, unspecified; E66.01 Morbid (severe) obesity due to excess calories; Z68.43 Body mass index [BMI] 50.0-59.9, adult | CPT/HCPCS: 80053; 80061; 83036; 84439; 84443; 84481 ==

== ENCOUNTER → 2023-08-10 14:05 | Outpatient (BNVA) | payer BC, MEDICAID, SELFPAY | PROVIDERS: PCP Nurse Practitioner Family; Referring Provider Anesthesiology Pain Medicine; Visit Provider Orthopaedic Surgery | DX: M51.16 Intervertebral disc disorders with radiculopathy, lumbar region (principal); M51.37 Other intervertebral disc degeneration, lumbosacral region | CPT/HCPCS: 72100 ==

== ENCOUNTER 2023-08-25 15:56 | Outpatient (CLI) | payer BC, MEDICAID, SELFPAY ==
[2023-08-25 16:36] LABS: Basophils # 0.1 10^3/uL (0.0-0.1); Basophils % 0.5 %; Eosinophils # 0.2 10^3/uL (0.0-0.8); Eosinophils % 1.9 %; Hematocrit 45.5 % (36-47); Lymphocytes # 3.8 10^3/uL (0.8-4.8); Lymphocytes % 35.7 %; Mean Corpuscular HGB Conc 33.4 g/dL (30-55); Mean Corpuscular Volume 89.7 fl (85-98); Mean Platelet Volume 9.2 fL (7.4-10.4); Monocytes # 0.8 10^3/uL (0.2-0.9); Monocytes % 7.4 %; Neutrophils # 5.83 10^3/uL (1.8-7.7); Neutrophils % 54.2 %; Nucleated Red Blood Cells % 0 %; Platelet Count 320 10^3/cmm (157-399); Red Blood Count 5.07 10^6/uL (3.85-5.65); White Blood Count 10.74 10^3/uL (3.29-11.43)
[2023-08-25 16:50] LABS: Alanine Aminotransferase 29 U/L (0-33); Albumin Level 4.3 g/dL (3.5-5.2); Alkaline Phosphatase 90 U/L (35-105); Aspartate Amino Transferase 22 U/L (0-32); Blood Urea Nitrogen 12 mg/dL (6-20); Calcium 9.4 mg/dL (8.5-10.5); Carbon Dioxide 26 mmol/L (22-29); Chloride 104 mmol/L (98-107); Globulin 2.8 g/dL (1.3-4.6); Glomerular Filtration Rate 98.9 mL/min (90-130); Glucose 82 mg/dL (65-115); Osmolality Calculated 289 mOsm/kg (285-295); Sodium 140 mmol/L (136-145); Total Bilirubin 0.3 mg/dL (0.15-1.2); Total Protein 7.1 g/dL (6.6-8.7)
[2023-08-25 16:57] LABS: Blood Urine Neg (Negative); Glucose Urine UA Norm (Normal); Ketones Urine Negative (Negative); Nitrate Urine Negative (Negative); Protein Urine Neg (Negative); Urine Appearance SL Hazy (CLEAR); Urine Color Amber (Yellow); pH Urine 5 (5-7)
[2023-08-25 16:58] LABS: Add Urine Microscopic? YES; Bilirubin Urine 1+ (Negative); Leukocyte Esterase Urine Negative (Negative); Urobilinogen Urine 1 mg/dL (Negative)
[2023-08-25 17:03] LABS: Bacteria Urine TRACE /hpf; Mucus Urine 3+ /hpf; RBC Urine 0-4 /hpf (0-2); Squamous Epithelial Cell Urine 0-4 /hpf (0-5); WBC Urine 0-4 /hpf (0-5)
[2023-08-25 17:04] LABS: Add Urine Culture? No; Calcium Oxalate Crystals Urine 0-4 /hpf; Hyaline Casts Urine 0-4 /lpf
[2023-08-25 22:11] LABS: Anion Gap 14.2 (5-19); Potassium 4.2 mmol/L (3.5-5.1)
== END 2023-08-25 15:57 | disposition home or self-care (01) ==
PROVIDERS: PCP Nurse Practitioner Family; Visit Provider Orthopaedic Surgery
DX: M51.37 Other intervertebral disc degeneration, lumbosacral region (principal); Z79.899 Other long term (current) drug therapy
CPT/HCPCS: 36415; 80053; 81001; 85025

== ENCOUNTER → 2023-08-27 11:07 | Outpatient (BNVA) | payer BC, MEDICAID, SELFPAY | PROVIDERS: PCP Nurse Practitioner Family; Visit Provider Family Medicine | DX: Z01.818 Encounter for other preprocedural examination (principal) | CPT/HCPCS: 81003 ==

== ENCOUNTER 2023-09-03 05:24 | Day surgery (SDC) | payer BC, MEDICAID, SELFPAY ==
[2023-09-03] VITALS (7 sets, daily range): BP systolic 112–156; BP diastolic 58–89; PULSE 69–86; RESP 16–18; TEMP 36.1–36.4; O2SAT 91–95
--- NOTE | 2023-09-03 | XR_ITS ---
WS: [id number] Lumbar spine, C-arm fluoroscopy views, 09/03/2023 Clinical Data: L5-S1 microdiscetomy, or pic Comparison: Lumbar spine, 08/10/2023 Findings: Dr. Berry performed a lumbar decompression. Impression: Lumbar decompression.
--- NOTE | 2023-09-03 06:09 | W.PM.OPSUD ---
Surgery/Procedure H&P Update DATE OF PROCEDURE: September 03, 2023 DATE H&P PERFORMED: 08/27/23 PREOP DIAGNOSIS: HNP RIght L5-S1, Lumbosacral Radiculopathy PLANNED PROCEDURE: Operation Date: 09/03/23 07:00 Proposed Procedures p Discectomy Lumbar Discectomy:right L5-S1 microdiscectomy STANDING ON RIGHT(Right) - Mal Berry DO
[2023-09-03] MEDS: scopolamine 1.5 Patch 1 PATCH TRANSDERMA (06:12)
[2023-09-03] MEDS: sodium chloride 0.9% 1,000 ML 30 ML IV (06:12)
[2023-09-03] MEDS: vancomycin 1,000 MG in sodium chloride 0.9% 250 ML 250 MG IV (06:30)
[2023-09-03 06:36] LABS: OR HCG Qualitative Urine Negative (Negative)
[2023-09-03] MEDS: HYDROmorphone 1 mg/mL INJ 1 mL 0.5 MG IVP (06:44)
[2023-09-03] MEDS: lidocaine-epi 1% 20 mL INJ INJECTION (07:35)
[2023-09-03] MEDS: thrombin 5,000 unit SDV 5000 UNIT XX (07:36)
--- NOTE | 2023-09-03 08:07 | P.ANESASSM_ITS ---
Pre-Anesthetic Assessment Height/Weight: Height 1.7 m Weight 136.078 kg Temp Pulse Resp BP Pulse Ox O2 Del Method 97 F L 69 18 128/65 95 Room Air 09/03/23 05:49 09/03/23 05:49 09/03/23 05:49 09/03/23 05:49 09/03/23 05:49 09/03/23 06:12 Preop Diagnosis: HNP RIght L5-S1, Lumbosacral Radiculopathy Operation Date: 09/03/23 07:00 Proposed Procedures p Discectomy Lumbar Discectomy:right L5-S1 microdiscectomy STANDING ON RIGHT(Right) - Mal H Kristi, DO Familial anesthetic complications: none Was Beta Elyse taken within 24 hours: Yes Was Clonidine taken within 24 hours: N/A Last intake: Intake Last Liquid Date 09/02/23 Last Liquid Time 04:30 Last Solid Date 09/02/23 Last Solid Time 18:00 Social Tobacco and No alcohol Exam alert, oriented x 3, clear to auscultation bilaterally and regular rate & rhythm Airway Submandibular: within normal limits Cervical ROM: within normal limits Mallampati: Class II Pulmonary Chronic Obstructive Pulmonary Disease CV/HEM Hypertension Metabolic Morbid Obesity and Thyroid Disease [facility] [place] Lower Back Pain and Osteoarthritis/DJD Neuropsych Anxiety and Depression Anesthetic Plan ASA status: 3 Anesthesia: General Medications/Allergies Home Medications Medication Instructions Recorded Confirmed Last Taken Type albuterol sulfate 90 mcg/actuation 2 puff inhalation QID PRN 03/13/22 09/03/23 09/02/23 Rx aerosol inhaler (ProAir HFA) Shortness Of Breath #6.7 grams duloxetine 60 mg capsule,delayed 120 mg (2 x 60 mg) PO .morning #60 03/18/23 09/02/23 09/03/23 Rx release (Cymbalta) caps hydroxyzine pamoate 50 mg capsule 50 mg PO BID PRN anxiety #60 caps 03/25/23 09/03/23 09/03/23 Rx (Vistaril) levothyroxine 25 mcg tablet 25 mcg PO QAM #30 tabs 07/07/23 09/02/23 09/03/23 Rx (Euthyrox) propranolol 40 mg tablet 40 mg PO BID #60 tabs 07/07/23 09/02/23 09/03/23 Rx valsartan 320 mg tablet (Diovan) 320 mg PO DAILY #30 tabs 07/07/23 09/02/23 09/02/23 Rx acarbose 50 mg tablet 50 mg PO TID #90 tabs 07/21/23 09/02/23 08/27/23 Rx tizanidine 4 mg tablet 4 mg PO BID muscle spasticity #60 07/21/23 09/02/23 09/03/23 Rx tabs topiramate 50 mg tablet 50 mg PO BID pain 30 days #60 tabs 07/21/23 09/02/23 09/03/23 Rx amitriptyline 25 mg tablet 25 mg PO DAILY 08/27/23 09/02/23 Unknown History galcanezumab-gnlm 120 mg/mL See Rx Instructions .Route 08/30/23 Unknown Rx subcutaneous pen injector .COMPLEX #1 mL (Emgality Pen) Allergies Allergy/AdvReac Type Severity Reaction Status Date / Time metronidazole [From Flagyl] Allergy Mild rash Verified 09/02/23 09:08 amoxicillin Allergy ALGY-Hives Verified 09/02/23 09:08 Cephalosporins Allergy ALGY-Difficulty Verified 09/02/23 09:08 Breathing hydromorphone [From Dilaudid] Allergy ALGY-Hives Verified 09/02/23 09:08 latex Allergy ALGY-Hives Verified 09/02/23 09:08 meperidine [From Demerol] Allergy ALGY-Hives Verified 09/02/23 09:08 Penicillins Allergy ALGY-Anaphy Verified 09/02/23 09:08 laxis Current Medications Generic Name Dose Route Start Last Admin Trade Name Yobaniq PRN Reason Stop Dose Admin Hydromorphone HCl 0.5 mg 09/03/23 06:39 09/03/23 06:44 Hydromorphone 1 Mg/Ml Inj 1 Ml IVP 0.5 mg ONCE PRN Administration For preop pain/anxiety Sodium Chloride 1,000 mls @ 30 mls/hr 09/03/23 06:00 09/03/23 06:12 Sodium Chloride 0.9% IV 09/04/23 05:59 30 mls/hr .Q24H ROSENDO Administration PFSH Anesthesia Medical History Marijuana use, episodic Breast abscess Cyst of right breast Chronic post-traumatic stress disorder Nicotine dependence, cigarettes, uncomplicated Major depressive disorder, recurrent severe without psychotic features Psychiatric care Chronic idiopathic constipation Vitamin D deficiency Metabolic syndrome Chronic low back pain without sciatica Hiatal hernia with gastroesophageal reflux Environmental and seasonal allergies Bronchospasm Essential (primary) hypertension Contusion of left knee Generalized anxiety disorder Polycystic ovarian syndrome Gastro-esophageal reflux disease with esophagitis Anoop's disease Peptic ulcer disease Surgical History Hx of cholecystectomy Hx of colonoscopy Hx of esophagogastroduodenoscopy History of endometrial ablation 09/02/21 with [facility] S/P tubal ligation (12/17/20) Laparoscopic bilateral complete salpingectomy. Performed by Dr. Mendez at [facility] in [place], [place]. S/P appendectomy (~11/2011) S/P laparoscopy (02/02/14) S/P laparoscopy (10/11/14) S/P laparoscopy (12/20/14) S/P laparoscopy (01/18/18) S/P cholecystectomy (02/22/14) Status post arthroscopic surgery of left knee October 2019 History of appendectomy Family History Mother Pulmonary embolism Thyroid disease Stroke Hypertension Hyperlipidemia Diabetes Father Diabetes Hyperlipidemia Grandmother Cancer MATERNAL: BRAIN Social History Smoking and tobacco/nicotine status: current every day tobacco/nicotine user cigarettes Household members: spouse and family Housing: Apartment Number of children: 3 Current occupational status: unemployed Do you think of yourself as: Straight/Heterosexual Current gender identity: Female Female Reproductive History Para: 3 Spontaneous abortions: No Data Anesthesia Cardiac Studies: No Data to Display
--- NOTE | 2023-09-03 08:28 | PM.OP ---
Operative Report Date of procedure: September 03, 2023 Pre-op diagnosis: Lumbar stenosis with neurogenic claudication Post-op diagnosis: same Procedure done: L5-S1 laminectomy with partial facetectomy and discectomy Surgeon: Mal Berry DO Estimated blood loss (mL): 10 Procedure: L5-S1 laminectomy with partial facetectomy and discectomy Patient is brought to the operative suite. After undergoing anesthesia they are placed in the prone position. All areas of impingement are well padded. Patient is then prepped and draped in the normal sterile fashion. A skin incision is made over the L5-S1 level. This is confirmed under c-arm guidance. A series of dilators are passed and the tubular retractor is docked on the L5 lamina. A bovie is used to clear the soft tissue off the lamina and the L 5/s1 facet joint. A high speed tyler is then used to perform the laminectomy and take down the medial aspect of the L 5/S1 facet joint. A kerrison rongeure was then used to take down the remaining lamina and smooth the edge of the laminectomy up to the point where the ligamentum flavum attaches. Attention was then brought to the medial aspect of the facet joint. The remaining medial aspect of the superior and inferior aspect of the facet joint were taken down with the kerrison from the pedicle of L5 to S1. The facet joint had significant hypertrophy. Attention was then brought to the Ligamentum Flavum. The ligament was taken down from the lamina of L5 toS1 and out medially to the remaining facet joint. The ligament was thick. The dura was then exposed. The dura was in good repair. S1 nerve was retracted. The disc was identified disc base was removed with micropituitary and irrigated out several times. Disc fragments were removed. The L5 nerve was then traced with a curette out the S1 foramen and found to be adequately decompressed. The S1 nerve was traced with a curette around the S1 pedicle. The lateral recess was opened with a kerrison helping to further decompress the S1 nerve. Wound is then irrigated copiously with saline and surgiflo is used to stop any bleeding. The tubular retractor is removed and the wound is closed with vicryl and monocryl suture. Glue is then used to protect the wound. A sterile dressing is then placed. Patient was then placed in the supine position and transferred to the PACU in stable condition.
[2023-09-03] MEDS: diphenhydrAMINE 25 mg Capsule PO (09:35)
[2023-09-03] MEDS: ondansetron 4 MG Tablet 8 MG PO (09:35)
--- NOTE | 2023-09-03 14:43 | ANE.PACU2 ---
Inpatient post-anesthesia follow up: Airway intact: Yes Vital signs: Temperature 97.6 F Pulse Rate 75 Respiratory Rate 16 Blood Pressure 115/89 Pulse Oximetry 94 Oxygen Delivery Me thod Room Air Oxygen Flow Rate 8 Fraction of Inspir ed Oxygen Hydration adequate: Yes Nausea and vomiting: Yes Pain level: 3 Mental status: Baseline
== END 2023-09-03 09:55 | disposition home or self-care (01) ==
PROVIDERS: Physician Assistant; PCP Nurse Practitioner Family; Visit Provider Orthopaedic Surgery
PROC: (CPT 63047; principal; 2023-09-03 07:00)
DX: M48.062 Spinal stenosis, lumbar region with neurogenic claudication (principal); J44.9 Chronic obstructive pulmonary disease, unspecified; I10 Essential (primary) hypertension; E66.01 Morbid (severe) obesity due to excess calories; Z68.42 Body mass index [BMI] 45.0-49.9, adult; F41.1 Generalized anxiety disorder; E28.2 Polycystic ovarian syndrome; F17.210 Nicotine dependence, cigarettes, uncomplicated
CPT/HCPCS: 63047; 72020; 76000; 81025; 84703; J0131; J0330; J1100; J1170; J2405; J2704; J3010; J3370; J3490; J7030; J7050; Q0162

== ENCOUNTER 2023-09-10 18:55 | Emergency (ER) | payer BC, MEDICAID, SELFPAY ==
[2023-09-10 19:00] VITALS: BP 151/86; PULSE 94; RESP 20; TEMP 36.4; O2SAT 98; BMI 47.0
--- NOTE | 2023-09-10 19:28 | W.ED.BACK ---
HPI - Back Pain/Injury General: Chief Complaint: Back Pain/Injury Stated Complaint: back pain Time Seen by Provider: 09/10/23 19:04 History of Present Illness: Patient is a 28-year-old female that is 1 week status post L5/S1 microdiscectomy with Dr. Berry. Patient states she had sustained a disc herniation when she had a fall last year. She also reports that initially all pain down the right lower extremity had resolved. Approximately 3 days ago she developed progressively worsening return of her right lower extremity symptoms. She states the pain returned when she was trying to pull herself up off the couch. She has been taking her hydrocodone but without relief. Patient denies any falls or injuries. She reports weakness when standing. Has some numbness and tingling that extends into her foot. Patient reports medical history that includes asthma, depression and anxiety, hypothyroidism, hypertension, GERD Review of Systems General: Reports: 10 or more systems reviewed and unremarkable except in HPI and below PFSH ED PFSH: Medical History Marijuana use, episodic Breast abscess Cyst of right breast Chronic post-traumatic stress disorder Nicotine dependence, cigarettes, uncomplicated Major depressive disorder, recurrent severe without psychotic features Psychiatric care Chronic idiopathic constipation Vitamin D deficiency Metabolic syndrome Chronic low back pain without sciatica Hiatal hernia with gastroesophageal reflux Environmental and seasonal allergies Bronchospasm Essential (primary) hypertension Contusion of left knee Generalized anxiety disorder Polycystic ovarian syndrome Gastro-esophageal reflux disease with esophagitis Anoop's disease Peptic ulcer disease Surgical History Hx of cholecystectomy Hx of colonoscopy Hx of esophagogastroduodenoscopy History of endometrial ablation 09/02/21 with [facility] S/P tubal ligation (12/17/20) Laparoscopic bilateral complete salpingectomy. Performed by Dr. Mendez at [facility] in [place], [place]. S/P appendectomy (~11/2011) S/P laparoscopy (02/02/14) S/P laparoscopy (10/11/14) S/P laparoscopy (12/20/14) S/P laparoscopy (01/18/18) S/P cholecystectomy (02/22/14) Status post arthroscopic surgery of left knee October 2019 History of appendectomy Family History Mother Pulmonary embolism Thyroid disease Stroke Hypertension Hyperlipidemia Diabetes Father Diabetes Hyperlipidemia Grandmother Cancer MATERNAL: BRAIN Social History Smoking and tobacco/nicotine status: current every day tobacco/nicotine user cigarettes Household members: spouse and family Housing: Apartment Number of children: 3 Current occupational status: unemployed Do you think of yourself as: Straight/Heterosexual Current gender identity: Female Female Reproductive History: Para: 3 Spontaneous abortions: No Physical Exam Narrative: EXAM NARRATIVE: Patient is pink warm and dry Alert and oriented x 3 Nonlabored breathing Moves all extremities Patient is able to ambulate-antalgic gait Right hip flexor, quad, anterior tibialis and toe extensors 4 +/5 Left hip flexor, quad, anterior tibialis and toe extensors 5/5 Pain radiating along the L5/S1 nerve distributions Numbness and tingling terminates in the foot Sensation intact to light touch throughout bilateral lower extremities Course Vital Signs: Vital signs: Vital Signs Temperature 97.6 F 09/10/23 19:00 Pulse Rate 97 09/10/23 20:21 Respiratory Rate 20 H 09/10/23 19:00 Blood Pressure 128/84 09/10/23 20:21 Pulse Oximetry 95 09/10/23 20:21 Oxygen Delivery Me thod Room Air 09/10/23 20:21 MDM - Back Pain/Injury Medical Decision Making Differential diagnosis includes muscle spasm, continued radiculopathy, inflammation, disc herniation. Patient was treated here in the emergency department with 10 mg Decadron, Toradol, Norflex. Once reevaluated patient reports that her symptoms had gotten quite a bit better. I do not think the patient warrants any imaging at this point as I am unable to perform a MRI lumbar spine. We are going to send the patient home with a Medrol Dosepak, muscle relaxers, and an anti-inflammatory. Patient needs to call her surgeon's office on Wednesday to update him on her progress. All questions answered No radiology studies performed this visit Discharge Plan Discharge Patient Disposition: Home Clinical Impression: Back pain, Radiculopathy, S/P discectomy Condition: Stable Prescriptions: New ketorolac 10 mg tablet 10 mg PO TID 4 Days Qty: 12 0RF methylprednisolone [Medrol (Zhen)] 4 mg tablets,dose pack See Rx Instructions .ROUTE .COMPLEX Qty: 21 0RF Rx Instructions: orally per package directions tizanidine 4 mg tablet 4 mg PO Q8H PRN (Reason: muscle spasticity) Qty: 30 0RF No Action hydroxyzine pamoate [Vistaril] 50 mg capsule 50 mg PO BID PRN (Reason: anxiety) Qty: 60 4RF Rx Instructions: Take one capsule twice per day as needed for anxiety propranolol 40 mg tablet 40 mg PO BID Qty: 60 5RF Rx Instructions: for migraine prevention. Improve blood pressure and heart rate valsartan [Diovan] 320 mg tablet 320 mg PO DAILY Qty: 30 5RF levothyroxine [Euthyrox] 25 mcg tablet 25 mcg PO QAM Qty: 30 5RF tizanidine 4 mg tablet 4 mg PO BID Qty: 60 2RF topiramate 50 mg tablet 50 mg PO BID 30 Days Qty: 60 2RF amitriptyline 25 mg tablet 25 mg PO DAILY Rx Instructions: Take at bedtime albuterol sulfate [ProAir HFA] 90 mcg/actuation HFA aerosol inhaler 2 puff INHALATION QID PRN (Reason: Shortness Of Breath) Qty: 6.7 2RF duloxetine [Cymbalta] 60 mg capsule,delayed release(DR/EC) 120 mg PO .morning Qty: 60 6RF Rx Instructions: Take two capsules every morning Emgality Pen 120 mg/mL pen injector See Rx Instructions .ROUTE .COMPLEX Qty: 1 0RF Dose Instruction: INJECT CONTENTS OF ONE PEN UNDER SKIN EVERY 30 DAYS FOLLOWING THE LOADING DOSE - TAKE ONCE MONTHLY Rx Instructions: INJECT CONTENTS UNDER SKIN EVERY 30 DAYS; MUST HAVE APPT FOR MORE REFILLS acarbose 50 mg tablet 50 mg PO TID Qty: 90 0RF Rx Instructions: take before food hydrocodone-acetaminophen 5-325 mg tablet 1 - 2 tab PO .Q4-6H Qty: 40 0RF Discharge Orders: Discharge ED (Routine); Ordered 09/10/23 Ordered By: Ren Choudhary Referrals: Jan Hammer, CHILD WATCH ATTENDANT-C [Primary Care Provider] - Discharge Diet: Advance as tolerated Discharge Activity: Resume usual activity Patient Instructions: Ketorolac (By mouth) (Toradol), Methylprednisolone (By mouth) (Medrol, Medrol Dosepak), Tizanidine (By mouth) (Comfort Pac w/tiZANidine, Zanaflex, Zanaflex..., Opioid Safety, Pain Management Activity Restrictions/Additional Instructions: No lifting pushing or pulling more than 10 pounds No bending or twisting Take your medications as prescribed Call your surgeon next week to update him on your progress. Coding Level of Care Code ED Slab Polisher for Scooter Kuhn
[2023-09-10] MEDS: ketorolac 30 mg/mL INJ IVP (20:02)
[2023-09-10] MEDS: dexamethasone 10 mg/mL INJ IVP (20:07)
[2023-09-10] MEDS: orphenadrine 30 mg/mL Inj 2 mL 60 MG IM (20:12)
[2023-09-10 20:21] VITALS: BP 128/84; PULSE 97; O2SAT 95
== END 2023-09-10 21:50 | disposition home or self-care (01) ==
PROVIDERS: Emergency Provider Nurse Practitioner; PCP Nurse Practitioner
DX: M54.10 Radiculopathy, site unspecified (principal); Z98.890 Other specified postprocedural states; I10 Essential (primary) hypertension; F17.210 Nicotine dependence, cigarettes, uncomplicated
CPT/HCPCS: 96372; 96374; 96375; 99284; J1100; J1885; J2360

== ENCOUNTER → 2023-10-20 10:44 | Outpatient (BNVA) | payer BC, MEDICAID, SELFPAY | PROVIDERS: PCP Nurse Practitioner; Visit Provider Nurse Practitioner | DX: L03.90 Cellulitis, unspecified (principal) | CPT/HCPCS: 85025 ==

== ENCOUNTER → 2023-12-06 16:48 | Outpatient (BNVA) | payer BC, MEDICAID, SELFPAY | PROVIDERS: PCP Nurse Practitioner; Visit Provider Nurse Practitioner | DX: R92.8 Other abnormal and inconclusive findings on diagnostic imaging of breast (principal); E06.3 Autoimmune thyroiditis | CPT/HCPCS: 80053; 84443; 85025 ==

== ENCOUNTER 2023-12-14 14:19 | Outpatient (CLI) | payer BC, MEDICAID, SELFPAY ==
--- NOTE | 2023-12-14 14:30 | US_ITS ---
WS: [id number] RIGHT DIGITAL TOMOSYNTHESIS MAMMOGRAPHY WITH CAD. RIGHT breast ultrasound, limited HISTORY: Follow-up RIGHT breast subareolar abscess. COMPARISON: 08/25/2022 and 09/16/2022 Technique: CC, MLO and ML views. Spot compression RIGHT CC. Breast composition: There are scattered areas of fibroglandular density. The dense fibroglandular asy mmetry and density seen on the prior mammogram in the subareolar location has improved. There is just very minimal soft tissue thickening which is very superficial. There is no mass. This area was previ ously biopsied consistent with mastitis. Biopsy clip is noted within the soft tissue mass which is st able in the RIGHT breast near 9:00. RIGHT breast ultrasound, limited. Ultrasound is directed to the subareolar location. The previously described abscess is much smaller i n size. There is now a very small superficial collection which extends in a track formation towards t he nipple. This is an ill-defined collection without increased vascularity. Abscess collection extend s over a length of 2.1 cm and transversely by 0.4 cm. This is much smaller than on the prior study bu t correlates with the patient's clinical history of discharge near the nipple. IMPRESSION: US/US breast RT limited* [id number] BI-RADS: 2-Benign FOLLOW UP: See Report 1. Previously described subareolar abscess on the prior examinations has signi ficantly decreased in size. There is still a very superficial complex collectio n which is most consistent with a residual chronic abscess extending superficia l. Much smaller in size than on the prior study. There is no solid mass or susp icion for malignancy. Surgical debridement may be necessary to completely resol ve this chronic appearing abscess.
--- NOTE | 2023-12-14 15:00 | MM_ITS ---
WS: [id number]IC RIGHT DIGITAL TOMOSYNTHESIS MAMMOGRAPHY WITH CAD. RIGHT breast ultrasound, limited HISTORY: Follow-up RIGHT breast subareolar abscess. COMPARISON: 08/25/2022 and 09/16/2022 Technique: CC, MLO and ML views. Spot compression RIGHT CC. Breast composition: There are scattered areas of fibroglandular density. The dense fibroglandular asy mmetry and density seen on the prior mammogram in the subareolar location has improved. There is just very minimal soft tissue thickening which is very superficial. There is no mass. This area was previ ously biopsied consistent with mastitis. Biopsy clip is noted within the soft tissue mass which is st able in the RIGHT breast near 9:00. RIGHT breast ultrasound, limited. Ultrasound is directed to the subareolar location. The previously described abscess is much smaller i n size. There is now a very small superficial collection which extends in a track formation towards t he nipple. This is an ill-defined collection without increased vascularity. Abscess collection extend s over a length of 2.1 cm and transversely by 0.4 cm. This is much smaller than on the prior study bu t correlates with the patient's clinical history of discharge near the nipple. IMPRESSION: MM/[place] [id number] BI-RADS: 2-Benign FOLLOW UP: See Report 1. Previously described subareolar abscess on the prior examinations has signi ficantly decreased in size. There is still a very superficial complex collectio n which is most consistent with a residual chronic abscess extending superficia l. Much smaller in size than on the prior study. There is no solid mass or susp icion for malignancy. Surgical debridement may be necessary to completely resol ve this chronic appearing abscess.
== END 2023-12-14 14:20 | disposition home or self-care (01) ==
LOC: RAD 14:20
PROVIDERS: PCP Nurse Practitioner; Visit Provider Nurse Practitioner
DX: N61.1 Abscess of the breast and nipple (principal); R92.8 Other abnormal and inconclusive findings on diagnostic imaging of breast
CPT/HCPCS: 76642; 77061; G0279

== ENCOUNTER → 2024-02-12 13:00 | Outpatient (BNVA) | payer BC, MEDICAID, SELFPAY | PROVIDERS: PCP Nurse Practitioner; Visit Provider Nurse Practitioner | DX: R39.9 Unspecified symptoms and signs involving the genitourinary system (principal); R30.0 Dysuria | CPT/HCPCS: 81000; 87086 ==

== ENCOUNTER → 2024-06-14 14:30 | Outpatient (BNVA) | payer BC, MEDICAID, SELFPAY | PROVIDERS: PCP Nurse Practitioner; Visit Provider Nurse Practitioner Family | DX: R05.9 Cough, unspecified (principal) | CPT/HCPCS: 87400; 87426 ==

== ENCOUNTER 2024-08-06 09:45 | Emergency (ER) | payer BC, MEDICAID, SELFPAY ==
[2024-08-06 09:54] VITALS: BP 156/86; PULSE 66; RESP 18; O2SAT 97; BMI 43.0
--- NOTE | 2024-08-06 10:15 | ED_ITS ---
HPI - Skin/Abscess/Foreign Bdy General: Chief complaint: Skin/Abscess/Foreign Body Stated complaint: Post op arm pit pain, drainage - breast Time Seen by Provider: 08/06/24 09:54 Source: patient and family Mode of arrival: ambulatory Limitations: no limitations History of Present Illness: This patient made aware to the emergency room this morning because of right breast pain. She had a what sounds like a breast biopsy, drainage of abscess done at [facility] by Dagoberto Arreola on Wednesday. She did not make her follow-up appointment on Wednesday. She states over the past 48 hours she had increasing pain in her right breast which radiates up into her right axilla. She denies any fevers or chills. She still has the same dressing on that she had postoperatively. She denies any other complaints at this time. Associated symptoms: Deny chills or fever(s) Related Data Home Medications Medication Instructions Recorded Confirmed amitriptyline 25 mg tablet 25 mg PO DAILY 08/27/23 06/21/24 Previous Rx's Medication Instructions Recorded hydroxyzine pamoate 50 mg capsule 50 mg PO BID PRN anxiety #60 caps 03/25/23 (Vistaril) honey 100 % topical paste 1 applic topical DAILY #103 mL 10/20/23 (MediHoney (honey)) Lactobacillus rhamnosus GG 20 See Rx Instructions PO .2 times 01/11/24 billion cell capsule (Probiotic day #60 caps [facility]) acarbose 100 mg tablet 100 mg PO TID #90 tabs 06/01/24 albuterol sulfate 90 mcg/actuation 2 puff inhalation QID PRN 06/01/24 aerosol inhaler Shortness Of Breath #6.7 grams duloxetine 60 mg capsule,delayed 120 mg (2 x 60 mg) PO .morning #60 06/01/24 release (Cymbalta) caps propranolol 40 mg tablet 40 mg PO BID #60 tabs 06/01/24 tizanidine 4 mg tablet 4 mg PO BID muscle spasticity #60 06/01/24 tabs topiramate 50 mg tablet 50 mg PO BID pain 30 days #60 tabs 06/01/24 valsartan 80 mg tablet (Diovan) 80 mg PO DAILY #30 tabs 06/01/24 mupirocin 2 % topical ointment 1 applic topical BID #22 grams 06/21/24 sulfamethoxazole 800 1 tab PO BID #14 tabs 06/21/24 mg-trimethoprim 160 mg tablet (Bactrim DS) tramadol 50 mg tablet 50 mg PO BID PRN pain #14 tabs 06/21/24 levothyroxine 25 mcg tablet 25 mcg PO QAM #30 tabs 08/02/24 (Euthyrox) doxycycline hyclate 100 mg capsule 100 mg PO BID 7 days #14 caps 08/06/24 Allergies Allergy/AdvReac Type Severity Reaction Status Date / Time metronidazole [From Flagyl] Allergy Mild rash Verified 06/21/24 15:54 amoxicillin Allergy ALGY-Hives Verified 06/21/24 15:54 Cephalosporins Allergy ALGY-Difficulty Verified 06/21/24 15:54 Breathing latex Allergy ALGY-Hives Verified 06/21/24 15:54 meperidine [From Demerol] Allergy ALGY-Hives Verified 06/21/24 15:54 Penicillins Allergy ALGY-Anaphy Verified 06/21/24 15:54 laxis Review of Systems Const: Denies: fever(s) or chills ENMT: Denies: throat pain, odynophagia, nasal discharge or nasal congestion Card: Denies: chest pain Resp: Denies: dyspnea, productive cough or non-productive cough GI: Denies: abdominal pain : Denies: flank pain, difficulty voiding or dysuria Musc: Denies: neck pain, back pain, extremity pain or extremity swelling Neuro: Denies: headache(s), numbness in extremities or weakness in extremities Rom/Lymph: Denies: easy bruising or easy bleeding PFSH ED PFSH: Medical History Marijuana use, episodic Breast abscess Cyst of right breast Chronic post-traumatic stress disorder Nicotine dependence, cigarettes, uncomplicated Major depressive disorder, recurrent severe without psychotic features Psychiatric care Chronic idiopathic constipation Vitamin D deficiency Metabolic syndrome Chronic low back pain without sciatica Hiatal hernia with gastroesophageal reflux Environmental and seasonal allergies Bronchospasm Essential (primary) hypertension Contusion of left knee Generalized anxiety disorder Polycystic ovarian syndrome Gastro-esophageal reflux disease with esophagitis Anoop's disease Peptic ulcer disease Surgical History Hx of cholecystectomy Hx of colonoscopy Hx of esophagogastroduodenoscopy History of endometrial ablation 09/02/21 with [facility] S/P tubal ligation (12/17/20) Laparoscopic bilateral complete salpingectomy. Performed by Dr. Mendez at [facility] in [place], [place]. S/P appendectomy (~11/2011) S/P laparoscopy (02/02/14) S/P laparoscopy (10/11/14) S/P laparoscopy (12/20/14) S/P laparoscopy (01/18/18) S/P cholecystectomy (02/22/14) Status post arthroscopic surgery of left knee October 2019 History of appendectomy Family History Mother Pulmonary embolism Thyroid disease Stroke Hypertension Hyperlipidemia Diabetes Father Diabetes Hyperlipidemia Grandmother Cancer MATERNAL: BRAIN Social History Smoking and tobacco/nicotine status: current every day tobacco/nicotine user cigarettes Alcohol intake: unknown Substance/Drug Use: current Adopted: No Caregiver/support person: No Lives independently: Yes Household members: spouse and family Housing: Apartment Marital status: Number of children: 3 service: No Current occupational status: unemployed Do you think of yourself as: Straight/Heterosexual Current gender identity: Female Female Reproductive History: Para: 3 Spontaneous abortions: No Physical Exam Narrative: EXAM NARRATIVE: She makes good eye contact and answer questions in a goal-directed fashion. Const: COMMON NORMALS: patient oriented x3 GENERAL APPEARANCE: cooperative NUTRITIONAL APPEARANCE: obese HENMT: COMMON NORMALS: normocephalic and moist oral mucous membranes HEAD & SCALP: normocephalic Eye: COMMON NORMALS: Equal, round and reactive pupils present and conjunctivae normal CONJUNCTIVA: Yes conjunctivae normal PUPIL: Yes Equal, round and reactive pupils present Chest: OTHER: Examination of the right breast reveals a surgical dressing covering the areola and nipple region. After removal of this dressing which had some drainage present but no acute drainage. There is minimal amount of discoloration superio r to the areola. She has what appears to be 2 small cutaneous drains sutured to the skin extending into the depth of the wound. There is no active drainage or bleeding. Palpation of the area superior to the areola reveals some tenderness but no notable fluctuance. Elevation and abduction of the right arm reproduces pain. The remainder of her chest exam is unremarkable. Portable bedside ultrasound was used using a long high-frequency probe to evaluate the area for any discrete fluid collections. There was cobblestoning of the subcutaneous tissue but no discrete fluid collections were noted in the area of surgery or an evaluation of the tail of the right breast extending into the axilla. There is some axillary tenderness but no discrete nodes noted. Resp: COMMON NORMALS: normal respiratory effort and No use of accessory muscles EFFORT & INSPECTION: Yes able to speak in complete sentences Cardio: COMMON NORMALS: regular rate and regular rhythm RATE: regular rate RHYTHM: regular rhythm Back/Pelvis: COMMON NORMALS: thoraco-lumbar ROM normal Extremity: COMMON NORMALS: normal to inspection and full ROM Neuro: COMMON NORMALS: patient oriented x3, moves all extremities, no focal motor deficits and no sensory deficits noted Psych: COMMON NORMALS: mental status grossly normal Skin: COMMON NORMALS: turgor normal and no petechiae GENERAL SKIN EXAM: turgor normal WOUNDS: Yes surgical site Course Vital Signs: Vital signs: Vital Signs Pulse Rate 66 08/06/24 09:54 Respiratory Rate 18 08/06/24 09:54 Blood Pressure 156/86 08/06/24 09:54 Pulse Oximetry 97 08/06/24 09:54 Oxygen Delivery Me thod Room Air 08/06/24 09:54 MDM - Skin/Abscess/Foreign Bdy Medicial Decision Making Patient status post right breast excision and drainage from history of the PICC given by the patient as noted in HPI. She complains of increasing pain and discomfort. She has some drainage by history but no significant drainage noted today on examination. She has tenderness superiorly. Ultrasound reveals no evidence of discrete fluid collection but some cobblestoning. She has very minimal erythema but is subjectively tender. No evidence of a emergent issue that requires urgent surgical consultation today but we will go ahead and place her on antibiotic coverage and analgesics until she sees her surgeon tomorrow. Discussed expected course with the patient and accompanying partner and the need for follow-up with her treating physician. No radiology studies performed this visit Discharge Plan Discharge Patient Disposition: Home Clinical Impression: Cellulitis of right breast Condition: Stable Prescriptions: New doxycycline hyclate 100 mg capsule 100 mg PO BID 7 Days Qty: 14 0RF No Action hydroxyzine pamoate [Vistaril] 50 mg capsule 50 mg PO BID PRN (Reason: anxiety) Qty: 60 4RF Rx Instructions: Take one capsule twice per day as needed for anxiety amitriptyline 25 mg tablet 25 mg PO DAILY Rx Instructions: Take at bedtime Probiotic [facility] 20 billion cell capsule See Rx Instructions PO .2 times day Qty: 60 0RF Rx Instructions: 20 billion cell PO .2 times day; MediHoney (honey) 100 % paste 1 applic topical DAILY Qty: 103 0RF acarbose 100 mg tablet 100 mg PO TID Qty: 90 2RF Rx Instructions: take before food albuterol sulfate 90 mcg/actuation HFA aerosol inhaler 2 puff INHALATION QID PRN (Reason: Shortness Of Breath) Qty: 6.7 2RF propranolol 40 mg tablet 40 mg PO BID Qty: 60 5RF Rx Instructions: for migraine prevention. Improve blood pressure and heart rate tizanidine 4 mg tablet 4 mg PO BID Qty: 60 1RF topiramate 50 mg tablet 50 mg PO BID 30 Days Qty: 60 2RF valsartan [Diovan] 80 mg tablet 80 mg PO DAILY Qty: 30 2RF duloxetine [Cymbalta] 60 mg capsule,delayed release(DR/EC) 120 mg PO .morning Qty: 60 2RF Rx Instructions: Take two capsules every morning mupirocin 2 % ointment 1 applic topical BID Qty: 22 0RF Rx Instructions: right lower abdomen sulfamethoxazole-trimethoprim [Bactrim DS] 800-160 mg tablet 1 tab PO BID Qty: 14 0RF tramadol 50 mg tablet 50 mg PO BID PRN (Reason: pain) Qty: 14 0RF levothyroxine [Euthyrox] 25 mcg tablet 25 mcg PO QAM Qty: 30 0RF Discharge Orders: Discharge ED (Routine); Ordered 08/06/24 Ordered By: Vitor Winter Referrals: Dagoberto Arreola MD [Primary Care Provider] - Discharge Diet: Usual diet Discharge Activity: Increase activity as tolerated Patient Instructions: Opioid Safety, Pain Management Activity Restrictions/Additional Instructions: As we discussed during your emergency department visit there was no evidence of a retained abscess at this time however you may have a mild inflammation or infection of the soft tissue called cellulitis. To treat a condition we started you on an antibiotic which you should take until its completed. You should continue with your other usual medications and follow-up with your surgeon tomorrow as scheduled. If any new or worsening symptoms develop you are welcome to return to this or the nearest emergency department for reevaluation. Coding Level of Care Code ED Central Supply Nurse for Scooter Kuhn
[2024-08-06] MEDS: HYDROcodone-acetaminophen 5-325 mg Tablet 1 TAB PO (10:36)
[2024-08-06] MEDS: doxycycline 100 mg Tablet PO (10:36)
[2024-08-06 10:38] VITALS: BP 150/80; PULSE 78; RESP 19; O2SAT 98
== END 2024-08-06 10:40 | disposition home or self-care (01) ==
PROVIDERS: Emergency Provider Emergency Medicine; PCP Surgery
DX: N61.0 Mastitis without abscess (principal); F17.210 Nicotine dependence, cigarettes, uncomplicated; I10 Essential (primary) hypertension
CPT/HCPCS: 99283

== ENCOUNTER → 2024-08-18 08:55 | Outpatient (BNVA) | payer BC, MEDICAID, SELFPAY | PROVIDERS: PCP Surgery; Visit Provider Nurse Practitioner | DX: I10 Essential (primary) hypertension (principal); E55.9 Vitamin D deficiency, unspecified | CPT/HCPCS: 80053; 80061; 82306; 84443 ==

== ENCOUNTER → 2024-09-26 11:48 | Outpatient (BNVA) | payer BC, MEDICAID, SELFPAY | PROVIDERS: PCP Nurse Practitioner; Visit Provider Nurse Practitioner | DX: J02.9 Acute pharyngitis, unspecified (principal) | CPT/HCPCS: 87880 ==

== ENCOUNTER 2024-11-21 10:05 | Outpatient (CLI) | payer BC, MEDICAID, SELFPAY ==
--- NOTE | 2024-11-21 10:11 | XRR_ITS ---
PROCEDURE INFORMATION: Exam: XR Lumbosacral Spine Exam date and time: 11/21/2024 10:21 AM Age: 29 years old Clinical indication: Injury or trauma; Blunt trauma (contusions or hematomas); Injury date: 1 week ago; Prior surgery; Surgery date: 6+ months; Surgery type: Lumbar, gb, appy, hysto; Fall 1 wk ago on ice, low back pain that radiates mostly down right leg, HX of discectomy in 2022; Additional info: M51.16 - intervertebral disc disorders with radiculopathy. . . TECHNIQUE: Imaging protocol: Radiologic exam of the lumbosacral spine. Views: 2 or 3 views. COMPARISON: CR XR lumbar spine 2-3V* [id number] 08/10/2023 2:15 PM FINDINGS: Bones/joints: Moderate scoliosis. 4 mm left lateral subluxation of L2 on L3. Mild L2-L3 and L5-S1 degenerative disc disease. Bilateral L4-L5 and L5-S1 facet osteoarthritis. Mild bilateral sacroiliitis. Otherwise, unremarkable. Soft tissues: Otherwise, unremarkable soft tissues. Intraperitoneal space: Surgical clips in the right upper quadrant. XR/XR lumbar spine 2-3V* [id number] IMPRESSION: 1. No acute findings. 2. Additional details as above.
== END 2024-11-21 10:06 | disposition home or self-care (01) ==
LOC: RAD 10:10
PROVIDERS: PCP Nurse Practitioner; Visit Provider Nurse Practitioner
DX: M51.16 Intervertebral disc disorders with radiculopathy, lumbar region (principal); W00.9XXA Unspecified fall due to ice and snow, initial encounter; M41.86 Other forms of scoliosis, lumbar region; M51.369 Other intervertebral disc degeneration, lumbar region without mention of lumbar back pain or lower extremity pain; M47.896 Other spondylosis, lumbar region; M47.897 Other spondylosis, lumbosacral region; M46.1 Sacroiliitis, not elsewhere classified
CPT/HCPCS: 72100

== ENCOUNTER → 2024-12-12 16:35 | Outpatient (BNVA) | payer BC, MEDICAID, SELFPAY | PROVIDERS: PCP Nurse Practitioner; Visit Provider Nurse Practitioner | DX: I10 Essential (primary) hypertension (principal); E55.9 Vitamin D deficiency, unspecified | CPT/HCPCS: 80053; 82306; 84443 ==

== ENCOUNTER 2025-07-08 14:28 | Emergency (ER) | payer BC, MEDICAID, SELFPAY ==
--- OUTSIDE RECORDS SUMMARY | 2025-03-14 09:20 | XMS_ITS ---
Author Organization [facility] Address [address] [place] [address] Care Team Providers Care Contractor General Engineering Name Role Phone GlenroynyYefri Unavailable [phone] REASON FOR VISIT Ref by Jan Hammer NP Problems Problem Type SNOMED Code ICD Code Onset Dates Problem Status W/U Status Risk Notes Problem Chronic pain syndrome (652855121) Chronic pain syndrome (G89.4) Active confirmed Encounters Encounter Location Date Provider Diagnosis [facility] Interventional Pain Management [address] [address] 03/14/2025 Yefri Linder Chronic pain syndrome G89.4 Assessments Encounter Date Diagnosis (ICD Code) Assessment Notes Treatment Notes Treatment Clinical Notes Section Notes 03/14/2025 Chronic pain syndrome (ICD-10 - G89.4) Plan Of Treatment No Information History and Physical Notes * HPI (History of Present Illness) Category Sub-Category Detail Notes Category Not es Pain Details Pain Location ___ Duration ___ Onset ___ Frequency of Pain ___ Quality ___ Radiation ___ Severity of pain at its worst ___ Severity of pain at its best ___ Severity of average pain ___ Severity of pain right now ___ Worsening factors ___ Relieving factors ___ Associated symptoms ___ Severity of pain on medication ___ When did you last take your pain medicin e ___ Opioid Assessment Tools Pill Count ___ Today's Rapid Urine Drug Screen ___ [place] Prescription Monitoring Program ___ SOAPP-R (Screener/Opioid Assessment for Patient) ___ Today's SOAPP-R Score ___ Treatment History Caregivers you have visited ___ Test undergone in the past ___ Past medication you have taken ___ Treatments you have had ___ Were prior treatments of any help? ___ When was prior treatment started? ___ STOP-BANG Questionnaire Do you snore kristen dly (louder than talking or loud enough to be heard through closed doors)? ___ Do you often feel tired, fatigued, or sl eepy during the day? ___ Has anyone observed you stop breathing d uring your sleep ___ Do you have or are you being treated for high blood pressure? ___ BMI greater than 35 kg/m2? ___ Age over 50 years old? ___ Gender: Male ___ Neck circumference is measured greater t greene 40cm? ___ Score ___ Oxygen ___ CPAP ___ Progress Notes * Mello TILLMANkaiaDOB:1995 ( 30 yo F)Acc No.[id number]:03/14/2025 Progress Notes Patient: Neo Horne ea Provider: Aliyah Linder D.O. :1995 A ge:30 Y S ex:Female Date:03/14/2025 Address: [place] [address] , [id number] Subjective: * Chief Complaints: * R ef by Jan Hammer LEGAL PROJECT MANAGER * HPI: [place] Details: Pain Location _ __. Duration _ __. Onset _ __. Frequency of Pain _ __. Quality _ __. Radiation _ __. Severity of pain at its worst _ __. Severity of pain at its best _ __. Severity of pain on medication _ __. Severity of average pain _ __. Severity of pain right now _ __. Worsening factors _ __. Relieving factors _ __. Associated symptoms _ __. When did you last take your pain medicine _ __. O pioid Assessment Tools: SOAPP-R (Screener/Opioid Assessment for Patient) _ __. Today's SOAPP-R Score _ __. Pill Count _ __. Today's Rapid Urine Drug Screen _ __. [place] Prescription Monitoring Program _ __. T reatment History: Caregivers you have visited _ __. Test undergone in the past _ __. Past medication you have taken _ __. Treatments you have had _ __. Were prior treatments of any help? _ __. When was prior treatment started? _ __. S TOP-BANG Questionnaire: Do you snore loudly (louder than talking or loud enough to be heard through closed doors)? _ __. Do you often feel tired, fatigued, or sleepy during the day??___. Has anyone observed you stop breathing during your sleep _ __. Do you have or are you being treated for high blood pressure??___. BMI greater than 35 kg/m2? _ __. Age over 50 years old? _ __. Gender: Male _ __. Neck circumference is measured greater than 40cm? _ __.? Score _ __. Oxygen _ __. CPAP _ __. * ROS: G eneral - Multi System: Constitutional D eniesfever, fatigue, weight gain, weight loss, sleep difficulty. R espiratory D enies, cough, shortness of breath, COPD/emphysema, sleep apnea, wheezing, snoring. G astrointestinal?Denies, nausea, vomiting, constipation, diarrhea, abdominal pain. N eurologic D enies, headaches, numbness, weakness, memory loss, excessive sedation. P sychiatric D enies depression, anxiety, suicidal thoughts/actions, panic attacks. Assessment: * Assessment: 1. C hronic pain syndrome - G89.4 (Primary) Billing Information: * Procedure Codes: * Electronic signature of Yefri Linder DO on 07/08/2025 at 02:33 PM CDT Sign off status: Pending * Provider: Aliyah Linder D.O. Date: 0 03/14/2025 Generated for Acacia plascencia/Leandra/Felipe on: 1 02:33 PM CDT
[2025-07-08 14:30] VITALS: BP 124/77; PULSE 60; RESP 18; TEMP 36.8; O2SAT 99
--- NOTE | 2025-07-08 14:32 | XRR_ITS ---
PROCEDURE INFORMATION: Exam: XR Right Knee Exam date and time: 07/08/2025 2:34 PM Age: 30 years old Clinical indication: Injury or trauma; Fall; Blunt trauma; Knee; Right; Additional info: Pain TECHNIQUE: Imaging protocol: Radiologic exam of the right knee. Views: 3 views. COMPARISON: CR XR knees AP WB w RT lmt ORTH 02/03/2023 2:13 PM FINDINGS: Bones/joints: No fractures. Mild osteoarthrosis in the lateral compartment. Soft tissues: Normal. XR/XR knee RT 3V* [id number] IMPRESSION: No acute findings.
--- OUTSIDE RECORDS SUMMARY | 2025-07-08 14:33 | XMS_ITS | Encounter Summary ---
Author Organization [facility] Address [address] [place] [address] Care Team Providers Care Site Leader Name Role Phone Evans Alcantara MD Primary Care Provider [phone] Encounter Details Date Type Department Care Team (Latest Contact Info) Description 03/10/1999 Outpatient Historical [facility] Antonio Broderick MD [address] [facility] [address] [place] [address] Closed fracture of unspecified bone(s) of foot (except toes) (Primary Dx) Social History Tobacco Use Types Packs/Day Years Used Date Smoking Tobacco: Never Assessed Comments Unknown Sex and Gender Information Value Date Recorded Sex Assigned at Not on file Legal Sex Female 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
--- OUTSIDE RECORDS SUMMARY | 2025-07-08 14:33 | XMS_ITS | Clinical Summary ---
Author Organization [facility] Address [address] [facility] [address] [place] [address] Phone Care Team Providers Care Photographic Process Attendant Name Role Phone Sandoval Brooks MD Primary Care Provider [phone] Allergies Active Allergy Reactions Criticality Noted Date Comments Adhesive Tape-Silicones Rash Low 08/03/2014 Amoxicillin Hives High 08/20/2016 Cephalexin Anaphylaxis High 08/20/2016 Hydromorphone (Bulk) Hives High 05/13/2013 Penicillins Anaphylaxis High 05/13/2013 Shellfish Containing Products Nausea and Vomiting Low 08/03/2014 Medications DULoxetine (CYMBALTA) 60 mg Capsule, Delayed Release(E.C.) Take 90 mg by mouth daily. Patient states cymbalta 90mg once daily Active omeprazole (PriLOSEC) 40 mg Capsule, Delayed Release(E.C.) Take 40 mg by mouth daily. Active cetirizine (ZyrTEC) 10 mg tablet Take 10 mg by mouth daily. Active valsartan (DIOVAN) 80 mg tablet Take 80 mg by mouth daily. Active tiZANidine (ZANAFLEX) 4 mg Tablet Take 4 mg by mouth every 6 hours as needed for Spasm. 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 Elbow pain, right 01/12/2023 Tobacco use 08/08/2016 Dental caries 11/21/2014 Dental impaction 05/09/2014 Immunizations Immunization Administration Dates Next Due (ADACEL/BOOSTRIX)(10 YR UP) TDAP VACCINE, 0.5ML, IM 01/14/2023,05/28/2009 (GARDASIL)(9-45 YRS) HUMAN PAPILLOMAVIRUS VACCINE, TYPES 6, 11, 16, 18, QUADRIVALENT (4VHPV), 3 DOSE, IM 05/28/2009 (M-M-R II/PRIORIX)(12 MO UP) MEASLES, MUMPS AND RUBELLA VIRUS VACCINE, 0.5 ML IM/SUBCUT 08/17/1996 Dt Dtp Dtap Vaccine 11/12/1998, 8,01/18/1996,08/14,1994 HIB, Unspecified Formulation 06/04/1998, 01/18/1996,1994,04/17 Hepatitis B Vaccine 1994,1994,1993 IPV/OPV 06/04/1998, 6,01/18/1996,04/17 Family History Medical History Relation Name Comments Ovarian Cancer Sister Breast Cancer Neg Hx Cancer - Other Neg Hx Melanoma Neg Hx Pancreatic Cancer Neg Hx Uterine or Endometrial Cancer, Not Including Cervical Neg Hx Relation Name Status Comments Sister Alive Social History Tobacco Use Types Packs/Day Years Used Date Smoking Tobacco: Every Day Cigarettes Smokeless Tobacco: Never Tobacco Cessation:Ready to Q uit: Not Asked; Counseling Given: Not Answered Alcohol Use Standard Drinks/Week Comments No 0 (1 standard drink = 0.6 oz pur e alcohol) Feeling Safe Answer Date Recorded Are you in a relationship wi th someone who hurts you emotionally and/or physically? No 01/14/2023 Comments No Sex and Gender Information Value Date Recorded Sex Assigned at Not on file Legal Sex Female 12:15 AM DOPE EDGER Gender Identity Not on file Sexual Orientation Not on file Last Filed Vital Signs Vital Sign Reading Time Taken Comments Blood Pressure 143/77 01/14/2023 10:45 PM CDT Pulse 84 01/14/2023 10:45 PM CDT Temperature 36.7 C (98 F) 01/14/2023 9:45 PM CDT Respiratory Rate 17 01/14/2023 10:45 PM CDT Oxygen Saturation 95% 01/14/2023 10:45 PM CDT Inhaled Oxygen Concentration - - Weight 148.3 kg (327 lb) 01/14/2023 9:45 PM CDT Height 170.2 cm (5' 7 ) 01/14/2023 9:45 PM CDT Body Mass Index 51.22 01/14/2023 9:45 PM CDT Plan of Treatment Health Maintenance Due Date Last Done Comments HPV VACCINES (2 - 3-dose series) 06/25/2009 05/28/20 09 HPV/Cotest (21-29) 2015 CERVICAL CANCER SCREENING 01/21/2024 HPV/Cotest (30-65) 01/21/2024 PAP SMEAR 01/21/2024 INFLUENZA VACCINE (#1) 2025 DTAP/TDAP/TD VACCINES (7 - T d or Tdap) 01/14/2033 01/14/2023, 05/28/2009, 11/12/1998, Additional history exists HEPATITIS B VACCINES Completed 1994, 1994, 1994 Insurance [facility]1983 MEDICAID Care Teams Photographic Process Attendant Relationship Specialty Start Date End Date Sandoval Brooks MD [address] [place] [id number] PCP - General Pediatrics 01/14/23
--- OUTSIDE RECORDS SUMMARY | 2025-07-08 14:33 | XMS_ITS | Encounter Summary ---
Author Organization [facility] Address [address] [place] [address] Care Team Providers Care Bag Shaker Name Role Phone Evans Alcantara MD Primary Care Provider [phone] Encounter Details Date Type Department Care Team (Late st Contact Info) Description 05/09/2014 Ancillary Orders [facility] Oral and Maxillo Surgery- [place] [address] [facility] [address] [place] [address] Mono Betancourt Jr., DMD NO ADDRESS ON FILE Unspecified dental caries (Primary Dx) Social History Tobacco Use Types Packs/Day Years Used Date Smoking Tobacco: Every Day Cigarettes Alcohol Use Standard Drinks/Week Comments No 0 (1 standard drink = 0.6 oz pur e alcohol) Comments No Sex and Gender Information Value Date Recorded Sex Assigned at Not on file 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 Gender Identity Not on file Sexual Orientation Not on file Occupation Industry Job Start Date Job End Date Not on file Not on file Not on file Not on file documented as of this encounter Plan of Treatment Not on file documented as of this encounter Results * XR PANOREX (05/09/2014 3:45 PM CDT) Anatomical Region Laterality Modality Head Computed Radiogr aphy Narrative 06/23/2014 4:16 PM CDT Panoramic Findings: Non restorable teeth Recommendation: removal of teeth Procedure Note Mono Betancourt Jr., DMD - 06/23/2014 Panoramic Findings: Non restorable teeth Recommendation: removal of teeth Mono Betancourt Jr., DMD DIAGNOSTIC IMAGING ORDERABLES Final Result documented in this encounter Visit Diagnoses Diagnosis Unspecified dental caries- Primary documented in this encounter Care Teams Bag Shaker Relationship Specialty Start Date End Date Evans Alcantara MD [address] [place] [address] [address] PCP - General Family Practice 05/13/13 documented as of this encounter
--- OUTSIDE RECORDS SUMMARY | 2025-07-08 14:33 | XMS_ITS | Clinical Summary ---
Author Organization [facility] Address [address] [facility] [address] [place] [address] Phone Care Team Providers Care Munitions Worker Name Role Phone Evans Alcantara MD Primary Care Provider [phone] Allergies Active Allergy Reactions Criticality Noted Date Comments Adhesive Tape-Silicones Rash Low 08/03/2014 Amoxicillin Hives High 08/20/2016 Cephalexin Anaphylaxis High 08/20/2016 Hydromorphone (Bulk) Hives High 05/13/2013 Penicillins Anaphylaxis High 05/13/2013 Shellfish Containing Products Nausea and Vomiting Low 08/03/2014 Medications venlafaxine (EFFEXOR) 75 mg tablet Take 75 mg by mouth 3 times daily. Active lamoTRIgine (LaMICtal) 25 mg tablet Take 25 mg by mouth daily. Active esomeprazole (NexIUM) 20 mg Capsule, Delayed Release(E.C.) Take 20 mg by mouth daily before breakfast. Active Active Problems Problem Noted Date Diagnosed Date Tobacco use 08/08/2016 Dental caries 11/21/2014 Dental impaction 05/09/2014 Immunizations Immunization Administration Dates Next Due (ADACEL/BOOSTRIX)(10 YR UP) TDAP VACCINE, 0.5ML, IM 05/28/2009 (GARDASIL)(9-45 YRS) HUMAN PAPILLOMAVIRUS VACCINE, TYPES 6, 11, 16, 18, QUADRIVALENT (4VHPV), 3 DOSE, IM 05/28/2009 (M-M-R II/PRIORIX)(12 MO UP) MEASLES, MUMPS AND RUBELLA VIRUS VACCINE, 0.5 ML IM/SUBCUT 08/17/1996 Dt Dtp Dtap Vaccine 11/12/1998, 8,01/18/1996,08/14,1994 HIB, Unspecified Formulation 06/04/1998, 01/18/1996,1994,04/17 Hepatitis B Vaccine 1994,1994,1993 IPV/OPV 06/04/1998, 6,01/18/1996,04/17 Social History Tobacco Use Types Packs/Day Years Used Date Smoking Tobacco: Every Day Cigarettes 0.5 5 Smokeless Tobacco: Never Tobacco Cessation:Ready to Q uit: No; Counseling Given: Yes Alcohol Use Standard Drinks/Week Comments No 0 (1 standard drink = 0.6 oz pur e alcohol) Comments No Sex and Gender Information Value Date Recorded Sex Assigned at Not on file 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 Gender Identity Not on file Sexual Orientation Not on file Occupation Industry Job Start Date Job End Date Not on file Not on file Not on file Not on file Last Filed Vital Signs Vital Sign Reading Time Taken Comments Blood Pressure 119/54 01/23/2021 2:40 AM CDT Pulse 82 12/11/2014 9:40 AM CDT Temperature 36.7 C (98 F) 01/23/2021 12:00 AM CDT Respiratory Rate 18 01/23/2021 2:40 AM CDT Oxygen Saturation 99% 01/23/2021 2:40 AM CDT Inhaled Oxygen Concentration - - Weight 140.2 kg (309 lb) 01/23/2021 12:00 AM CDT Height 170.2 cm (5' 7 ) 01/23/2021 12:00 AM CDT Body Mass Index 48.4 01/23/2021 12:00 AM CDT Plan of Treatment Health Maintenance Due Date Last Done Comments HPV VACCINES (2 - 3-dose series) 06/25/2009 05/28/20 09 HPV/Cotest (21-29) 2015 DTAP/TDAP/TD VACCINES (6 - T d or Tdap) 05/28/2019 05/28/2009, 11/12/1998, 06/04/1998, Additional history exists CERVICAL CANCER SCREENING 01/21/2024 HPV/Cotest (30-65) 01/21/2024 PAP SMEAR 01/21/2024 INFLUENZA VACCINE (#1) 2025 HEPATITIS B VACCINES Completed 1994, 1994, 1994 Insurance [facility] [id number] Advance Directives For more information, please contact: [phone] * Full Code (Latest Code Status on File) Date Activated Date Inactivated Comments 08/07/2014 9:47 AM 08/07/2014 3:31 PM Care Teams Munitions Worker Relationship Specialty Start Date End Date Evans Alcantara MD [address] [place] [id number] PCP - General Family Practice 05/13/13
--- OUTSIDE RECORDS SUMMARY | 2025-07-08 14:33 | XMS_ITS | Encounter Summary ---
Author Organization [facility] Address [address] [place] [address] Care Team Providers Care Machining Technician Name Role Phone Evans Alcantara MD Primary Care Provider Encounter Details Date Type Department Care Team (Late st Contact Info) Description 07/26/2014 Ancillary Orders [facility] Oral and Maxillo Surgery- [place] [address] [facility] [address] [place] [address] Mono Betancourt Jr., DMD NO ADDRESS ON FILE Unspecified dental caries (Primary Dx) Social History Tobacco Use Types Packs/Day Years Used Date Smoking Tobacco: Every Day Cigarettes 0.5 3 Smokeless Tobacco: Never Alcohol Use Standard Drinks/Week Comments No 0 (1 standard drink = 0.6 oz pur e alcohol) Comments No Sex and Gender Information Value Date Recorded Sex Assigned at Not on file 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 Gender Identity Not on file Sexual Orientation Not on file Occupation Industry Job Start Date Job End Date Not on file Not on file Not on file Not on file documented as of this encounter Plan of Treatment Not on file documented as of this encounter Results * XR PANOREX (07/26/2014 1:32 PM CDT) Anatomical Region Laterality Modality Head Computed Radiogr aphy Narrative 12/29/2014 10:47 PM CDT FINAL - See Provider Note Procedure Note 11/06/2015 FINAL - See Provider Note Mono Betancourt Jr., DMD DIAGNOSTIC IMAGING ORDERABLES Final Result documented in this encounter Visit Diagnoses Diagnosis Unspecified dental caries- Primary documented in this encounter Care Teams Machining Technician Relationship Specialty Start Date End Date Evans Alcantara MD [address] [place] [address] PCP - General Family Practice 05/13/13 documented as of this encounter
--- OUTSIDE RECORDS SUMMARY | 2025-07-08 14:33 | XMS_ITS | Patient Health Record ---
Author Organization 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) Referring Provider First Name Jan Referring Provider Last Name Harman Referring Provider Speciality Nurse Prac titioner Referred Organization [facility] Referred Provider Shelton Flowers Referred Address [address] [facility],[address], Referred Provider Specialty Pain Medicin e General Notes Florence Schneider 03:54:38 PM >atc pt, lvm to call [facility] clinicJennie Twyla A 01/29/2025 11:22:01 AM >mailed npp, patient is scheduled Referral Priority Routine Problems Problem Type SNOMED Code ICD Code Onset Dates Problem Status W/U Status Risk Notes Problem Chronic pain syndrome (500196004) Chronic pain syndrome (G89.4) Active confirmed Plan Of Treatment No Information Insurance Providers Payer Name Payer Address Payer Phone Subscriber Number Group Number Insured Name Patient Relationship to Insured Coverage Start Date Coverage End Date [employer] [place] Medicaid Replacement [address] [address] [place] [phone] [id number] [employer] [place] Self - patient is the insured [place] Medicaid [address] [place] [address] [phone] [id number] [facility] [place] Self - patient is the insured
--- OUTSIDE RECORDS SUMMARY | 2025-07-08 14:33 | XMS_ITS | Encounter Summary ---
Author Organization [facility] Address [address] [place] [address] Care Team Providers Care Surface Water Manager Name Role Phone Evans Alcantara MD Primary Care Provider Encounter Details Date Type Department Care Team (Late st Contact Info) Description 08/12/2001 Outpatient Historical [facility]rology- [place] [address] [facility] [address], 3rd [place] [address] Allen Marin MD [address] [address] DYSURIA (Primary Dx); NOCTURNAL ENURESIS Social History Tobacco Use Types Packs/Day Years Used Date Smoking Tobacco: Never Assessed Comments Unknown Sex and Gender Information Value Date Recorded Sex Assigned at Not on file 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
--- OUTSIDE RECORDS SUMMARY | 2025-07-08 14:33 | XMS_ITS | Encounter Summary ---
Author Organization [facility] Address [address] [place] [address] Care Team Providers Care Rn Clinical Quality Name Role Phone Evans Alcantara MD Primary Care Provider Encounter Details Date Type Department Care Team (Late st Contact Info) Description 12/11/2014 Ancillary Orders [facility] Oral and Maxillo Surgery- [place] [address] [facility] [address] [place] [address] Mono Betancourt Jr., DMD NO ADDRESS ON FILE Unspecified dental caries (Primary Dx) Social History Tobacco Use Types Packs/Day Years Used Date Smoking Tobacco: Every Day Cigarettes 0.5 4 Smokeless Tobacco: Never Alcohol Use Standard Drinks/Week Comments No 0 (1 standard drink = 0.6 oz pur e alcohol) Comments No Sex and Gender Information Value Date Recorded Sex Assigned at Not on file 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 us Mono Betancourt Jr., DMD DIAGNOSTIC IMAGING ORDERABLES Final Result documented in this encounter Visit Diagnoses Diagnosis Unspecified dental caries- Primary documented in this encounter Care Teams Rn Clinical Quality Relationship Specialty Start Date End Date Evans Alcantara MD [address] [address] PCP - General Family Practice 05/13/13 documented as of this encounter
--- NOTE | 2025-07-08 14:36 | ED_ITS ---
HPI - Extremity Problem General: Chief complaint: Extremity Injury, Lower Stated complaint: RIGHT KNEE Time Seen by Provider: 07/08/25 14:32 History of Present Illness: 30-year-old female presents emergency ro om after tripping and falling while hiking on a trail yesterday she has abrasions bilaterally to the knee she primarily hurt her right knee. She is able to walk on it but is progressively worse overnight and today now she feels like she cannot walk on it. She denies any other injuries her tetanus is up-to-date she had it updated a couple years ago when she had a cut on the right knee. She has no full-thickness lacerations now. She denies striking her head no neck pain no back pain. Related Data Previous Rx's ?Medication ?Instructions ?Recorded albuterol sulfate 90 mcg/actuation 2 puff inhalation Q ID PRN 08/17/24 aerosol inhaler Shortness Of Breath #6.7 gra ms cholestyramine (with sugar) 4 gram 4 g PO TID PRN mahad clemens #348.6 02/27/25 oral powder (Questran) grams mupirocin 2 % topical ointment 1 applic topical TID 5 days #15 03/28/25 (Centany) grams Lactobacillus rhamnosus GG 20 See Rx Instructions PO . 2 times 05/14/25 billion cell capsule (Probiotic day #60 caps [facility]) acarbose 100 mg tablet 100 mg PO TID #90 tabs 05/14 cholecalciferol (vitamin D3) 125 125 mcg PO DAILY #30 caps 05/14/25 mcg (5,000 unit) capsule duloxetine 60 mg capsule,delayed 120 mg (2 x 60 mg) PO .morning #60 05/14/25 release caps famotidine 40 mg tablet (Pepcid) 40 mg PO DAILY #30 ta bs 05/14/25 hydroxyzine pamoate 50 mg capsule 50 mg PO BID PRN anx iety #60 caps 05/14/25 levothyroxine 25 mcg tablet 25 mcg PO QAM #30 tabs (Euthyrox) magnesium oxide 400 mg PO BID #60 tabs 05/14 methocarbamol 750 mg tablet 750 mg PO .2 times day #60 tabs 05/14/25 propranolol 40 mg tablet 40 mg PO BID #60 tabs topiramate 200 mg tablet (Topamax) 200 mg PO BID #60 t abs 05/14/25 valsartan 40 mg tablet (Diovan) 40 mg PO DAILY #30 tab s 05/14/25 zonisamide 100 mg capsule 100 mg PO BID #60 caps 05/14 (Zonegran) diclofenac sodium 75 mg 75 mg PO Q12H PRN pain #20 t abs 07/08/25 tablet,delayed release Allergies Allergy/AdvReac Type Severity Reaction Status Date / Time metronidazole (From Flagyl) Allergy Mild rash Verified 05/14/25 16:35 amoxicillin Allergy ALGY-Hives Verified 05/14/25 16:35 Cephalosporins Allergy ALGY-Difficulty Verified 05/14/25 16:35 Breathing latex Allergy ALGY-Hives Verified 05/14/25 16:35 meperidine (From Demerol) Allergy ALGY-Hives Verified 05/14/25 16:35 Penicillins Allergy ALGY-Anaphy Verified 05/14/25 16:35 laxis Review of Systems Musc: Denies: neck pain or back pain [facility] ED PFSH: Medical History Low back 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 disc Marijuana use, episodic Breast abscess Cyst of right breast Chronic post-traumatic stress disorder Nicotine dependence, cigarettes, uncomplicated Major depressive disorder, recurrent severe without psychotic features Chronic idiopathic constipation Vitamin D deficiency Metabolic syndrome Chronic low back pain without sciatica Hiatal hernia with gastroesophageal reflux Environmental and seasonal allergies Bronchospasm Essential (primary) hypertension Contusion of left knee Generalized anxiety disorder Polycystic ovarian syndrome Gastro-esophageal reflux disease with esophagitis Anoop's disease Peptic ulcer disease Surgical History History of hysterectomy 2020 with [facility] without BSO Hx of cholecystectomy Hx of colonoscopy Hx of esophagogastroduodenoscopy [facility] tubal ligation (12/17/20) Laparoscopic bilateral complete salpingectomy. Performed by Dr. Mendez at [facility] in [place], [place]. S/P appendectomy (~11/2011) S/P laparoscopy (02/02/14) S/P laparoscopy (10/11/14) S/P laparoscopy (12/20/14) S/P laparoscopy (01/18/18) S/P cholecystectomy (02/22/14) Status post arthroscopic surgery of left knee October 2019 History of appendectomy Family History Mother Pulmonary embolism Thyroid disease Stroke Hypertension Hyperlipidemia Diabetes Father Diabetes Hyperlipidemia Grandmother Cancer MATERNAL: BRAIN Social History Smoking and tobacco/nicotine status: current every day tobacco/nicotine user cigarettes Alcohol intake: unknown Substance/Drug Use: current Adopted: No Caregiver/support person: No Lives independently: Yes Household members: spouse and family Housing: Apartment Marital status: Number of children: 3 service: No Current occupational status: unemployed Do you think of yourself as: Straight/Heterosexual Current gender identity: Female Female Reproductive History: Para: 3 Spontaneous abortions: No Physical Exam Const: COMMON NORMALS: no acute distress GENERAL APPEARANCE: cooperative and comfortable ORIENTATION/CONSCIOUSNESS: Yes awake, Yes oriented to person, Yes oriented to place and Yes oriented to time HENMT: COMMON NORMALS: normocephalic, atraumatic and hearing grossly normal bilaterally HEAD & SCALP: normocephalic and atraumatic Resp: COMMON NORMALS: normal respiratory effort, No retractions, No use of accessory muscles and clear to auscultation bilaterally AUSCULTATION: clear to auscultation bilaterally Cardio: COMMON NORMALS: regular rate, regular rhythm and No murmurs present (Cardio) RATE: regular rate RHYTHM: regular rhythm Extremity: COMMON NORMALS: normal to inspection, capillary refill normal, no clubbing, cyanosis or edema, no calf tenderness and no pedal edema OTHER: Superficial bilateral knee abrasions no deformities mild swelling of right knee. Difficult to assess ligamentous stability of the knee due to discomfort Neuro: SENSORIUM/ORIENTATION: Yes oriented to person, Yes oriented to place and Yes oriented to time Skin: COMMON NORMALS: no rashes or lesions noted GENERAL SKIN EXAM: no rashes or lesions noted Course Vital Signs: Vital signs: Vital Signs Temperature 98.3 F 07/08/25 14:30 Pulse Rate 60 07/08/25 14:30 Respiratory Rate 18 07/08/25 14:30 Blood Pressure 124/77 07/08/25 14:30 Pulse Oximetry 99 07/08/25 14:30 Oxygen Delivery Me thod Room Air 07/08/25 14:30 MDM - Extremity (Nontraumatic) Medical Decision Making Patient has right knee sprain x-rays did not show any acute fracture as read by myself radiology to overread will discharge patient home with knee immobilizer nonweightbearing on crutches and have her follow-up with orthopedics. [facility]. Medical Records I reviewed the patient's medical records. XR interpretation done by ED provider, pending radiology final review ED provider radiology interpretation(s): Right knee x-ray no acute fracture small joint effusion no deformities Discharge Plan Discharge Patient Disposition: Home Clinical Impression: Right knee sprain Condition: Stable Prescriptions: New diclofenac sodium 75 mg tablet,delayed release (DR/EC) 75 mg PO Q12H PRN (Reason: pain) Qty: 20 0RF No Action albuterol sulfate 90 mcg/actuation HFA aerosol inhaler 2 puff INHALATION QID PRN (Reason: Shortness Of Breath) Qty: 6.7 2RF mupirocin [Centany] 2 % ointment 1 applic topical TID 5 Days Qty: 15 0RF acarbose 100 mg tablet 100 mg PO TID Qty: 90 2RF Rx Instructions: take before food cholecalciferol (vitamin D3) 125 mcg (5,000 unit) capsule 125 mcg PO DAILY Qty: 30 2RF duloxetine 60 mg capsule,delayed release(DR/EC) 120 mg PO .morning Qty: 60 2RF Rx Instructions: Take two capsules every morning famotidine [Pepcid] 40 mg tablet 40 mg PO DAILY Qty: 30 2RF hydroxyzine pamoate 50 mg capsule 50 mg PO BID PRN (Reason: anxiety) Qty: 60 2RF Rx Instructions: Take one capsule twice per day as needed for anxiety Probiotic [facility] Care 20 billion cell capsule See Rx Instructions PO .2 times day Qty: 60 2RF Rx Instructions: 20 billion cell PO .2 times day; levothyroxine [Euthyrox] 25 mcg tablet 25 mcg PO QAM Qty: 30 2RF magnesium oxide 400 mg magnesium tablet 400 mg PO BID Qty: 60 2RF methocarbamol 750 mg tablet 750 mg PO .2 times day Qty: 60 2RF propranolol 40 mg tablet 40 mg PO BID Qty: 60 2RF Rx Instructions: for migraine prevention. Improve blood pressure and heart rate topiramate [Topamax] 200 mg tablet 200 mg PO BID Qty: 60 2RF valsartan [Diovan] 40 mg tablet 40 mg PO DAILY Qty: 30 2RF zonisamide [Zonegran] 100 mg capsule 100 mg PO BID Qty: 60 2RF cholestyramine (with sugar) [Questran] 4 gram powder 4 g PO TID PRN (Reason: stooling) Qty: 348.6 2RF Rx Instructions: administer w/meal; avoid other meds within 1hr before or 4-6hr after dose Discharge Orders: Discharge ED (Routine); Ordered 07/08/25 Ordered By: Genaro Garcia Referrals: Jan Hammer FNP-C [Primary Care Provider, Family Practice] Discharge Diet: Usual diet Discharge Activity: Limit activity as instructed Patient Instructions: Opioid Safety, Pain Management, Patient Portal & Mj Instructions Activity Restrictions/Additional Instructions: Thank you for choosing [facility] for your healthcare needs today. It is very important that you follow up as instructed or that you return to the Emergency Department should you have concerns or if your condition changes or worsens in any way. Emergency department visits are focused on emergent conditions, in some cases you may require further evaluation on an outpatient basis. You were seen in the emergency room after a fall x-ray of your right knee did not show any acute fractures. Suspect you sprained the knee will put you in a knee immobilizer and have you nonweightbearing using crutches. Will have you follow-up with orthopedics case management make arrangements for the appointment. (Please note that included in your discharge packet is information concerning opioid safety and pain management. This information is given to all patients were discharged from the ER regardless of their discharge diagnosis or the medicines they usually take or are prescribed.) Print Language: Hungarian Coding Level of Care Code ED Squeak [employer]r for [employer]ooter Kuhn
--- NOTE | 2025-07-10 16:07 | PC.NURSE ---
Ortho referral sent.
== END 2025-07-08 15:11 | disposition home or self-care (01) ==
PROVIDERS: Emergency Provider Family Medicine; PCP Nurse Practitioner
DX: S83.91XA Sprain of unspecified site of right knee, initial encounter (principal); F17.210 Nicotine dependence, cigarettes, uncomplicated; I10 Essential (primary) hypertension; W01.0XXA Fall on same level from slipping, tripping and stumbling without subsequent striking against object, initial encounter
CPT/HCPCS: 73562; 99283; E0114; L1830

== ENCOUNTER → 2025-07-24 14:56 | Outpatient (BNVA) | payer BC, MEDICAID, SELFPAY | PROVIDERS: PCP Nurse Practitioner; Visit Provider Orthopaedic Surgery | DX: S89.91XA Unspecified injury of right lower leg, initial encounter (principal); W19.XXXA Unspecified fall, initial encounter | CPT/HCPCS: 73562 ==

== ENCOUNTER → 2025-09-04 09:41 | Outpatient (BNVA) | payer BC, MEDICAID, SELFPAY | PROVIDERS: PCP Nurse Practitioner; Visit Provider Nurse Practitioner | DX: I10 Essential (primary) hypertension (principal); E55.9 Vitamin D deficiency, unspecified; E78.1 Pure hyperglyceridemia | CPT/HCPCS: 80053; 80061; 82306; 84443 ==